=== PATIENT | female | born 1940 | race Caucasian/White ===

== ENCOUNTER 2016-09-22 06:51 | Day surgery (SDC) | payer MEDICARE ==
[2016-09-22] MEDS ORDERED: Propofol 10 mg/ml Inj (20 ML) ONE (09:05)
[2016-09-22] MEDS ORDERED: Lidocaine Hydrochloride 5 ML INJ ONE (09:23)
[2016-09-22 09:51] VITALS: TEMP 98
[2016-09-22 10:47] VITALS: RESP 18
[2016-09-22 10:49] VITALS: BP 124/55; PULSE 70; O2SAT 100
== END 2016-09-22 10:45 | disposition home or self-care (01) ==
LOC: C.ENDO 06:51
PROVIDERS: ATTEND Internal Medicine Gastroenterology
DX: R10.13 Epigastric pain (principal); K44.9 Diaphragmatic hernia without obstruction or gangrene; K29.70 Gastritis, unspecified, without bleeding
CPT/HCPCS: 43239; 82948; 88305; J2704

== ENCOUNTER 2017-08-20 15:27 | Inpatient (IN) | payer MEDICARE ==
[2017-08-20 16:07] LABS: BASO % 0.3 % (0.0-2.0); HEMOGLOBIN 12.7 g/dL (11.0-16.0); LYMPH # 0.7 K/uL (1.0-4.3); LYMPH % 6.9 % (20.0-40.0); MEAN CORPUSCULAR HEMOGLOBIN 31.2 pg (27.0-31.0); MEAN PLATELET VOLUME 7.8 fL (7.2-11.7); MONO # 0.8 K/uL (0.0-0.8); NEUT # 8.7 K/uL (1.8-7.0); NEUT % 84.8 % (50.0-75.0); NRBC % 0.1 % (0.0-2.0); PLATELET COUNT 205 K/uL (130-400); RBC 4.08 Mil/uL (3.80-5.20); RED CELL DISTRIBUTION WIDTH 14.8 % (11.5-14.5)
[2017-08-20] MEDS ORDERED: Sodium Chloride 0.9% 1,000 ML IV ONE (16:11)
[2017-08-20 16:13] LABS: WHITE BLOOD COUNT 10.3 K/uL (4.8-10.8)
--- NOTE | 2017-08-20 16:16 | C.PDOC ---
History Of Present Illness Pt is a 77 year old female, whose PMHx includes rheumatoid arthritis, diabetes, malabsorption syndrome, biliary sludge, and hyperthyroidism who presents to the ED for evaluation of mid-epigastric abdominal pain which began months ago but worsened over the past 3 weeks and is unbearable today. Patient also reports occasional vomiting and has not taken medicine for symptoms. She was evaluated by Dr. Colmenares (GI) approx [address] Colmenares recommended pt have abdominal ultrasound (paperwork brought to ED). Patient describes her pain as constant in nature, non-radiating and states it is 10/10 in severity. Patient reports her pain is neither exacerbated nor relieved with eating. She denies fever, chills, and diarrhea. Patient also is losing weight. Patient denies social history. Reports family history of cancer. PMD: Dr. Branham / Time Seen by Provider: 08/20/17 15:46 Chief Complaint (Nursing): Abdominal Pain History Per: Patient History/Exam Limitations: no limitations Onset/Duration Of Symptoms: Other (months, worsened over 3 weeks ) Current Symptoms Are (Timing): Worse Severity: Severe Pain Scale Rating Of: 10 Location Of Pain/Discomfort: Epigastric (mid ) Radiation Of Pain To:: None Quality Of Discomfort: "Pain" Associated Symptoms: Vomiting. denies: Fever, Chills, Diarrhea Exacerbating Factors: None Alleviating Factors: None Additional History Per: Patient Past Medical History Reviewed: Historical Data, Nursing Documentation, Vital Signs Vital Signs: Last Vital Signs Temp 98.4 F 08/20/17 15:37 Pulse 91 H 08/20/17 18:16 Resp 16 08/20/17 18:16 BP 140/74 08/20/17 18:16 Pulse Ox 96 08/20/17 18:44 - Medical History PMH: Anemia, Colonic Polyps, Diabetes, Hyperthyroidism, Rheumatoid Arthritis Other PMH: biliary sludge Surgical History: Appendectomy Denies: Endoscopy Family History: States: Other Other Family History: cancer - Social History Hx Tobacco Use: No Hx Alcohol Use: No Hx Substance Use: No - Immunization History Hx Tetanus Toxoid Vaccination: No Hx Influenza Vaccination: Yes Hx Pneumococcal Vaccination: Yes Review Of Systems Constitutional: Negative for: Fever, Chills Gastrointestinal: Positive for: Vomiting, Abdominal Pain (mid-epigastric ). Negative for: Diarrhea Physical Exam - Physical Exam Appears: Non-toxic, Other (uncomfortable, crying ) Skin: Warm, Dry, Other (vitiligo to scalp) Head: Atraumatic, Normacephalic Eye(s): bilateral: Normal Inspection, EOMI Ear(s): Bilateral: Normal Nose: Normal Oral Mucosa: Moist Tongue: Normal Appearing Lips: Normal Appearing Throat: Normal Neck: Normal, Supple Lymphatic: Deferred Chest: Symmetrical, No Deformity, No Tenderness Cardiovascular: Rhythm Regular, No Murmur Respiratory: Normal Breath Sounds, No Rales, No Rhonchi, No Wheezing Gastrointestinal/Abdominal: Bowel Sounds (present ), Soft, Tenderness ((+) RUQ tenderness but no mid-epigastric tenderness), No Guarding, No Rebound Rectal: Deferred Back: Normal Inspection Extremity: Normal ROM, Capillary Refill (less than 2 seconds ) Extremity: Bilateral: Atraumatic, Normal ROM Neurological/Psych: Oriented x3, Normal Speech, Normal Motor, Normal Sensation ED Course And Treatment - Laboratory Results Result Diagrams: 08/20/17 16:04 08/20/17 16:04 O2 Sat by Pulse Oximetry: 96 (on RA) Pulse Ox Interpretation: Normal Medical Decision Making Medical Decision Making: Initial Impression: undifferentiated abdominal pain Initial Plan: * bloodwork * urinalysis * abdominal US * Pepcid IVP * Morphine IVP * IV Fluids * reassess and disposition Progress note(s): 5:51 PM - Patient with extremely elevated LFTs, lipase >20,000. LDH is pending (to determine Ransens criteria score). I discussed case with patient GI physician (Dr. Colmenares) and he recommends ultrasound, aggressive fluid resuscitation (250mL/hr during the overnight) and ICU evaluation to determine if to go to floor vs. ICU. Private of Dr. Branham (who admits to hospitalist). I spoke to cardiac technician--she is driving in to do ultrasound. 6:00 PM - Admission endorsed to Hospitalist Dr. Amadou Montague 6:11 PM -- LDH very elevated. Case just d/w Dr. Herman; agrees with admission to ICU. He states ultrasound will be very helpful. If ultrasound is non-diagnostic, then advises to get CT scan. Lactate 1.0, ph 7.35 6:30 PM - Resident is at bedside evaluating the pt 6:40 PM - Certified Ophthalmic Surgical Assistant (Dr. Herman) is at the bedside evaluating pt. 6:52 PM - Pt is going to ultrasound now and then will go to ICU. Inpatient service will follow ultrasound results. I am signing off on the case now. . Disposition Counseled Patient/Family Regarding: Studies Performed, Diagnosis - Disposition Disposition: HOSPITALIZED Disposition Time: 17:46 Condition: SERIOUS - Clinical Impression Clinical Impression: Pancreatitis - Scribe Statement The provider has reviewed the documentation as recorded by the Scribe (Ene Gaffney) Provider Attestation: All medical record entries made by the Scribe were at my direction and personally dictated by me. I have reviewed the chart and agree that the record accurately reflects my personal performance of the history, physical exam, medical decision making, and the department course for this patient. I have also personally directed, reviewed, and agree with the discharge instructions and disposition. Decision To Admit - Pt Status Changed To: Hospital Disposition Of: Inpatient - Admit Certification Admit to Inpatient:: After my assessment, the patient will require hospitalization for at least two midnights. This is because of the severity of symptoms shown, intensity of services needed, and/or the medical risk in this patient being treated as an outpatient. - InPatient: Physician Admission Certification:: Pt with severe pancreatitis. - . Bed Request Type: ICU Admitting Physician: Amadou Montague Patient Diagnosis: Pancreatitis
[2017-08-20 16:21] LABS: ALB/GLOB RATIO 0.6 (1.0-2.1); ALBUMIN 3.9 g/dL (3.5-5.0); CALCIUM 9.2 mg/dl (8.6-10.4); GFR AFRICAN-AMERICAN > 60; GFR NON-AFRICAN AMERICAN > 60
[2017-08-20 16:25] LABS: ALT/SGPT 588 U/L (9-52); AST/SGOT 619 U/L (14-36); BLOOD UREA NITROGEN 14 mg/dL (7-17)
[2017-08-20] MEDS ORDERED: Morphine 4 MG/ML VIAL ONE (16:37)
[2017-08-20 16:43] LABS: BANDS 7 % (0-2); LYMPHOCYTE 5 % (20-40); MONOCYTE 10 % (0-10); NEUTROPHIL 78 % (50-75); PLATELET ESTIMATE NORMAL (NORMAL); TOTAL CELLS COUNTED 100
[2017-08-20 16:44] LABS: ANISOCYTOSIS SLIGHT; HYPOCHROMIC SLIGHT; LARGE PLATELETS PRESENT; OVALOCYTES SLIGHT; POIKILOCYTOSIS SLIGHT
[2017-08-20 17:27] LABS: LIPASE 20144 U/L (23-300)
[2017-08-20] MEDS ORDERED: Sodium Chloride 0.9% 3,000 ML IV SCH (17:45)
[2017-08-20 18:00] LABS: VENOUS BLOOD GAS BASE EXCESS 3.8 mmol/L (0.0-2.0); VENOUS BLOOD GAS PCO2 56 mmHg (40-60); VENOUS BLOOD GAS PO2 16 mm/Hg (30-55); VENOUS BLOOD PH 7.35 (7.32-7.43)
[2017-08-20] MEDS ORDERED: Morphine 4 MG/ML VIAL IVP PRN (18:23)
[2017-08-20] MEDS ORDERED: Lactated Ringer's 1,000 ML IV SCH (18:30)
[2017-08-20 18:45] LABS: SQUAMOUS EPITHIAL 1 /hpf (0-5); URINE BACTERIA OCC (<OCC); URINE BILIRUBIN NEGATIVE (NEGATIVE); URINE BLOOD NEGATIVE (NEGATIVE); URINE CLARITY Clear (Clear); URINE COLOR Yellow (YELLOW); URINE GLUCOSE (UA) NORMAL (Normal); URINE LEUKOCYTE ESTERASE TRACE Leu/uL (Negative); URINE PROTEIN NEGATIVE (NEGATIVE)
--- NOTE | 2017-08-20 18:47 | CP.PCM.HP ---
<Wilda Bailey - Last Filed: 08/20/17 18:47> History of Present Illness - History of Present Illness History of Present Illness: HPI: Patient is a 77 year old female from [facility] with a PMH of RA and DM who presents to the ED complaining of abdominal pain. Patient says this started last year and she saw Dr. Colmenares but is unsure if anything was ever determined. Patient says the abdominal pain went away but came back 3 weeks ago and gradually worsened to a constant, sharp, 10 out of 10 pain in her epigastric area radiating to her back. Patient says nothing makes the pain worse and nothing makes it better either. Patient also admits to decreased appetite and unintentional weight loss from 180s to 114 pounds. Patient admits to 3 episodes of nonbloody, yellowish colored vomiting prior to coming to the ED today. she also admits to dysuria of 2 days, constipation, and dry cough. Patient denies fever, chills, diaphoresis, night sweats, headache, dizziness, changes in vision/hearing, sore throat, dysphagia, chest pain, palpitations, SOB , hematochezia, melena, urinary frequency, leg pain/swelling, rashes, easy bruising, and recent travel or illness. PMD: Dr. Rollins PMH: RA, DM Meds: Embril injection weekly Allergies: NKDA Surg: endoscopy 2017(hiatal hernia, gastritis, colonoscopy 2016 (f/u 5 years), laparotomy (in [facility], no details), appendectomy Social: lives alone, denies tobacco/alcohol/drug use Family: Mother of unknown intestinal cancer, father with diabetes Present on Admission - Present on Admission Any Indicators Present on Admission: No Review of Systems - Review of Systems All systems: reviewed and no additional remarkable complaints except (as per HPI ) Past Patient History - Past Medical History & Family History Past Medical History?: Yes - Past Social History Smoking Status: Never Smoked - CARDIAC Hx Heart Attack: No - PULMONARY Hx Respiratory Disorders: No - NEUROLOGICAL Hx Transient Ischemic Attacks (TIA): No - HEENT Hx Cataracts: Yes (CALEB.; NO SURGERY) - RENAL Hx Chronic Kidney Disease: No - ENDOCRINE/METABOLIC Hx Hyperthyroidism: Yes - HEMATOLOGICAL/ONCOLOGICAL Hx Anemia: Yes - INTEGUMENTARY Hx Dermatological Problems: No - MUSCULOSKELETAL/RHEUMATOLOGICAL Hx Rheumatoid Arthritis: Yes - GASTROINTESTINAL Hx Gastrointestinal Disorders: Yes - GENITOURINARY/GYNECOLOGICAL Hx Genitourinary Disorders: No - PSYCHIATRIC Hx Substance Use: No - SURGICAL HISTORY Hx Appendectomy: Yes - ANESTHESIA Hx Anesthesia: Yes Hx Anesthesia Reactions: No Hx Malignant Hyperthermia: No Meds Allergies/Adverse Reactions: Allergies Allergy/AdvReac Type Severity Reaction Status Date / Time weed pollen Allergy CONGESTION Verified 08/20/17 15:41 Physical Exam - Constitutional Appears: Non-toxic, No Acute Distress, Cachectic - Head Exam Head Exam: ATRAUMATIC, NORMAL INSPECTION, NORMOCEPHALIC - Eye Exam Eye Exam: EOMI, Normal appearance, PERRL. absent: Scleral icterus - ENT Exam ENT Exam: Mucous Membranes Moist - Neck Exam Neck exam: Positive for: Normal Inspection - Respiratory Exam Respiratory Exam: Clear to Auscultation Bilateral, NORMAL BREATHING PATTERN - Cardiovascular Exam Cardiovascular Exam: REGULAR RHYTHM, +S1, +S2. absent: Bradycardia, Tachycardia , Gallop, Rubs, Systolic Murmur - GI/Abdominal Exam GI & Abdominal Exam: Guarding (voluntary ), Hypoactive Bowel Sounds, Soft, Tenderness (epigastric and upper quadrants ). absent: Distended - Extremities Exam Extremities exam: Positive for: normal inspection. Negative for: calf tenderness, pedal edema - Back Exam Back exam: NORMAL INSPECTION - Neurological Exam Neurological exam: Alert, Oriented x3 - Psychiatric Exam Psychiatric exam: Normal Affect, Normal Mood - Skin Skin Exam: Dry, Intact, Normal Color, Warm Results - Vital Signs Recent Vital Signs: Last Vital Signs Temp 98.4 F 08/20/17 15:37 Pulse 91 H 08/20/17 18:16 Resp 16 08/20/17 18:16 BP 140/74 08/20/17 18:16 Pulse Ox 96 08/20/17 18:44 - Labs Result Diagrams: 08/20/17 16:04 08/20/17 16:04 Labs: Laboratory Results - last 24 hr 08/20/17 08/20/17 08/20/17 16:04 16:04 17:54 WBC 10.3 D RBC 4.08 Hgb 12.7 Hct 36.3 MCV 89.0 MCH 31.2 H MCHC 35.0 RDW 14.8 H Plt Count 205 MPV 7.8 Neut % (Auto) 84.8 H Lymph % (Auto) 6.9 L Branch % (Auto) 8.0 Eos % (Auto) 0.0 Baso % (Auto) 0.3 Neut # (Auto) 8.7 H Lymph # (Auto) 0.7 L Branch # (Auto) 0.8 Eos # (Auto) 0.0 Baso # (Auto) 0.0 Neutrophils % (Manual) 78 H Band Neutrophils % 7 H Lymphocytes % (Manual) 5 L Monocytes % (Manual) 10 Platelet Estimate Normal Large Platelets Present Hypochromasia (manual) Slight Poikilocytosis (manual Slight Anisocytosis (manual) Slight Ovalocytes Slight pO2 16 L VBG pH 7.35 VBG pCO2 56 VBG HCO3 25.8 VBG Total CO2 32.6 H VBG O2 Sat (Calc) 26.3 L VBG Base Excess 3.8 H VBG Potassium 3.6 Glucose 146 H Lactate 1.0 Sodium 141 140.0 Potassium 4.2 Chloride 97 L 104.0 Carbon Dioxide 30 Anion Gap 18 BUN 14 Creatinine 0.6 L Est GFR ( Amer) > 60 Est GFR (Non-Af Amer) > 60 Random Glucose 126 H Calcium 9.2 Total Bilirubin 2.6 H AST 619 H D ALT 588 H D Alkaline Phosphatase 338 H D Lactate Dehydrogenase 1367 H Total Protein 10.3 H Albumin 3.9 Globulin 6.3 H Albumin/Globulin Ratio 0.6 L Lipase 39060 H Venous Blood Potassium 3.6 Assessment & Plan - Assessment and Plan (Free Text) Plan: Pancreatitis * AST/ALT: 619/558 * TBili: 2.6 * Lipase: 71470 * LDH: 1367 * Ransons on admission: 3 - 15% predicted mortality * VBG lactate: 1 * NPO * LR @ 250 cc/h - aggressive fluid hydration * GI consult (Dr. Quinn), help appreciated * F/U abdominal US - consider CT abdomen if nondiagnostic * F/U MRCP * F/U CXR * Morphine 2mg IV Q4H PRN pain * Zofran PRN nausea * Admit to ICU * follow up AM labs RA * On Embrel injections weekly at home Prophylaxis * SCDs * Will hold chemical anticoagulation pending scans * NPO <Morro Thapa - Last Filed: 08/20/17 19:23> Results - Vital Signs Recent Vital Signs: Last Vital Signs Temp 98.4 F 08/20/17 15:37 Pulse 91 H 04/14/18 18:16 Resp 16 08/20/17 18:16 BP 140/74 08/20/17 18:16 Pulse Ox 96 08/20/17 18:55 - Labs Result Diagrams: 08/20/17 16:04 08/20/17 16:04 Labs: Laboratory Results - last 24 hr 08/20/17 08/20/17 08/20/17 16:04 16:04 17:54 WBC 10.3 D RBC 4.08 Hgb 12.7 Hct 36.3 MCV 89.0 MCH 31.2 H MCHC 35.0 RDW 14.8 H Plt Count 205 MPV 7.8 Neut % (Auto) 84.8 H Lymph % (Auto) 6.9 L Branch % (Auto) 8.0 Eos % (Auto) 0.0 Baso % (Auto) 0.3 Neut # (Auto) 8.7 H Lymph # (Auto) 0.7 L Branch # (Auto) 0.8 Eos # (Auto) 0.0 Baso # (Auto) 0.0 Neutrophils % (Manual) 78 H Band Neutrophils % 7 H Lymphocytes % (Manual) 5 L Monocytes % (Manual) 10 Platelet Estimate Normal Large Platelets Present Hypochromasia (manual) Slight Poikilocytosis (manual Slight Anisocytosis (manual) Slight Ovalocytes Slight pO2 16 L VBG pH 7.35 VBG pCO2 56 VBG HCO3 25.8 VBG Total CO2 32.6 H VBG O2 Sat (Calc) 26.3 L VBG Base Excess 3.8 H VBG Potassium 3.6 Glucose 146 H Lactate 1.0 Sodium 141 140.0 Potassium 4.2 Chloride 97 L 104.0 Carbon Dioxide 30 Anion Gap 18 BUN 14 Creatinine 0.6 L Est GFR ( Amer) > 60 Est GFR (Non-Af Amer) > 60 Random Glucose 126 H Calcium 9.2 Total Bilirubin 2.6 H AST 619 H D ALT 588 H D Alkaline Phosphatase 338 H D Lactate Dehydrogenase 1367 H Total Protein 10.3 H Albumin 3.9 Globulin 6.3 H Albumin/Globulin Ratio 0.6 L Lipase 23279 H Venous Blood Potassium 3.6 Urine Color Urine Clarity Urine pH Ur Specific Acworth Urine Protein Urine Glucose (UA) Urine Ketones Urine Blood Urine Nitrate Urine Bilirubin Urine Urobilinogen Ur Leukocyte Esterase Urine WBC (Auto) Urine RBC (Auto) Ur Squamous Epith Cells Ur Transition Epith Cell Urine Bacteria 08/20/17 18:16 WBC RBC Hgb Hct MCV MCH MCHC RDW Plt Count MPV Neut % (Auto) Lymph % (Auto) Branch % (Auto) Eos % (Auto) Baso % (Auto) Neut # (Auto) Lymph # (Auto) Branch # (Auto) Eos # (Auto) Baso # (Auto) Neutrophils % (Manual) Band Neutrophils % Lymphocytes % (Manual) Monocytes % (Manual) Platelet Estimate Large Platelets Hypochromasia (manual) Poikilocytosis (manual Anisocytosis (manual) Ovalocytes pO2 VBG pH VBG pCO2 VBG HCO3 VBG Total CO2 VBG O2 Sat (Calc) VBG Base Excess VBG Potassium Glucose Lactate Sodium Potassium Chloride Carbon Dioxide Anion Gap BUN Creatinine Est GFR ( Amer) Est GFR (Non-Af Amer) Random Glucose Calcium Total Bilirubin AST ALT Alkaline Phosphatase Lactate Dehydrogenase Total Protein Albumin Globulin Albumin/Globulin Ratio Lipase Venous Blood Potassium Urine Color Yellow Urine Clarity Clear Urine pH 6.0 Ur Specific [place] 1.008 Urine Protein Negative Urine Glucose (UA) Normal Urine Ketones Negative Urine Blood Negative Urine Nitrate Negative Urine Bilirubin Negative Urine Urobilinogen 2.0 H Ur Leukocyte Esterase Trace Urine WBC (Auto) 3 Urine RBC (Auto) < 1 Ur Squamous Epith Cells 1 Ur Transition Epith Cell < 1 Urine Bacteria Occ H Attending/Attestation - Attestation I have personally seen and examined this patient.: Yes I have fully participated in the care of the patient.: Yes I have reviewed all pertinent clinical information: Yes Notes (Text): Patient seen and examined, Agree with above. Patient with chronic abdominal pain for the past "several months" progressively getting worse with significant unintentional weight loss Labs significant for significant elevation of lipase, ALP, LDH, Tbili and transaminitis and thus worrisome for acute pancreatitis and/or hepatobiliary obstruction Significant weight loss, family history of GI malignancy in mother - Would consider pancreatic malignancy high in the differential. Ransons score of 3 with severe pancreatitis and 15% predicted mortality Pending u/s of the abdomen for more sensitive imaging to assess CBD. GI consulted with Dr Colmenares. Will need MRCP. Will defer CT imaging of the abdomen/pelvis to ICU and/or GI Agree with admission to medical ICU for close monitoring Pain mx with Morphine IV prn, aggressive fluid hydration. Keep NPO Plan of care made aware to the patient and daughter at bedside Further diagnostics, management and/or intervention as per progression of the patient's hospital course.
[2017-08-20] MEDS: Lactated Ringer's 1,000 ML IV SCH ×2 (19:45→20:32)
--- NOTE | 2017-08-20 19:54 | US ---
EXAM: US Abdomen Limited, Right Upper Quadrant EXAM DATE/TIME: Exam ordered 08/20/2017 4:11 PM CLINICAL HISTORY: 77 years old, female; Pain; Abdominal pain; Generalized; Additional info: Abd pain x 3wks; Gi doctor recommends us TECHNIQUE: Real-time ultrasound of the right upper quadrant with image documentation. COMPARISON: US - ABDOMEN COMPLETE 2017-03-22 07:54 FINDINGS: Liver: The liver measures 17.2 cm in craniocaudal span. There is central and intrahepatic ductal dilatation. Gallbladder: The gallbladder is distended and contains a small amount of sludge and multiple gallstones.. A gallstone is noted within the common bile duct within the pancreatic head. Common bile duct: The common bile duct is dilated at 1.1 cm (previous 0.76 cm) Pancreas: The pancreatic duct measures 0.39 cm. Right kidney: Normal phasic flow is noted in the middle hepatic vein. The right kidney measures 9.2 x 3.5 x 4.8 cm. No stones. No hydronephrosis. Free fluid: There is normal blood flow direction in the main portal vein. A trace amount of free fluid is noted in the inferior liver. IMPRESSION: 1. Gallstones with choledocholithiasis and secondary dilatation of the central intrahepatic ducts 2. Mild hepatomegaly. 3. Trace amount of ascites at the inferior liver edge 4. Progressive dilatation of the pancreatic duct which measures 0.39 cm compared to previous measurement of 0.28 cm on 03/22/2017.
[2017-08-21] MEDS: Lactated Ringer's 1,000 ML IV SCH ×4 (02:59→22:29)
[2017-08-21 06:22] LABS: BASO % 0.1 % (0.0-2.0); EOS % 0.1 % (0.0-4.0); LYMPH # 0.7 K/uL (1.0-4.3); LYMPH % 7.3 % (20.0-40.0); MEAN CELL VOLUME 88.1 fL (81.0-99.0); MEAN CORPUSCULAR HEMOGLOBIN 31.1 pg (27.0-31.0); MEAN CORPUSCULAR HGB CONC 35.3 g/dL (33.0-37.0); MEAN PLATELET VOLUME 7.7 fL (7.2-11.7); MONO # 0.8 K/uL (0.0-0.8); NEUT # 7.7 K/uL (1.8-7.0); NEUT % 83.5 % (50.0-75.0); PLATELET COUNT 166 K/uL (130-400); RBC 3.54 Mil/uL (3.80-5.20); RED CELL DISTRIBUTION WIDTH 14.7 % (11.5-14.5); WHITE BLOOD COUNT 9.3 K/uL (4.8-10.8)
[2017-08-21 06:32] LABS: ALB/GLOB RATIO 0.7 (1.0-2.1); ALT/SGPT 475 U/L (9-52); AST/SGOT 404 U/L (14-36); BLOOD UREA NITROGEN 14 mg/dL (7-17); CALCIUM 8.8 mg/dl (8.6-10.4); GFR AFRICAN-AMERICAN > 60; GFR NON-AFRICAN AMERICAN > 60
--- NOTE | 2017-08-21 07:39 | CP.PCM.CON ---
History of Present Illness - History of Present Illness History of Present Illness: Chief complaint: Abdominal pain HPI: 77-year-old female with a history of diabetes hypertension, rheumatoid arthritis on Enbrel injection came to the emergencPatient is suffering from chronic abdominal pain, and also weight loss for 2 years gradually getting worse. Recently she started having increasing abdominal pain, went to see utilization review coordinator. But had pain got more worse, and started having increasing abdominal discomfort , nausea, and episodes of vomiting. So patient came to the emergency room. In the emergency room patient underwent blood work, showing evidence of acute pancreatitis. Pain is now reduced with the morphine injection. She did not have any vomiting. Complaining of of mild discomfort. No diarrhea noted, denies any fever Past medical history: Diabetes, hypertension, rheumatoid arthritis Allergy no known drug allergy Personal history: Nonsmoker nonalcoholic Surgical history none Family history: Nonspecific. No history of any malignancy Review of system: Combining of no headache, appetite is good, but not able to eat well, episodes of nausea and abdominal pain noted. Weight loss present. On examination: Vital signs stable. Chest good air entry bilaterally regular not so nontender abdomen. Diffuse tenderness especially in the epigastric and right upper quadrant HOSPITAL PERSONNEL DIRECTOR alert awake oriented no pedal edema Labs reviewed Elevated lipase, and LFTs noted. Sonogram pending Assessment/recommendation: 77-year-old female with a history of diabetes hypertension hypercholesterolemia , rheumatoid arthritis. Now admitted with a possible acute pancreatitis. Thus cause is unclear. Possibility of gallstones cannot be ruled out. Sonogram pending Gastrointestinal evaluation. DVT GI prophylaxis IV fluid rehydration intensive care unit monitoring and will follow-up the patienty room with worsening abdominal pain. Past Patient History - Past Medical History & Family History Past Medical History?: Yes - Past Social History Smoking Status: Never Smoked - CARDIAC Hx Cardiac Disorders: No Hx Heart Attack: No - PULMONARY Hx Respiratory Disorders: No - NEUROLOGICAL Hx Neurological Disorder: No Hx Transient Ischemic Attacks (TIA): No - HEENT Hx HEENT Problems: Yes Hx Cataracts: Yes (CALEB.; NO SURGERY) - RENAL Hx Chronic Kidney Disease: No - ENDOCRINE/METABOLIC Hx Endocrine Disorders: Yes Hx Hyperthyroidism: Yes - HEMATOLOGICAL/ONCOLOGICAL Hx Blood Disorders: Yes Hx Anemia: Yes - INTEGUMENTARY Hx Dermatological Problems: No - MUSCULOSKELETAL/RHEUMATOLOGICAL Hx Musculoskeletal Disorders: Yes Hx Falls: Yes Hx Rheumatoid Arthritis: Yes - GASTROINTESTINAL Hx Gastrointestinal Disorders: Yes - GENITOURINARY/GYNECOLOGICAL Hx Genitourinary Disorders: No - PSYCHIATRIC Hx Psychophysiologic Disorder: No Hx Substance Use: No - SURGICAL HISTORY Hx Surgeries: Yes Hx Appendectomy: Yes - ANESTHESIA Hx Anesthesia: Yes Hx Anesthesia Reactions: No Hx Malignant Hyperthermia: No Has any member of the family had a problem w/ anesthesia?: No Meds Allergies/Adverse Reactions: Allergies Allergy/AdvReac Type Severity Reaction Status Date / Time weed pollen Allergy CONGESTION Verified 08/20/17 15:41 - Medications Medications: Current Medications Lactated Ringer's (Lactated Ringer's) 1,000 mls @ 125 mls/hr IV .Q8H [facility] Last Admin: 08/21/17 02:59 Dose: 125 mls/hr Morphine Sulfate (Morphine) 2 mg IVP Q4 PRN PRN Reason: Pain, severe (8-10) Ondansetron HCl (Zofran Inj) 4 mg IVP Q6 PRN PRN Reason: Nausea/Vomiting Results - Vital Signs Recent Vital Signs: Last Vital Signs Temp 97.8 F 08/21/17 06:00 Pulse 92 H 08/21/17 07:03 Resp 17 08/21/17 07:03 BP 118/67 08/21/17 07:03 Pulse Ox 97 08/21/17 07:03 - Labs Result Diagrams: 08/21/17 06:10 08/21/17 06:10 Labs: Laboratory Results - last 24 hr 08/20/17 08/20/17 08/20/17 16:04 16:04 17:54 WBC 10.3 D RBC 4.08 Hgb 12.7 Hct 36.3 MCV 89.0 MCH 31.2 H MCHC 35.0 RDW 14.8 H Plt Count 205 MPV 7.8 Neut % (Auto) 84.8 H Lymph % (Auto) 6.[address] [place] % (Auto) 8.0 Eos % (Auto) 0.0 Baso % (Auto) 0.3 Neut # (Auto) 8.7 H Lymph # (Auto) 0.[address] [place] # (Auto) 0.8 Eos # (Auto) 0.0 Baso # (Auto) 0.0 Neutrophils % (Manual) 78 H Band Neutrophils % 7 H Lymphocytes % (Manual) 5 L Monocytes % (Manual) 10 Platelet Estimate Normal Large Platelets Present Hypochromasia (manual) Slight Poikilocytosis (manual Slight Anisocytosis (manual) Slight Ovalocytes Slight pO2 16 L VBG pH 7.35 VBG pCO2 56 VBG HCO3 25.8 VBG Total CO2 32.6 H VBG O2 Sat (Calc) 26.3 L VBG Base Excess 3.8 H VBG Potassium 3.6 Glucose 146 H Lactate 1.0 Sodium 141 140.0 Potassium 4.2 Chloride 97 L 104.0 Carbon Dioxide 30 Anion Gap 18 BUN 14 Creatinine 0.6 L Est GFR ( Amer) > 60 Est GFR (Non-Af Amer) > 60 Random Glucose 126 H Calcium 9.2 Total Bilirubin 2.6 H AST 619 H D ALT 588 H D Alkaline Phosphatase 338 H D Lactate Dehydrogenase 1367 H Total Protein 10.3 H Albumin 3.9 Globulin 6.3 H Albumin/Globulin Ratio 0.6 L Lipase 93405 H Venous Blood Potassium 3.6 Urine Color Urine Clarity Urine pH Ur Specific [place] Urine Protein Urine Glucose (UA) Urine Ketones Urine Blood Urine Nitrate Urine Bilirubin Urine Urobilinogen Ur Leukocyte Esterase Urine WBC (Auto) Urine RBC (Auto) Ur Squamous Epith Cells Ur Transition Epith Cell Urine Bacteria 08/20/17 08/21/17 08/21/17 18:16 06:10 06:10 WBC 9.3 RBC 3.54 L Hgb 11.0 Hct 31.2 L MCV 88.1 MCH 31.1 H MCHC 35.3 RDW 14.7 H Plt Count 166 MPV 7.7 Neut % (Auto) 83.5 H Lymph % (Auto) 7.[address] [place] % (Auto) 9.0 Eos % (Auto) 0.1 Baso % (Auto) 0.1 Neut # (Auto) 7.7 H Lymph # (Auto) 0.[address] [place] # (Auto) 0.8 Eos # (Auto) 0.0 Baso # (Auto) 0.0 Neutrophils % (Manual) Band Neutrophils % Lymphocytes % (Manual) Monocytes % (Manual) Platelet Estimate Large Platelets Hypochromasia (manual) Poikilocytosis (manual Anisocytosis (manual) Ovalocytes pO2 VBG pH VBG pCO2 VBG HCO3 VBG Total CO2 VBG O2 Sat (Calc) VBG Base Excess VBG Potassium Glucose Lactate Sodium 139 Potassium 3.5 L Chloride 98 Carbon Dioxide 32 H Anion Gap 12 BUN 14 Creatinine 0.7 Est GFR ( Amer) > 60 Est GFR (Non-Af Amer) > 60 Random Glucose 85 Calcium 8.8 Total Bilirubin 4.7 H AST 404 H D ALT 475 H Alkaline Phosphatase 255 H D Lactate Dehydrogenase Total Protein 7.4 Albumin 3.0 L D Globulin 4.5 H Albumin/Globulin Ratio 0.7 L Lipase Venous Blood Potassium Urine Color Yellow Urine Clarity Clear Urine pH 6.0 Ur Specific [place] 1.008 Urine Protein Negative Urine Glucose (UA) Normal Urine Ketones Negative Urine Blood Negative Urine Nitrate Negative Urine Bilirubin Negative Urine Urobilinogen 2.0 H Ur Leukocyte Esterase Trace Urine WBC (Auto) 3 Urine RBC (Auto) < 1 Ur Squamous Epith Cells 1 Ur Transition Epith Cell < 1 Urine Bacteria Occ H
--- NOTE | 2017-08-21 08:27 | RAD ---
HISTORY: pancreatitis, getting high amount of fluids COMPARISON: No prior. FINDINGS: LUNGS: Prominent lung markings. No evidence of focal infiltrate or consolidation in the lungs. PLEURA: No significant pleural effusion identified, no pneumothorax apparent. CARDIOVASCULAR: Normal. OSSEOUS STRUCTURES: No significant abnormalities. VISUALIZED UPPER ABDOMEN: Normal. OTHER FINDINGS: None. IMPRESSION: Prominent lung markings. Otherwise no evidence of acute pulmonary disease.
[2017-08-21 08:44] LABS: ANISOCYTOSIS SLIGHT; BANDS 6 % (0-2); EOSINOPHIL 1 % (0-4); LYMPHOCYTE 5 % (20-40); MONOCYTE 9 % (0-10); NEUTROPHIL 79 % (50-75); PLATELET ESTIMATE NORMAL (NORMAL); TOTAL CELLS COUNTED 100
[2017-08-21 08:45] LABS: OVALOCYTES SLIGHT; TARGET CELLS SLIGHT
--- NOTE | 2017-08-21 09:52 | CP.PCM.CON ---
History of Present Illness - History of Present Illness History of Present Illness: this is a 77 year old woman with abdominal pain, nausea and vomiting. Patient is known to me from the office. She had colonoscopy 01/08/2016 which showed hprerplastic polyps and internal hemorrhoids. EGD was performed 2016 and showed hiatal hernia and non-erosive gastritis. She was diagnosed with biliary sludge by sonogram 03/22/2017; at that time the common duct measured 7.[address] scan 04/13/2017 showed distended GB but no calcified gallstones; the CT also reported small bowel wall thickening and dilated loops of small bowel. At the last office visit, 08/09/2017, she complained of lower chest discomfort, cramping, occurring after eating, and lasting over an hour, for the previous two weeks. She was scheduled for a repeat sonogram, but noted worsening of the pain one day prior to admission, which radiated to the upper abdomen and was accompanied by nausea and vomiting (four episodes). She denies having fever, heartburn, difficulty swallowing, diarrhea, constipation, rectal bleeding. In the ER, abdominal tenderness was noted, and the LFTs and lipase were markedly elevated: AST 619, ALT 588, ALKP 338, TBILI 2.6, lipase 84065. Sonogram showed stones in the GB and a dilated distal CBD to 1.1 cm. Review of Systems - Review of Systems All systems: reviewed and no additional remarkable complaints except - Constitutional Constitutional: absent: Chills, Fever, Headache - Cardiovascular Cardiovascular: Chest Pain - Gastrointestinal Gastrointestinal: Abdominal Pain, Nausea, Vomiting. absent: Constipation, Diarrhea, Dysphagia, Heartburn, Hematochezia Past Patient History - Past Medical History & Family History Past Medical History?: Yes - Past Social History Smoking Status: Never Smoked - CARDIAC Hx Cardiac Disorders: No Hx Heart Attack: No - PULMONARY Hx Respiratory Disorders: No - NEUROLOGICAL Hx Neurological Disorder: No Hx Transient Ischemic Attacks (TIA): No - HEENT Hx HEENT Problems: Yes Hx Cataracts: Yes (CALEB.; NO SURGERY) - RENAL Hx Chronic Kidney Disease: No - ENDOCRINE/METABOLIC Hx Endocrine Disorders: Yes Hx Hyperthyroidism: Yes - HEMATOLOGICAL/ONCOLOGICAL Hx Blood Disorders: Yes Hx Anemia: Yes - INTEGUMENTARY Hx Dermatological Problems: No - MUSCULOSKELETAL/RHEUMATOLOGICAL Hx Musculoskeletal Disorders: Yes Hx Falls: Yes Hx Rheumatoid Arthritis: Yes - GASTROINTESTINAL Hx Gastrointestinal Disorders: Yes - GENITOURINARY/GYNECOLOGICAL Hx Genitourinary Disorders: No - PSYCHIATRIC Hx Psychophysiologic Disorder: No Hx Substance Use: No - SURGICAL HISTORY Hx Surgeries: Yes Hx Appendectomy: Yes - ANESTHESIA Hx Anesthesia: Yes Hx Anesthesia Reactions: No Hx Malignant Hyperthermia: No Has any member of the family had a problem w/ anesthesia?: No Meds Allergies/Adverse Reactions: Allergies Allergy/AdvReac Type Severity Reaction Status Date / Time weed pollen Allergy CONGESTION Verified 08/20/17 15:41 - Medications Medications: Current Medications Heparin Sodium (Porcine) (Heparin) 5,000 units SC Q8 [facility] Last Admin: 08/21/17 09:00 Dose: 5,000 units Lactated Ringer's (Lactated Ringer's) 1,000 mls @ 125 mls/hr IV .Q8H [facility] Last Admin: 08/21/17 02:59 Dose: 125 mls/hr Morphine Sulfate (Morphine) 2 mg IVP Q4 PRN PRN Reason: Pain, severe (8-10) Ondansetron HCl (Zofran Inj) 4 mg IVP Q6 PRN PRN Reason: Nausea/Vomiting Pantoprazole Sodium (Protonix Inj) 40 mg IVP DAILY [facility] Last Admin: 08/21/17 09:00 Dose: 40 mg Physical Exam - Constitutional Appears: No Acute Distress - Head Exam Head Exam: ATRAUMATIC, NORMOCEPHALIC - Eye Exam Eye Exam: EOMI, PERRL, Scleral icterus - Neck Exam Neck exam: Negative for: Lymphadenopathy, Thyromegaly - Respiratory Exam Respiratory Exam: NORMAL BREATHING PATTERN. absent: Rales, Rhonchi, Wheezes - Cardiovascular Exam Cardiovascular Exam: REGULAR RHYTHM, +S1, +S2. absent: Gallop, Rubs, Systolic Murmur - GI/Abdominal Exam GI & Abdominal Exam: Normal Bowel Sounds, Soft. absent: Mass, Organomegaly, Tenderness - Rectal Exam Rectal Exam: Deferred - Extremities Exam Extremities exam: Negative for: calf tenderness, pedal edema Results - Vital Signs Recent Vital Signs: Last Vital Signs Temp 98.3 F 08/21/17 08:00 Pulse 88 08/21/17 09:02 Resp 11 L 08/21/17 09:02 BP 123/72 08/21/17 09:02 Pulse Ox 95 08/21/17 09:02 - Labs Result Diagrams: 08/21/17 06:10 08/21/17 06:10 Labs: Laboratory Results - last 24 hr 08/20/17 08/20/17 08/20/17 16:04 16:04 17:54 WBC 10.3 D RBC 4.08 Hgb 12.7 Hct 36.3 MCV 89.0 MCH 31.2 H MCHC 35.0 RDW 14.8 H Plt Count 205 MPV 7.8 Neut % (Auto) 84.8 H Lymph % (Auto) 6.9 L [place] % (Auto) 8.0 Eos % (Auto) 0.0 Baso % (Auto) 0.3 Neut # (Auto) 8.7 H Lymph # (Auto) 0.7 L [place] # (Auto) 0.8 Eos # (Auto) 0.0 Baso # (Auto) 0.0 Neutrophils % (Manual) 78 H Band Neutrophils % 7 H Lymphocytes % (Manual) 5 L Monocytes % (Manual) 10 Eosinophils % (Manual) Platelet Estimate Normal Large Platelets Present Hypochromasia (manual) Slight Poikilocytosis (manual Slight Anisocytosis (manual) Slight Target Cells Ovalocytes Slight pO2 16 L VBG pH 7.35 VBG pCO2 56 VBG HCO3 25.8 VBG Total CO2 32.6 H VBG O2 Sat (Calc) 26.3 L VBG Base Excess 3.8 H VBG Potassium 3.6 Glucose 146 H Lactate 1.0 Sodium 141 140.0 Potassium 4.2 Chloride 97 L 104.0 Carbon Dioxide 30 Anion Gap 18 BUN 14 Creatinine 0.6 L Est GFR ( Amer) > 60 Est GFR (Non-Af Amer) > 60 Random Glucose 126 H Calcium 9.2 Total Bilirubin 2.6 H AST 619 H D ALT 588 H D Alkaline Phosphatase 338 H D Lactate Dehydrogenase 1367 H Total Protein 10.3 H Albumin 3.9 Globulin 6.3 H Albumin/Globulin Ratio 0.6 L Lipase 74779 H Venous Blood Potassium 3.6 Urine Color Urine Clarity Urine pH Ur Specific [place] Urine Protein Urine Glucose (UA) Urine Ketones Urine Blood Urine Nitrate Urine Bilirubin Urine Urobilinogen Ur Leukocyte Esterase Urine WBC (Auto) Urine RBC (Auto) Ur Squamous Epith Cells Ur Transition Epith Cell Urine Bacteria 08/20/17 08/21/17 08/21/17 18:16 06:10 06:10 WBC 9.3 RBC 3.54 L Hgb 11.0 Hct 31.2 L MCV 88.1 MCH 31.1 H MCHC 35.3 RDW 14.7 H Plt Count 166 MPV 7.7 Neut % (Auto) 83.5 H Lymph % (Auto) 7.3 L [place] % (Auto) 9.0 Eos % (Auto) 0.1 Baso % (Auto) 0.1 Neut # (Auto) 7.7 H Lymph # (Auto) 0.7 L [place] # (Auto) 0.8 Eos # (Auto) 0.0 Baso # (Auto) 0.0 Neutrophils % (Manual) 79 H Band Neutrophils % 6 H Lymphocytes % (Manual) 5 L Monocytes % (Manual) 9 Eosinophils % (Manual) 1 Platelet Estimate Normal Large Platelets Hypochromasia (manual) Poikilocytosis (manual Anisocytosis (manual) Slight Target Cells Slight Ovalocytes Slight pO2 VBG pH VBG pCO2 VBG HCO3 VBG Total CO2 VBG O2 Sat (Calc) VBG Base Excess VBG Potassium Glucose Lactate Sodium 139 Potassium 3.5 L Chloride 98 Carbon Dioxide 32 H Anion Gap 12 BUN 14 Creatinine 0.7 Est GFR ( Amer) > 60 Est GFR (Non-Af Amer) > 60 Random Glucose 85 Calcium 8.8 Total Bilirubin 4.7 H AST 404 H D ALT 475 H Alkaline Phosphatase 255 H D Lactate Dehydrogenase Total Protein 7.4 Albumin 3.0 L D Globulin 4.5 H Albumin/Globulin Ratio 0.7 L Lipase Venous Blood Potassium Urine Color Yellow Urine Clarity Clear Urine pH 6.0 Ur Specific [place] 1.008 Urine Protein Negative Urine Glucose (UA) Normal Urine Ketones Negative Urine Blood Negative Urine Nitrate Negative Urine Bilirubin Negative Urine Urobilinogen 2.0 H Ur Leukocyte Esterase Trace Urine WBC (Auto) 3 Urine RBC (Auto) < 1 Ur Squamous Epith Cells 1 Ur Transition Epith Cell < 1 Urine Bacteria Occ H Assessment & Plan (1) Gallstone pancreatitis Assessment and Plan: Patient with history of biliary sludge presents now with severe abdominal pain, now improved, gallstones, dilated CBD, marked elevation of lipase and transaminases, mild elevation of bilirubin. This is consistent with choledocholithiasis and gallstone pancreatitis. Recommend CT scan and MRCP, and ERCP may be indicated. Follow LFTs. Patient should have cholecystectomy on this admission. Status: Acute
[2017-08-21] MEDS ORDERED: Iohexol 240 (50 ml) PO ONE (10:30)
--- NOTE | 2017-08-21 10:38 | CP.PCM.CON ---
<Estefani Mac - Last Filed: 08/21/17 10:30> History of Present Illness - History of Present Illness History of Present Illness: Surgery Consult: Dr. Loo Pt is a 77F with PMHx significant for HTN, DM, and RA who presented to with complaints of abdominal pain. Pt states that her pain started a few weeks ago but kept getting progressively worse. She admits to associated nausea and multiple episodes of non-bloody, non-bilious vomiting yesterday. Pt states her pain was in the epigastric region with some radiation to the RUQ. Admits to having abdominal pain in the past which was worked up by Dr. Colmenares at the time, but pt only had son sludge in her GB and pain resolved. In the ER, pt had an US of her GB which showed sludge as well as stones in the GB and CBD measuring 1.1 cm. Surgery consulted for gallstone pancreatitis. Currently, pt is resting comfortably in the ICU bed. States her abdominal pain has actually resolved and she feels a lot better. Denies any more episodes of vomiting. Denies F/C, chest pain or SOB. PMHx: as stated above PSHx: laparotomy (pt can't recall exact reason), appendectomy SocialHx: denies smoking/EtOH NKDA Review of Systems - Review of Systems All systems: reviewed and no additional remarkable complaints except (as per HPI ) Past Patient History - Past Medical History & Family History Past Medical History?: Yes - Past Social History Smoking Status: Never Smoked - CARDIAC Hx Cardiac Disorders: No Hx Heart Attack: No - PULMONARY Hx Respiratory Disorders: No - NEUROLOGICAL Hx Neurological Disorder: No Hx Transient Ischemic Attacks (TIA): No - HEENT Hx HEENT Problems: Yes Hx Cataracts: Yes (CALEB.; NO SURGERY) - RENAL Hx Chronic Kidney Disease: No - ENDOCRINE/METABOLIC Hx Endocrine Disorders: Yes Hx Hyperthyroidism: Yes - HEMATOLOGICAL/ONCOLOGICAL Hx Blood Disorders: Yes Hx Anemia: Yes - INTEGUMENTARY Hx Dermatological Problems: No - MUSCULOSKELETAL/RHEUMATOLOGICAL Hx Musculoskeletal Disorders: Yes Hx Falls: Yes Hx Rheumatoid Arthritis: Yes - GASTROINTESTINAL Hx Gastrointestinal Disorders: Yes - GENITOURINARY/GYNECOLOGICAL Hx Genitourinary Disorders: No - PSYCHIATRIC Hx Psychophysiologic Disorder: No Hx Substance Use: No - SURGICAL HISTORY Hx Surgeries: Yes Hx Appendectomy: Yes - ANESTHESIA Hx Anesthesia: Yes Hx Anesthesia Reactions: No Hx Malignant Hyperthermia: No Has any member of the family had a problem w/ anesthesia?: No Meds Allergies/Adverse Reactions: Allergies Allergy/AdvReac Type Severity Reaction Status Date / Time weed pollen Allergy CONGESTION Verified 08/20/17 15:41 - Medications Medications: Current Medications Heparin Sodium (Porcine) (Heparin) 5,000 units SC Q8 COUNTS INCLUDE 234 BEDS AT THE [facility] Last Admin: 08/21/17 09:00 Dose: 5,000 units Lactated Ringer's (Lactated Ringer's) 1,000 mls @ 175 mls/hr IV .Q5H43M COUNTS INCLUDE 234 BEDS AT THE [facility] Last Admin: 08/21/17 10:25 Dose: 175 mls/hr Iohexol (Omnipaque 240 (50 Ml)) 50 ml PO ONCE ONE Stop: 08/21/17 10:31 Last Admin: 08/21/17 10:28 Dose: 50 ml Morphine Sulfate (Morphine) 2 mg IVP Q4 PRN PRN Reason: Pain, severe (8-10) Ondansetron HCl (Zofran Inj) 4 mg IVP Q6 PRN PRN Reason: Nausea/Vomiting Pantoprazole Sodium (Protonix Inj) 40 mg IVP DAILY COUNTS INCLUDE 234 BEDS AT THE [facility] Last Admin: 08/21/17 09:00 Dose: 40 mg Physical Exam - Constitutional Appears: Well, No Acute Distress - Head Exam Head Exam: ATRAUMATIC, NORMOCEPHALIC - Eye Exam Eye Exam: Normal appearance - ENT Exam ENT Exam: Mucous Membranes Moist - Respiratory Exam Respiratory Exam: NORMAL BREATHING PATTERN - Cardiovascular Exam Cardiovascular Exam: RRR - GI/Abdominal Exam GI & Abdominal Exam: Soft. absent: Guarding, Rebound, Tenderness - Neurological Exam Neurological exam: Alert, Oriented x3 - Skin Skin Exam: Dry, Intact, Warm Results - Vital Signs Recent Vital Signs: Last Vital Signs Temp 98.3 F 08/21/17 08:00 Pulse 88 08/21/17 09:02 Resp 11 L 08/21/17 09:02 BP 123/72 08/21/17 09:02 Pulse Ox 95 08/21/17 09:02 - Labs Result Diagrams: 08/21/17 06:10 08/21/17 06:10 Labs: Laboratory Results - last 24 hr 08/20/17 08/20/17 08/20/17 16:04 16:04 17:54 WBC 10.3 D RBC 4.08 Hgb 12.7 Hct 36.3 MCV 89.0 MCH 31.2 H MCHC 35.0 RDW 14.8 H Plt Count 205 MPV 7.8 Neut % (Auto) 84.8 H Lymph % (Auto) 6.9 L [place] % (Auto) 8.0 Eos % (Auto) 0.0 Baso % (Auto) 0.3 Neut # (Auto) 8.7 H Lymph # (Auto) 0.7 L [place] # (Auto) 0.8 Eos # (Auto) 0.0 Baso # (Auto) 0.0 Neutrophils % (Manual) 78 H Band Neutrophils % 7 H Lymphocytes % (Manual) 5 L Monocytes % (Manual) 10 Eosinophils % (Manual) Platelet Estimate Normal Large Platelets Present Hypochromasia (manual) Slight Poikilocytosis (manual Slight Anisocytosis (manual) Slight Target Cells Ovalocytes Slight pO2 16 L VBG pH 7.35 VBG pCO2 56 VBG HCO3 25.8 VBG Total CO2 32.6 H VBG O2 Sat (Calc) 26.3 L VBG Base Excess 3.8 H VBG Potassium 3.6 Glucose 146 H Lactate 1.0 Sodium 141 140.0 Potassium 4.2 Chloride 97 L 104.0 Carbon Dioxide 30 Anion Gap 18 BUN 14 Creatinine 0.6 L Est GFR ( Amer) > 60 Est GFR (Non-Af Amer) > 60 Random Glucose 126 H Calcium 9.2 Total Bilirubin 2.6 H AST 619 H D ALT 588 H D Alkaline Phosphatase 338 H D Lactate Dehydrogenase 1367 H Total Protein 10.3 H Albumin 3.9 Globulin 6.3 H Albumin/Globulin Ratio 0.6 L Lipase 07438 H Venous Blood Potassium 3.6 Urine Color Urine Clarity Urine pH Ur Specific [place] Urine Protein Urine Glucose (UA) Urine Ketones Urine Blood Urine Nitrate Urine Bilirubin Urine Urobilinogen Ur Leukocyte Esterase Urine WBC (Auto) Urine RBC (Auto) Ur Squamous Epith Cells Ur Transition Epith Cell Urine Bacteria 08/20/17 08/21/17 08/21/17 18:16 06:10 06:10 WBC 9.3 RBC 3.54 L Hgb 11.0 Hct 31.2 L MCV 88.1 MCH 31.1 H MCHC 35.3 RDW 14.7 H Plt Count 166 MPV 7.7 Neut % (Auto) 83.5 H Lymph % (Auto) 7.3 L [place] % (Auto) 9.0 Eos % (Auto) 0.1 Baso % (Auto) 0.1 Neut # (Auto) 7.7 H Lymph # (Auto) 0.7 L [place] # (Auto) 0.8 Eos # (Auto) 0.0 Baso # (Auto) 0.0 Neutrophils % (Manual) 79 H Band Neutrophils % 6 H Lymphocytes % (Manual) 5 L Monocytes % (Manual) 9 Eosinophils % (Manual) 1 Platelet Estimate Normal Large Platelets Hypochromasia (manual) Poikilocytosis (manual Anisocytosis (manual) Slight Target Cells Slight Ovalocytes Slight pO2 VBG pH VBG pCO2 VBG HCO3 VBG Total CO2 VBG O2 Sat (Calc) VBG Base Excess VBG Potassium Glucose Lactate Sodium 139 Potassium 3.5 L Chloride 98 Carbon Dioxide 32 H Anion Gap 12 BUN 14 Creatinine 0.7 Est GFR ( Amer) > 60 Est GFR (Non-Af Amer) > 60 Random Glucose 85 Calcium 8.8 Total Bilirubin 4.7 H AST 404 H D ALT 475 H Alkaline Phosphatase 255 H D Lactate Dehydrogenase Total Protein 7.4 Albumin 3.0 L D Globulin 4.5 H Albumin/Globulin Ratio 0.7 L Lipase Venous Blood Potassium Urine Color Yellow Urine Clarity Clear Urine pH 6.0 Ur Specific [place] 1.008 Urine Protein Negative Urine Glucose (UA) Normal Urine Ketones Negative Urine Blood Negative Urine Nitrate Negative Urine Bilirubin Negative Urine Urobilinogen 2.0 H Ur Leukocyte Esterase Trace Urine WBC (Auto) 3 Urine RBC (Auto) < 1 Ur Squamous Epith Cells 1 Ur Transition Epith Cell < 1 Urine Bacteria Occ H - Imaging and Cardiology US - abdomen Status: Image reviewed by me, Report reviewed by me Assessment & Plan - Assessment and Plan (Free Text) Assessment: 77F with gallstone pancreatitis & choledocholithiasis as seen on US Plan: - will f/u recs regarding choledocho & further intervention by GI - cholecystectomy once pancreatitis resolves - will cont to monitor - d/w Dr. Eze Mac, PGY-3 <Tre Loo - Last Filed: 08/24/17 16:06> Meds - Medications Medications: Current Medications Heparin Sodium (Porcine) (Heparin) 5,000 units SC Q8 [facility] Last Admin: 08/23/17 13:05 Dose: 5,000 units Lactated Ringer's (Lactated Ringer's) 1,000 mls @ 125 mls/hr IV .Q8H COUNTS INCLUDE 234 BEDS AT THE [facility] Last Admin: 08/24/17 07:02 Dose: Not Given Morphine Sulfate (Morphine) 2 mg IVP Q4 PRN PRN Reason: Pain, severe (8-10) Last Admin: 08/21/17 19:57 Dose: 2 mg Ondansetron HCl (Zofran Inj) 4 mg IVP Q6 PRN PRN Reason: Nausea/Vomiting Pantoprazole Sodium (Protonix Inj) 40 mg IVP DAILY COUNTS INCLUDE 234 BEDS AT THE [facility] Last Admin: 08/24/17 10:34 Dose: 40 mg Results - Vital Signs Recent Vital Signs: Last Vital Signs Temp 97.5 F L 08/24/17 15:05 Pulse 90 08/24/17 15:05 Resp 20 08/24/17 15:05 BP 159/70 H 08/24/17 15:05 Pulse Ox 99 08/24/17 15:05 - Labs Result Diagrams: 08/24/17 11:23 08/24/17 11:23 Labs: Laboratory Results - last 24 hr 08/23/17 08/23/17 08/24/17 16:38 21:02 06:40 WBC RBC Hgb Hct MCV MCH MCHC RDW Plt Count MPV Neut % (Auto) Lymph % (Auto) [place] % (Auto) Eos % (Auto) Baso % (Auto) Neut # (Auto) Lymph # (Auto) [place] # (Auto) Eos # (Auto) Baso # (Auto) Sodium Potassium Chloride Carbon Dioxide Anion Gap BUN Creatinine Est GFR ( Amer) Est GFR (Non-Af Amer) POC Glucose (mg/dL) 86 85 42 L Random Glucose Calcium Total Bilirubin AST ALT Alkaline Phosphatase Total Protein Albumin Globulin Albumin/Globulin Ratio 08/24/17 08/24/17 08/24/17 06:42 07:09 08:24 WBC RBC Hgb Hct MCV MCH MCHC RDW Plt Count MPV Neut % (Auto) Lymph % (Auto) [place] % (Auto) Eos % (Auto) Baso % (Auto) Neut # (Auto) Lymph # (Auto) [place] # (Auto) Eos # (Auto) Baso # (Auto) Sodium Potassium Chloride Carbon Dioxide Anion Gap BUN Creatinine Est GFR ( Amer) Est GFR (Non-Af Amer) POC Glucose (mg/dL) 68 172 H 141 H Random Glucose Calcium Total Bilirubin AST ALT Alkaline Phosphatase Total Protein Albumin Globulin Albumin/Globulin Ratio 08/24/17 08/24/17 08/24/17 11:08 11:23 11:23 WBC 4.7 L RBC 3.42 L Hgb 10.5 L Hct 30.3 L MCV 88.4 MCH 30.6 MCHC 34.6 RDW 14.5 Plt Count 212 MPV 8.1 Neut % (Auto) 65.7 Lymph % (Auto) 19.3 L [place] % (Auto) 14.5 H Eos % (Auto) 0.2 Baso % (Auto) 0.3 Neut # (Auto) 3.1 Lymph # (Auto) 0.9 L [place] # (Auto) 0.7 Eos # (Auto) 0.0 Baso # (Auto) 0.0 Sodium 137 Potassium 3.4 L Chloride 98 Carbon Dioxide 30 Anion Gap 12 BUN 8 Creatinine 0.5 L Est GFR ( Amer) > 60 Est GFR (Non-Af Amer) > 60 POC Glucose (mg/dL) 90 Random Glucose 94 Calcium 8.5 L Total Bilirubin 1.4 H AST 97 H D ALT 193 H D Alkaline Phosphatase 207 H Total Protein 7.4 Albumin 2.8 L Globulin 4.6 H Albumin/Globulin Ratio 0.6 L Attending/Attestation - Attestation I have personally seen and examined this patient.: Yes I have fully participated in the care of the patient.: Yes I have reviewed all pertinent clinical information: Yes Notes (Text): Pt was seen and examined at bedside Agree with above note and assessment Pt with upper abdominal pain and tenderness Labs and radiology reviewed Ass: cholelithiasis and possible CBC stone IV antibiotics NPO, IVF MRCP GI consult Consent Plan d.w pt in detail Risk and benefit explained in detail.
[2017-08-21] MEDS ORDERED: Iodixanol 320 mg/ml 150 ml Bottle IV ONE (10:57)
--- NOTE | 2017-08-21 11:35 | CP.PCM.PN ---
Subjective - Date & Time of Evaluation Date of Evaluation: 08/21/17 Time of Evaluation: 09:00 - Subjective Subjective: Abdominal Pain Objective - Vital Signs/Intake and Output Vital Signs (last 24 hours): Temp Pulse Resp BP Pulse Ox 98.3 F 87 22 127/65 96 08/21/17 08:00 08/21/17 10:02 08/21/17 10:02 08/21/17 11:02 08/21/17 10:02 Intake and Output: 08/21/17 08/21/17 06:59 18:59 Intake Total 1375 1725 Output Total 1400 400 Balance -25 1325 - Medications Medications: Current Medications Heparin Sodium (Porcine) (Heparin) 5,000 units SC Q8 [facility] Last Admin: 08/21/17 09:00 Dose: 5,000 units Lactated Ringer's (Lactated Ringer's) 1,000 mls @ 175 mls/hr IV .Q5H43M [facility] Last Admin: 08/21/17 10:25 Dose: 175 mls/hr Morphine Sulfate (Morphine) 2 mg IVP Q4 PRN PRN Reason: Pain, severe (8-10) Ondansetron HCl (Zofran Inj) 4 mg IVP Q6 PRN PRN Reason: Nausea/Vomiting Pantoprazole Sodium (Protonix Inj) 40 mg IVP DAILY [facility] Last Admin: 08/21/17 09:00 Dose: 40 mg - Labs Labs: 08/21/17 06:10 08/21/17 06:10 - GI/Abdominal Exam Additional comments: mild RUQ and epigastric tenderness on deep palpation Assessment and Plan (1) Gallstone pancreatitis Status: Acute - Assessment and Plan (Free Text) Assessment: Patient is a 77 year old female presented with severe abdominal pain primarily in the RUQ and epigastric area worsening over the past few days, admitted to the medical ICU for what now seems to be gallstone pancreatitis. Found to have marked elevation of lipase, transaminases and t.bilirubin and was given 3 points on Marjorie's score with a 15% predicted mortality on admission. Abdominal ultrasound demonstrating gallstones and dilated CBD with a picture consistent with gall stone pancreatitis and choledocholithiasis, respectively. GI consultation appreciated. MRCP to follow and possible further diagnostics and/ or intervention with ERCP to follow. Will consult surgery for possible cholecystectomy once the patient is more clinically stable and prior to discharge. Continue with current medical therapy - pain medication prn and iv hydration. GI and DVT ppx. Will continue to follow closely.
--- NOTE | 2017-08-21 13:48 | CT ---
PROCEDURE: CT Abdomen and Pelvis with contrast HISTORY: Acute gallstone pancreatitis COMPARISON: Comparison is made to 04/13/2017 TECHNIQUE: Contrast dose: 100 mL Visipaque 320 Radiation dose: Total exam DLP = 217.65 mGy-cm. This CT exam was performed using one or more of the following dose reduction techniques: Automated exposure control, adjustment of the mA and/or kV according to patient size, and/or use of iterative reconstruction technique. FINDINGS: LOWER THORAX: Small opacities at the right lung base are noted. There is mild to moderate right lower lobe bronchiectasis seen could be due to recurrent infection. Moderately dilated distal esophagus contains air-fluid level. LIVER: Mild heterogeneous enhancement of the liver is noted. GALLBLADDER AND BILE DUCTS: The gallbladder is distended demonstrate diffuse wall thickening. There is suspicious for trace pericholecystic fluid. Correlate clinically for cholecystitis. The common bile duct is slightly dilated. PANCREAS: Mild heterogeneous enhancement of the pancreas noted. No evidence of significant peripancreatic inflammatory changes or fluid. The main pancreatic duct is slightly dilated. SPLEEN: Unremarkable. ADRENALS: Unremarkable. No mass. KIDNEYS AND URETERS: The kidneys enhance symmetrically. No evidence of hydronephrosis. VASCULATURE: Unremarkable. No aortic aneurysm. BOWEL: Mildly dilated small bowel loops are noted at the mid and upper abdomen associated with mild wall thickening. Findings could represent bowel ileus. The possibility of enteritis is not totally excluded. Colonic diverticulosis are seen without evidence of diverticulitis. APPENDIX: There is no evidence of appendicitis. PERITONEUM: Trace amount of free fluid noted in the abdomen and pelvis. No evidence of free air. LYMPH NODES: Unremarkable. No enlarged lymph nodes. BLADDER: The urinary bladder is mildly distended. REPRODUCTIVE: Unremarkable. BONES: No acute fracture. OTHER FINDINGS: [id number] diffuse anasarca and soft tissue edema. IMPRESSION: Distended gallbladder demonstrates diffuse wall thickening and surrounding with small pericholecystic fluid. Correlate clinically for cholecystitis. Slightly dilated common bile duct. Slightly heterogeneous pancreas. No definite evidence of significant peripancreatic fluid or inflammatory changes. Mildly dilated small bowel loops may represent bowel ileus. The possibility of enteritis is not totally excluded. No evidence of high-grade bowel obstruction. Moderately distended distal esophagus is again noted.
--- NOTE | 2017-08-21 13:50 | CP.CCUPN ---
CCU Subjective - Physician Review Events Since Last Encounter (Free Text): 08/21/17 18:29 patient has no abdominal pain today No nausea Tolerating the liquids I spoke to the farm service adviser in Also called a surgical evaluation Vital signs stable Increasingly improving liver function Chest bilateral good air entry Regular heart sound Abdomen soft nontender No pedal edema Patient's labs reviewed We'll repeat the lipase level Liver enzymes is better Sonogram showing evidence of choledocholithiasis Assessment/recommendation: 77 female with diabetes, hypertension, hypercholesteremia, gallstones and gallstone pancreatitis MRCP tomorrow Possible ERCP Patient may need a cholecystectomy We'll continue to monitor CCU Objective - Vital Signs / Intake & Output Vital Signs (Last 4 hours): Vital Signs Temp Pulse Resp BP Pulse Ox 08/21/17 12:02 81 19 115/68 100 08/21/17 12:00 97.3 F L 08/21/17 11:02 127/65 08/21/17 10:02 87 22 113/67 96 08/21/17 10:00 85 19 96 Intake and Output (Last 8hrs): Intake & Output 08/20/17 08/21/17 08/21/17 22:59 06:59 14:59 Intake Total 375 1000 1900 Output Total 700 700 400 Balance -963 307 2274 Weight 114 lb 117 lb 8.102 oz Intake: Intake, IV Amount 375 1000 900 Right Antecubital 375 1000 900 Oral 0 0 1000 Output: Urine 700 700 400 Urine, Voided 700 700 400 Stool 0 0 Other: Voiding Method Bedpan - Medications Active Medications: Active Medications Generic Name Dose Route Start Last Admin Trade Name Freq PRN Reason Stop Dose Admin Heparin Sodium (Porcine) 5,000 units 08/21/17 08:45 08/21/17 09:00 Heparin SC 5,000 units Q8 SONNY Administration Lactated Ringer's 1,000 mls @ 175 mls/hr 08/21/17 10:00 08/21/17 10:25 Lactated Ringer's IV 175 mls/hr .Q5H43M SONNY Administration Morphine Sulfate 2 mg 08/20/17 18:23 Morphine IVP Q4 PRN Pain, severe (8-10) Ondansetron HCl 4 mg 08/20/17 18:23 Zofran Inj IVP Q6 PRN Nausea/Vomiting Pantoprazole Sodium 40 mg 08/21/17 10:00 04/15/18 09:00 Protonix Inj IVP 40 mg DAILY SONNY Administration - Patient Studies Lab Studies: Lab Studies 08/21/17 08/21/17 08/20/17 Range/Units 06:10 06:10 18:16 WBC 9.3 (4.8-10.8) K/uL RBC 3.54 L (3.80-5.20) Mil/uL Hgb 11.0 (11.0-16.0) g/dL Hct 31.2 L (34.0-47.0) % MCV 88.1 (81.0-99.0) fL MCH 31.1 H (27.0-31.0) pg MCHC 35.3 (33.0-37.0) g/dL RDW 14.7 H (11.5-14.5) % Plt Count 166 (130-400) K/uL MPV 7.7 (7.2-11.7) fL Neut % (Auto) 83.5 H (50.0-75.0) % Lymph % (Auto) 7.3 L (20.0-40.0) % Warren % (Auto) 9.0 (0.0-10.0) % Eos % (Auto) 0.1 (0.0-4.0) % Baso % (Auto) 0.1 (0.0-2.0) % Neut # (Auto) 7.7 H (1.8-7.0) K/uL Lymph # (Auto) 0.7 L (1.0-4.3) K/uL Warren # (Auto) 0.8 (0.0-0.8) K/uL Eos # (Auto) 0.0 (0.0-0.7) K/uL Baso # (Auto) 0.0 (0.0-0.2) K/uL Neutrophils % (Manual) 79 H (50-75) % Band Neutrophils % 6 H (0-2) % Lymphocytes % (Manual) 5 L (20-40) % Monocytes % (Manual) 9 (0-10) % Eosinophils % (Manual) 1 (0-4) % Platelet Estimate Normal (NORMAL) Large Platelets Hypochromasia (manual) Poikilocytosis (manual Anisocytosis (manual) Slight Target Cells Slight Ovalocytes Slight pO2 (30-55) mm/Hg VBG pH (7.32-7.43) VBG pCO2 (40-60) mmHg VBG HCO3 mmol/L VBG Total CO2 (22-28) mmol/L VBG O2 Sat (Calc) (40-65) % VBG Base Excess (0.0-2.0) mmol/L VBG Potassium (3.6-5.2) mmol/L Glucose (65-105) mg/dl Lactate (0.7-2.1) mmol/L Sodium 139 (132-148) mmol/L Potassium 3.5 L (3.6-5.2) mmol/L Chloride 98 (98-107) mmol/L Carbon Dioxide 32 H (22-30) mmol/L Anion Gap 12 (10-20) BUN 14 (7-17) mg/dL Creatinine 0.7 (0.7-1.2) mg/dL Est GFR ( Amer) > 60 Est GFR (Non-Af Amer) > 60 Random Glucose 85 (65-105) mg/dL Calcium 8.8 (8.6-10.4) mg/dl Total Bilirubin 4.7 H (0.2-1.3) mg/dL AST 404 H D (14-36) U/L ALT 475 H (9-52) U/L Alkaline Phosphatase 255 H D (38-126) U/L Lactate Dehydrogenase (313-618) U/L Total Protein 7.4 (6.3-8.3) g/dL Albumin 3.0 L D (3.5-5.0) g/dL Globulin 4.5 H (2.2-3.9) gm/dL Albumin/Globulin Ratio 0.7 L (1.0-2.1) Lipase (23-300) U/L Venous Blood Potassium (3.6-5.2) mmol/L Urine Color Yellow (YELLOW) Urine Clarity Clear (Clear) Urine pH 6.0 (5.0-8.0) Ur Specific Donner 1.008 (1.003-1.030) Urine Protein Negative (NEGATIVE) mg/dL Urine Glucose (UA) Normal (Normal) mg/dL Urine Ketones Negative (NEGATIVE) mg/dL Urine Blood Negative (NEGATIVE) Urine Nitrate Negative (NEGATIVE) Urine Bilirubin Negative (NEGATIVE) Urine Urobilinogen 2.0 H (0.2-1.0) mg/dL Ur Leukocyte Esterase Trace (Negative) Michael/uL Urine WBC (Auto) 3 (0-5) /hpf Urine RBC (Auto) < 1 (0-3) /hpf Ur Squamous Epith Cells 1 (0-5) /hpf Ur Transition Epith Cell < 1 (0-3) /hpf Urine Bacteria Occ H (<OCC) 08/20/17 08/20/17 08/20/17 Range/Units 17:54 16:04 16:04 WBC 10.3 D (4.8-10.8) K/uL RBC 4.08 (3.80-5.20) Mil/uL Hgb 12.7 (11.0-16.0) g/dL Hct 36.3 (34.0-47.0) % MCV 89.0 (81.0-99.0) fL MCH 31.2 H (27.0-31.0) pg MCHC 35.0 (33.0-37.0) g/dL RDW 14.8 H (11.5-14.5) % Plt Count 205 (130-400) K/uL MPV 7.8 (7.2-11.7) fL Neut % (Auto) 84.8 H (50.0-75.0) % Lymph % (Auto) 6.9 L (20.0-40.0) % Warren % (Auto) 8.0 (0.0-10.0) % Eos % (Auto) 0.0 (0.0-4.0) % Baso % (Auto) 0.3 (0.0-2.0) % Neut # (Auto) 8.7 H (1.8-7.0) K/uL Lymph # (Auto) 0.7 L (1.0-4.3) K/uL Warren # (Auto) 0.8 (0.0-0.8) K/uL Eos # (Auto) 0.0 (0.0-0.7) K/uL Baso # (Auto) 0.0 (0.0-0.2) K/uL Neutrophils % (Manual) 78 H (50-75) % Band Neutrophils % 7 H (0-2) % Lymphocytes % (Manual) 5 L (20-40) % Monocytes % (Manual) 10 (0-10) % Eosinophils % (Manual) (0-4) % Platelet Estimate Normal (NORMAL) Large Platelets Present Hypochromasia (manual) Slight Poikilocytosis (manual Slight Anisocytosis (manual) Slight Target Cells Ovalocytes Slight pO2 16 L (30-55) mm/Hg VBG pH 7.35 (7.32-7.43) VBG pCO2 56 (40-60) mmHg VBG HCO3 25.8 mmol/L VBG Total CO2 32.6 H (22-28) mmol/L VBG O2 Sat (Calc) 26.3 L (40-65) % VBG Base Excess 3.8 H (0.0-2.0) mmol/L VBG Potassium 3.6 (3.6-5.2) mmol/L Glucose 146 H (65-105) mg/dl Lactate 1.0 (0.7-2.1) mmol/L Sodium 140.0 141 (132-148) mmol/L Potassium 4.2 (3.6-5.2) mmol/L Chloride 104.0 97 L (98-107) mmol/L Carbon Dioxide 30 (22-30) mmol/L Anion Gap 18 (10-20) BUN 14 (7-17) mg/dL Creatinine 0.6 L (0.7-1.2) mg/dL Est GFR ( Amer) > 60 Est GFR (Non-Af Amer) > 60 Random Glucose 126 H (65-105) mg/dL Calcium 9.2 (8.6-10.4) mg/dl Total Bilirubin 2.6 H (0.2-1.3) mg/dL AST 619 H D (14-36) U/L ALT 588 H D (9-52) U/L Alkaline Phosphatase 338 H D (38-126) U/L Lactate Dehydrogenase 1367 H (313-618) U/L Total Protein 10.3 H (6.3-8.3) g/dL Albumin 3.9 (3.5-5.0) g/dL Globulin 6.3 H (2.2-3.9) gm/dL Albumin/Globulin Ratio 0.6 L (1.0-2.1) Lipase 89838 H (23-300) U/L Venous Blood Potassium 3.6 (3.6-5.2) mmol/L Urine Color (YELLOW) Urine Clarity (Clear) Urine pH (5.0-8.0) Ur Specific Donner (1.003-1.030) Urine Protein (NEGATIVE) mg/dL Urine Glucose (UA) (Normal) mg/dL Urine Ketones (NEGATIVE) mg/dL Urine Blood (NEGATIVE) Urine Nitrate (NEGATIVE) Urine Bilirubin (NEGATIVE) Urine Urobilinogen (0.2-1.0) mg/dL Ur Leukocyte Esterase (Negative) Michael/uL Urine WBC (Auto) (0-5) /hpf Urine RBC (Auto) (0-3) /hpf Ur Squamous Epith Cells (0-5) /hpf Ur Transition Epith Cell (0-3) /hpf Urine Bacteria (<OCC) Laboratory Results - last 24 hr 08/20/17 08/20/17 08/20/17 16:04 16:04 17:54 WBC 10.3 D RBC 4.08 Hgb 12.7 Hct 36.3 MCV 89.0 MCH 31.2 H MCHC 35.0 RDW 14.8 H Plt Count 205 MPV 7.8 Neut % (Auto) 84.8 H Lymph % (Auto) 6.9 L Warren % (Auto) 8.0 Eos % (Auto) 0.0 Baso % (Auto) 0.3 Neut # (Auto) 8.7 H Lymph # (Auto) 0.7 L Warren # (Auto) 0.8 Eos # (Auto) 0.0 Baso # (Auto) 0.0 Neutrophils % (Manual) 78 H Band Neutrophils % 7 H Lymphocytes % (Manual) 5 L Monocytes % (Manual) 10 Eosinophils % (Manual) Platelet Estimate Normal Large Platelets Present Hypochromasia (manual) Slight Poikilocytosis (manual Slight Anisocytosis (manual) Slight Target Cells Ovalocytes Slight pO2 16 L VBG pH 7.35 VBG pCO2 56 VBG HCO3 25.8 VBG Total CO2 32.6 H VBG O2 Sat (Calc) 26.3 L VBG Base Excess 3.8 H VBG Potassium 3.6 Glucose 146 H Lactate 1.0 Sodium 141 140.0 Potassium 4.2 Chloride 97 L 104.0 Carbon Dioxide 30 Anion Gap 18 BUN 14 Creatinine 0.6 L Est GFR ( Amer) > 60 Est GFR (Non-Af Amer) > 60 Random Glucose 126 H Calcium 9.2 Total Bilirubin 2.6 H AST 619 H D ALT 588 H D Alkaline Phosphatase 338 H D Lactate Dehydrogenase 1367 H Total Protein 10.3 H Albumin 3.9 Globulin 6.3 H Albumin/Globulin Ratio 0.6 L Lipase 74666 H Venous Blood Potassium 3.6 Urine Color Urine Clarity Urine pH Ur Specific Donner Urine Protein Urine Glucose (UA) Urine Ketones Urine Blood Urine Nitrate Urine Bilirubin Urine Urobilinogen Ur Leukocyte Esterase Urine WBC (Auto) Urine RBC (Auto) Ur Squamous Epith Cells Ur Transition Epith Cell Urine Bacteria 08/20/17 08/21/17 08/21/17 18:16 06:10 06:10 WBC 9.3 RBC 3.54 L Hgb 11.0 Hct 31.2 L MCV 88.1 MCH 31.1 H MCHC 35.3 RDW 14.7 H Plt Count 166 MPV 7.7 Neut % (Auto) 83.5 H Lymph % (Auto) 7.3 L Warren % (Auto) 9.0 Eos % (Auto) 0.1 Baso % (Auto) 0.1 Neut # (Auto) 7.7 H Lymph # (Auto) 0.7 L Warren # (Auto) 0.8 Eos # (Auto) 0.0 Baso # (Auto) 0.0 Neutrophils % (Manual) 79 H Band Neutrophils % 6 H Lymphocytes % (Manual) 5 L Monocytes % (Manual) 9 Eosinophils % (Manual) 1 Platelet Estimate Normal Large Platelets Hypochromasia (manual) Poikilocytosis (manual Anisocytosis (manual) Slight Target Cells Slight Ovalocytes Slight pO2 VBG pH VBG pCO2 VBG HCO3 VBG Total CO2 VBG O2 Sat (Calc) VBG Base Excess VBG Potassium Glucose Lactate Sodium 139 Potassium 3.5 L Chloride 98 Carbon Dioxide 32 H Anion Gap 12 BUN 14 Creatinine 0.7 Est GFR ( Amer) > 60 Est GFR (Non-Af Amer) > 60 Random Glucose 85 Calcium 8.8 Total Bilirubin 4.7 H AST 404 H D ALT 475 H Alkaline Phosphatase 255 H D Lactate Dehydrogenase Total Protein 7.4 Albumin 3.0 L D Globulin 4.5 H Albumin/Globulin Ratio 0.7 L Lipase Venous Blood Potassium Urine Color Yellow Urine Clarity Clear Urine pH 6.0 Ur Specific Donner 1.008 Urine Protein Negative Urine Glucose (UA) Normal Urine Ketones Negative Urine Blood Negative Urine Nitrate Negative Urine Bilirubin Negative Urine Urobilinogen 2.0 H Ur Leukocyte Esterase Trace Urine WBC (Auto) 3 Urine RBC (Auto) < 1 Ur Squamous Epith Cells 1 Ur Transition Epith Cell < 1 Urine Bacteria Occ H EKG/Cardiology Studies: Cardiology / EKG Studies 08/21/17 10:35 EKG [ELECTROCARDIOGRAM] Routine Comment: Mode Of Transportation: Reason For Exam: pre op Critical Care Progress Note - Nutrition Nutrition: Nutrition Category Date Time Status Liquid Diet [DIET] Diets 08/21/17 Lunch Active
[2017-08-21 20:19] LABS: BASO % 0.3 % (0.0-2.0); EOS % 0.5 % (0.0-4.0); HEMOGLOBIN 10.4 g/dL (11.0-16.0); LYMPH % 13.2 % (20.0-40.0); MEAN CELL VOLUME 88.7 fL (81.0-99.0); MEAN CORPUSCULAR HEMOGLOBIN 30.9 pg (27.0-31.0); MEAN CORPUSCULAR HGB CONC 34.9 g/dL (33.0-37.0); MEAN PLATELET VOLUME 7.5 fL (7.2-11.7); MONO # 0.7 K/uL (0.0-0.8); MONO % 9.1 % (0.0-10.0); NEUT % 76.9 % (50.0-75.0); RBC 3.35 Mil/uL (3.80-5.20); RED CELL DISTRIBUTION WIDTH 14.7 % (11.5-14.5); WHITE BLOOD COUNT 7.7 K/uL (4.8-10.8)
[2017-08-21 20:45] LABS: ALB/GLOB RATIO 0.6 (1.0-2.1); ALBUMIN 2.7 g/dL (3.5-5.0); ALT/SGPT 341 U/L (9-52); AST/SGOT 236 U/L (14-36); BLOOD UREA NITROGEN 12 mg/dL (7-17); CALCIUM 8.6 mg/dl (8.6-10.4); GFR AFRICAN-AMERICAN > 60; GFR NON-AFRICAN AMERICAN > 60
[2017-08-21 21:20] LABS: LIPASE 5671 U/L (23-300)
--- NOTE | 2017-08-21 21:36 | CP.PCM.CON ---
History of Present Illness - History of Present Illness History of Present Illness: Reason For Consultation: Pre Op cardiac risk assessment HPI: Patient is a 77 year old female from [facility] with a PMH of RA and DM who presents to the ED complaining of abdominal pain. Patient says this started last year and she saw Dr. Colmenares but is unsure if anything was ever determined. Patient says the abdominal pain went away but came back 3 weeks ago and gradually worsened to a constant, sharp, 10 out of 10 pain in her epigastric area radiating to her back. Patient says nothing makes the pain worse and nothing makes it better either. Patient also admits to decreased appetite and unintentional weight loss from 180s to 114 pounds. Patient admits to 3 episodes of nonbloody, yellowish colored vomiting prior to coming to the ED today. she also admits to dysuria of 2 days, constipation, and dry cough. Patient denies fever, chills, diaphoresis, night sweats, headache, dizziness, changes in vision/hearing, sore throat, dysphagia, chest pain, palpitations, SOB , hematochezia, melena, urinary frequency, leg pain/swelling, rashes, easy bruising, and recent travel or illness. PMH: RA, DM Meds: Embril injection weekly Allergies: NKDA Surg: endoscopy 2017(hiatal hernia, gastritis, colonoscopy 2016 (f/u 5 years), laparotomy (in [facility], no details), appendectomy Social: lives alone, denies tobacco/alcohol/drug use Family: Mother of unknown intestinal cancer, father with diabetes Present on Admission - Present on Admission Any Indicators Present on Admission: No Review of Systems - Review of Systems All systems: reviewed and no additional remarkable complaints except (as per HPI ) Physical Exam - Constitutional Appears: Non-toxic, No Acute Distress, Cachectic - Head Exam Head Exam: ATRAUMATIC, NORMAL INSPECTION, NORMOCEPHALIC - Eye Exam Eye Exam: EOMI, Normal appearance, PERRL. absent: Scleral icterus - ENT Exam ENT Exam: Mucous Membranes Moist - Neck Exam Neck exam: Positive for: Normal Inspection - Respiratory Exam Respiratory Exam: Clear to Auscultation Bilateral, NORMAL BREATHING PATTERN - Cardiovascular Exam Cardiovascular Exam: REGULAR RHYTHM, +S1, +S2. absent: Bradycardia, Tachycardia , Gallop, Rubs, Systolic Murmur - GI/Abdominal Exam GI & Abdominal Exam: Guarding (voluntary ), Hypoactive Bowel Sounds, Soft, Tenderness (epigastric and upper quadrants ). absent: Distended - Extremities Exam Extremities exam: Positive for: normal inspection. Negative for: calf tenderness, pedal edema - Back Exam Back exam: NORMAL INSPECTION - Neurological Exam Neurological exam: Alert, Oriented x3 - Psychiatric Exam Psychiatric exam: Normal Affect, Normal Mood - Skin Skin Exam: Dry, Intact, Normal Color, WarmCC Past Patient History - Past Medical History & Family History Past Medical History?: Yes - Past Social History Smoking Status: Never Smoked - CARDIAC Hx Cardiac Disorders: No Hx Heart Attack: No - PULMONARY Hx Respiratory Disorders: No - NEUROLOGICAL Hx Neurological Disorder: No Hx Transient Ischemic Attacks (TIA): No - HEENT Hx HEENT Problems: Yes Hx Cataracts: Yes (CALEB.; NO SURGERY) - RENAL Hx Chronic Kidney Disease: No - ENDOCRINE/METABOLIC Hx Endocrine Disorders: Yes Hx Hyperthyroidism: Yes - HEMATOLOGICAL/ONCOLOGICAL Hx Blood Disorders: Yes Hx Anemia: Yes - INTEGUMENTARY Hx Dermatological Problems: No - MUSCULOSKELETAL/RHEUMATOLOGICAL Hx Musculoskeletal Disorders: Yes Hx Falls: Yes Hx Rheumatoid Arthritis: Yes - GASTROINTESTINAL Hx Gastrointestinal Disorders: Yes - GENITOURINARY/GYNECOLOGICAL Hx Genitourinary Disorders: No - PSYCHIATRIC Hx Psychophysiologic Disorder: No Hx Substance Use: No - SURGICAL HISTORY Hx Surgeries: Yes Hx Appendectomy: Yes - ANESTHESIA Hx Anesthesia: Yes Hx Anesthesia Reactions: No Hx Malignant Hyperthermia: No Has any member of the family had a problem w/ anesthesia?: No Meds Allergies/Adverse Reactions: Allergies Allergy/AdvReac Type Severity Reaction Status Date / Time weed pollen Allergy CONGESTION Verified 08/20/17 15:41 - Medications Medications: Current Medications Heparin Sodium (Porcine) (Heparin) 5,000 units SC Q8 [facility] Last Admin: 08/21/17 16:58 Dose: 5,000 units Lactated Ringer's (Lactated Ringer's) 1,000 mls @ 175 mls/hr IV .Q5H43M [facility] Last Admin: 08/21/17 16:59 Dose: 175 mls/hr Morphine Sulfate (Morphine) 2 mg IVP Q4 PRN PRN Reason: Pain, severe (8-10) Last Admin: 08/21/17 19:57 Dose: 2 mg Ondansetron HCl (Zofran Inj) 4 mg IVP Q6 PRN PRN Reason: Nausea/Vomiting Pantoprazole Sodium (Protonix Inj) 40 mg IVP DAILY SONNY Last Admin: 08/21/17 09:00 Dose: 40 mg Results - Vital Signs Recent Vital Signs: Last Vital Signs Temp 97.6 F 08/21/17 20:00 Pulse 78 08/21/17 21:02 Resp 17 08/21/17 21:02 BP 112/71 08/21/17 21:02 Pulse Ox 100 08/21/17 21:02 - Labs Result Diagrams: 08/21/17 20:15 08/21/17 20:15 Labs: Laboratory Results - last 24 hr 08/21/17 08/21/17 08/21/17 06:10 06:10 20:15 WBC 9.3 7.7 RBC 3.54 L 3.35 L Hgb 11.0 10.4 L Hct 31.2 L 29.7 L MCV 88.1 88.7 MCH 31.1 H 30.9 MCHC 35.3 34.9 RDW 14.7 H 14.7 H Plt Count 166 157 MPV 7.7 7.5 Neut % (Auto) 83.5 H 76.9 H Lymph % (Auto) 7.3 L 13.2 L Glasscock % (Auto) 9.0 9.1 Eos % (Auto) 0.1 0.5 Baso % (Auto) 0.1 0.3 Neut # (Auto) 7.7 H 6.0 Lymph # (Auto) 0.7 L 1.0 Glasscock # (Auto) 0.8 0.7 Eos # (Auto) 0.0 0.0 Baso # (Auto) 0.0 0.0 Neutrophils % (Manual) 79 H Band Neutrophils % 6 H Lymphocytes % (Manual) 5 L Monocytes % (Manual) 9 Eosinophils % (Manual) 1 Platelet Estimate Normal Anisocytosis (manual) Slight Target Cells Slight Ovalocytes Slight Sodium 139 Potassium 3.5 L Chloride 98 Carbon Dioxide 32 H Anion Gap 12 BUN 14 Creatinine 0.7 Est GFR ( Amer) > 60 Est GFR (Non-Af Amer) > 60 Random Glucose 85 Calcium 8.8 Phosphorus Magnesium Total Bilirubin 4.7 H AST 404 H D ALT 475 H Alkaline Phosphatase 255 H D Total Protein 7.4 Albumin 3.0 L D Globulin 4.5 H Albumin/Globulin Ratio 0.7 L Lipase 08/21/17 20:15 WBC RBC Hgb Hct MCV MCH MCHC RDW Plt Count MPV Neut % (Auto) Lymph % (Auto) Glasscock % (Auto) Eos % (Auto) Baso % (Auto) Neut # (Auto) Lymph # (Auto) Glasscock # (Auto) Eos # (Auto) Baso # (Auto) Neutrophils % (Manual) Band Neutrophils % Lymphocytes % (Manual) Monocytes % (Manual) Eosinophils % (Manual) Platelet Estimate Anisocytosis (manual) Target Cells Ovalocytes Sodium 134 Potassium 3.7 Chloride 97 L Carbon Dioxide 29 Anion Gap 12 BUN 12 Creatinine 0.6 L Est GFR ( Amer) > 60 Est GFR (Non-Af Amer) > 60 Random Glucose 78 Calcium 8.6 Phosphorus 2.8 Magnesium 1.2 L Total Bilirubin 5.4 H AST 236 H D ALT 341 H D Alkaline Phosphatase 242 H Total Protein 6.9 Albumin 2.7 L Globulin 4.2 H Albumin/Globulin Ratio 0.6 L Lipase 5671 H Assessment & Plan - Assessment and Plan (Free Text) Assessment: 77 F with hx of DM and HTN No recent cardiac work up For ERCP Check stress test and ECHO
[2017-08-21] MEDS ORDERED: Magnesium Sulfate 1 gm in D5W 1 GM/100 ML BAG IVPB ONE (22:14)
[2017-08-22] MEDS: Lactated Ringer's 1,000 ML IV SCH (05:20)
[2017-08-22] MEDS ORDERED: Aminophylline 25 mg/ml Inj ONE (07:56)
[2017-08-22 08:29] LABS: HEMOGLOBIN 10.5 g/dL (11.0-16.0); MEAN CELL VOLUME 89.3 fL (81.0-99.0); MEAN CORPUSCULAR HEMOGLOBIN 31.4 pg (27.0-31.0); MEAN CORPUSCULAR HGB CONC 35.1 g/dL (33.0-37.0); MEAN PLATELET VOLUME 8.3 fL (7.2-11.7); RBC 3.35 Mil/uL (3.80-5.20); RED CELL DISTRIBUTION WIDTH 14.6 % (11.5-14.5); WHITE BLOOD COUNT 7.3 K/uL (4.8-10.8)
--- NOTE | 2017-08-22 08:57 | CP.PCM.PN ---
Subjective - Date & Time of Evaluation Date of Evaluation: 08/22/17 Time of Evaluation: 09:02 - Subjective Subjective: Patient feels well. She is tolerating the clear liquid diet. She denies having nausea, vomiting, abdominal pain. She had one formed stool yesterday. Currently, she is awaiting stress test and MRCP. CT scan yesterday showed: slightly dilated CBD, distended GB, mild, heterogeneous enhancement of pancreas, no significant peripancreatic inflammatory changes or fluid, slightly dilated main pancreatic duct. Repeat blood tests last night showed TBILI 5.4 (4.7 earlier yesterday), AST 236 (404), ALT 341 (475), ALKP 242 (255). Repeat values from today are pending. Objective - Vital Signs/Intake and Output Vital Signs (last 24 hours): Temp Pulse Resp BP Pulse Ox 98 F 73 22 127/69 100 08/22/17 04:00 08/22/17 07:03 08/22/17 07:03 08/22/17 07:03 08/22/17 07:03 Intake and Output: 08/22/17 08/22/17 06:59 18:59 Intake Total 2225 175 Output Total 1050 Balance 1175 175 - Medications Medications: Current Medications Heparin Sodium (Porcine) (Heparin) 5,000 units SC Q8 [facility] Last Admin: 08/22/17 05:20 Dose: 5,000 units Lactated Ringer's (Lactated Ringer's) 1,000 mls @ 175 mls/hr IV .Q5H43M [facility] Last Admin: 08/22/17 05:20 Dose: 175 mls/hr Magnesium Sulfate/Dextrose (Magnesium Sulfate 1 Gm/100 Ml D5w) 1 gm in 100 mls @ 200 mls/hr IVPB Q30M [facility] Stop: 08/22/17 08:59 Morphine Sulfate (Morphine) 2 mg IVP Q4 PRN PRN Reason: Pain, severe (8-10) Last Admin: 08/21/17 19:57 Dose: 2 mg Ondansetron HCl (Zofran Inj) 4 mg IVP Q6 PRN PRN Reason: Nausea/Vomiting Pantoprazole Sodium (Protonix Inj) 40 mg IVP DAILY [facility] Last Admin: 08/21/17 09:00 Dose: 40 mg - Labs Labs: 08/22/17 08:25 08/21/17 20:15 - Constitutional Appears: No Acute Distress - Head Exam Head Exam: ATRAUMATIC, NORMOCEPHALIC - Eye Exam Eye Exam: EOMI, PERRL - Neck Exam Neck Exam: absent: Lymphadenopathy, Thyromegaly - Respiratory Exam Respiratory Exam: NORMAL BREATHING PATTERN. absent: Rales, Rhonchi, Wheezes - Cardiovascular Exam Cardiovascular Exam: REGULAR RHYTHM, +S1, +S2. absent: Gallop, Rubs, Murmur - GI/Abdominal Exam GI & Abdominal Exam: Soft, Normal Bowel Sounds. absent: Tenderness, Mass, Organomegaly - Rectal Exam Rectal Exam: Deferred - Extremities Exam Extremities Exam: absent: Calf Tenderness, Pedal Edema Assessment and Plan (1) Gallstone pancreatitis Assessment & Plan: Transaminases are improving, but bilirubin landry during the day yesterday. Chemistry values from today are pending. CT scan shows distended GB, mild dilatation of CBD and main PD, but no peripancreatic inflammatory changes. MRCP is pending. Await cardiology clearance. Will request consult from Dr. Mahoney regarding EUS/ERCP. Status: Acute
[2017-08-22] MEDS ORDERED: Lactated Ringer's 1,000 ML IV SCH ×2 (09:07→20:00)
--- NOTE | 2017-08-22 10:20 | CP.PCM.PN ---
Addendum entered and electronically signed by Eduardo Graham DO 08/22/17 18:05: Stress test normal Mild to moderate Cardiac risk for surgical intervention Original Note: <Eduardo Graham - Last Filed: 08/22/17 18:04> Subjective - Date & Time of Evaluation Date of Evaluation: 08/22/17 Time of Evaluation: 10:17 - Subjective Subjective: PGY-[address] Burciaga's Cardio Service: Pt seen and examined at bedside. Nursing reports no acute events overnight. Pt for ECHO/stress test this AM, as well as MRCP. Patient denies chest pain, palpitations, SOB, but admits "twinges of RUQ pain occasionally when she moves in certain positions." Objective - Vital Signs/Intake and Output Vital Signs (last 24 hours): Temp Pulse Resp BP Pulse Ox 98 F 73 22 127/69 100 08/22/17 04:00 08/22/17 07:03 08/22/17 07:03 08/22/17 07:03 08/22/17 07:03 Intake and Output: 08/22/17 08/22/17 06:59 18:59 Intake Total 2225 175 Output Total 1050 Balance 1175 175 - Medications Medications: Current Medications Heparin Sodium (Porcine) (Heparin) 5,000 units SC Q8 [facility] Last Admin: 08/22/17 05:20 Dose: 5,000 units Lactated Ringer's (Lactated Ringer's) 1,000 mls @ 100 mls/hr IV .Q10H [facility] Morphine Sulfate (Morphine) 2 mg IVP Q4 PRN PRN Reason: Pain, severe (8-10) Last Admin: 08/21/17 19:57 Dose: 2 mg Ondansetron HCl (Zofran Inj) 4 mg IVP Q6 PRN PRN Reason: Nausea/Vomiting Pantoprazole Sodium (Protonix Inj) 40 mg IVP DAILY [facility] Last Admin: 08/21/17 09:00 Dose: 40 mg - Labs Labs: 08/22/17 08:25 08/21/17 20:15 - Additional Findings Additional findings: - Constitutional Appears: Non-toxic, No Acute Distress, Cachectic - Head Exam Head Exam: ATRAUMATIC, NORMAL INSPECTION, NORMOCEPHALIC - Eye Exam Eye Exam: EOMI, Normal appearance, PERRL. absent: Scleral icterus - ENT Exam ENT Exam: Mucous Membranes Moist - Neck Exam Neck exam: Positive for: Normal Inspection - Respiratory Exam Respiratory Exam: Clear to Auscultation Bilateral, NORMAL BREATHING PATTERN - Cardiovascular Exam Cardiovascular Exam: REGULAR RHYTHM, +S1, +S2. absent: Bradycardia, Tachycardia , Gallop, Rubs, Systolic Murmur - GI/Abdominal Exam GI & Abdominal Exam: Soft, Tenderness (mild tenderness epigastric ). absent: Distended - Extremities Exam Extremities exam: Positive for: normal inspection. Negative for: calf tenderness, pedal edema - Back Exam Back exam: NORMAL INSPECTION - Neurological Exam Neurological exam: Alert, Oriented x3 - Psychiatric Exam Psychiatric exam: Normal Affect, Normal Mood - Skin Skin Exam: Dry, Intact, Normal Color, Warm Assessment and Plan - Assessment and Plan (Free Text) Plan: Pre-op cardiac assesment: Pt NPO for stress test/ECHO Cardiac RFs of DM/HTN HTN: Elevated this afternoon (170/90) Previously was in the 120 systolic range. LR @ 100 cc/hr Monitor Pancreatitis For MRCP today Management by primary team Eduardo Graham PGY-2 D/w Dr. Burciaga <Kian Burciaga - Last Filed: 08/22/17 22:05> Objective - Vital Signs/Intake and Output Vital Signs (last 24 hours): Temp Pulse Resp BP Pulse Ox 97.8 F 78 20 163/80 H 98 08/22/17 15:04 08/22/17 15:04 08/22/17 15:04 08/22/17 15:04 08/22/17 15:04 Intake and Output: 08/22/17 08/23/17 18:59 06:59 Intake Total 175 Balance 175 - Medications Medications: Current Medications Heparin Sodium (Porcine) (Heparin) 5,000 units SC Q8 [facility] Last Admin: 08/22/17 21:57 Dose: 5,000 units Lactated Ringer's (Lactated Ringer's) 1,000 mls @ 30 mls/hr IV .Q24H [facility] Last Admin: 08/22/17 20:52 Dose: 30 mls/hr Morphine Sulfate (Morphine) 2 mg IVP Q4 PRN PRN Reason: Pain, severe (8-10) Last Admin: 08/21/17 19:57 Dose: 2 mg Ondansetron HCl (Zofran Inj) 4 mg IVP Q6 PRN PRN Reason: Nausea/Vomiting Pantoprazole Sodium (Protonix Inj) 40 mg IVP DAILY [facility] Last Admin: 08/22/17 13:28 Dose: Not Given - Labs Labs: 08/22/17 08:25 08/21/17 20:15 Assessment and Plan - Assessment and Plan (Free Text) Plan: Patient seen and evaluated personally by me Plan of care d/w the biomedical engineering internship and as documented
--- NOTE | 2017-08-22 10:38 | CP.CCUPN ---
<Marcel Muhammad - Last Filed: 08/22/17 10:35> CCU Subjective - Physician Review Subjective (Free Text): 08/22/17 10:35 Patient seen and examined. Patient has no acute complaints at this time, only requesting to eat. She is NPO for stress test. CCU Objective - Vital Signs / Intake & Output Vital Signs (Last 4 hours): Vital Signs Pulse Resp BP Pulse Ox 08/22/17 07:03 73 22 127/69 100 08/22/17 07:00 73 20 100 Intake and Output (Last 8hrs): Intake & Output 08/21/17 08/22/17 08/22/17 22:59 06:59 14:59 Intake Total 2000 1525 175 Output Total 1001 750 Balance 999 775 175 Weight 117 lb 8.102 oz Intake: Intake, IV Amount 1400 1325 175 Right Antecubital 1400 1325 175 Oral 600 200 Output: Urine 1000 750 Urine, Voided 1000 750 Urine/Stool Mix 1 Other: # Bowel Movements 1 - Physical Exam Head: Positive for: Atraumatic, Normocephalic Pupils: Positive for: PERRL Extroacular Muscles: Positive for: EOMI Conjunctiva: Positive for: Normal Mouth: Positive for: Moist Mucous Membranes Respiratory/Chest: Positive for: Clear to Auscultation. Negative for: Wheezes, Rales, Rhonchi Cardiovascular: Positive for: Regular Rate and Rhythm, Normal S1, S2 Abdomen: Positive for: Normal Bowel Sounds. Negative for: Tenderness, Distention Upper Extremity: Positive for: Normal Inspection Lower Extremity: Positive for: Normal Inspection Neurological: Positive for: GCS=15 Skin: Positive for: Warm, Dry Psychiatric: Positive for: Alert, Oriented x 3 - Medications Active Medications: Active Medications Generic Name Dose Route Start Last Admin Trade Name Freq PRN Reason Stop Dose Admin Heparin Sodium (Porcine) 5,000 units 08/21/17 08:45 08/22/17 05:20 Heparin SC 5,000 units Q8 [facility] Administration Lactated Ringer's 1,000 mls @ 100 mls/hr 08/22/17 09:07 Lactated Ringer's IV .Q10H [facility] Morphine Sulfate 2 mg 08/20/17 18:23 08/21/17 19:57 Morphine IVP 2 mg Q4 PRN Administration Pain, severe (8-10) Ondansetron HCl 4 mg 08/20/17 18:23 Zofran Inj IVP Q6 PRN Nausea/Vomiting Pantoprazole Sodium 40 mg 08/21/17 10:00 08/21/17 09:00 Protonix Inj IVP 40 mg DAILY [facility] Administration - Patient Studies Lab Studies: Microbiology Studies 08/20/17 21:20 MRSA Culture (Admit) - Final Nose MRSA NOT DETECTED Lab Studies 08/22/17 08/21/17 08/21/17 Range/Units 08:25 20:15 20:15 WBC 7.3 7.7 (4.8-10.8) K/uL RBC 3.35 L 3.35 L (3.80-5.20) Mil/uL Hgb 10.5 L 10.4 L (11.0-16.0) g/dL Hct 29.9 L 29.7 L (34.0-47.0) % MCV 89.3 88.7 (81.0-99.0) fL MCH 31.4 H 30.9 (27.0-31.0) pg MCHC 35.1 34.9 (33.0-37.0) g/dL RDW 14.6 H 14.7 H (11.5-14.5) % Plt Count 172 157 (130-400) K/uL MPV 8.3 7.5 (7.2-11.7) fL Neut % (Auto) 76.9 H (50.0-75.0) % Lymph % (Auto) 13.2 L (20.0-40.0) % [place] % (Auto) 9.1 (0.0-10.0) % Eos % (Auto) 0.5 (0.0-4.0) % Baso % (Auto) 0.3 (0.0-2.0) % Neut # (Auto) 6.0 (1.8-7.0) K/uL Lymph # (Auto) 1.0 (1.0-4.3) K/uL [place] # (Auto) 0.7 (0.0-0.8) K/uL Eos # (Auto) 0.0 (0.0-0.7) K/uL Baso # (Auto) 0.0 (0.0-0.2) K/uL Sodium 134 (132-148) mmol/L Potassium 3.7 (3.6-5.2) mmol/L Chloride 97 L (98-107) mmol/L Carbon Dioxide 29 (22-30) mmol/L Anion Gap 12 (10-20) BUN 12 (7-17) mg/dL Creatinine 0.6 L (0.7-1.2) mg/dL Est GFR ( Amer) > 60 Est GFR (Non-Af Amer) > 60 Random Glucose 78 (65-105) mg/dL Calcium 8.6 (8.6-10.4) mg/dl Phosphorus 2.8 (2.5-4.5) mg/dL Magnesium 1.2 L (1.6-2.3) mg/dL Total Bilirubin 5.4 H (0.2-1.3) mg/dL AST 236 H D (14-36) U/L ALT 341 H D (9-52) U/L Alkaline Phosphatase 242 H (38-126) U/L Total Protein 6.9 (6.3-8.3) g/dL Albumin 2.7 L (3.5-5.0) g/dL Globulin 4.2 H (2.2-3.9) gm/dL Albumin/Globulin Ratio 0.6 L (1.0-2.1) Lipase 5671 H (23-300) U/L Laboratory Results - last 24 hr 08/21/17 08/21/17 08/22/17 20:15 20:15 08:25 WBC 7.7 7.3 RBC 3.35 L 3.35 L Hgb 10.4 L 10.5 L Hct 29.7 L 29.9 L MCV 88.7 89.3 MCH 30.9 31.4 H MCHC 34.9 35.1 RDW 14.7 H 14.6 H Plt Count 157 172 MPV 7.5 8.3 Neut % (Auto) 76.9 H Lymph % (Auto) 13.2 L [place] % (Auto) 9.1 Eos % (Auto) 0.5 Baso % (Auto) 0.3 Neut # (Auto) 6.0 Lymph # (Auto) 1.0 [place] # (Auto) 0.7 Eos # (Auto) 0.0 Baso # (Auto) 0.0 Sodium 134 Potassium 3.7 Chloride 97 L Carbon Dioxide 29 Anion Gap 12 BUN 12 Creatinine 0.6 L Est GFR ( Amer) > 60 Est GFR (Non-Af Amer) > 60 Random Glucose 78 Calcium 8.6 Phosphorus 2.8 Magnesium 1.2 L Total Bilirubin 5.4 H AST 236 H D ALT 341 H D Alkaline Phosphatase 242 H Total Protein 6.9 Albumin 2.7 L Globulin 4.2 H Albumin/Globulin Ratio 0.6 L Lipase 5671 H EKG/Cardiology Studies: Cardiology / EKG Studies 08/21/17 10:35 EKG [ELECTROCARDIOGRAM] Routine Comment: Mode Of Transportation: Reason For Exam: pre op Critical Care Progress Note - Nutrition Nutrition: Nutrition Category Date Time Status NPO Diet [DIET] Diets 08/22/17 Breakfast Active Assessment/Plan - Assessment and Plan (Free Text) Assessment: This is a 77 year old female with PMHx of RA and DM who presented complaining of abdominal pain. Patient diagnosed with likely gallstone pancreatitis and possible choledocholithiasis. Neuro Awake, verbal Cardio Echo and stress test ordered for risk stratification Cardiology on board Pulm Saturating well GI GI consult on board MRCP ordered Lactated Ringers 100 cc/hr Protonix 40 mg IV daily Endocrine Hx of DM, latest hemoglobin A1c is 5.2 Prophylaxis Heparin SC Q8H Protonix 40 mg IV daily Disposition: To be transferred to med-surg Discussed with Dr. Herman <Nery Herman - Last Filed: 08/29/17 08:54> CCU Objective - Vital Signs / Intake & Output Vital Signs (Last 4 hours): Vital Signs Temp Pulse Resp BP Pulse Ox 08/29/17 06:41 97.8 F 85 18 116/67 99 Intake and Output (Last 8hrs): Intake & Output 08/28/17 08/29/17 08/29/17 22:59 06:59 14:59 Intake Total 0 Balance 0 Intake: IV 0 - Medications Active Medications: Active Medications Generic Name Dose Route Start Last Admin Trade Name Freq PRN Reason Stop Dose Admin Benzocaine/Menthol 1 maren 08/26/17 07:15 Cepacol Sore Throat MT Q2H PRN Sore Throat Heparin Sodium (Porcine) 5,000 units 08/21/17 08:45 08/23/17 13:05 Heparin SC 5,000 units Q8 [facility] Administration Ondansetron HCl 4 mg 08/20/17 18:23 Zofran Inj IVP Q6 PRN Nausea/Vomiting Pantoprazole Sodium 40 mg 08/26/17 10:00 08/28/17 09:25 Protonix Ec Tab PO 40 mg DAILY [facility] Administration - Patient Studies Lab Studies: Lab Studies 08/29/17 08/29/17 08/29/17 Range/Units 06:52 06:24 06:24 WBC (4.8-10.8) K/uL RBC (3.80-5.20) Mil/uL Hgb (11.0-16.0) g/dL Hct (34.0-47.0) % MCV (81.0-99.0) fL MCH (27.0-31.0) pg MCHC (33.0-37.0) g/dL RDW (11.5-14.5) % Plt Count (130-400) K/uL MPV (7.2-11.7) fL Neut % (Auto) (50.0-75.0) % Lymph % (Auto) (20.0-40.0) % [place] % (Auto) (0.0-10.0) % Eos % (Auto) (0.0-4.0) % Baso % (Auto) (0.0-2.0) % Neut # (Auto) (1.8-7.0) K/uL Lymph # (Auto) (1.0-4.3) K/uL [place] # (Auto) (0.0-0.8) K/uL Eos # (Auto) (0.0-0.7) K/uL Baso # (Auto) (0.0-0.2) K/uL Sodium 139 (132-148) mmol/L Potassium 4.4 (3.6-5.2) mmol/L Chloride 99 (98-107) mmol/L Carbon Dioxide 30 (22-30) mmol/L Anion Gap 14 (10-20) BUN 15 (7-17) mg/dL Creatinine 0.7 (0.7-1.2) mg/dL Est GFR ( Amer) > 60 Est GFR (Non-Af Amer) > 60 POC Glucose (mg/dL) 109 (65-110) mg/dL Random Glucose 108 H (65-105) mg/dL Calcium 8.6 (8.6-10.4) mg/dl Phosphorus 3.1 (2.5-4.5) mg/dL Magnesium 1.5 L (1.6-2.3) mg/dL Total Bilirubin 0.9 (0.2-1.3) mg/dL AST 42 H (14-36) U/L ALT 75 H (9-52) U/L Alkaline Phosphatase 112 (38-126) U/L Total Protein 7.7 (6.3-8.3) g/dL Albumin 3.2 L (3.5-5.0) g/dL Globulin 4.5 H (2.2-3.9) gm/dL Albumin/Globulin Ratio 0.7 L (1.0-2.1) Blood Type A POSITIVE Antibody Screen Negative 08/29/17 08/28/17 08/28/17 Range/Units 06:24 21:15 16:58 WBC 5.4 (4.8-10.8) K/uL RBC 3.33 L (3.80-5.20) Mil/uL Hgb 10.2 L (11.0-16.0) g/dL Hct 29.2 L (34.0-47.0) % MCV 87.9 (81.0-99.0) fL MCH 30.8 (27.0-31.0) pg MCHC 35.0 (33.0-37.0) g/dL RDW 14.6 H (11.5-14.5) % Plt Count 309 (130-400) K/uL MPV 7.5 (7.2-11.7) fL Neut % (Auto) 63.8 (50.0-75.0) % Lymph % (Auto) 19.9 L (20.0-40.0) % [place] % (Auto) 15.6 H (0.0-10.0) % Eos % (Auto) 0.4 (0.0-4.0) % Baso % (Auto) 0.3 (0.0-2.0) % Neut # (Auto) 3.4 (1.8-7.0) K/uL Lymph # (Auto) 1.1 (1.0-4.3) K/uL [place] # (Auto) 0.8 (0.0-0.8) K/uL Eos # (Auto) 0.0 (0.0-0.7) K/uL Baso # (Auto) 0.0 (0.0-0.2) K/uL Sodium (132-148) mmol/L Potassium (3.6-5.2) mmol/L Chloride (98-107) mmol/L Carbon Dioxide (22-30) mmol/L Anion Gap (10-20) BUN (7-17) mg/dL Creatinine (0.7-1.2) mg/dL Est GFR ( Amer) Est GFR (Non-Af Amer) POC Glucose (mg/dL) 136 H 96 (65-110) mg/dL Random Glucose (65-105) mg/dL Calcium (8.6-10.4) mg/dl Phosphorus (2.5-4.5) mg/dL Magnesium (1.6-2.3) mg/dL Total Bilirubin (0.2-1.3) mg/dL AST (14-36) U/L ALT (9-52) U/L Alkaline Phosphatase (38-126) U/L Total Protein (6.3-8.3) g/dL Albumin (3.5-5.0) g/dL Globulin (2.2-3.9) gm/dL Albumin/Globulin Ratio (1.0-2.1) Blood Type Antibody Screen 08/28/17 Range/Units 11:49 WBC (4.8-10.8) K/uL RBC (3.80-5.20) Mil/uL Hgb (11.0-16.0) g/dL Hct (34.0-47.0) % MCV (81.0-99.0) fL MCH (27.0-31.0) pg MCHC (33.0-37.0) g/dL RDW (11.5-14.5) % Plt Count (130-400) K/uL MPV (7.2-11.7) fL Neut % (Auto) (50.0-75.0) % Lymph % (Auto) (20.0-40.0) % [place] % (Auto) (0.0-10.0) % Eos % (Auto) (0.0-4.0) % Baso % (Auto) (0.0-2.0) % Neut # (Auto) (1.8-7.0) K/uL Lymph # (Auto) (1.0-4.3) K/uL [place] # (Auto) (0.0-0.8) K/uL Eos # (Auto) (0.0-0.7) K/uL Baso # (Auto) (0.0-0.2) K/uL Sodium (132-148) mmol/L Potassium (3.6-5.2) mmol/L Chloride (98-107) mmol/L Carbon Dioxide (22-30) mmol/L Anion Gap (10-20) BUN (7-17) mg/dL Creatinine (0.7-1.2) mg/dL Est GFR ( Amer) Est GFR (Non-Af Amer) POC Glucose (mg/dL) 116 H (65-110) mg/dL Random Glucose (65-105) mg/dL Calcium (8.6-10.4) mg/dl Phosphorus (2.5-4.5) mg/dL Magnesium (1.6-2.3) mg/dL Total Bilirubin (0.2-1.3) mg/dL AST (14-36) U/L ALT (9-52) U/L Alkaline Phosphatase (38-126) U/L Total Protein (6.3-8.3) g/dL Albumin (3.5-5.0) g/dL Globulin (2.2-3.9) gm/dL Albumin/Globulin Ratio (1.0-2.1) Blood Type Antibody Screen Laboratory Results - last 24 hr 08/28/17 08/28/17 08/28/17 11:49 16:58 21:15 WBC RBC Hgb Hct MCV MCH MCHC RDW Plt Count MPV Neut % (Auto) Lymph % (Auto) [place] % (Auto) Eos % (Auto) Baso % (Auto) Neut # (Auto) Lymph # (Auto) [place] # (Auto) Eos # (Auto) Baso # (Auto) Sodium Potassium Chloride Carbon Dioxide Anion Gap BUN Creatinine Est GFR ( Amer) Est GFR (Non-Af Amer) POC Glucose (mg/dL) 116 H 96 136 H Random Glucose Calcium Phosphorus Magnesium Total Bilirubin AST ALT Alkaline Phosphatase Total Protein Albumin Globulin Albumin/Globulin Ratio Blood Type Antibody Screen 0408/29/17 08/29/17 06:24 06:24 06:24 WBC 5.4 RBC 3.33 L Hgb 10.2 L Hct 29.2 L MCV 87.9 MCH 30.8 MCHC 35.0 RDW 14.6 H Plt Count 309 MPV 7.5 Neut % (Auto) 63.8 Lymph % (Auto) 19.9 L [place] % (Auto) 15.6 H Eos % (Auto) 0.4 Baso % (Auto) 0.3 Neut # (Auto) 3.4 Lymph # (Auto) 1.1 [place] # (Auto) 0.8 Eos # (Auto) 0.0 Baso # (Auto) 0.0 Sodium 139 Potassium 4.4 Chloride 99 Carbon Dioxide 30 Anion Gap 14 BUN 15 Creatinine 0.7 Est GFR ( Amer) > 60 Est GFR (Non-Af Amer) > 60 POC Glucose (mg/dL) Random Glucose 108 H Calcium 8.6 Phosphorus 3.1 Magnesium 1.5 L Total Bilirubin 0.9 AST 42 H ALT 75 H Alkaline Phosphatase 112 Total Protein 7.7 Albumin 3.2 L Globulin 4.5 H Albumin/Globulin Ratio 0.7 L Blood Type A POSITIVE Antibody Screen Negative 08/29/17 06:52 WBC RBC Hgb Hct MCV MCH MCHC RDW Plt Count MPV Neut % (Auto) Lymph % (Auto) [place] % (Auto) Eos % (Auto) Baso % (Auto) Neut # (Auto) Lymph # (Auto) [place] # (Auto) Eos # (Auto) Baso # (Auto) Sodium Potassium Chloride Carbon Dioxide Anion Gap BUN Creatinine Est GFR ( Amer) Est GFR (Non-Af Amer) POC Glucose (mg/dL) 109 Random Glucose Calcium Phosphorus Magnesium Total Bilirubin AST ALT Alkaline Phosphatase Total Protein Albumin Globulin Albumin/Globulin Ratio Blood Type Antibody Screen Critical Care Progress Note - Nutrition Nutrition: Nutrition Category Date Time Status NPO Diet [DIET] Diets 08/29/17 Breakfast Active Attending/Attestation - Attestation I have personally seen and examined this patient.: Yes I have fully participated in the care of the patient.: Yes I have reviewed all pertinent clinical information: Yes
--- NOTE | 2017-08-22 12:52 | CP.PCM.PN ---
Subjective - Date & Time of Evaluation Date of Evaluation: 08/22/17 Time of Evaluation: 12:00 - Subjective Subjective: Patient was seen and examined by me. She has much less pain now. Family member is at bedside. She is pending moving out of the ICU to 6T She went for echo and stress test this morning in prepration for a for cholesectomy. She also is pending MRCP as well and from what I understand will need ERCP. As mentioned previously the patient has gall stone pancreatitis seen on CT as ultrasound showing 1.1 cm dilated CBD Both the AST and ALT are both down trending. Lipase did decrease. The T bili was still elevated. Objective - Vital Signs/Intake and Output Vital Signs (last 24 hours): Temp Pulse Resp BP Pulse Ox 98 F 73 22 127/69 100 08/22/17 04:00 08/22/17 07:03 08/22/17 07:03 08/22/17 07:03 08/22/17 07:03 Intake and Output: 08/22/17 08/22/17 06:59 18:59 Intake Total 2225 175 Output Total 1050 Balance 1175 175 - Medications Medications: Current Medications Heparin Sodium (Porcine) (Heparin) 5,000 units SC Q8 [facility] Last Admin: 08/22/17 05:20 Dose: 5,000 units Lactated Ringer's (Lactated Ringer's) 1,000 mls @ 100 mls/hr IV .Q10H [facility] Morphine Sulfate (Morphine) 2 mg IVP Q4 PRN PRN Reason: Pain, severe (8-10) Last Admin: 08/21/17 19:57 Dose: 2 mg Ondansetron HCl (Zofran Inj) 4 mg IVP Q6 PRN PRN Reason: Nausea/Vomiting Pantoprazole Sodium (Protonix Inj) 40 mg IVP DAILY [facility] Last Admin: 08/21/17 09:00 Dose: 40 mg - Labs Labs: 08/22/17 08:25 08/21/17 20:15 - Constitutional Appears: Non-toxic, No Acute Distress - Head Exam Head Exam: NORMAL INSPECTION, NORMOCEPHALIC - GI/Abdominal Exam GI & Abdominal Exam: Soft, Tenderness Additional comments: Minimal tenderness - Skin Skin Exam: Normal Color, Warm Assessment and Plan - Assessment and Plan (Free Text) Assessment: Pancreatitis and choledocolithiasis : 08/22: Pain is less severe today. AST and ALT are both trending downward. The patient had CT of the abdomen and pelvis as well as abomdinal ultrasound showing stones and dilated CBD Both the AST and ALT are decreasing 236 and 241 yesterday - the T tima was still high. She remains on the lactic ringer IVF She just had echo done, also pending MRCP to be done today. From what I understand there are plans for ERCP as well as cholesectomy. HTN: 08/22: This morning was higher today. Continue to monitor. Previously was in the 120 systolic range. DM 08/22: accuchecks are stable 85, 113 Prophylaxis * SCDs * Will hold chemical anticoagulation pending scans * NPO
[2017-08-22] MEDS: Magnesium Sulfate 1 gm in D5W 1 GM/100 ML BAG IVPB SCH (13:28)
[2017-08-22] MEDS ORDERED: Gadodiamide 287 MG/ML VIAL (15ML) IV ONE (13:50)
[2017-08-22] MEDS ORDERED: Magnesium Sulfate 1 gm in D5W 1 GM/100 ML BAG IVPB ONE (13:51)
--- NOTE | 2017-08-22 15:35 | CP.PCM.CON ---
<Melvin English - Last Filed: 08/22/17 15:49> History of Present Illness - History of Present Illness History of Present Illness: PGY5 GI Fellow Consult Note Patient is a 77yo female with PMHx significant for rheumatoid arthritis on Enbrel, DM who presented to the ED with abdominal pain. Patient is accompanied by her two daughters who assist with history. Patient has had chronic, constant abdominal pain for several years but admits to a worsening of symptoms in the past several weeks. In the 24-48 hours prior to admission she developed sharp, epigastric abdominal pain that radiated to her back. Pain was severe at onset and remained constant, worse with movement and palpation. She did not take any medications to improve symptoms but became nauseated and vomited multiple times prompting her to come to the ED. She also endorses significant weight loss in the last year of over 40lbs. She denies any change in stool habits and has no fever, chills at the moment. An U/S in the ED showed cholelithiasis with choledocolithiasis and her clinical picture and lipase elevations were consistent with gallstone pancreatitis. Our service has been consulted for evaluation for EUS and ERCP. 12 system ROS performed and negative except where stated. PMHx: See HPI PSHx: Appendectomy FHx: Mother - Colorectal cancer in her 50s Social: Denies tobacco, EtOH or illicit drug use Endo: EGD - 09/2016 - Hiatal hernia, mild chronic gastritis, HP negative Colonoscopy - 01/2016 - One transverse colon hyperplastic polyp Past Patient History - Past Medical History & Family History Past Medical History?: Yes - Past Social History Smoking Status: Never Smoked - CARDIAC Hx Cardiac Disorders: No Hx Heart Attack: No - PULMONARY Hx Respiratory Disorders: No - NEUROLOGICAL Hx Neurological Disorder: No Hx Transient Ischemic Attacks (TIA): No - HEENT Hx HEENT Problems: Yes Hx Cataracts: Yes (CALEB.; NO SURGERY) - RENAL Hx Chronic Kidney Disease: No - ENDOCRINE/METABOLIC Hx Endocrine Disorders: Yes Hx Hyperthyroidism: Yes - HEMATOLOGICAL/ONCOLOGICAL Hx Blood Disorders: Yes Hx Anemia: Yes - INTEGUMENTARY Hx Dermatological Problems: No - MUSCULOSKELETAL/RHEUMATOLOGICAL Hx Musculoskeletal Disorders: Yes Hx Falls: Yes Hx Rheumatoid Arthritis: Yes - GASTROINTESTINAL Hx Gastrointestinal Disorders: Yes - GENITOURINARY/GYNECOLOGICAL Hx Genitourinary Disorders: No - PSYCHIATRIC Hx Psychophysiologic Disorder: No Hx Substance Use: No - SURGICAL HISTORY Hx Surgeries: Yes Hx Appendectomy: Yes - ANESTHESIA Hx Anesthesia: Yes Hx Anesthesia Reactions: No Hx Malignant Hyperthermia: No Has any member of the family had a problem w/ anesthesia?: No Meds Allergies/Adverse Reactions: Allergies Allergy/AdvReac Type Severity Reaction Status Date / Time weed pollen Allergy CONGESTION Verified 08/20/17 15:41 - Medications Medications: Current Medications Heparin Sodium (Porcine) (Heparin) 5,000 units SC Q8 [facility] Last Admin: 08/22/17 14:47 Dose: 5,000 units Lactated Ringer's (Lactated Ringer's) 1,000 mls @ 100 mls/hr IV .Q10H [facility] Last Admin: 08/22/17 13:28 Dose: Not Given Morphine Sulfate (Morphine) 2 mg IVP Q4 PRN PRN Reason: Pain, severe (8-10) Last Admin: 08/21/17 19:57 Dose: 2 mg Ondansetron HCl (Zofran Inj) 4 mg IVP Q6 PRN PRN Reason: Nausea/Vomiting Pantoprazole Sodium (Protonix Inj) 40 mg IVP DAILY [facility] Last Admin: 08/22/17 13:28 Dose: Not Given Physical Exam - Constitutional Appears: Non-toxic, No Acute Distress - Eye Exam Eye Exam: EOMI, PERRL - ENT Exam ENT Exam: Mucous Membranes Moist - Respiratory Exam Respiratory Exam: Clear to Auscultation Bilateral. absent: Rales, Rhonchi, Wheezes - Cardiovascular Exam Cardiovascular Exam: RRR, +S1, +S2 - GI/Abdominal Exam GI & Abdominal Exam: Normal Bowel Sounds, Soft, Tenderness (epigastric, RUQ). absent: Distended, Firm, Guarding, Organomegaly, Rigid - Extremities Exam Extremities exam: Positive for: normal inspection. Negative for: pedal edema - Neurological Exam Neurological exam: Alert, Oriented x3 - Psychiatric Exam Psychiatric exam: Normal Affect, Normal Mood - Skin Skin Exam: Dry, Warm Results - Vital Signs Recent Vital Signs: Last Vital Signs Temp 98.0 F 08/22/17 08:00 Pulse 82 08/22/17 13:02 Resp 22 08/22/17 08:27 BP 170/90 H 08/22/17 13:02 Pulse Ox 97 08/22/17 13:02 - Labs Result Diagrams: 08/22/17 08:25 08/21/17 20:15 Labs: Laboratory Results - last 24 hr 08/21/17 08/21/17 08/22/17 20:15 20:15 08:25 WBC 7.7 7.3 RBC 3.35 L 3.35 L Hgb 10.4 L 10.5 L Hct 29.7 L 29.9 L MCV 88.7 89.3 MCH 30.9 31.4 H MCHC 34.9 35.1 RDW 14.7 H 14.6 H Plt Count 157 172 MPV 7.5 8.3 Neut % (Auto) 76.9 H Lymph % (Auto) 13.2 L [place] % (Auto) 9.1 Eos % (Auto) 0.5 Baso % (Auto) 0.3 Neut # (Auto) 6.0 Lymph # (Auto) 1.0 [place] # (Auto) 0.7 Eos # (Auto) 0.0 Baso # (Auto) 0.0 Sodium 134 Potassium 3.7 Chloride 97 L Carbon Dioxide 29 Anion Gap 12 BUN 12 Creatinine 0.6 L Est GFR ( Amer) > 60 Est GFR (Non-Af Amer) > 60 Random Glucose 78 Calcium 8.6 Phosphorus 2.8 Magnesium 1.2 L Total Bilirubin 5.4 H AST 236 H D ALT 341 H D Alkaline Phosphatase 242 H Total Protein 6.9 Albumin 2.7 L Globulin 4.2 H Albumin/Globulin Ratio 0.6 L Lipase 5671 H Assessment & Plan - Assessment and Plan (Free Text) Assessment: Patient is a 77yo female with PMHx significant for rheumatoid arthritis on Enbrel, DM who presented to the ED with abdominal pain. -Acute gallstone pancreatitis -Cholelithiasis -Choledocolithiasis -Rheumatoid arthritis Plan: -All LFTs improving; suspect slower rise to peak and decline in TB over time -U/S and CT reviewed -MRCP ordered and pending -Analgesia and antiemetics per primary service -Plan regarding EUS/ERCP per findings -Primary gastrointestinal issues to be managed by Dr Colmenares - Date & Time Date: 08/22/17 Time: 11:00 <Harlan Gordon - Last Filed: 08/22/17 18:29> Meds - Medications Medications: Current Medications Heparin Sodium (Porcine) (Heparin) 5,000 units SC Q8 [facility] Last Admin: 08/22/17 14:47 Dose: 5,000 units Lactated Ringer's (Lactated Ringer's) 1,000 mls @ 100 mls/hr IV .Q10H [facility] Last Admin: 08/22/17 13:28 Dose: Not Given Morphine Sulfate (Morphine) 2 mg IVP Q4 PRN PRN Reason: Pain, severe (8-10) Last Admin: 08/21/17 19:57 Dose: 2 mg Ondansetron HCl (Zofran Inj) 4 mg IVP Q6 PRN PRN Reason: Nausea/Vomiting Pantoprazole Sodium (Protonix Inj) 40 mg IVP DAILY [facility] Last Admin: 08/22/17 13:28 Dose: Not Given Results - Vital Signs Recent Vital Signs: Last Vital Signs Temp 97.8 F 08/22/17 15:04 Pulse 78 08/22/17 15:04 Resp 20 08/22/17 15:04 BP 163/80 H 08/22/17 15:04 Pulse Ox 98 08/22/17 15:04 - Labs Result Diagrams: 08/22/17 08:25 08/21/17 20:15 Labs: Laboratory Results - last 24 hr 08/21/17 08/21/17 08/22/17 20:15 20:15 08:25 WBC 7.7 7.3 RBC 3.35 L 3.35 L Hgb 10.4 L 10.5 L Hct 29.7 L 29.9 L MCV 88.7 89.3 MCH 30.9 31.4 H MCHC 34.9 35.1 RDW 14.7 H 14.6 H Plt Count 157 172 MPV 7.5 8.3 Neut % (Auto) 76.9 H Lymph % (Auto) 13.2 L [place] % (Auto) 9.1 Eos % (Auto) 0.5 Baso % (Auto) 0.3 Neut # (Auto) 6.0 Lymph # (Auto) 1.0 [place] # (Auto) 0.7 Eos # (Auto) 0.0 Baso # (Auto) 0.0 Sodium 134 Potassium 3.7 Chloride 97 L Carbon Dioxide 29 Anion Gap 12 BUN 12 Creatinine 0.6 L Est GFR ( Amer) > 60 Est GFR (Non-Af Amer) > 60 Random Glucose 78 Calcium 8.6 Phosphorus 2.8 Magnesium 1.2 L Total Bilirubin 5.4 H AST 236 H D ALT 341 H D Alkaline Phosphatase 242 H Total Protein 6.9 Albumin 2.7 L Globulin 4.2 H Albumin/Globulin Ratio 0.6 L Lipase 5671 H Attending/Attestation - Attestation I have personally seen and examined this patient.: Yes I have fully participated in the care of the patient.: Yes I have reviewed all pertinent clinical information: Yes Notes (Text): 08/22/17 18:27 This is a 77 year old female with PMHx significant for rheumatoid arthritis on Enbrel, DM who presented to the ED with abdominal pain with acute gallstone pancreatitis now resolving with ? choledocholithiasis and uptrending LFT. Gi consult requested by primary GI Dr Colmenares. MRCP pending. CT reviewed that shows dilated CBD. Analgesia and antiemetics per primary service with plan regarding ERCP as per findings. Discussed in detail with the patient and the daughters at the bedside regarding the procedure in detail
--- NOTE | 2017-08-22 16:24 | CP.PCM.PN ---
<JavierValerie - Last Filed: 08/22/17 17:28> Subjective - Date & Time of Evaluation Date of Evaluation: 08/22/17 Time of Evaluation: 06:30 - Subjective Subjective: Patient seen and examined at bedside in the ICU this AM. Patient denies any nausea, vomiting, pain, or fevers. Objective - Vital Signs/Intake and Output Vital Signs (last 24 hours): Temp Pulse Resp BP Pulse Ox 97.8 F 78 20 163/80 H 98 08/22/17 15:04 08/22/17 15:04 08/22/17 15:04 08/22/17 15:04 08/22/17 15:04 Intake and Output: 08/22/17 08/22/17 06:59 18:59 Intake Total 2225 175 Output Total 1050 Balance 1175 175 - Medications Medications: Current Medications Heparin Sodium (Porcine) (Heparin) 5,000 units SC Q8 [facility] Last Admin: 08/22/17 14:47 Dose: 5,000 units Lactated Ringer's (Lactated Ringer's) 1,000 mls @ 100 mls/hr IV .Q10H [facility] Last Admin: 08/22/17 13:28 Dose: Not Given Morphine Sulfate (Morphine) 2 mg IVP Q4 PRN PRN Reason: Pain, severe (8-10) Last Admin: 08/21/17 19:57 Dose: 2 mg Ondansetron HCl (Zofran Inj) 4 mg IVP Q6 PRN PRN Reason: Nausea/Vomiting Pantoprazole Sodium (Protonix Inj) 40 mg IVP DAILY [facility] Last Admin: 08/22/17 13:28 Dose: Not Given - Labs Labs: 08/22/17 08:25 08/21/17 20:15 - Constitutional Appears: Well, Non-toxic, No Acute Distress - Head Exam Head Exam: ATRAUMATIC, NORMOCEPHALIC - Eye Exam Eye Exam: Normal appearance. absent: Conjunctival injection, Scleral icterus - ENT Exam ENT Exam: Mucous Membranes Moist, Normal Oropharynx - Respiratory Exam Respiratory Exam: NORMAL BREATHING PATTERN. absent: Accessory Muscle Use, Respiratory Distress - Cardiovascular Exam Cardiovascular Exam: RRR - GI/Abdominal Exam GI & Abdominal Exam: Soft. absent: Distended, Tenderness - Extremities Exam Extremities Exam: absent: Calf Tenderness, Pedal Edema, Tenderness - Neurological Exam Neurological Exam: Alert, Awake, Oriented x3 - Psychiatric Exam Psychiatric exam: Normal Affect, Normal Mood - Skin Skin Exam: Dry, Intact, Normal Color, Warm Assessment and Plan - Assessment and Plan (Free Text) Assessment: 77F with gallstone pancreatitis, possible choledocholithiasis Plan: -F/U MRCP results -F/U GI recs -NPO -PRN pain and nausea medication -IVF -Daily CBC/CMP -Further surgical recommendations pending imaging results and GI interventions-- patient does not want a cholecystectomy at this time. Will continue to discuss with her as her clinical course progresses Seen and discussed with Dr. Eze Herrera PGY2 <Tre Loo - Last Filed: 08/24/17 16:07> Objective - Vital Signs/Intake and Output Vital Signs (last 24 hours): Temp Pulse Resp BP Pulse Ox 97.5 F L 90 20 159/70 H 99 08/24/17 15:05 08/24/17 15:05 08/24/17 15:05 08/24/17 15:05 08/24/17 15:05 - Medications Medications: Current Medications Heparin Sodium (Porcine) (Heparin) 5,000 units SC Q8 [facility] Last Admin: 08/23/17 13:05 Dose: 5,000 units Lactated Ringer's (Lactated Ringer's) 1,000 mls @ 125 mls/hr IV .Q8H [facility] Last Admin: 08/24/17 07:02 Dose: Not Given Morphine Sulfate (Morphine) 2 mg IVP Q4 PRN PRN Reason: Pain, severe (8-10) Last Admin: 08/21/17 19:57 Dose: 2 mg Ondansetron HCl (Zofran Inj) 4 mg IVP Q6 PRN PRN Reason: Nausea/Vomiting Pantoprazole Sodium (Protonix Inj) 40 mg IVP DAILY [facility] Last Admin: 08/24/17 10:34 Dose: 40 mg - Labs Labs: 08/24/17 11:23 08/24/17 11:23 PT 11.7 SECONDS (9.7-12.2) 08/23/17 11:12 INR 1.0 08/23/17 11:12 Attending/Attestation - Attestation I have personally seen and examined this patient.: Yes I have fully participated in the care of the patient.: Yes I have reviewed all pertinent clinical information, including history, physical exam and plan: Yes Notes (Text): Pt was seen and examined at bedside Agree with above note and assessment Pt is improved clinically MRCP pending GI consult appreciated Plan d.w pt in detail Risk and benefit explained in detail.
--- NOTE | 2017-08-22 17:23 | CARD ---
APPROVED REPORT Protocol: LEXISCAN Test Type: LEXISCAN STRESS Test Indications: CHEST PAIN Target HR: 141 bpm Resting ECG: NSR Resting Heart Rate: 79 bpm Resting Blood Pressure: 128/80mmHg submaximum (85%): 120 bpm TEST SUMMARY PREINFSNHYPERV.09:[id number]/80.0. INFUSIONDOSE 100:300.00.01.078/.0. [id number]/80.2. PROCEDURE Pharmacologic stress testing was performed using 0.4mg per 5ml of regadenoson given intravenously over 7-10 seconds. Reversal agent aminophyline 100 mg, given intravenously for POST EXERCISE Reason for Termination: Protocol Completed Target HR: No Max HR: 78 bpm 70% of Maximum Predicted HR: 141 bpm Exercise duration: 00:30 min:sec, 0 Stage Exercise capacity: 1.0METs Max Blood Pressure: 128/80mmHg Blood Pressure response to exercise: normal resting BP - appropriate response Heart Rate response to exercise: appropriate Chest Pain: No, none Angina index: 0 Arrhythmia: No, none ST Change: No, none Deviation: 0 mm INTERPRETATION Stress EKG Conclusion: NEGATIVE LEXISCAN STRESS TEST NORMAL BP RESPONSE TO LEXISCAN VPB; APB NUCLEAR STUDIES TO BE READ SEPARATELY EXAM: Myocardial Perfusion REST/STRESS Imaging Protocol The imaging protocol used to acquire images was Rest Tc-99m/stress Tc-99m 1 day Rest Spect myocardial perfusion imaging was performed in supine position 45 minutes following the injection of 12.7 mCi of Tc-99 Myoview. Gated Stress Spect was performed 45 minutes after intravenous 30.3 mCi Tc-99 Myoview injection. The images were gated to evaluate regional wall motion and calculate ventricular ejection fraction.Images were reconstructed using backfilter projection method in short horizontal and verticle long axis. Spect slices were generated. RESTING DATA EDV84.47oeDS9.70L/min1/3 Pk. Filling Rate0.80EDV/sec LV Time to Pk. Filling Bttx638.51msec ESV34.00mlMyocardial Qtld130.00gLV Time to Pk. Ejection Cfxd929.09msec Pk. Fill Rate3.09EDV/secAv. Heart Rate74.00bpm EF60.00%Pk. Emptying Rate3.63ESV/sec STRESS DATA EDV85.15crEV9.10L/min ESV33.00mlMyocardial Wwyo645.00g Pk. Fill Rate2.53EDV/sec EF61.00%Pk. Emptying Rate3.68ESV/sec 1/3 Pk. Filling Rate1.49EDV/secRegional WT score at stress:1.00 LV Time to Pk. Filling Rate:67.04msecRegional WM score at stress:0.00 LV Time to Pk. Ejection Rate:104.24msecSummed WT score at stress:16.00 Av. Heart Rate78.00bpmSummed WM score at stress:12.00 LV Perf. Quant 17 Seg. SSS6.00 17 Seg. SRS2.00 17 Seg. SDS4.00 Stress Defect Extent (% LAD)0.00Rest Defect Extent (% LAD)0.00Rev. Defect Extent (% LAD)0.00 Stress Defect Extent (% LCX)51.30Rest Defect Extent (% LCX)22.50Rev. Defect Extent (% LCX)20.00 Stress Defect Extent (% RCA)0.00Rest Defect Extent (% RCA)0.00Rev. Defect Extent (% RCA)0.00 Stress Defect Extent (% MARLEY)11.70Rest Defect Extent (% MARLEY)3.90Rev. Defect Extent (% MARLEY)4.60 Other Information Quality:Good IMPRESSION Normal Myocardial Perfusion exercise stress study Conclusion 1. Normal Lexiscan Nuclear stress test. Normal EF.
--- NOTE | 2017-08-22 23:04 | CARD ---
APPROVED REPORT EXAM: Two-dimensional and M-mode echocardiogram with Doppler and color Doppler. Other Information Quality : GoodRhythm : INDICATION Pre-Op Murmur RISK FACTORS Diabetes 2D DIMENSIONS IVSd1.2 (0.7-1.1cm)LVDd4.2 (3.9-5.9cm) PWd1.1 (0.7-1.1cm)LVDs3.1 (2.5-4.0cm) FS (%) 27.1 %LVEF (%)53.3 (>50%) M-Mode DIMENSIONS RVDd2.07 (2.1-3.2cm)Left Atrium (MM)4.28 (2.5-4.0cm) IVSd0.94 (0.7-1.1cm)Aortic Root3.03 (2.2-3.7cm) LVDd5.16 (4.0-5.6cm)Aortic Cusp Exc.1.70 (1.5-2.0cm) PWd1.00 (0.7-1.1cm)FS (%) 36 % LVDs3.28 (2.0-3.8cm)LVEF (%)66 (>50%) Aortic Valve AI P 1/2 [id number] Mitral Valve MV E Gdneitcp70.1cm/sMV A Qicqjqfx148.5cm/sE/A ratio0.6 TDI E/Lateral E'0.0E/Medial E'0.0 Tricuspid Valve TR Peak Lfcplsub329xq/sTR Peak Gr.73xsJbVXME22uvGb LEFT VENTRICLE The left ventricle is normal size. There is normal left ventricular wall thickness. Left ventricle systolic function is mildly impaired. The Ejection Fraction is 45-50%. There is global hypokinesis of the left ventricle. Transmitral Doppler flow pattern is Grade I-abnormal relaxation pattern. There is no ventricular septal defect visualized. RIGHT VENTRICLE The right ventricle is normal size. The right ventricular systolic function is normal. ATRIA The left atrium is moderately dilated. The right atrium is moderately dilated. AORTIC VALVE The aortic valve is mildly sclerotic. The aortic valve is tri-cuspid. There is mild to moderate aortic regurgitation. There is no aortic valvular stenosis. MITRAL VALVE Mitral annular calcification is mild. There is no evidence of mitral valve prolapse. Mitral regurgitation is mild. ERO 0.1 cm TRICUSPID VALVE The tricuspid valve is normal in structure. There is moderate tricuspid regurgitation. Right ventricular systolic pressure is estimated at 40-50 mmHg. There is moderate pulmonary hypertension. PULMONIC VALVE The pulmonic valve is not well visualized. There is mild to moderate pulmonic valvular regurgitation. GREAT VESSELS The aortic root is normal in size. The ascending aorta is normal in size. The IVC is normal in size and collapses >50% with inspiration. PERICARDIAL EFFUSION There is no pericardial effusion. <Conclusion> Left ventricle systolic function is mildly impaired. The Ejection Fraction is 45-50%. There is global hypokinesis of the left ventricle. Transmitral Doppler flow pattern is Grade I-abnormal relaxation pattern. There is mild to moderate aortic regurgitation. Mitral regurgitation is mild. ERO 0.1 cm There is moderate pulmonary hypertension.
[2017-08-23] MEDS: Lactated Ringer's 1,000 ML IV SCH ×4 (07:12→21:20)
--- NOTE | 2017-08-23 07:20 | CP.PCM.PN ---
<Wilda Bailey - Last Filed: 08/23/17 15:07> Subjective - Date & Time of Evaluation Date of Evaluation: 08/23/17 Time of Evaluation: :18 - Subjective Subjective: Patient seen and examined at bedside. Patient resting comfortably in bed with no new complaints at this time. Patient says her abdominal pain is improving and now she just feels sore in her upper abdominal area. Patient says she ate for the first time last night and was very hungry so she ate everything without feeling nauseous or vomiting. Patient denies fever, chills, chest pain, SOB, diarrhea, constipation, calf pain, and LE swelling. Objective - Vital Signs/Intake and Output Vital Signs (last 24 hours): Temp Pulse Resp BP Pulse Ox 97.9 F 78 20 122/72 95 08/22/17 23:50 08/22/17 23:50 08/22/17 23:50 08/22/17 23:50 08/22/17 23:50 Intake and Output: 08/23/17 08/23/17 06:59 18:59 Intake Total 240 Output Total 400 Balance -160 - Medications Medications: Current Medications Heparin Sodium (Porcine) (Heparin) 5,000 units SC Q8 [facility] Last Admin: 08/23/17 06:30 Dose: 5,000 units Lactated Ringer's (Lactated Ringer's) 1,000 mls @ 125 mls/hr IV .Q8H [facility] Last Admin: 08/23/17 07:12 Dose: 125 mls/hr Morphine Sulfate (Morphine) 2 mg IVP Q4 PRN PRN Reason: Pain, severe (8-10) Last Admin: 08/21/17 19:57 Dose: 2 mg Ondansetron HCl (Zofran Inj) 4 mg IVP Q6 PRN PRN Reason: Nausea/Vomiting Pantoprazole Sodium (Protonix Inj) 40 mg IVP DAILY [facility] Last Admin: 08/22/17 13:28 Dose: Not Given - Labs Labs: 08/22/17 08:25 08/21/17 20:15 - Constitutional Appears: Non-toxic, No Acute Distress - Head Exam Head Exam: ATRAUMATIC, NORMAL INSPECTION, NORMOCEPHALIC - Eye Exam Eye Exam: EOMI, Normal appearance, PERRL Pupil Exam: NORMAL ACCOMODATION, PERRL - ENT Exam ENT Exam: Mucous Membranes Moist, Normal Exam - Neck Exam Neck Exam: Full ROM, Normal Inspection. absent: Lymphadenopathy - Respiratory Exam Respiratory Exam: Clear to Ausculation Bilateral, NORMAL BREATHING PATTERN - Cardiovascular Exam Cardiovascular Exam: REGULAR RHYTHM, +S1, +S2. absent: Murmur - GI/Abdominal Exam GI & Abdominal Exam: Soft, Tenderness (RUQ and LUQ ), Normal Bowel Sounds. absent: Distended - Extremities Exam Extremities Exam: Full ROM, Normal Capillary Refill, Normal Inspection. absent : Joint Swelling, Pedal Edema - Back Exam Back Exam: NORMAL INSPECTION - Neurological Exam Neurological Exam: Alert, Awake, Oriented x3 - Psychiatric Exam Psychiatric exam: Normal Affect, Normal Mood - Skin Skin Exam: Dry, Intact, Normal Color, Warm Assessment and Plan - Assessment and Plan (Free Text) Plan: Gallstone Pancreatitis/Cholelithiasis/Choledocolithiasis * Ackworth score on admission: 3 with 15% predicted mortality, ABG not obtained at 48 hours so Ransons criteria could not be calculated, however, without arterial PO2 included, she has a score of 1 at 48 hours post admission * AST/ALT and TBili trending down * Dr. Colmenares and Dr. Mahoney (GI) consulted; help appreciated * MRCP done; see below * ERCP planned for 08/24 * Dr. Loo (general surgery) consulted; help appreciated * Dr. Burciaga (cardiology) consulted for preop cardiac risk assessment Imaging * Abdominal US: 1. Gallstones with choledocholithiasis and secondary dilatation of the central intrahepatic ducts 2. Mild hepatomegaly. 3. Trace amount of ascites at the inferior liver edge. 4. Progressive dilatation of the pancreatic duct which measures 0.39 cm compared to previous measurement of 0.28 cm on 03/22/2017. * CT Abdomen/Pelvis: Distended gallbladder demonstrates diffuse wall thickening and surrounding with small pericholecystic fluid. Correlate clinically for cholecystitis. Slightly dilated common bile duct. Slightly heterogeneous pancreas. No definite evidence of significant peripancreatic fluid or inflammatory changes. Mildly dilated small bowel loops may represent bowel ileus. The possibility of enteritis is not totally excluded. No evidence of high -grade bowel obstruction. Moderately distended distal esophagus is again noted. * MRCP (08/22): follow up official read * Echo (08/22): Left ventricle systolic function is mildly impaired. The Ejection Fraction is 45-50%. There is global hypokinesis of the left ventricle. Transmitral Doppler flow pattern is Grade I-abnormal relaxation pattern. There is mild to moderate aortic regurgitation. Mitral regurgitation is mild. ERO 0.1 cm. There is moderate pulmonary hypertension. * Stress Test (08/22): Normal Lexiscan Nuclear stress test. Normal EF. Meds/Fluids * Zofran 4 mg IV Q6 PRN * Morphine 2 mg IV Q4 PRN * LR @125 cc/h Acute anemia * H&H 10.8 and 30.9, trending up over the past couple of days * Continue to monitor DM * Patient has not been treated for this in 5 years and glucose under control by diet RA * Embrel injections weekly at home - on hold for now Prophylaxis * Protonix 40 mg IV daily * Heparin SC <Amadou Montague H - Last Filed: 08/23/17 15:33> Objective - Vital Signs/Intake and Output Vital Signs (last 24 hours): Temp Pulse Resp BP Pulse Ox 97.6 F 75 18 130/71 98 08/23/17 08:00 08/23/17 08:00 08/23/17 08:00 08/23/17 08:00 08/23/17 08:00 Intake and Output: 08/23/17 08/23/17 06:59 18:59 Intake Total 240 Output Total 400 Balance -160 - Medications Medications: Current Medications Heparin Sodium (Porcine) (Heparin) 5,000 units SC Q8 [facility] Last Admin: 08/23/17 13:05 Dose: 5,000 units Lactated Ringer's (Lactated Ringer's) 1,000 mls @ 125 mls/hr IV .Q8H [facility] Last Admin: 08/23/17 13:06 Dose: 125 mls/hr Morphine Sulfate (Morphine) 2 mg IVP Q4 PRN PRN Reason: Pain, severe (8-10) Last Admin: 08/21/17 19:57 Dose: 2 mg Ondansetron HCl (Zofran Inj) 4 mg IVP Q6 PRN PRN Reason: Nausea/Vomiting Pantoprazole Sodium (Protonix Inj) 40 mg IVP DAILY [facility] Last Admin: 08/23/17 09:17 Dose: 40 mg - Labs Labs: 08/23/17 08:27 04/17/18 08:27 PT 11.7 SECONDS (9.7-12.2) 08/23/17 11:12 INR 1.0 08/23/17 11:12 Attending/Attestation - Attestation I have personally seen and examined this patient.: Yes I have fully participated in the care of the patient.: Yes I have reviewed all pertinent clinical information, including history, physical exam and plan: Yes Notes (Text): Medical attending: Patient was seen and examined by me. Agree with the above note by the resident Her AST, ALT as well as T billirubin are decreasing. The patient when we saw her in morning rounds reported that she did not have any abdominal pain To help her understand what was happening we tarik out a picture so that she could have it. Patient underwent MRCP yesterday and tommorow from what I understand the plan is for an ERCP to be done. She has also underwent stress test by cardiology - this was normal. thank you Amadou Montague
[2017-08-23 08:39] LABS: BASO % 0.8 % (0.0-2.0); EOS % 0.5 % (0.0-4.0); HEMOGLOBIN 10.8 g/dL (11.0-16.0); LYMPH # 0.9 K/uL (1.0-4.3); LYMPH % 18.1 % (20.0-40.0); MEAN CELL VOLUME 88.8 fL (81.0-99.0); MEAN CORPUSCULAR HGB CONC 34.9 g/dL (33.0-37.0); MEAN PLATELET VOLUME 8.5 fL (7.2-11.7); MONO # 0.6 K/uL (0.0-0.8); MONO % 12.5 % (0.0-10.0); NEUT # 3.5 K/uL (1.8-7.0); NEUT % 68.1 % (50.0-75.0); RBC 3.47 Mil/uL (3.80-5.20); RED CELL DISTRIBUTION WIDTH 14.8 % (11.5-14.5); WHITE BLOOD COUNT 5.1 K/uL (4.8-10.8)
[2017-08-23 08:56] LABS: ALB/GLOB RATIO 0.6 (1.0-2.1); ALBUMIN 2.8 g/dL (3.5-5.0); ALT/SGPT 262 U/L (9-52); AST/SGOT 173 U/L (14-36); BLOOD UREA NITROGEN 11 mg/dL (7-17); CALCIUM 8.6 mg/dl (8.6-10.4); GFR AFRICAN-AMERICAN > 60; GFR NON-AFRICAN AMERICAN > 60
--- NOTE | 2017-08-23 09:04 | CP.PCM.PN ---
<Melvin English - Last Filed: 08/23/17 09:01> Subjective - Date & Time of Evaluation Date of Evaluation: 08/23/17 Time of Evaluation: 06:50 - Subjective Subjective: PGY5 GI Fellow Progress Note Patient seen and examined bedside this morning. She states that she is feeling quite well today without any significant abdominal pain. She is eating breakfast without issue and denies any events overnight. No nausea, vomiting, fever, chills. Passing flatus and stool. 12 system ROS performed and negative except where stated. Objective - Vital Signs/Intake and Output Vital Signs (last 24 hours): Temp Pulse Resp BP Pulse Ox 97.9 F 78 20 122/72 95 08/22/17 23:50 08/22/17 23:50 08/22/17 23:50 08/22/17 23:50 08/22/17 23:50 Intake and Output: 08/23/17 08/23/17 06:59 18:59 Intake Total 240 Output Total 400 Balance -160 - Medications Medications: Current Medications Heparin Sodium (Porcine) (Heparin) 5,000 units SC Q8 [facility] Last Admin: 08/23/17 06:30 Dose: 5,000 units Lactated Ringer's (Lactated Ringer's) 1,000 mls @ 125 mls/hr IV .Q8H [facility] Last Admin: 08/23/17 07:12 Dose: 125 mls/hr Morphine Sulfate (Morphine) 2 mg IVP Q4 PRN PRN Reason: Pain, severe (8-10) Last Admin: 08/21/17 19:57 Dose: 2 mg Ondansetron HCl (Zofran Inj) 4 mg IVP Q6 PRN PRN Reason: Nausea/Vomiting Pantoprazole Sodium (Protonix Inj) 40 mg IVP DAILY [facility] Last Admin: 08/22/17 13:28 Dose: Not Given - Labs Labs: 08/23/17 08:27 08/23/17 08:27 - Constitutional Appears: Non-toxic, No Acute Distress - Eye Exam Eye Exam: EOMI, PERRL - ENT Exam ENT Exam: Mucous Membranes Moist - Respiratory Exam Respiratory Exam: Clear to Ausculation Bilateral. absent: Rales, Rhonchi, Wheezes - Cardiovascular Exam Cardiovascular Exam: RRR, +S1, +S2 - GI/Abdominal Exam GI & Abdominal Exam: Soft, Normal Bowel Sounds. absent: Distended, Firm, Guarding, Rigid, Tenderness, Organomegaly - Extremities Exam Extremities Exam: Normal Inspection. absent: Pedal Edema - Neurological Exam Neurological Exam: Alert, Awake, Oriented x3 - Psychiatric Exam Psychiatric exam: Normal Affect, Normal Mood - Skin Skin Exam: Dry, Warm Assessment and Plan - Assessment and Plan (Free Text) Assessment: Patient is a 77yo female with PMHx significant for rheumatoid arthritis on Enbrel, DM who presented to the ED with abdominal pain. -Acute gallstone pancreatitis -Cholelithiasis -Choledocolithiasis -Rheumatoid arthritis Plan: -Plan for EUS/ERCP tomorrow morning at 730 -Please maintain NPO past midnight -Hold Heparin after tonight's dose -All LFTs downtrending -MRCP pending radiology read -Analgesia and antiemetics per primary service -Primary gastrointestinal issues to be managed by Dr Colmenares <Otto Bowling - Last Filed: 08/23/17 09:10> Objective - Vital Signs/Intake and Output Vital Signs (last 24 hours): Temp Pulse Resp BP Pulse Ox 97.9 F 78 20 122/72 95 08/22/17 23:50 08/22/17 23:50 08/22/17 23:50 08/22/17 23:50 08/22/17 23:50 Intake and Output: 08/23/17 08/23/17 06:59 18:59 Intake Total 240 Output Total 400 Balance -160 - Medications Medications: Current Medications Heparin Sodium (Porcine) (Heparin) 5,000 units SC Q8 [facility] Last Admin: 08/23/17 06:30 Dose: 5,000 units Lactated Ringer's (Lactated Ringer's) 1,000 mls @ 125 mls/hr IV .Q8H [facility] Last Admin: 08/23/17 07:12 Dose: 125 mls/hr Morphine Sulfate (Morphine) 2 mg IVP Q4 PRN PRN Reason: Pain, severe (8-10) Last Admin: 08/21/17 19:57 Dose: 2 mg Ondansetron HCl (Zofran Inj) 4 mg IVP Q6 PRN PRN Reason: Nausea/Vomiting Pantoprazole Sodium (Protonix Inj) 40 mg IVP DAILY [facility] Last Admin: 08/22/17 13:28 Dose: Not Given - Labs Labs: 08/23/17 08:27 08/23/17 08:27 Attending/Attestation - Attestation I have personally seen and examined this patient.: Yes I have fully participated in the care of the patient.: Yes I have reviewed all pertinent clinical information, including history, physical exam and plan: Yes Notes (Text): 08/23/17 09:08 I have seen and examined patient with GI fellow. No acute events overnight, she is seen resting in bed comfortably eating breakfast. She denies abdominal pain, nausea, vomiting, fever/chills. DM Rheumatoid arthritis Abdominal pain, transaminitis, acute gallstone pancreatitis - Diet as tolerated - LFTs trending down, continue to monitor - Awaiting results of MRCP - Plan for EUS +/- ERCP tomorrow for further evaluation of choledocholithiasis, NPO after midnight - Follow up surgical recommendations - Will continue to monitor patient clinical course
--- NOTE | 2017-08-23 10:56 | CP.PCM.PN ---
<Estefani Mac - Last Filed: 08/23/17 10:53> Subjective - Date & Time of Evaluation Date of Evaluation: 08/23/17 Time of Evaluation: 10:53 - Subjective Subjective: Surgery; Dr. Loo Pt seen and examined. No acute overnight events. States she feels well and abdominal pain is mostly resolved. She's tolerating her diet and denies N/V, F/ C. Objective - Vital Signs/Intake and Output Vital Signs (last 24 hours): Temp Pulse Resp BP Pulse Ox 97.9 F 78 20 122/72 95 08/22/17 23:50 08/22/17 23:50 08/22/17 23:50 08/22/17 23:50 08/22/17 23:50 Intake and Output: 08/23/17 08/23/17 06:59 18:59 Intake Total 240 Output Total 400 Balance -160 - Medications Medications: Current Medications Heparin Sodium (Porcine) (Heparin) 5,000 units SC Q8 [facility] Last Admin: 08/23/17 06:30 Dose: 5,000 units Lactated Ringer's (Lactated Ringer's) 1,000 mls @ 125 mls/hr IV .Q8H [facility] Last Admin: 08/23/17 07:12 Dose: 125 mls/hr Morphine Sulfate (Morphine) 2 mg IVP Q4 PRN PRN Reason: Pain, severe (8-10) Last Admin: 08/21/17 19:57 Dose: 2 mg Ondansetron HCl (Zofran Inj) 4 mg IVP Q6 PRN PRN Reason: Nausea/Vomiting Pantoprazole Sodium (Protonix Inj) 40 mg IVP DAILY [facility] Last Admin: 08/23/17 09:17 Dose: 40 mg - Labs Labs: 08/23/17 08:27 08/23/17 08:27 - Constitutional Appears: Well, No Acute Distress - Head Exam Head Exam: ATRAUMATIC, NORMOCEPHALIC - Eye Exam Eye Exam: Normal appearance - ENT Exam ENT Exam: Mucous Membranes Moist - Respiratory Exam Respiratory Exam: NORMAL BREATHING PATTERN - Cardiovascular Exam Cardiovascular Exam: RRR - GI/Abdominal Exam GI & Abdominal Exam: Soft. absent: Distended, Guarding, Tenderness - Neurological Exam Neurological Exam: Alert, Awake, Oriented x3 - Skin Skin Exam: Dry, Warm Assessment and Plan - Assessment and Plan (Free Text) Assessment: 77F with gallstone pancreatitis & choledocholithiasis Plan: - plan for ERCP with GI tomorrow morning - Keep NPO past midnight - d/w Dr. Eze Mac, PGY-3 <Tre Loo - Last Filed: 08/24/17 16:08> Objective - Vital Signs/Intake and Output Vital Signs (last 24 hours): Temp Pulse Resp BP Pulse Ox 97.5 F L 90 20 159/70 H 99 08/24/17 15:05 08/24/17 15:05 08/24/17 15:05 08/24/17 15:05 08/24/17 15:05 - Medications Medications: Current Medications Heparin Sodium (Porcine) (Heparin) 5,000 units SC Q8 [facility] Last Admin: 08/23/17 13:05 Dose: 5,000 units Lactated Ringer's (Lactated Ringer's) 1,000 mls @ 125 mls/hr IV .Q8H [facility] Last Admin: 08/24/17 07:02 Dose: Not Given Morphine Sulfate (Morphine) 2 mg IVP Q4 PRN PRN Reason: Pain, severe (8-10) Last Admin: 08/21/17 19:57 Dose: 2 mg Ondansetron HCl (Zofran Inj) 4 mg IVP Q6 PRN PRN Reason: Nausea/Vomiting Pantoprazole Sodium (Protonix Inj) 40 mg IVP DAILY [facility] Last Admin: 08/24/17 10:34 Dose: 40 mg - Labs Labs: 08/24/17 11:23 08/24/17 11:23 PT 11.7 SECONDS (9.7-12.2) 08/23/17 11:12 INR 1.0 08/23/17 11:12 Attending/Attestation - Attestation I have personally seen and examined this patient.: Yes I have fully participated in the care of the patient.: Yes I have reviewed all pertinent clinical information, including history, physical exam and plan: Yes Notes (Text): Pt was seen and examined at bedside Agree with above note and assessment ERCP on Tuesday NPO, IVG c.w current mx Plan d.w pt in detail Risk and benefit explained in detail.
[2017-08-23 11:27] LABS: PROTHROMBIN TIME 11.7 SECONDS (9.7-12.2)
--- NOTE | 2017-08-23 11:36 | CP.PCM.PN ---
Subjective - Date & Time of Evaluation Date of Evaluation: 08/23/17 Time of Evaluation: 11:24 - Subjective Subjective: Patient denies having nausea, vomiting, abdominal pain. She is tolerating a regular diet. She has a formed bowel movement this morning. Objective - Vital Signs/Intake and Output Vital Signs (last 24 hours): Temp Pulse Resp BP Pulse Ox 97.6 F 75 18 130/71 98 08/23/17 08:00 08/23/17 08:00 08/23/17 08:00 08/23/17 08:00 08/23/17 08:00 Intake and Output: 08/23/17 08/23/17 06:59 18:59 Intake Total 240 Output Total 400 Balance -160 - Medications Medications: Current Medications Heparin Sodium (Porcine) (Heparin) 5,000 units SC Q8 [facility] Last Admin: 08/23/17 06:30 Dose: 5,000 units Lactated Ringer's (Lactated Ringer's) 1,000 mls @ 125 mls/hr IV .Q8H [facility] Last Admin: 08/23/17 07:12 Dose: 125 mls/hr Morphine Sulfate (Morphine) 2 mg IVP Q4 PRN PRN Reason: Pain, severe (8-10) Last Admin: 08/21/17 19:57 Dose: 2 mg Ondansetron HCl (Zofran Inj) 4 mg IVP Q6 PRN PRN Reason: Nausea/Vomiting Pantoprazole Sodium (Protonix Inj) 40 mg IVP DAILY [facility] Last Admin: 08/23/17 09:17 Dose: 40 mg - Labs Labs: 08/23/17 08:27 08/23/17 08:27 - Constitutional Appears: No Acute Distress - Head Exam Head Exam: ATRAUMATIC, NORMOCEPHALIC - Eye Exam Eye Exam: EOMI, PERRL - Neck Exam Neck Exam: absent: Lymphadenopathy, Thyromegaly - Respiratory Exam Respiratory Exam: NORMAL BREATHING PATTERN. absent: Rales, Rhonchi, Wheezes - Cardiovascular Exam Cardiovascular Exam: REGULAR RHYTHM, +S1, +S2. absent: Gallop, Rubs, Murmur - GI/Abdominal Exam GI & Abdominal Exam: Soft, Normal Bowel Sounds. absent: Tenderness, Mass, Organomegaly - Rectal Exam Rectal Exam: Deferred - Extremities Exam Extremities Exam: absent: Calf Tenderness, Pedal Edema Assessment and Plan (1) Gallstone pancreatitis Assessment & Plan: Patient remains pain-free. The LFTs are improving: TBILI 2.5 (was 5.4 yesterday ), AST 173 (236), ALT 262 (341), ALKP 238 (242). Plan is for EUS and possible ERCP tomorrow. According to the recent AGA guidelines ("Initial Medical Treatment of Acute Pancreatitis: [place] [employer] [place] Technical Review" published online June 13, 2017), patients undergoing same-admission cholecystectomy had fewer readmissions for recurrent pancreatitis and pancreaticobiliary complications compared with those undergoing delayed cholecystectomy. Therefore, cholecystectomy during this admission should be considered. Status: Acute
[2017-08-23 12:51] LABS: ALBUMIN (PEP) 2.4 g/dL (3.8-4.8); ALPHA-1-GLOBULIN (PEP) 0.3 g/dL (0.2-0.3)
--- NOTE | 2017-08-23 16:12 | MRI ---
PROCEDURE: MRI Abdomen with and without contrast and MRCP HISTORY: Abdominal pain. Possible gallstone pancreatitis. COMPARISON: None available. TECHNIQUE: Multisequence, multiplanar MR images of the abdomen with and without gadolinium contrast enhancement. FINDINGS: LIVER: Normal size, contour and signal intensity. No mass. Smooth contour. No intrahepatic biliary ductal dilatation. GALLBLADDER: Mild diffuse mural thickening. No ady pericholecystic fluid. Dependent sludge without evidence of gallstones. The common bile duct measures 7 mm in diameter. There is questionable small filling defect seen in the distal common bile duct on series 5, image 15 which is not evident on other sequences. Possible distal common bile duct stone. SPLEEN: Normal size and signal intensity. 11 mm fluid signal mass in the spleen common nonspecific. Possible splenic cyst or hemangioma/ lymphangioma. PANCREAS: No mass. No pancreatic ductal dilatation. No peripancreatic fluid/ edema to suggest acute pancreatitis. ADRENALS: Unremarkable. KIDNEYS: Unremarkable. AORTA: No aneurysm. ASCITES: Trace perihepatic ascites. Minimal bilateral pleural effusion. PERITONEUM: Unremarkable. LYMPH NODES: Unremarkable. OTHER FINDINGS: None. IMPRESSION: Mild thickening of the gallbladder wall, nonspecific. Gallbladder sludge without evidence of cholelithiasis. Possible very small calculus in the distal common bile duct without associated dilatation of either the common bile duct or the intrahepatic bile ducts. No evidence of acute pancreatitis. No pancreatic ductal dilatation. Additional minor findings as above. Preliminary interpretation of this examination was reported by [employer] [facility] at 5:47 p.m. on 08/22/2017.. There is concurrence of this report with the preliminary interpretation.
--- NOTE | 2017-08-23 23:34 | CP.PCM.PN ---
Subjective - Date & Time of Evaluation Date of Evaluation: 08/23/17 Time of Evaluation: 18:20 - Subjective Subjective: Patient seen and evaluated Denies chest pain and dyspnea Objective - Vital Signs/Intake and Output Vital Signs (last 24 hours): Temp Pulse Resp BP Pulse Ox 97.9 F 84 20 147/75 98 08/23/17 15:05 08/23/17 15:05 08/23/17 15:05 08/23/17 15:05 08/23/17 15:05 - Medications Medications: Current Medications Heparin Sodium (Porcine) (Heparin) 5,000 units SC Q8 [facility] Last Admin: 08/23/17 13:05 Dose: 5,000 units Lactated Ringer's (Lactated Ringer's) 1,000 mls @ 125 mls/hr IV .Q8H [facility] Last Admin: 08/23/17 21:20 Dose: 125 mls/hr Morphine Sulfate (Morphine) 2 mg IVP Q4 PRN PRN Reason: Pain, severe (8-10) Last Admin: 08/21/17 19:57 Dose: 2 mg Ondansetron HCl (Zofran Inj) 4 mg IVP Q6 PRN PRN Reason: Nausea/Vomiting Pantoprazole Sodium (Protonix Inj) 40 mg IVP DAILY [facility] Last Admin: 08/23/17 09:17 Dose: 40 mg - Labs Labs: 08/23/17 08:27 08/23/17 08:27 PT 11.7 SECONDS (9.7-12.2) 08/23/17 11:12 INR 1.0 08/23/17 11:12
[2017-08-24] MEDS: Lactated Ringer's 1,000 ML IV SCH ×2 (06:37→07:02)
[2017-08-24] MEDS ORDERED: Iohexol 240 (50 ml) ONE (06:47)
[2017-08-24] MEDS ORDERED: Dextrose 50% VIAL Inj (50 ml) IV ONE (06:50)
[2017-08-24] MEDS: Dextrose 50% SYRINGE Inj (50 ml) IV STA ×2 (06:52→06:56)
--- NOTE | 2017-08-24 07:12 | CP.PCM.PN ---
<Wilda Bailey - Last Filed: 08/24/17 11:03> Subjective - Date & Time of Evaluation Date of Evaluation: 08/24/17 Time of Evaluation: 07:04 - Subjective Subjective: Patient seen and examined at bedside. Patient resting comfortably in bed with no new complaints at this time. Patient is ready to have her procedure done this morning and said she would already be down there if her sugar was not low this AM. She is currently getting D5 so she can go for her procedure. Patient is hoping to go home after this is done and says she wants to come back at another time for cholecystectomy. She says her abdominal pain is significantly improved. Patient denies fever, chills, headache, dizziness, chest pain, SOB, cough, palpitations, abdominal pain, n/v/d/c, calf pain, and LE swelling. Objective - Vital Signs/Intake and Output Vital Signs (last 24 hours): Temp Pulse Resp BP Pulse Ox 97.5 F L 79 20 171/83 H 95 08/24/17 06:57 08/24/17 06:57 08/24/17 06:57 08/24/17 06:57 08/24/17 06:57 - Medications Medications: Current Medications Heparin Sodium (Porcine) (Heparin) 5,000 units SC Q8 [facility] Last Admin: 08/23/17 13:05 Dose: 5,000 units Lactated Ringer's (Lactated Ringer's) 1,000 mls @ 125 mls/hr IV .Q8H [facility] Last Admin: 08/24/17 07:02 Dose: Not Given Morphine Sulfate (Morphine) 2 mg IVP Q4 PRN PRN Reason: Pain, severe (8-10) Last Admin: 08/21/17 19:57 Dose: 2 mg Ondansetron HCl (Zofran Inj) 4 mg IVP Q6 PRN PRN Reason: Nausea/Vomiting Pantoprazole Sodium (Protonix Inj) 40 mg IVP DAILY [facility] Last Admin: 08/23/17 09:17 Dose: 40 mg - Labs Labs: 08/23/17 08:27 08/23/17 08:27 PT 11.7 SECONDS (9.7-12.2) 08/23/17 11:12 INR 1.0 08/23/17 11:12 - Additional Findings Additional findings: - Constitutional Appears: Non-toxic, No Acute Distress - Head Exam Head Exam: ATRAUMATIC, NORMAL INSPECTION, NORMOCEPHALIC - Eye Exam Eye Exam: EOMI, Normal appearance, PERRL Pupil Exam: NORMAL ACCOMODATION, PERRL - ENT Exam ENT Exam: Mucous Membranes Moist, Normal Exam - Neck Exam Neck Exam: Full ROM, Normal Inspection. absent: Lymphadenopathy - Respiratory Exam Respiratory Exam: Clear to Ausculation Bilateral, NORMAL BREATHING PATTERN - Cardiovascular Exam Cardiovascular Exam: REGULAR RHYTHM, +S1, +S2. absent: Murmur - GI/Abdominal Exam GI & Abdominal Exam: Soft, Nontender, Normal Bowel Sounds. absent: Distended - Extremities Exam Extremities Exam: Full ROM, Normal Capillary Refill, Normal Inspection. absent : Joint Swelling, Pedal Edema - Back Exam Back Exam: NORMAL INSPECTION - Neurological Exam Neurological Exam: Alert, Awake, Oriented x3 - Psychiatric Exam Psychiatric exam: Normal Affect, Normal Mood - Skin Skin Exam: Dry, Intact, Normal Color, Warm Assessment and Plan - Assessment and Plan (Free Text) Plan: Gallstone Pancreatitis/Cholelithiasis/Choledocolithiasis * Marjorie score on admission: 3 with 15% predicted mortality, ABG not obtained at 48 hours so Ransons criteria could not be calculated, however, without arterial PO2 included, she has a score of 1 at 48 hours post admission * AST/ALT and TBili trending down * Dr. Colmenares and Dr. Mahoney (GI) consulted; help appreciated * MRCP done; see below * ERCP with EUS done 08/24 - papillotomy with extraction of CBD stones * Dr. Loo (general surgery) consulted; help appreciated * Recommended to have a cholecystectomy prior to discharge * Dr. Burciaga (cardiology) consulted for preop cardiac risk assessment Imaging * Abdominal US: 1. Gallstones with choledocholithiasis and secondary dilatation of the central intrahepatic ducts 2. Mild hepatomegaly. 3. Trace amount of ascites at the inferior liver edge. 4. Progressive dilatation of the pancreatic duct which measures 0.39 cm compared to previous measurement of 0.28 cm on 03/22/2017. * CT Abdomen/Pelvis: Distended gallbladder demonstrates diffuse wall thickening and surrounding with small pericholecystic fluid. Correlate clinically for cholecystitis. Slightly dilated common bile duct. Slightly heterogeneous pancreas. No definite evidence of significant peripancreatic fluid or inflammatory changes. Mildly dilated small bowel loops may represent bowel ileus. The possibility of enteritis is not totally excluded. No evidence of high -grade bowel obstruction. Moderately distended distal esophagus is again noted. * MRCP (08/22): Mild thickening of the gallbladder wall, nonspecific. Gallbladder sludge without evidence of cholelithiasis. Possible very small calculus in the distal common bile duct without associated dilatation of either the common bile duct or the intrahepatic bile ducts. No evidence of acute pancreatitis. No pancreatic ductal dilatation. See full report. * Echo (08/22): Left ventricle systolic function is mildly impaired. The Ejection Fraction is 45-50%. There is global hypokinesis of the left ventricle. Transmitral Doppler flow pattern is Grade I-abnormal relaxation pattern. There is mild to moderate aortic regurgitation. Mitral regurgitation is mild. ERO 0.1 cm. There is moderate pulmonary hypertension. * Stress Test (08/22): Normal Lexiscan Nuclear stress test. Normal EF. Meds/Fluids * Zofran 4 mg IV Q6 PRN * Morphine 2 mg IV Q4 PRN * LR @125 cc/h Anemia * Continue to monitor DM * Patient has not been treated for this in 5 years and glucose under control by diet RA * Embrel injections weekly at home - on hold for now Prophylaxis * Protonix 40 mg IV daily * Heparin SC on hold <Amadou Montague H - Last Filed: 08/24/17 13:08> Objective - Vital Signs/Intake and Output Vital Signs (last 24 hours): Temp Pulse Resp BP Pulse Ox 96.9 F L 72 21 134/64 100 08/24/17 09:21 08/24/17 09:21 08/24/17 09:21 08/24/17 09:21 08/24/17 09:21 - Medications Medications: Current Medications Heparin Sodium (Porcine) (Heparin) 5,000 units SC Q8 [facility] Last Admin: 08/23/17 13:05 Dose: 5,000 units Lactated Ringer's (Lactated Ringer's) 1,000 mls @ 125 mls/hr IV .Q8H [facility] Last Admin: 08/24/17 07:02 Dose: Not Given Morphine Sulfate (Morphine) 2 mg IVP Q4 PRN PRN Reason: Pain, severe (8-10) Last Admin: 08/21/17 19:57 Dose: 2 mg Ondansetron HCl (Zofran Inj) 4 mg IVP Q6 PRN PRN Reason: Nausea/Vomiting Pantoprazole Sodium (Protonix Inj) 40 mg IVP DAILY [facility] Last Admin: 08/24/17 10:34 Dose: 40 mg - Labs Labs: 08/24/17 11:23 08/24/17 11:23 PT 11.7 SECONDS (9.7-12.2) 08/23/17 11:12 INR 1.0 08/23/17 11:12 Attending/Attestation - Attestation I have personally seen and examined this patient.: Yes I have fully participated in the care of the patient.: Yes I have reviewed all pertinent clinical information, including history, physical exam and plan: Yes Notes (Text): 08/24/17 13:06 Medical attending: Patient was seen and examined by me. Agree with the above note by the medical records secretary Patient was seen with family members at bedside. She had just returned from the ERCP. She reported doing well. She did not have new questions or concerns. We explained to her that we were glad she was doing well - however we emphasized to her that it has been advised by her GI physician that she should stay and have cholesectomy done while she is here. After some discussion the patient and family were agreeable to surgery. thank you Amadou Montague
[2017-08-24] MEDS ORDERED: Lactated Ringer's 1,000 ML IV ONE (07:30)
[2017-08-24] MEDS ORDERED: Propofol 10 mg/ml Inj (20 ML) ONE (07:35)
[2017-08-24] MEDS ORDERED: ePHEDrine 50 mg/ml Inj ONE (08:31)
[2017-08-24] MEDS ORDERED: Etomidate 20 mg/10ml Inj IV ONE (08:31)
[2017-08-24] MEDS ORDERED: Succinylcholine Chloride 20 mg/ml Syr (5 ml) IV ONE (08:31)
[2017-08-24] MEDS ORDERED: Indomethacin 50 MG Suppository PR ONE (09:15)
[2017-08-24 11:34] LABS: BASO % 0.3 % (0.0-2.0); EOS % 0.2 % (0.0-4.0); HEMOGLOBIN 10.5 g/dL (11.0-16.0); LYMPH # 0.9 K/uL (1.0-4.3); LYMPH % 19.3 % (20.0-40.0); MEAN CELL VOLUME 88.4 fL (81.0-99.0); MEAN CORPUSCULAR HEMOGLOBIN 30.6 pg (27.0-31.0); MEAN CORPUSCULAR HGB CONC 34.6 g/dL (33.0-37.0); MEAN PLATELET VOLUME 8.1 fL (7.2-11.7); MONO # 0.7 K/uL (0.0-0.8); MONO % 14.5 % (0.0-10.0); NEUT # 3.1 K/uL (1.8-7.0); NEUT % 65.7 % (50.0-75.0); NRBC % 0.1 % (0.0-2.0); RBC 3.42 Mil/uL (3.80-5.20); RED CELL DISTRIBUTION WIDTH 14.5 % (11.5-14.5); WHITE BLOOD COUNT 4.7 K/uL (4.8-10.8)
[2017-08-24 12:00] LABS: ALB/GLOB RATIO 0.6 (1.0-2.1); ALBUMIN 2.8 g/dL (3.5-5.0); ALT/SGPT 193 U/L (9-52); AST/SGOT 97 U/L (14-36); BLOOD UREA NITROGEN 8 mg/dL (7-17); CALCIUM 8.5 mg/dl (8.6-10.4); GFR AFRICAN-AMERICAN > 60; GFR NON-AFRICAN AMERICAN > 60
--- NOTE | 2017-08-24 14:24 | CP.PCM.PN ---
<Estefani Mac - Last Filed: 08/24/17 14:55> Subjective - Date & Time of Evaluation Date of Evaluation: 08/24/17 Time of Evaluation: 09:00 - Subjective Subjective: Surgery: Dr. Loo Pt seen and examined. No acute overnight events. States she feels well and denies abdominal pain at this time. Tolerating CLD, denies N/V, F/C. Objective - Vital Signs/Intake and Output Vital Signs (last 24 hours): Temp Pulse Resp BP Pulse Ox 96.9 F L 72 21 134/64 100 08/24/17 09:21 08/24/17 09:21 08/24/17 09:21 08/24/17 09:21 08/24/17 09:21 - Medications Medications: Current Medications Heparin Sodium (Porcine) (Heparin) 5,000 units SC Q8 [facility] Last Admin: 08/23/17 13:05 Dose: 5,000 units Lactated Ringer's (Lactated Ringer's) 1,000 mls @ 125 mls/hr IV .Q8H [facility] Last Admin: 08/24/17 07:02 Dose: Not Given Morphine Sulfate (Morphine) 2 mg IVP Q4 PRN PRN Reason: Pain, severe (8-10) Last Admin: 08/21/17 19:57 Dose: 2 mg Ondansetron HCl (Zofran Inj) 4 mg IVP Q6 PRN PRN Reason: Nausea/Vomiting Pantoprazole Sodium (Protonix Inj) 40 mg IVP DAILY [facility] Last Admin: 08/24/17 10:34 Dose: 40 mg - Labs Labs: 08/24/17 11:23 08/24/17 11:23 PT 11.7 SECONDS (9.7-12.2) 08/23/17 11:12 INR 1.0 08/23/17 11:12 - Constitutional Appears: Well, No Acute Distress - Head Exam Head Exam: ATRAUMATIC, NORMOCEPHALIC - Eye Exam Eye Exam: Normal appearance - ENT Exam ENT Exam: Mucous Membranes Moist - Respiratory Exam Respiratory Exam: NORMAL BREATHING PATTERN - Cardiovascular Exam Cardiovascular Exam: RRR - GI/Abdominal Exam GI & Abdominal Exam: Soft. absent: Distended, Tenderness - Neurological Exam Neurological Exam: Alert, Awake, Oriented x3 - Skin Skin Exam: Dry, Warm Assessment and Plan - Assessment and Plan (Free Text) Assessment: 77F with Gallstone Pancreatitis & choledocholithiasis Plan: - plan for ERCP today - will discuss surgical options with pt after the procedure - d/w Dr. Eze Mac, PGY-3 <Tre Loo - Last Filed: 08/24/17 16:09> Objective - Vital Signs/Intake and Output Vital Signs (last 24 hours): Temp Pulse Resp BP Pulse Ox 97.5 F L 90 20 159/70 H 99 08/24/17 15:05 08/24/17 15:05 08/24/17 15:05 08/24/17 15:05 08/24/17 15:05 - Medications Medications: Current Medications Heparin Sodium (Porcine) (Heparin) 5,000 units SC Q8 [facility] Last Admin: 08/23/17 13:05 Dose: 5,000 units Lactated Ringer's (Lactated Ringer's) 1,000 mls @ 125 mls/hr IV .Q8H [facility] Last Admin: 08/24/17 07:02 Dose: Not Given Morphine Sulfate (Morphine) 2 mg IVP Q4 PRN PRN Reason: Pain, severe (8-10) Last Admin: 08/21/17 19:57 Dose: 2 mg Ondansetron HCl (Zofran Inj) 4 mg IVP Q6 PRN PRN Reason: Nausea/Vomiting Pantoprazole Sodium (Protonix Inj) 40 mg IVP DAILY [facility] Last Admin: 08/24/17 10:34 Dose: 40 mg - Labs Labs: 08/24/17 11:23 08/24/17 11:23 PT 11.7 SECONDS (9.7-12.2) 08/23/17 11:12 INR 1.0 08/23/17 11:12 Attending/Attestation - Attestation I have personally seen and examined this patient.: Yes I have fully participated in the care of the patient.: Yes I have reviewed all pertinent clinical information, including history, physical exam and plan: Yes Notes (Text): Pt was seen and examined at bedside Agree with above note and assessment Pt is s/p ERCP and stone removal repeat labs in am c.w current mx Plan d.w pt in detail Risk and benefit explained in detail.
--- NOTE | 2017-08-24 14:36 | CP.PCM.PN ---
Subjective - Date & Time of Evaluation Date of Evaluation: 08/24/17 Time of Evaluation: 14:34 - Subjective Subjective: Patient had ERCP and sphincterotomy today. She denies having nausea, vomiting, abdominal pain. She has not had a bowel movement today. Objective - Vital Signs/Intake and Output Vital Signs (last 24 hours): Temp Pulse Resp BP Pulse Ox 96.9 F L 72 21 134/64 100 08/24/17 09:21 08/24/17 09:21 08/24/17 09:21 08/24/17 09:21 08/24/17 09:21 - Medications Medications: Current Medications Heparin Sodium (Porcine) (Heparin) 5,000 units SC Q8 [facility] Last Admin: 08/23/17 13:05 Dose: 5,000 units Lactated Ringer's (Lactated Ringer's) 1,000 mls @ 125 mls/hr IV .Q8H [facility] Last Admin: 08/24/17 07:02 Dose: Not Given Morphine Sulfate (Morphine) 2 mg IVP Q4 PRN PRN Reason: Pain, severe (8-10) Last Admin: 08/21/17 19:57 Dose: 2 mg Ondansetron HCl (Zofran Inj) 4 mg IVP Q6 PRN PRN Reason: Nausea/Vomiting Pantoprazole Sodium (Protonix Inj) 40 mg IVP DAILY [facility] Last Admin: 08/24/17 10:34 Dose: 40 mg - Labs Labs: 08/24/17 11:23 08/24/17 11:23 PT 11.7 SECONDS (9.7-12.2) 08/23/17 11:12 INR 1.0 08/23/17 11:12 - Constitutional Appears: No Acute Distress - Head Exam Head Exam: ATRAUMATIC, NORMOCEPHALIC - Neck Exam Neck Exam: absent: Lymphadenopathy, Thyromegaly - Respiratory Exam Respiratory Exam: NORMAL BREATHING PATTERN. absent: Rales, Rhonchi, Wheezes - GI/Abdominal Exam GI & Abdominal Exam: Soft, Normal Bowel Sounds. absent: Tenderness, Mass, Organomegaly - Rectal Exam Rectal Exam: Deferred - Extremities Exam Extremities Exam: absent: Calf Tenderness, Pedal Edema Assessment and Plan (1) Gallstone pancreatitis Assessment & Plan: Patient is S/P ERCP with sphincterotomy and stone extraction. Plan is for cholecystectomy. Status: Acute
--- NOTE | 2017-08-24 16:33 | RAD ---
PROCEDURE: Intraoperative fluoroscopy HISTORY: CBD CALCULI COMPARISON: Not available TECHNIQUE: Intraoperative fluoroscopy was provided for ERCP examination. Total time of fluoroscopy was 25.2 seconds. FINDINGS: Multiple fluoroscopic spot films are submitted. These demonstrate retrograde contrast administration into the common bile duct. Questionable ovoid filling defect seen in distal common bile duct. IMPRESSION: Fluoroscopy provided.
[2017-08-24] MEDS ORDERED: Potassium Chloride 20 mEq ER Tab PO ONE (21:00)
[2017-08-24] MEDS ORDERED: Lactated Ringer's 1,000 ML IV SCH (22:00)
[2017-08-25 08:19] LABS: BASO % 0.6 % (0.0-2.0); EOS % 0.7 % (0.0-4.0); HEMOGLOBIN 10.4 g/dL (11.0-16.0); LYMPH # 0.9 K/uL (1.0-4.3); LYMPH % 26.7 % (20.0-40.0); MEAN CELL VOLUME 87.9 fL (81.0-99.0); MEAN CORPUSCULAR HEMOGLOBIN 30.6 pg (27.0-31.0); MEAN CORPUSCULAR HGB CONC 34.8 g/dL (33.0-37.0); MONO # 0.6 K/uL (0.0-0.8); MONO % 18.2 % (0.0-10.0); NEUT # 1.9 K/uL (1.8-7.0); NEUT % 53.8 % (50.0-75.0); NRBC % 0.1 % (0.0-2.0); RBC 3.4 Mil/uL (3.80-5.20); RED CELL DISTRIBUTION WIDTH 14.7 % (11.5-14.5); WHITE BLOOD COUNT 3.5 K/uL (4.8-10.8)
[2017-08-25 08:31] LABS: ALB/GLOB RATIO 0.6 (1.0-2.1); ALBUMIN 2.8 g/dL (3.5-5.0); ALT/SGPT 159 U/L (9-52); AST/SGOT 71 U/L (14-36); BLOOD UREA NITROGEN 5 mg/dL (7-17); CALCIUM 8.5 mg/dl (8.6-10.4); GFR AFRICAN-AMERICAN > 60; GFR NON-AFRICAN AMERICAN > 60
--- NOTE | 2017-08-25 09:01 | CP.PCM.PN ---
Subjective - Date & Time of Evaluation Date of Evaluation: 08/25/17 Time of Evaluation: 09:00 - Subjective Subjective: General Surgery - Dr. Loo PT [facility]. Pt states her pain is improved. She is tolerating clear liquid diet. Understands plan for surgery on Tuesday. no N/V, F/C, SOb/Cp. Objective - Vital Signs/Intake and Output Vital Signs (last 24 hours): Temp Pulse Resp BP Pulse Ox 97.9 F 85 20 160/86 H 95 08/25/17 07:00 08/25/17 07:00 08/25/17 07:00 08/25/17 07:00 08/25/17 07:00 Intake and Output: 08/25/17 08/25/17 06:59 18:59 Intake Total 70356 Output Total 400 Balance 12489 - Medications Medications: Current Medications Heparin Sodium (Porcine) (Heparin) 5,000 units SC Q8 [facility] Last Admin: 08/23/17 13:05 Dose: 5,000 units Lactated Ringer's (Lactated Ringer's) 1,000 mls @ 30 mls/hr IV .Q24H [facility] Last Admin: 08/24/17 22:00 Dose: 30 mls/hr Morphine Sulfate (Morphine) 2 mg IVP Q4 PRN PRN Reason: Pain, severe (8-10) Last Admin: 08/21/17 19:57 Dose: 2 mg Ondansetron HCl (Zofran Inj) 4 mg IVP Q6 PRN PRN Reason: Nausea/Vomiting Pantoprazole Sodium (Protonix Inj) 40 mg IVP DAILY [facility] Last Admin: 08/24/17 10:34 Dose: 40 mg - Labs Labs: 08/25/17 08:06 08/25/17 08:06 PT 11.7 SECONDS (9.7-12.2) 08/23/17 11:12 INR 1.0 08/23/17 11:12 - Constitutional Appears: No Acute Distress - Head Exam Head Exam: ATRAUMATIC, NORMAL INSPECTION, NORMOCEPHALIC - Eye Exam Eye Exam: Normal appearance - Respiratory Exam Respiratory Exam: NORMAL BREATHING PATTERN. absent: Respiratory Distress - GI/Abdominal Exam GI & Abdominal Exam: Soft. absent: Distended, Firm, Guarding, Tenderness, Rebound - Neurological Exam Neurological Exam: Alert, Oriented x3 - Psychiatric Exam Psychiatric exam: Normal Affect, Normal Mood - Skin Skin Exam: Dry, Intact Assessment and Plan - Assessment and Plan (Free Text) Assessment: 77F with Gallstone Pancreatitis, s/p ERCP w/ stone removal Plan: - Plan for OR Tuesday for Cholecystectomy - Continue clear liquid diet - Pain control prn - OOB/Ambulation as able Dw Dr Loo
--- NOTE | 2017-08-25 09:30 | CP.PCM.PN ---
Subjective - Date & Time of Evaluation Date of Evaluation: 08/25/17 Time of Evaluation: 09:26 - Subjective Subjective: Patient seen and examined at bedside. Patient is pleasant and resting comfortably in bed with no new complaints at this time. Patient understands that she is going to the OR on Tuesday for cholecystectomy. Patient is feeling much better and denies fever, chills, headahce, dizziness, chest pain, SOB, cough, palpitations, abdominal pain, n/v/d/c, and calf pain. Objective - Vital Signs/Intake and Output Vital Signs (last 24 hours): Temp Pulse Resp BP Pulse Ox 97.9 F 85 20 160/86 H 95 08/25/17 07:00 08/25/17 07:00 08/25/17 07:00 08/25/17 07:00 08/25/17 07:00 Intake and Output: 08/25/17 08/25/17 06:59 18:59 Intake Total 83562 Output Total 400 Balance 92619 - Medications Medications: Current Medications Heparin Sodium (Porcine) (Heparin) 5,000 units SC Q8 [facility] Last Admin: 08/23/17 13:05 Dose: 5,000 units Lactated Ringer's (Lactated Ringer's) 1,000 mls @ 30 mls/hr IV .Q24H [facility] Last Admin: 08/24/17 22:00 Dose: 30 mls/hr Morphine Sulfate (Morphine) 2 mg IVP Q4 PRN PRN Reason: Pain, severe (8-10) Last Admin: 08/21/17 19:57 Dose: 2 mg Ondansetron HCl (Zofran Inj) 4 mg IVP Q6 PRN PRN Reason: Nausea/Vomiting Pantoprazole Sodium (Protonix Inj) 40 mg IVP DAILY [facility] Last Admin: 08/24/17 10:34 Dose: 40 mg - Labs Labs: 08/25/17 08:06 08/25/17 08:06 PT 11.7 SECONDS (9.7-12.2) 08/23/17 11:12 INR 1.0 08/23/17 11:12 - Additional Findings Additional findings: - Constitutional Appears: Non-toxic, No Acute Distress, cachectic - Head Exam Head Exam: ATRAUMATIC, NORMAL INSPECTION, NORMOCEPHALIC - Eye Exam Eye Exam: EOMI, Normal appearance, PERRL Pupil Exam: NORMAL ACCOMODATION, PERRL - ENT Exam ENT Exam: Mucous Membranes Moist, Normal Exam - Neck Exam Neck Exam: Full ROM, Normal Inspection. absent: Lymphadenopathy - Respiratory Exam Respiratory Exam: Clear to Ausculation Bilateral, NORMAL BREATHING PATTERN - Cardiovascular Exam Cardiovascular Exam: REGULAR RHYTHM, +S1, +S2. absent: Murmur - GI/Abdominal Exam GI & Abdominal Exam: Soft, Nontender, Normal Bowel Sounds. absent: Distended - Extremities Exam Extremities Exam: Full ROM, Normal Capillary Refill, Normal Inspection. absent : Joint Swelling, Pedal Edema - Back Exam Back Exam: NORMAL INSPECTION - Neurological Exam Neurological Exam: Alert, Awake, Oriented x3 - Psychiatric Exam Psychiatric exam: Normal Affect, Normal Mood - Skin Skin Exam: Dry, Intact, Normal Color, Warm Assessment and Plan - Assessment and Plan (Free Text) Plan: Disposition: Patient is s/p ERCP with EUS done 08/24 with papillotomy with extraction of CBD stones. She is scheduled to have cholecystectomy on Tuesday. Gallstone Pancreatitis/Cholelithiasis/Choledocolithiasis * Marjorie score on admission: 3 with 15% predicted mortality, ABG not obtained at 48 hours so Ransons criteria could not be calculated, however, without arterial PO2 included, she has a score of 1 at 48 hours post admission * AST/ALT and TBili trending down * Dr. Colmenares and Dr. Mahoney (GI) consulted; help appreciated * MRCP done; see below * ERCP with EUS done 08/24 - papillotomy with extraction of CBD stones * Dr. Loo (general surgery) consulted; help appreciated * Scheduled for cholecystectomy on Tuesday 08/29 * Dr. Burciaga (cardiology) consulted for preop cardiac risk assessment Imaging * Abdominal US: 1. Gallstones with choledocholithiasis and secondary dilatation of the central intrahepatic ducts 2. Mild hepatomegaly. 3. Trace amount of ascites at the inferior liver edge. 4. Progressive dilatation of the pancreatic duct which measures 0.39 cm compared to previous measurement of 0.28 cm on 03/22/2017. * CT Abdomen/Pelvis: Distended gallbladder demonstrates diffuse wall thickening and surrounding with small pericholecystic fluid. Correlate clinically for cholecystitis. Slightly dilated common bile duct. Slightly heterogeneous pancreas. No definite evidence of significant peripancreatic fluid or inflammatory changes. Mildly dilated small bowel loops may represent bowel ileus. The possibility of enteritis is not totally excluded. No evidence of high -grade bowel obstruction. Moderately distended distal esophagus is again noted. * MRCP (08/22): Mild thickening of the gallbladder wall, nonspecific. Gallbladder sludge without evidence of cholelithiasis. Possible very small calculus in the distal common bile duct without associated dilatation of either the common bile duct or the intrahepatic bile ducts. No evidence of acute pancreatitis. No pancreatic ductal dilatation. See full report. * Echo (08/22): Left ventricle systolic function is mildly impaired. The Ejection Fraction is 45-50%. There is global hypokinesis of the left ventricle. Transmitral Doppler flow pattern is Grade I-abnormal relaxation pattern. There is mild to moderate aortic regurgitation. Mitral regurgitation is mild. ERO 0.1 cm. There is moderate pulmonary hypertension. * Stress Test (08/22): Normal Lexiscan Nuclear stress test. Normal EF. Meds/Fluids * Zofran 4 mg IV Q6 PRN * Morphine 2 mg IV Q4 PRN * LR @125 cc/h Anemia * Continue to monitor DM * Patient has not been treated for this in 5 years and glucose under control by diet RA * Embrel injections weekly at home - on hold for now Prophylaxis * Protonix 40 mg IV daily * Heparin SC on hold
--- NOTE | 2017-08-25 15:02 | CP.PCM.PN ---
Subjective - Date & Time of Evaluation Date of Evaluation: 08/25/17 Time of Evaluation: 14:58 - Subjective Subjective: Patient feels well. She denies having nausea, vomiting, abdominal pain, constipation and diarrhea. Objective - Vital Signs/Intake and Output Vital Signs (last 24 hours): Temp Pulse Resp BP Pulse Ox 97.9 F 85 20 160/86 H 95 08/25/17 07:00 08/25/17 07:00 08/25/17 07:00 08/25/17 07:00 08/25/17 07:00 Intake and Output: 08/25/17 08/25/17 06:59 18:59 Intake Total 57537 680 Output Total 400 Balance 37579 680 - Medications Medications: Current Medications Heparin Sodium (Porcine) (Heparin) 5,000 units SC Q8 [facility] Last Admin: 08/23/17 13:05 Dose: 5,000 units Morphine Sulfate (Morphine) 2 mg IVP Q4 PRN PRN Reason: Pain, severe (8-10) Last Admin: 08/21/17 19:57 Dose: 2 mg Ondansetron HCl (Zofran Inj) 4 mg IVP Q6 PRN PRN Reason: Nausea/Vomiting Pantoprazole Sodium (Protonix Inj) 40 mg IVP DAILY [facility] Last Admin: 08/25/17 09:25 Dose: 40 mg - Labs Labs: 08/25/17 08:06 08/25/17 08:06 PT 11.7 SECONDS (9.7-12.2) 08/23/17 11:12 INR 1.0 08/23/17 11:12 - Constitutional Appears: No Acute Distress - Head Exam Head Exam: ATRAUMATIC, NORMOCEPHALIC - Eye Exam Eye Exam: EOMI, PERRL - Neck Exam Neck Exam: absent: Lymphadenopathy, Thyromegaly - Respiratory Exam Respiratory Exam: NORMAL BREATHING PATTERN. absent: Rales, Rhonchi, Wheezes - Cardiovascular Exam Cardiovascular Exam: REGULAR RHYTHM, +S1, +S2. absent: Gallop, Rubs, Murmur - GI/Abdominal Exam GI & Abdominal Exam: Soft, Normal Bowel Sounds. absent: Tenderness, Mass, Organomegaly - Rectal Exam Rectal Exam: Deferred - Extremities Exam Extremities Exam: absent: Calf Tenderness, Pedal Edema Assessment and Plan (1) Gallstone pancreatitis Assessment & Plan: Patient is pain-free and tolerating regular diet. LFTs are improving: TBILI 1.2 (down from 1.4 yesterday), AST 71 (97), ALT 159 (193), ALKP 164 (207). Cholecystectomy is scheduled for Tuesday. Will sign off. Please recall if any new GI problems develop. Status: Acute
[2017-08-25] MEDS ORDERED: Potassium Chloride 20 mEq ER Tab PO ONE (20:47)
[2017-08-26] MEDS ORDERED: Benzocaine/Menthol (Cepacol) Lozenge MT PRN (07:15)
--- NOTE | 2017-08-26 07:18 | CP.PCM.PN ---
Subjective - Date & Time of Evaluation Date of Evaluation: 08/26/17 Time of Evaluation: 07:16 - Subjective Subjective: Patient seen and examined at bedside. Patient resting comfortably in bed with no new complaints at this time other than a mildly sore throat. Patient is asking for a lozenge. She is tolerating her diet and walking around. Patient denies chest pain, SOB, pain with swallowing, cough, abdominal pain, n/v/d/c, & lower extremity pain/swelling. Objective - Vital Signs/Intake and Output Vital Signs (last 24 hours): Temp Pulse Resp BP Pulse Ox 98.2 F 87 20 133/73 100 08/25/17 23:40 08/25/17 23:40 08/25/17 23:40 08/25/17 23:40 08/25/17 23:40 - Medications Medications: Current Medications Benzocaine/Menthol (Cepacol Sore Throat) 1 maren MT Q2H PRN PRN Reason: Sore Throat Heparin Sodium (Porcine) (Heparin) 5,000 units SC Q8 [facility] Last Admin: 08/23/17 13:05 Dose: 5,000 units Morphine Sulfate (Morphine) 2 mg IVP Q4 PRN PRN Reason: Pain, severe (8-10) Last Admin: 08/21/17 19:57 Dose: 2 mg Ondansetron HCl (Zofran Inj) 4 mg IVP Q6 PRN PRN Reason: Nausea/Vomiting Pantoprazole Sodium (Protonix Inj) 40 mg IVP DAILY [facility] Last Admin: 08/25/17 09:25 Dose: 40 mg - Labs Labs: 08/25/17 08:06 08/25/17 08:06 PT 11.7 SECONDS (9.7-12.2) 08/23/17 11:12 INR 1.0 08/23/17 11:12 - Constitutional Appears: Non-toxic, No Acute Distress - Head Exam Head Exam: ATRAUMATIC, NORMAL INSPECTION, NORMOCEPHALIC - Eye Exam Eye Exam: EOMI, Normal appearance, PERRL - ENT Exam ENT Exam: Mucous Membranes Moist - Cardiovascular Exam Cardiovascular Exam: RRR, +S1, +S2. absent: Gallop, Rubs, Murmur - GI/Abdominal Exam GI & Abdominal Exam: Soft, Normal Bowel Sounds. absent: Distended, Tenderness - Extremities Exam Extremities Exam: Normal Inspection. absent: Calf Tenderness, Pedal Edema - Neurological Exam Neurological Exam: Alert, Awake, Oriented x3 - Psychiatric Exam Psychiatric exam: Normal Affect, Normal Mood - Skin Skin Exam: Dry, Intact, Normal Color, Warm Assessment and Plan - Assessment and Plan (Free Text) Plan: Disposition: Patient is s/p ERCP with EUS done 08/24 with papillotomy with extraction of CBD stones. She is scheduled to have cholecystectomy on Tuesday. Gallstone Pancreatitis/Cholelithiasis/Choledocolithiasis * [place] score on admission: 3 with 15% predicted mortality, ABG not obtained at 48 hours so Ransons criteria could not be calculated, however, without arterial PO2 included, she has a score of 1 at 48 hours post admission * AST/ALT and TBili trending down * Dr. Colmenares and Dr. Mahoney (GI) consulted; help appreciated * MRCP done; see below * ERCP with EUS done 08/24 - papillotomy with extraction of CBD stones * Dr. Loo (general surgery) consulted; help appreciated * Scheduled for cholecystectomy on Tuesday 08/29 * Dr. Burciaga (cardiology) consulted for preop cardiac risk assessment Imaging * Abdominal US: 1. Gallstones with choledocholithiasis and secondary dilatation of the central intrahepatic ducts 2. Mild hepatomegaly. 3. Trace amount of ascites at the inferior liver edge. 4. Progressive dilatation of the pancreatic duct which measures 0.39 cm compared to previous measurement of 0.28 cm on 03/22/2017. * CT Abdomen/Pelvis: Distended gallbladder demonstrates diffuse wall thickening and surrounding with small pericholecystic fluid. Correlate clinically for cholecystitis. Slightly dilated common bile duct. Slightly heterogeneous pancreas. No definite evidence of significant peripancreatic fluid or inflammatory changes. Mildly dilated small bowel loops may represent bowel ileus. The possibility of enteritis is not totally excluded. No evidence of high -grade bowel obstruction. Moderately distended distal esophagus is again noted. * MRCP (08/22): Mild thickening of the gallbladder wall, nonspecific. Gallbladder sludge without evidence of cholelithiasis. Possible very small calculus in the distal common bile duct without associated dilatation of either the common bile duct or the intrahepatic bile ducts. No evidence of acute pancreatitis. No pancreatic ductal dilatation. See full report. * Echo (08/22): Left ventricle systolic function is mildly impaired. The Ejection Fraction is 45-50%. There is global hypokinesis of the left ventricle. Transmitral Doppler flow pattern is Grade I-abnormal relaxation pattern. There is mild to moderate aortic regurgitation. Mitral regurgitation is mild. ERO 0.1 cm. There is moderate pulmonary hypertension. * Stress Test (08/22): Normal Lexiscan Nuclear stress test. Normal EF. Meds/Fluids * Zofran 4 mg IV Q6 PRN * Morphine 2 mg IV Q4 PRN * LR @125 cc/h Anemia * Continue to monitor Sore throat * Cepacol PRN DM * Patient has not been treated for this in 5 years and glucose under control by diet RA * Embrel injections weekly at home - on hold for now Prophylaxis * Protonix 40 mg IV daily * Heparin SC on hold
--- NOTE | 2017-08-26 08:00 | CP.PCM.PN ---
Subjective - Date & Time of Evaluation Date of Evaluation: 08/26/17 Time of Evaluation: 07:57 - Subjective Subjective: Patient denies having nausea, vomiting, abdominal pain. She continues to tolerate regular diet. She had a formed bowel movement today, normal color. Objective - Vital Signs/Intake and Output Vital Signs (last 24 hours): Temp Pulse Resp BP Pulse Ox 98.2 F 87 20 133/73 100 08/25/17 23:40 08/25/17 23:40 08/25/17 23:40 08/25/17 23:40 08/25/17 23:40 - Medications Medications: Current Medications Benzocaine/Menthol (Cepacol Sore Throat) 1 maren MT Q2H PRN PRN Reason: Sore Throat Heparin Sodium (Porcine) (Heparin) 5,000 units SC Q8 [facility] Last Admin: 08/23/17 13:05 Dose: 5,000 units Morphine Sulfate (Morphine) 2 mg IVP Q4 PRN PRN Reason: Pain, severe (8-10) Last Admin: 08/21/17 19:57 Dose: 2 mg Ondansetron HCl (Zofran Inj) 4 mg IVP Q6 PRN PRN Reason: Nausea/Vomiting Pantoprazole Sodium (Protonix Ec Tab) 40 mg PO DAILY [facility] - Labs Labs: 08/25/17 08:06 08/25/17 08:06 PT 11.7 SECONDS (9.7-12.2) 08/23/17 11:12 INR 1.0 08/23/17 11:12 - Constitutional Appears: No Acute Distress - Head Exam Head Exam: ATRAUMATIC, NORMOCEPHALIC - Eye Exam Eye Exam: EOMI, PERRL - Neck Exam Neck Exam: absent: Lymphadenopathy, Thyromegaly - Respiratory Exam Respiratory Exam: NORMAL BREATHING PATTERN. absent: Rales, Rhonchi, Wheezes - Cardiovascular Exam Cardiovascular Exam: REGULAR RHYTHM, +S1, +S2. absent: Gallop, Rubs, Murmur - GI/Abdominal Exam GI & Abdominal Exam: Soft, Normal Bowel Sounds. absent: Tenderness, Mass, Organomegaly - Rectal Exam Rectal Exam: Deferred - Extremities Exam Extremities Exam: absent: Calf Tenderness, Pedal Edema Assessment and Plan (1) Gallstone pancreatitis Assessment & Plan: Pancreatitis has resolved. The CBD has been cleared of stones by ERCP. Patient is awaiting cholecystectomy. Please have patient follow up in the office two weeks after discharge. Status: Acute
--- NOTE | 2017-08-26 08:02 | CP.PCM.PN ---
Subjective - Date & Time of Evaluation Date of Evaluation: 08/26/17 Time of Evaluation: 07:58 - Subjective Subjective: Surgery: Dr. Loo Pt seen and examined. No acute overnight events. Pt states she's doing well and has no complaints at this time. She's tolerating regular diet and denies N/V, F/ C. Objective - Vital Signs/Intake and Output Vital Signs (last 24 hours): Temp Pulse Resp BP Pulse Ox 98.2 F 87 20 133/73 100 08/25/17 23:40 08/25/17 23:40 08/25/17 23:40 08/25/17 23:40 08/25/17 23:40 - Medications Medications: Current Medications Benzocaine/Menthol (Cepacol Sore Throat) 1 maren MT Q2H PRN PRN Reason: Sore Throat Heparin Sodium (Porcine) (Heparin) 5,000 units SC Q8 [facility] Last Admin: 08/23/17 13:05 Dose: 5,000 units Morphine Sulfate (Morphine) 2 mg IVP Q4 PRN PRN Reason: Pain, severe (8-10) Last Admin: 08/21/17 19:57 Dose: 2 mg Ondansetron HCl (Zofran Inj) 4 mg IVP Q6 PRN PRN Reason: Nausea/Vomiting Pantoprazole Sodium (Protonix Ec Tab) 40 mg PO DAILY [facility] - Labs Labs: 08/25/17 08:06 08/25/17 08:06 PT 11.7 SECONDS (9.7-12.2) 08/23/17 11:12 INR 1.0 08/23/17 11:12 - Constitutional Appears: Well, No Acute Distress - Head Exam Head Exam: ATRAUMATIC, NORMOCEPHALIC - Eye Exam Eye Exam: Normal appearance - ENT Exam ENT Exam: Mucous Membranes Moist - Respiratory Exam Respiratory Exam: NORMAL BREATHING PATTERN - Cardiovascular Exam Cardiovascular Exam: RRR - GI/Abdominal Exam GI & Abdominal Exam: Soft. absent: Tenderness - Neurological Exam Neurological Exam: Alert, Awake, Oriented x3 - Skin Skin Exam: Dry, Warm Assessment and Plan - Assessment and Plan (Free Text) Assessment: 77F with gallstone pancreatitis; resolved & choledocholithiasis s/p ERCP & sphincterotomy Plan: - OR tuesday for lap simon - d/w Dr. Eze Mac, PGY-3
[2017-08-26 08:21] LABS: BASO % 0.6 % (0.0-2.0); EOS % 0.5 % (0.0-4.0); HEMOGLOBIN 10.2 g/dL (11.0-16.0); LYMPH # 1.1 K/uL (1.0-4.3); LYMPH % 21.4 % (20.0-40.0); MEAN CELL VOLUME 88.6 fL (81.0-99.0); MEAN CORPUSCULAR HEMOGLOBIN 30.7 pg (27.0-31.0); MEAN CORPUSCULAR HGB CONC 34.7 g/dL (33.0-37.0); MEAN PLATELET VOLUME 8.2 fL (7.2-11.7); MONO # 0.9 K/uL (0.0-0.8); MONO % 17.3 % (0.0-10.0); NEUT # 3.2 K/uL (1.8-7.0); NEUT % 60.2 % (50.0-75.0); NRBC % 0.1 % (0.0-2.0); RBC 3.33 Mil/uL (3.80-5.20); RED CELL DISTRIBUTION WIDTH 14.3 % (11.5-14.5)
[2017-08-26 08:25] LABS: WHITE BLOOD COUNT 5.3 K/uL (4.8-10.8)
[2017-08-26 08:35] LABS: ALB/GLOB RATIO 0.6 (1.0-2.1); ALBUMIN 2.9 g/dL (3.5-5.0); ALT/SGPT 132 U/L (9-52); AST/SGOT 57 U/L (14-36); BLOOD UREA NITROGEN 10 mg/dL (7-17); CALCIUM 8.4 mg/dl (8.6-10.4); GFR AFRICAN-AMERICAN > 60; GFR NON-AFRICAN AMERICAN > 60
[2017-08-26] MEDS: Pantoprazole 40 mg EC Tab PO SCH (09:15)
[2017-08-26] MEDS ORDERED: Magnesium Oxide 400 mg Tab UD PO ONE (12:30)
[2017-08-26] MEDS: Magnesium Oxide 400 mg Tab UD PO ONE ×2 (12:33→12:39)
--- NOTE | 2017-08-27 00:12 | CP.PCM.PN ---
<Anel Enrique - Last Filed: 08/27/17 06:10> Subjective - Date & Time of Evaluation Date of Evaluation: 08/27/17 Time of Evaluation: 06:00 - Subjective Subjective: PGY 1 Medicine Note Patient seen and examined at bedside and in no acute distress. Patient says she feels fine and has no complaints. Patient denies any shortness of breath, chest pain, abdominal pain, nausea, vomiting, constipation, or diarrhea. Objective - Vital Signs/Intake and Output Vital Signs (last 24 hours): Temp Pulse Resp BP Pulse Ox 97.8 F 77 18 143/83 99 08/26/17 15:30 08/26/17 15:30 08/26/17 15:30 08/26/17 15:30 08/26/17 15:30 - Medications Medications: Current Medications Benzocaine/Menthol (Cepacol Sore Throat) 1 maren MT Q2H PRN PRN Reason: Sore Throat Heparin Sodium (Porcine) (Heparin) 5,000 units SC Q8 [facility] Last Admin: 08/23/17 13:05 Dose: 5,000 units Morphine Sulfate (Morphine) 2 mg IVP Q4 PRN PRN Reason: Pain, severe (8-10) Last Admin: 08/21/17 19:57 Dose: 2 mg Ondansetron HCl (Zofran Inj) 4 mg IVP Q6 PRN PRN Reason: Nausea/Vomiting Pantoprazole Sodium (Protonix Ec Tab) 40 mg PO DAILY [facility] Last Admin: 08/26/17 09:15 Dose: 40 mg - Labs Labs: 08/26/17 08:12 08/26/17 08:12 PT 11.7 SECONDS (9.7-12.2) 08/23/17 11:12 INR 1.0 08/23/17 11:12 - Additional Findings Additional findings: - Constitutional Appears: Non-toxic, No Acute Distress - Head Exam Head Exam: ATRAUMATIC, NORMAL INSPECTION, NORMOCEPHALIC - Eye Exam Eye Exam: EOMI, Normal appearance, PERRL - ENT Exam ENT Exam: Mucous Membranes Moist - Cardiovascular Exam Cardiovascular Exam: RRR, +S1, +S2. absent: Gallop, Rubs, Murmur - GI/Abdominal Exam GI & Abdominal Exam: Soft, Normal Bowel Sounds. absent: Distended, Tenderness - Extremities Exam Extremities Exam: Normal Inspection. absent: Calf Tenderness, Pedal Edema - Neurological Exam Neurological Exam: Alert, Awake, Oriented x3 - Psychiatric Exam Psychiatric exam: Normal Affect, Normal Mood - Skin Skin Exam: Dry, Intact, Normal Color, Warm Assessment and Plan - Assessment and Plan (Free Text) Assessment: Disposition: Patient is s/p ERCP with EUS done 08/24 with papillotomy with extraction of CBD stones. She is scheduled to have cholecystectomy on Tuesday. Gallstone Pancreatitis/Cholelithiasis/Choledocolithiasis * [place] score on admission: 3 with 15% predicted mortality, ABG not obtained at 48 hours so Ransons criteria could not be calculated, however, without arterial PO2 included, she has a score of 1 at 48 hours post admission * AST/ALT and TBili trending down * Dr. Colmenares and Dr. Mahoney (GI) consulted; help appreciated * MRCP done; see below * ERCP with EUS done 08/24 - papillotomy with extraction of CBD stones * Dr. Loo (general surgery) consulted; help appreciated * Scheduled for cholecystectomy on Tuesday 08/29 * Dr. Burciaga (cardiology) consulted for preop cardiac risk assessment Imaging * Abdominal US: 1. Gallstones with choledocholithiasis and secondary dilatation of the central intrahepatic ducts 2. Mild hepatomegaly. 3. Trace amount of ascites at the inferior liver edge. 4. Progressive dilatation of the pancreatic duct which measures 0.39 cm compared to previous measurement of 0.28 cm on 03/22/2017. * CT Abdomen/Pelvis: Distended gallbladder demonstrates diffuse wall thickening and surrounding with small pericholecystic fluid. Correlate clinically for cholecystitis. Slightly dilated common bile duct. Slightly heterogeneous pancreas. No definite evidence of significant peripancreatic fluid or inflammatory changes. Mildly dilated small bowel loops may represent bowel ileus. The possibility of enteritis is not totally excluded. No evidence of high -grade bowel obstruction. Moderately distended distal esophagus is again noted. * MRCP (08/22): Mild thickening of the gallbladder wall, nonspecific. Gallbladder sludge without evidence of cholelithiasis. Possible very small calculus in the distal common bile duct without associated dilatation of either the common bile duct or the intrahepatic bile ducts. No evidence of acute pancreatitis. No pancreatic ductal dilatation. See full report. * Echo (08/22): Left ventricle systolic function is mildly impaired. The Ejection Fraction is 45-50%. There is global hypokinesis of the left ventricle. Transmitral Doppler flow pattern is Grade I-abnormal relaxation pattern. There is mild to moderate aortic regurgitation. Mitral regurgitation is mild. ERO 0.1 cm. There is moderate pulmonary hypertension. * Stress Test (08/22): Normal Lexiscan Nuclear stress test. Normal EF. Meds/Fluids * Zofran 4 mg IV Q6 PRN * Morphine 2 mg IV Q4 PRN * LR @125 cc/h Anemia * Continue to monitor Sore throat * Cepacol PRN DM * Patient has not been treated for this in 5 years and glucose under control by diet RA * Embrel injections weekly at home - on hold for now Prophylaxis * Protonix 40 mg IV daily * Heparin SC on hold <Amadou Montague H - Last Filed: 08/27/17 10:27> Objective - Vital Signs/Intake and Output Vital Signs (last 24 hours): Temp Pulse Resp BP Pulse Ox 97.4 F L 91 H 20 157/75 H 99 08/27/17 09:29 08/27/17 09:29 08/27/17 09:29 08/27/17 09:29 08/27/17 09:29 - Medications Medications: Current Medications Benzocaine/Menthol (Cepacol Sore Throat) 1 maren MT Q2H PRN PRN Reason: Sore Throat Heparin Sodium (Porcine) (Heparin) 5,000 units SC Q8 [facility] Last Admin: 08/23/17 13:05 Dose: 5,000 units Ondansetron HCl (Zofran Inj) 4 mg IVP Q6 PRN PRN Reason: Nausea/Vomiting Pantoprazole Sodium (Protonix Ec Tab) 40 mg PO DAILY [facility] Last Admin: 08/27/17 09:04 Dose: 40 mg - Labs Labs: 08/27/17 06:32 08/27/17 06:32 PT 11.7 SECONDS (9.7-12.2) 08/23/17 11:12 INR 1.0 08/23/17 11:12 Attending/Attestation - Attestation I have personally seen and examined this patient.: Yes I have fully participated in the care of the patient.: Yes I have reviewed all pertinent clinical information, including history, physical exam and plan: Yes Notes (Text): 08/27/17 10:23 Medical attending: Patient was seen and examined by me. Patient appeared well, no acute distress at this time. She was walking on her own slowly in the room. Tolerating diet ok. The patient is pending OR this Tuesday for cholesectomy thank you Amadou Montague
[2017-08-27 06:41] LABS: BASO % 0.3 % (0.0-2.0); EOS % 0.4 % (0.0-4.0); HEMOGLOBIN 10.3 g/dL (11.0-16.0); LYMPH % 19.4 % (20.0-40.0); MEAN CELL VOLUME 88.5 fL (81.0-99.0); MEAN CORPUSCULAR HEMOGLOBIN 31.2 pg (27.0-31.0); MEAN CORPUSCULAR HGB CONC 35.3 g/dL (33.0-37.0); MEAN PLATELET VOLUME 7.5 fL (7.2-11.7); MONO # 0.8 K/uL (0.0-0.8); MONO % 15.4 % (0.0-10.0); NEUT # 3.2 K/uL (1.8-7.0); NEUT % 64.5 % (50.0-75.0); RBC 3.29 Mil/uL (3.80-5.20); RED CELL DISTRIBUTION WIDTH 14.5 % (11.5-14.5)
[2017-08-27 07:09] LABS: ALB/GLOB RATIO 0.6 (1.0-2.1); ALT/SGPT 107 U/L (9-52); AST/SGOT 48 U/L (14-36); BLOOD UREA NITROGEN 13 mg/dL (7-17); CALCIUM 8.3 mg/dl (8.6-10.4); GFR AFRICAN-AMERICAN > 60; GFR NON-AFRICAN AMERICAN > 60
[2017-08-27] MEDS: Pantoprazole 40 mg EC Tab PO SCH (09:04)
[2017-08-27] MEDS ORDERED: Magnesium Sulfate 1 gm in D5W 1 GM/100 ML BAG IVPB ONE (11:35)
--- NOTE | 2017-08-28 01:33 | CP.PCM.PN ---
<Emelia Qureshi - Last Filed: 08/28/17 01:34> Subjective - Date & Time of Evaluation Date of Evaluation: 08/28/17 Time of Evaluation: 01:34 - Subjective Subjective: Progress note Patient seen and examined at bedside. Patient aware she will be having her gallbladder removed on Tuesday 08/29. Patient has no complaints at this time. Patient is tolerating diet at this time. No acute events overnight No fever, chills, nausea, vomiting, no diarrhea, no chest pain, shortness of breath or abdominal pain. Objective - Vital Signs/Intake and Output Vital Signs (last 24 hours): Temp Pulse Resp BP Pulse Ox 97.6 F 80 20 116/65 98 08/27/17 23:40 08/27/17 23:40 08/27/17 23:40 08/27/17 23:40 08/27/17 23:40 - Medications Medications: Current Medications Benzocaine/Menthol (Cepacol Sore Throat) 1 maren MT Q2H PRN PRN Reason: Sore Throat Heparin Sodium (Porcine) (Heparin) 5,000 units SC Q8 [facility] Last Admin: 08/23/17 13:05 Dose: 5,000 units Ondansetron HCl (Zofran Inj) 4 mg IVP Q6 PRN PRN Reason: Nausea/Vomiting Pantoprazole Sodium (Protonix Ec Tab) 40 mg PO DAILY [facility] Last Admin: 08/27/17 09:04 Dose: 40 mg - Labs Labs: 08/27/17 06:32 08/27/17 06:32 PT 11.7 SECONDS (9.7-12.2) 08/23/17 11:12 INR 1.0 08/23/17 11:12 - Additional Findings Additional findings: - Constitutional Appears: Non-toxic, No Acute Distress - Head Exam Head Exam: ATRAUMATIC, NORMAL INSPECTION, NORMOCEPHALIC - Eye Exam Eye Exam: EOMI, Normal appearance, PERRL - ENT Exam ENT Exam: Mucous Membranes Moist - Cardiovascular Exam Cardiovascular Exam: RRR, +S1, +S2. absent: Gallop, Rubs, Murmur - GI/Abdominal Exam GI & Abdominal Exam: Soft, Normal Bowel Sounds. absent: Distended Patient denies Tenderness - Extremities Exam Extremities Exam: Normal Inspection. absent: Calf Tenderness, Pedal Edema - Neurological Exam Neurological Exam: Alert, Awake, Oriented x3 - Psychiatric Exam Psychiatric exam: Normal Affect, Normal Mood - Skin Skin Exam: Dry, Intact, Normal Color, Warm Assessment and Plan - Assessment and Plan (Free Text) Assessment: 77F with gallstone pancreatitis; resolved & choledocholithiasis s/p ERCP with EUS and sphincterotomy/precut papillotomy with extraction of CBD stones 08/24 scheduled for cholecystectomy Tuesday 08/29 Gallstone Pancreatitis/Cholelithiasis/Choledocolithiasis [place] score on admission: 3 with 15% predicted mortality, ABG not obtained at 48 hours so Ransons criteria could not be calculated, however, without arterial PO2 included, she has a score of 1 at 48 hours post admission AST/ALT and TBili trending down Dr. Colmenares and Dr. Mahoney (GI) consulted; help appreciated MRCP done; see below ERCP with EUS done 08/24 - papillotomy with extraction of CBD stones Dr. Loo (general surgery) consulted; help appreciated Scheduled for cholecystectomy on Tuesday 08/29 Dr. Burciaga (cardiology) consulted for preop cardiac risk assessment Imaging Abdominal US: 1. Gallstones with choledocholithiasis and secondary dilatation of the central intrahepatic ducts 2. Mild hepatomegaly. 3. Trace amount of ascites at the inferior liver edge. 4. Progressive dilatation of the pancreatic duct which measures 0.39 cm compared to previous measurement of 0.28 cm on 03/22/2017. CT Abdomen/Pelvis: Distended gallbladder demonstrates diffuse wall thickening and surrounding with small pericholecystic fluid. Correlate clinically for cholecystitis. Slightly dilated common bile duct. Slightly heterogeneous pancreas. No definite evidence of significant peripancreatic fluid or inflammatory changes. Mildly dilated small bowel loops may represent bowel ileus. The possibility of enteritis is not totally excluded. No evidence of high-grade bowel obstruction. Moderately distended distal esophagus is again noted. MRCP (08/22): Mild thickening of the gallbladder wall, nonspecific. Gallbladder sludge without evidence of cholelithiasis. Possible very small calculus in the distal common bile duct without associated dilatation of either the common bile duct or the intrahepatic bile ducts. No evidence of acute pancreatitis. No pancreatic ductal dilatation. See full report. Echo (08/22): Left ventricle systolic function is mildly impaired. The Ejection Fraction is 45-50%. There is global hypokinesis of the left ventricle. Transmitral Doppler flow pattern is Grade I-abnormal relaxation pattern. There is mild to moderate aortic regurgitation. Mitral regurgitation is mild. ERO 0.1 cm. There is moderate pulmonary hypertension. Stress Test (08/22): Normal Lexiscan Nuclear stress test. Normal EF. Meds/Fluids Zofran 4 mg IV Q6 PRN Morphine 2 mg IV Q4 PRN, discontinued due to shortage LR @125 cc/h, discontinued Hypomagnesemia, repleted f/u am magnesium levels Anemia Continue to monitor Sore throat Cepacol PRN DM Patient has not been treated for this in 5 years and glucose under control by diet RA Embrel injections weekly at home - on hold for now Prophylaxis Protonix 40 mg IV daily Heparin SC on hold Dispo: cholecystectomy scheduled for 08/29 Emelia Qureshi, DO PGY1 <Amadou Montague H - Last Filed: 08/28/17 08:19> Objective - Vital Signs/Intake and Output Vital Signs (last 24 hours): Temp Pulse Resp BP Pulse Ox 97.6 F 80 20 116/65 98 08/27/17 23:40 08/27/17 23:40 08/27/17 23:40 08/27/17 23:40 08/27/17 23:40 Intake and Output: 08/28/17 08/28/17 06:59 18:59 Output Total 400 Balance -400 - Medications Medications: Current Medications Benzocaine/Menthol (Cepacol Sore Throat) 1 maren MT Q2H PRN PRN Reason: Sore Throat Heparin Sodium (Porcine) (Heparin) 5,000 units SC Q8 [facility] Last Admin: 08/23/17 13:05 Dose: 5,000 units Magnesium Sulfate/Dextrose (Magnesium Sulfate 1 Gm/100 Ml D5w) 1 gm in 100 mls @ 200 mls/hr IVPB ONCE ONE Stop: 08/28/17 08:29 Ondansetron HCl (Zofran Inj) 4 mg IVP Q6 PRN PRN Reason: Nausea/Vomiting Pantoprazole Sodium (Protonix Ec Tab) 40 mg PO DAILY [facility] Last Admin: 08/27/17 09:04 Dose: 40 mg - Labs Labs: 08/28/17 07:11 08/28/17 07:11 PT 11.6 SECONDS (9.7-12.2) 08/28/17 07:11 INR 1.0 08/28/17 07:11 APTT 34 SECONDS (21-34) 08/28/17 07:11 Attending/Attestation - Attestation I have personally seen and examined this patient.: Yes I have fully participated in the care of the patient.: Yes I have reviewed all pertinent clinical information, including history, physical exam and plan: Yes Notes (Text): 08/28/17 08:14 Medical attending: Patient was seen and examined by me, agree with the above note by the resident Currently no acute changes or complaints at this time. Tolerating her diet. AST, ALT, and T tima have all been decreasing Yesterday had IV magnesium and today another IV magnesium The patient is pending surgery tommorow. thank you Amadou Montague
[2017-08-28 07:22] LABS: BASO % 0.4 % (0.0-2.0); EOS % 0.4 % (0.0-4.0); HEMOGLOBIN 10.4 g/dL (11.0-16.0); LYMPH % 19.9 % (20.0-40.0); MEAN CELL VOLUME 88.8 fL (81.0-99.0); MEAN CORPUSCULAR HGB CONC 34.9 g/dL (33.0-37.0); MEAN PLATELET VOLUME 7.7 fL (7.2-11.7); MONO # 0.7 K/uL (0.0-0.8); MONO % 14.7 % (0.0-10.0); NEUT # 3.2 K/uL (1.8-7.0); NEUT % 64.6 % (50.0-75.0); NRBC % 0.1 % (0.0-2.0); RBC 3.34 Mil/uL (3.80-5.20); RED CELL DISTRIBUTION WIDTH 14.8 % (11.5-14.5)
[2017-08-28 07:43] LABS: ALB/GLOB RATIO 0.7 (1.0-2.1); ALBUMIN 3.1 g/dL (3.5-5.0); ALT/SGPT 83 U/L (9-52); AST/SGOT 43 U/L (14-36); BLOOD UREA NITROGEN 12 mg/dL (7-17); CALCIUM 8.5 mg/dl (8.6-10.4); GFR AFRICAN-AMERICAN > 60; GFR NON-AFRICAN AMERICAN > 60
[2017-08-28 07:55] LABS: PROTHROMBIN TIME 11.6 SECONDS (9.7-12.2)
[2017-08-28] MEDS ORDERED: Magnesium Sulfate 1 gm in D5W 1 GM/100 ML BAG IVPB ONE (08:00)
--- NOTE | 2017-08-28 08:49 | CP.PCM.PN ---
Subjective - Date & Time of Evaluation Date of Evaluation: 08/28/17 Time of Evaluation: 08:48 - Subjective Subjective: General Surgery - Dr. Loo Pt S&E. ZENA. Pt denies any complaints. She is OOb ambulating and tolerating regular diet. Pt aware of plan for surgery tomorrow. She deneis any F/C/N/V/ SOB/CP. Objective - Vital Signs/Intake and Output Vital Signs (last 24 hours): Temp Pulse Resp BP Pulse Ox 98.7 F 84 20 129/67 99 08/28/17 08:36 08/28/17 08:36 08/28/17 08:36 08/28/17 08:36 08/28/17 08:36 Intake and Output: 08/28/17 08/28/17 06:59 18:59 Output Total 400 Balance -400 - Medications Medications: Current Medications Benzocaine/Menthol (Cepacol Sore Throat) 1 maren MT Q2H PRN PRN Reason: Sore Throat Heparin Sodium (Porcine) (Heparin) 5,000 units SC Q8 [facility] Last Admin: 08/23/17 13:05 Dose: 5,000 units Ondansetron HCl (Zofran Inj) 4 mg IVP Q6 PRN PRN Reason: Nausea/Vomiting Pantoprazole Sodium (Protonix Ec Tab) 40 mg PO DAILY [facility] Last Admin: 08/27/17 09:04 Dose: 40 mg - Labs Labs: 08/28/17 07:11 08/28/17 07:11 PT 11.6 SECONDS (9.7-12.2) 08/28/17 07:11 INR 1.0 08/28/17 07:11 APTT 34 SECONDS (21-34) 08/28/17 07:11 - Constitutional Appears: Well, No Acute Distress - Head Exam Head Exam: ATRAUMATIC, NORMAL INSPECTION, NORMOCEPHALIC - Respiratory Exam Respiratory Exam: NORMAL BREATHING PATTERN. absent: Respiratory Distress - Cardiovascular Exam Cardiovascular Exam: REGULAR RHYTHM - GI/Abdominal Exam GI & Abdominal Exam: Soft. absent: Distended, Guarding, Tenderness, Rebound - Neurological Exam Neurological Exam: Alert, Oriented x3 - Psychiatric Exam Psychiatric exam: Normal Affect, Normal Mood - Skin Skin Exam: Dry, Intact Assessment and Plan - Assessment and Plan (Free Text) Assessment: 77F with gallstone pancreatitis & choledocholithiasis s/p ERCP & sphincterotomy Plan: - OR tomorrow for lap simon - NPO after midnight lenka Loo
[2017-08-28] MEDS: Pantoprazole 40 mg EC Tab PO SCH (09:25)
[2017-08-29 06:38] LABS: BASO % 0.3 % (0.0-2.0); EOS % 0.4 % (0.0-4.0); HEMOGLOBIN 10.2 g/dL (11.0-16.0); LYMPH # 1.1 K/uL (1.0-4.3); LYMPH % 19.9 % (20.0-40.0); MEAN CELL VOLUME 87.9 fL (81.0-99.0); MEAN CORPUSCULAR HEMOGLOBIN 30.8 pg (27.0-31.0); MEAN PLATELET VOLUME 7.5 fL (7.2-11.7); MONO # 0.8 K/uL (0.0-0.8); MONO % 15.6 % (0.0-10.0); NEUT # 3.4 K/uL (1.8-7.0); NEUT % 63.8 % (50.0-75.0); NRBC % 0.1 % (0.0-2.0); RBC 3.33 Mil/uL (3.80-5.20); RED CELL DISTRIBUTION WIDTH 14.6 % (11.5-14.5); WHITE BLOOD COUNT 5.4 K/uL (4.8-10.8)
[2017-08-29] MEDS ORDERED: Bupivacaine HCl 0.25% PF (30 ml) Inj ONE (07:32)
[2017-08-29] MEDS ORDERED: Midazolam 2 MG/2 ML VIAL ONE (07:33)
[2017-08-29] MEDS ORDERED: Propofol 10 mg/ml Inj (20 ML) ONE (07:33)
[2017-08-29] MEDS ORDERED: ceFAZolin 1 gm in NS 2 GM/200 ML BAG IVPB ONE (07:59)
[2017-08-29] MEDS ORDERED: Lidocaine/Epinephrine 1% 1:100000 10 ML IJ ONE (08:02)
[2017-08-29 08:29] LABS: ALB/GLOB RATIO 0.7 (1.0-2.1); ALBUMIN 3.2 g/dL (3.5-5.0); ALT/SGPT 75 U/L (9-52); AST/SGOT 42 U/L (14-36); BLOOD UREA NITROGEN 15 mg/dL (7-17); CALCIUM 8.6 mg/dl (8.6-10.4); GFR AFRICAN-AMERICAN > 60; GFR NON-AFRICAN AMERICAN > 60
[2017-08-29] MEDS ORDERED: Rocuronium 10 mg/ml (5 ml) ONE (08:49)
[2017-08-29] MEDS ORDERED: Neostigmine Methylsulfate 3mg/3ml Syringe IV ONE (08:49)
--- NOTE | 2017-08-29 09:35 | PCM.SURG1 ---
Surgeon's Initial Post Op Note - Surgeon's Notes Surgeon: Dr. Loo Fiscal Agent: Dr. Ana Cristina Infante PGY-1; Lorna ; Myles Arce OMS-3 Pre-Operative Diagnosis: Cholelithiasis Operative Findings: SEE OP REPORT Post-Operative Diagnosis: Cholelithiasis Operation Performed: Robotic Cholecystectomy Specimen/Specimens Removed: Gallbladder Estimated Blood Loss: EBL {In ML}: 10 Blood Products Given: N/A Drains Used: No Drains Post-Op Condition: Good Date of Surgery/Procedure: 08/29/17 Time of Surgery/Procedure: 09:35
[2017-08-29] MEDS ORDERED: Oxycodone/Acetaminophen 5/325 mg Tab PO PRN (09:37)
[2017-08-29] MEDS: HYDROmorphone 0.5 mg/0.5 ml ISec IVP PRN ×2 (09:53→10:04)
[2017-08-29 11:40] VITALS: RESP 18
--- NOTE | 2017-08-29 12:42 | CARD ---
APPROVED REPORT EKG Measurement Heart [id number] <Conclusion> Normal sinus rhythm Left axis deviation T wave abnormality, consider lateral ischemia Abnormal ECG
--- NOTE | 2017-08-29 13:11 | OP ---
PROCEDURE DATE: 08/29/2017 PREOPERATIVE DIAGNOSES: 1. Chronic cholecystitis and cholelithiasis. 2. Common bile duct stone status post endoscopic retrograde cholangio-pancreatography. POSTOPERATIVE DIAGNOSES: 1. Chronic cholecystitis and cholelithiasis. 2. Common bile duct stone status post endoscopic retrograde cholangio-pancreatography. PROCEDURE DONE: Robotic cholecystectomy. SURGEON: Tre Loo MD REAL ESTATE OFFICER: KAITLYN Montano and Marli Infante, PGY-2 resident. TYPE OF ANESTHESIA: General endotracheal tube anesthesia. ESTIMATED BLOOD LOSS: Around 10 mL. DRAINS: None. PATHOLOGY: Gallbladder with gallstone sent for the pathology. COMPLICATIONS: None. INTRAOPERATIVE FINDINGS: The patient had changes of chronic cholecystitis and cholelithiasis. DESCRIPTION OF PROCEDURE: On intraoperative steps, this is a 77-year-old female who was diagnosed with chronic cholecystitis and cholelithiasis, and the patient also had CBD stone and the patient underwent ERCP and the patient was consented for the laparoscopic-assisted robotic cholecystectomy, possible open, brought to the OR, placed supine on the operating table. After induction of the anesthesia, the abdomen was prepped and draped in the usual sterile fashion. A supraumbilical transverse incision was made after incising the skin, the subcutaneous tissue, and the fascia. The robotic camera port was placed. Another three 8-mm port was placed and robot was brought in. Camera arm as well as arm 1, arm 2 was docked and the gallbladder was retracted cranially. Calot's triangle dissection was done. Cystic duct and cystic artery were identified and clipped at 3 places and cut in between 2 clips nearby gallbladder and gallbladder was dissected free from the gallbladder fossa. There was no postinfectious adhesion, and intraoperative Firefly was used to identify the ductal anatomy and after proper hemostasis, the gallbladder was taken in an EndoCatch bag, taken out through the umbilical port site. All the instruments were taken out, robot was undocked. All the ports were taken out under vision. Pneumo was deflated. The umbilical port site was closed in 2 layers, fascia with 0 Vicryl interrupted sutures, skin with 4-0 Monocryl and all the port sites, and dry sterile dressing was applied. The patient tolerated the procedure well. Count of the instrument and gauze was correct. There was no apparent complication. The patient was extubated in the OR and sent to the Postanesthesia Care Unit in stable condition. Tre Loo MD
--- NOTE | 2017-08-29 13:52 | CP.PCM.DIS ---
<Wilda Bailey - Last Filed: 08/29/17 13:45> Provider - Provider Date of Admission: 08/20/17 18:10 Attending physician: Amadou Montague DO Consults: Dr. Virgil Loo Time Spent in preparation of Discharge (in minutes): 35 Diagnosis - Discharge Diagnosis (1) Gallstone pancreatitis Status: Acute Hospital Course - Lab Results Lab Results: Micro Results 08/22/17 Unknown Naris MRSA Culture - Final MRSA NOT DETECTED 08/20/17 21:20 Nose MRSA Culture (Admit) - Final MRSA NOT DETECTED Most Recent Lab Values WBC 5.4 K/uL (4.8-10.8) 08/29/17 06:24 RBC 3.33 Mil/uL (3.80-5.20) L 08/29/17 06:24 Hgb 10.2 g/dL (11.0-16.0) L 08/29/17 06:24 Hct 29.2 % (34.0-47.0) L 08/29/17 06:24 MCV 87.9 fL (81.0-99.0) 08/29/17 06:24 MCH 30.8 pg (27.0-31.0) 08/29/17 06:24 MCHC 35.0 g/dL (33.0-37.0) 08/29/17 06:24 RDW 14.6 % (11.5-14.5) H 08/29/17 06:24 Plt Count 309 K/uL (130-400) 08/29/17 06:24 MPV 7.5 fL (7.2-11.7) 08/29/17 06:24 Neut % (Auto) 63.8 % (50.0-75.0) 08/29/17 06:24 Lymph % (Auto) 19.9 % (20.0-40.0) L 08/29/17 06:24 Desha % (Auto) 15.6 % (0.0-10.0) H 08/29/17 06:24 Eos % (Auto) 0.4 % (0.0-4.0) 08/29/17 06:24 Baso % (Auto) 0.3 % (0.0-2.0) 08/29/17 06:24 Neut # (Auto) 3.4 K/uL (1.8-7.0) 08/29/17 06:24 Lymph # (Auto) 1.1 K/uL (1.0-4.3) 08/29/17 06:24 Desha # (Auto) 0.8 K/uL (0.0-0.8) 08/29/17 06:24 Eos # (Auto) 0.0 K/uL (0.0-0.7) 08/29/17 06:24 Baso # (Auto) 0.0 K/uL (0.0-0.2) 08/29/17 06:24 Neutrophils % (Manual) 79 % (50-75) H 08/21/17 06:10 Band Neutrophils % 6 % (0-2) H 08/21/17 06:10 Lymphocytes % (Manual) 5 % (20-40) L 08/21/17 06:10 Monocytes % (Manual) 9 % (0-10) 08/21/17 06:10 Eosinophils % (Manual) 1 % (0-4) 08/21/17 06:10 Platelet Estimate Normal (NORMAL) 08/21/17 06:10 Large Platelets Present 08/20/17 16:04 Hypochromasia (manual) Slight 08/20/17 16:04 Poikilocytosis (manual Slight 08/20/17 16:04 Anisocytosis (manual) Slight 08/21/17 06:10 Target Cells Slight 08/21/17 06:10 Ovalocytes Slight 08/21/17 06:10 PT 11.6 SECONDS (9.7-12.2) 08/28/17 07:11 INR 1.0 08/28/17 07:11 APTT 34 SECONDS (21-34) 08/28/17 07:11 pO2 16 mm/Hg (30-55) L 08/20/17 17:54 VBG pH 7.35 (7.32-7.43) 08/20/17 17:54 VBG pCO2 56 mmHg (40-60) 08/20/17 17:54 VBG HCO3 25.8 mmol/L 08/20/17 17:54 VBG Total CO2 32.6 mmol/L (22-28) H 08/20/17 17:54 VBG O2 Sat (Calc) 26.3 % (40-65) L 08/20/17 17:54 VBG Base Excess 3.8 mmol/L (0.0-2.0) H 08/20/17 17:54 VBG Potassium 3.6 mmol/L (3.6-5.2) 08/20/17 17:54 Sodium 140.0 mmol/l (132-148) 08/20/17 17:54 Chloride 104.0 mmol/L (98-107) 08/20/17 17:54 Glucose 146 mg/dl (65-105) H 08/20/17 17:54 Lactate 1.0 mmol/L (0.7-2.1) 08/20/17 17:54 Sodium 139 mmol/L (132-148) 08/29/17 06:24 Potassium 4.4 mmol/L (3.6-5.2) 08/29/17 06:24 Chloride 99 mmol/L (98-107) 08/29/17 06:24 Carbon Dioxide 30 mmol/L (22-30) 08/29/17 06:24 Anion Gap 14 (10-20) 08/29/17 06:24 BUN 15 mg/dL (7-17) 08/29/17 06:24 Creatinine 0.7 mg/dL (0.7-1.2) 08/29/17 06:24 Est GFR ( Amer) > 60 08/29/17 06:24 Est GFR (Non-Af Amer) > 60 08/29/17 06:24 POC Glucose (mg/dL) 166 mg/dL (65-110) H 08/29/17 11:22 Random Glucose 108 mg/dL (65-105) H 08/29/17 06:24 Calcium 8.6 mg/dl (8.6-10.4) 08/29/17 06:24 Phosphorus 3.1 mg/dL (2.5-4.5) 08/29/17 06:24 Magnesium 1.5 mg/dL (1.6-2.3) L 08/29/17 06:24 Total Bilirubin 0.9 mg/dL (0.2-1.3) 08/29/17 06:24 AST 42 U/L (14-36) H 08/29/17 06:24 ALT 75 U/L (9-52) H 08/29/17 06:24 Alkaline Phosphatase 112 U/L (38-126) 08/29/17 06:24 Lactate Dehydrogenase 1367 U/L (313-618) H 08/20/17 16:04 Total Protein 7.7 g/dL (6.3-8.3) 08/29/17 06:24 Total Protein (PEP) 6.2 g/dL (6.1-8.1) 08/22/17 07:44 Albumin 3.2 g/dL (3.5-5.0) L 08/29/17 06:24 Albumin (PEP) 2.4 g/dL (3.8-4.8) L 08/22/17 07:44 Globulin 4.5 gm/dL (2.2-3.9) H 08/29/17 06:24 Albumin/Globulin Ratio 0.7 (1.0-2.1) L 08/29/17 06:24 Mvseu-8-Arczchagq 0.3 g/dL (0.2-0.3) 08/22/17 07:44 Egrvz-1-Jpauxcbvh 0.7 g/dL (0.5-0.9) 08/22/17 07:44 Hzwr-5-Iiorkwds 0.2 g/dL (0.4-0.6) L 08/22/17 07:44 Ljyb-1-Gvhmnwea 0.4 g/dL (0.2-0.5) 08/22/17 07:44 Gamma Globulins 2.1 g/dL (0.8-1.7) H 08/22/17 07:44 Abnorm Protein Band 1 TEST NOT PERFORMED 08/22/17 07:44 Abnorm Protein Band 2 TEST NOT PERFORMED 08/22/17 07:44 Abnorm Protein Band 3 TEST NOT PERFORMED 08/22/17 07:44 Lipase 5671 U/L (23-300) H 08/21/17 20:15 Venous Blood Potassium 3.6 mmol/L (3.6-5.2) 08/20/17 17:54 Urine Color Yellow (YELLOW) 08/20/17 18:16 Urine Clarity Clear (Clear) 08/20/17 18:16 Urine pH 6.0 (5.0-8.0) 08/20/17 18:16 Ur Specific [place] 1.008 (1.003-1.030) 08/20/17 18:16 Urine Protein Negative mg/dL (NEGATIVE) 08/20/17 18:16 Urine Glucose (UA) Normal mg/dL (Normal) 08/20/17 18:16 Urine Ketones Negative mg/dL (NEGATIVE) 08/20/17 18:16 Urine Blood Negative (NEGATIVE) 08/20/17 18:16 Urine Nitrate Negative (NEGATIVE) 08/20/17 18:16 Urine Bilirubin Negative (NEGATIVE) 08/20/17 18:16 Urine Urobilinogen 2.0 mg/dL (0.2-1.0) H 08/20/17 18:16 Ur Leukocyte Esterase Trace Michael/uL (Negative) 08/20/17 18:16 Urine WBC (Auto) 3 /hpf (0-5) 08/20/17 18:16 Urine RBC (Auto) < 1 /hpf (0-3) 08/20/17 18:16 Ur Squamous Epith Cells 1 /hpf (0-5) 08/20/17 18:16 Ur Transition Epith Cell < 1 /hpf (0-3) 08/20/17 18:16 Urine Bacteria Occ (<OCC) H 08/20/17 18:16 FELISA & SPEP Interp See note 08/22/17 07:44 Serum Immunofixation Detected (Not Detected) H 08/22/17 07:44 Blood Type A POSITIVE 08/29/17 06:24 Antibody Screen Negative 08/29/17 06:24 - Hospital Course Hospital Course: Upon admission: Patient is a 77 year old female from [facility] with a PMH of RA and DM who presents to the ED complaining of abdominal pain. Patient says this started last year and she saw Dr. Colmenares but is unsure if anything was ever determined. Patient says the abdominal pain went away but came back 3 weeks ago and gradually worsened to a constant, sharp, 10 out of 10 pain in her epigastric area radiating to her back. Patient says nothing makes the pain worse and nothing makes it better either. Patient also admits to decreased appetite and unintentional weight loss from 180s to 114 pounds. Patient admits to 3 episodes of nonbloody, yellowish colored vomiting prior to coming to the ED today. she also admits to dysuria of 2 days, constipation, and dry cough. Patient denies fever, chills, diaphoresis, night sweats, headache, dizziness, changes in vision/hearing, sore throat, dysphagia, chest pain, palpitations, SOB , hematochezia, melena, urinary frequency, leg pain/swelling, rashes, easy bruising, and recent travel or illness. Hospital Course: Patient was admitted with pancreatitis due to gallstones vs malignancy. Abdominal US was done showing gallstone and GI was consulted for ERCP with EUS. Gallstone pancretitis was confirmed and patient had papillotomy with stone extraction by GI. Surgery was consulted for cholecystectomy since it is recommended to have this done during the same hospital stay per GI (better outcomes). Patient had lap simon with no complications and was cleared for discharge by Dr. Jeong and all consults. A copy of my most recent written assessment and plan is attached below for more details: Disposition: Patient is s/p ERCP with EUS done 08/24 with papillotomy with extraction of CBD stones. She is scheduled to have cholecystectomy on Tuesday. Gallstone Pancreatitis/Cholelithiasis/Choledocolithiasis * [place] score on admission: 3 with 15% predicted mortality, ABG not obtained at 48 hours so Ransons criteria could not be calculated, however, without arterial PO2 included, she has a score of 1 at 48 hours post admission * AST/ALT and TBili trending down * Dr. Colmenares and Dr. Mahoney (GI) consulted; help appreciated * MRCP done; see below * ERCP with EUS done 08/24 - papillotomy with extraction of CBD stones * Dr. Loo (general surgery) consulted; help appreciated * Scheduled for cholecystectomy on Tuesday 08/29 * Dr. Burciaga (cardiology) consulted for preop cardiac risk assessment Imaging * Abdominal US: 1. Gallstones with choledocholithiasis and secondary dilatation of the central intrahepatic ducts 2. Mild hepatomegaly. 3. Trace amount of ascites at the inferior liver edge. 4. Progressive dilatation of the pancreatic duct which measures 0.39 cm compared to previous measurement of 0.28 cm on 03/22/2017. * CT Abdomen/Pelvis: Distended gallbladder demonstrates diffuse wall thickening and surrounding with small pericholecystic fluid. Correlate clinically for cholecystitis. Slightly dilated common bile duct. Slightly heterogeneous pancreas. No definite evidence of significant peripancreatic fluid or inflammatory changes. Mildly dilated small bowel loops may represent bowel ileus. The possibility of enteritis is not totally excluded. No evidence of high -grade bowel obstruction. Moderately distended distal esophagus is again noted. * MRCP (08/22): Mild thickening of the gallbladder wall, nonspecific. Gallbladder sludge without evidence of cholelithiasis. Possible very small calculus in the distal common bile duct without associated dilatation of either the common bile duct or the intrahepatic bile ducts. No evidence of acute pancreatitis. No pancreatic ductal dilatation. See full report. * Echo (08/22): Left ventricle systolic function is mildly impaired. The Ejection Fraction is 45-50%. There is global hypokinesis of the left ventricle. Transmitral Doppler flow pattern is Grade I-abnormal relaxation pattern. There is mild to moderate aortic regurgitation. Mitral regurgitation is mild. ERO 0.1 cm. There is moderate pulmonary hypertension. * Stress Test (08/22): Normal Lexiscan Nuclear stress test. Normal EF. Meds/Fluids * Zofran 4 mg IV Q6 PRN * Morphine 2 mg IV Q4 PRN * LR @125 cc/h Anemia * Continue to monitor Sore throat * Cepacol PRN DM * Patient has not been treated for this in 5 years and glucose under control by diet RA * Embrel injections weekly at home - on hold for now Prophylaxis * Protonix 40 mg IV daily * Heparin SC on hold Please note that this is a summary of events. For more details, please see complete medical record. Discharge Exam - Head Exam Head Exam: ATRAUMATIC, NORMAL INSPECTION, NORMOCEPHALIC - Eye Exam Eye Exam: EOMI, Normal appearance, PERRL - ENT Exam ENT Exam: Mucous Membranes Moist - Respiratory Exam Respiratory Exam: Clear to PA & Lateral, NORMAL BREATHING PATTERN, UNREMARKABLE - Cardiovascular Exam Cardiovascular Exam: RRR, +S1, +S2 - GI/Abdominal Exam GI & Abdominal Exam: Normal Bowel Sounds, Soft, Tenderness (appropriate post op tenderness) - Extremities Exam Extremities exam: normal inspection - Neurological Exam Neurological exam: Alert, Oriented x3 - Psychiatric Exam Psychiatric exam: Normal Affect, Normal Mood - Skin Skin Exam: Dry, Normal Color, Warm Discharge Plan - Follow Up Plan Condition: GOOD Disposition: HOME/ ROUTINE Instructions: Low Cholesterol, Saturated Fat, and Trans Fat Diet , Pancreatitis (DC), Cholecystectomy, Laparoscopic Surgery Additional Instructions: Please resume all home medications and follow up with your PCP, Dr. Wong, within 1 week. Please also follow up with your surgeon, Dr. Loo, within 1-2 weeks of discharge. Referrals: Tre Loo MD [Staff Provider] - <Jean-PaulNategino - Last Filed: 08/30/17 16:28> Provider - Provider Date of Admission: 08/20/17 18:10 Attending physician: Amadou Montague, Hospital Course - Lab Results Lab Results: Micro Results 08/22/17 Unknown Naris MRSA Culture - Final MRSA NOT DETECTED 08/20/17 21:20 Nose MRSA Culture (Admit) - Final MRSA NOT DETECTED Most Recent Lab Values WBC 5.4 K/uL (4.8-10.8) 08/29/17 06:24 RBC 3.33 Mil/uL (3.80-5.20) L 08/29/17 06:24 Hgb 10.2 g/dL (11.0-16.0) L 08/29/17 06:24 Hct 29.2 % (34.0-47.0) L 08/29/17 06:24 MCV 87.9 fL (81.0-99.0) 08/29/17 06:24 MCH 30.8 pg (27.0-31.0) 08/29/17 06:24 MCHC 35.0 g/dL (33.0-37.0) 08/29/17 06:24 RDW 14.6 % (11.5-14.5) H 08/29/17 06:24 Plt Count 309 K/uL (130-400) 08/29/17 06:24 MPV 7.5 fL (7.2-11.7) 08/29/17 06:24 Neut % (Auto) 63.8 % (50.0-75.0) 08/29/17 06:24 Lymph % (Auto) 19.9 % (20.0-40.0) L 08/29/17 06:24 Desha % (Auto) 15.6 % (0.0-10.0) H 08/29/17 06:24 Eos % (Auto) 0.4 % (0.0-4.0) 08/29/17 06:24 Baso % (Auto) 0.3 % (0.0-2.0) 08/29/17 06:24 Neut # (Auto) 3.4 K/uL (1.8-7.0) 08/29/17 06:24 Lymph # (Auto) 1.1 K/uL (1.0-4.3) 08/29/17 06:24 Desha # (Auto) 0.8 K/uL (0.0-0.8) 08/29/17 06:24 Eos # (Auto) 0.0 K/uL (0.0-0.7) 08/29/17 06:24 Baso # (Auto) 0.0 K/uL (0.0-0.2) 08/29/17 06:24 Neutrophils % (Manual) 79 % (50-75) H 08/21/17 06:10 Band Neutrophils % 6 % (0-2) H 08/21/17 06:10 Lymphocytes % (Manual) 5 % (20-40) L 08/21/17 06:10 Monocytes % (Manual) 9 % (0-10) 08/21/17 06:10 Eosinophils % (Manual) 1 % (0-4) 08/21/17 06:10 Platelet Estimate Normal (NORMAL) 08/21/17 06:10 Large Platelets Present 08/20/17 16:04 Hypochromasia (manual) Slight 08/20/17 16:04 Poikilocytosis (manual Slight 08/20/17 16:04 Anisocytosis (manual) Slight 08/21/17 06:10 Target Cells Slight 08/21/17 06:10 Ovalocytes Slight 08/21/17 06:10 PT 11.6 SECONDS (9.7-12.2) 08/28/17 07:11 INR 1.0 08/28/17 07:11 APTT 34 SECONDS (21-34) 08/28/17 07:11 pO2 16 mm/Hg (30-55) L 08/20/17 17:54 VBG pH 7.35 (7.32-7.43) 08/20/17 17:54 VBG pCO2 56 mmHg (40-60) 08/20/17 17:54 VBG HCO3 25.8 mmol/L 08/20/17 17:54 VBG Total CO2 32.6 mmol/L (22-28) H 08/20/17 17:54 VBG O2 Sat (Calc) 26.3 % (40-65) L 08/20/17 17:54 VBG Base Excess 3.8 mmol/L (0.0-2.0) H 08/20/17 17:54 VBG Potassium 3.6 mmol/L (3.6-5.2) 08/20/17 17:54 Sodium 140.0 mmol/l (132-148) 08/20/17 17:54 Chloride 104.0 mmol/L (98-107) 08/20/17 17:54 Glucose 146 mg/dl (65-105) H 08/20/17 17:54 Lactate 1.0 mmol/L (0.7-2.1) 08/20/17 17:54 Sodium 139 mmol/L (132-148) 08/29/17 06:24 Potassium 4.4 mmol/L (3.6-5.2) 08/29/17 06:24 Chloride 99 mmol/L (98-107) 08/29/17 06:24 Carbon Dioxide 30 mmol/L (22-30) 08/29/17 06:24 Anion Gap 14 (10-20) 08/29/17 06:24 BUN 15 mg/dL (7-17) 08/29/17 06:24 Creatinine 0.7 mg/dL (0.7-1.2) 08/29/17 06:24 Est GFR ( Amer) > 60 08/29/17 06:24 Est GFR (Non-Af Amer) > 60 08/29/17 06:24 POC Glucose (mg/dL) 180 mg/dL (65-110) H 08/29/17 16:11 Random Glucose 108 mg/dL (65-105) H 08/29/17 06:24 Calcium 8.6 mg/dl (8.6-10.4) 08/29/17 06:24 Phosphorus 3.1 mg/dL (2.5-4.5) 08/29/17 06:24 Magnesium 1.5 mg/dL (1.6-2.3) L 08/29/17 06:24 Total Bilirubin 0.9 mg/dL (0.2-1.3) 08/29/17 06:24 AST 42 U/L (14-36) H 08/29/17 06:24 ALT 75 U/L (9-52) H 08/29/17 06:24 Alkaline Phosphatase 112 U/L (38-126) 08/29/17 06:24 Lactate Dehydrogenase 1367 U/L (313-618) H 08/20/17 16:04 Total Protein 7.7 g/dL (6.3-8.3) 08/29/17 06:24 Total Protein (PEP) 6.2 g/dL (6.1-8.1) 08/22/17 07:44 Albumin 3.2 g/dL (3.5-5.0) L 08/29/17 06:24 Albumin (PEP) 2.4 g/dL (3.8-4.8) L 08/22/17 07:44 Globulin 4.5 gm/dL (2.2-3.9) H 08/29/17 06:24 Albumin/Globulin Ratio 0.7 (1.0-2.1) L 08/29/17 06:24 Qtngo-6-Xvhudcjza 0.3 g/dL (0.2-0.3) 08/22/17 07:44 Xqsow-9-Cnlimexsw 0.7 g/dL (0.5-0.9) 08/22/17 07:44 Tydt-7-Vvelcdmu 0.2 g/dL (0.4-0.6) L 08/22/17 07:44 Xqya-2-Yfeeccvq 0.4 g/dL (0.2-0.5) 08/22/17 07:44 Gamma Globulins 2.1 g/dL (0.8-1.7) H 08/22/17 07:44 Abnorm Protein Band 1 TEST NOT PERFORMED 08/22/17 07:44 Abnorm Protein Band 2 TEST NOT PERFORMED 08/22/17 07:44 Abnorm Protein Band 3 TEST NOT PERFORMED 08/22/17 07:44 Lipase 5671 U/L (23-300) H 08/21/17 20:15 Venous Blood Potassium 3.6 mmol/L (3.6-5.2) 08/20/17 17:54 Urine Color Yellow (YELLOW) 08/20/17 18:16 Urine Clarity Clear (Clear) 08/20/17 18:16 Urine pH 6.0 (5.0-8.0) 08/20/17 18:16 Ur Specific [place] 1.008 (1.003-1.030) 08/20/17 18:16 Urine Protein Negative mg/dL (NEGATIVE) 08/20/17 18:16 Urine Glucose (UA) Normal mg/dL (Normal) 08/20/17 18:16 Urine Ketones Negative mg/dL (NEGATIVE) 08/20/17 18:16 Urine Blood Negative (NEGATIVE) 08/20/17 18:16 Urine Nitrate Negative (NEGATIVE) 08/20/17 18:16 Urine Bilirubin Negative (NEGATIVE) 08/20/17 18:16 Urine Urobilinogen 2.0 mg/dL (0.2-1.0) H 08/20/17 18:16 Ur Leukocyte Esterase Trace Michael/uL (Negative) 08/20/17 18:16 Urine WBC (Auto) 3 /hpf (0-5) 08/20/17 18:16 Urine RBC (Auto) < 1 /hpf (0-3) 08/20/17 18:16 Ur Squamous Epith Cells 1 /hpf (0-5) 08/20/17 18:16 Ur Transition Epith Cell < 1 /hpf (0-3) 08/20/17 18:16 Urine Bacteria Occ (<OCC) H 08/20/17 18:16 FELISA & SPEP Interp See note 08/22/17 07:44 Serum Immunofixation Detected (Not Detected) H 08/22/17 07:44 Blood Type A POSITIVE 08/29/17 06:24 Antibody Screen Negative 08/29/17 06:24 Attending/Attestation - Attestation I have personally seen and examined this patient.: Yes I have fully participated in the care of the patient.: Yes I have reviewed all pertinent clinical information, including history, physical exam and plan: Yes Notes (Text): Patient was seen and examined. Surgery cleared for discharge Patient will follow her primary care and the surgeon as instructed I agree with the resident's discharge plan 08/30/17 16:27
[2017-08-29 15:32] VITALS: BP 135/71; PULSE 79; TEMP 97.1; O2SAT 100
== END 2017-08-29 16:49 | disposition home or self-care (01) | DRG 417 ==
LOC: C.ER 15:27 → C.9E 18:10 → C.9I 18:33 → C.6T 08-22 12:40
PROVIDERS: ADMIT Hospitalist; ATTEND Hospitalist
PROC: 0FC98ZZ Extirpation of Matter from Common Bile Duct, Via Natural or Artificial Opening Endoscopic (ICD-10-PCS; 2017-08-24)
PROC: 0F798ZZ Dilation of Common Bile Duct, Via Natural or Artificial Opening Endoscopic (ICD-10-PCS; 2017-08-24)
PROC: BF10YZZ Fluoroscopy of Bile Ducts using Other Contrast (ICD-10-PCS; 2017-08-24)
PROC: 8E0W4CZ Robotic Assisted Procedure of Trunk Region, Percutaneous Endoscopic Approach (ICD-10-PCS; 2017-08-29)
PROC: 0FT44ZZ Resection of Gallbladder, Percutaneous Endoscopic Approach (ICD-10-PCS; principal; 2017-08-29 07:30)
DX: K80.66 Calculus of gallbladder and bile duct with acute and chronic cholecystitis without obstruction (principal); K85.10 Biliary acute pancreatitis without necrosis or infection; E11.9 Type 2 diabetes mellitus without complications; D64.9 Anemia, unspecified; E78.00 Pure hypercholesterolemia, unspecified; E83.42 Hypomagnesemia; I10 Essential (primary) hypertension; I27.20 Pulmonary hypertension, unspecified; I08.0 Rheumatic disorders of both mitral and aortic valves; M06.9 Rheumatoid arthritis, unspecified; Z86.010 Personal history of colon polyps; Z90.49 Acquired absence of other specified parts of digestive tract

== ENCOUNTER 2017-12-30 15:12 | Inpatient (IN) | payer MEDICARE ==
[2017-12-30 15:17] VITALS: BMI 18.3
--- NOTE | 2017-12-30 16:10 | C.PDOC ---
History Of Present Illness 77 y/o female presents to the ED complaining of epigastric and periumbilical abdominal pain, on and off for the past 3 weeks. Patient reports occasional vomiting when pain becomes more severe. She otherwise has had a good appetite. Patient denies associated fever, chills, hematuria, dysuria, diarrhea, or bloody stools. She is s/p cholecystectomy in August 2017. Of note, patient was referred to the ED by Dr. Colmenares. Time Seen by Provider: 12/30/17 15:33 Chief Complaint (Nursing): Abdominal Pain History Per: Patient History/Exam Limitations: no limitations Onset/Duration Of Symptoms: Intermittent Episodes Current Symptoms Are (Timing): Still Present Location Of Pain/Discomfort: Epigastric, Periumbilical Past Medical History Reviewed: Historical Data, Nursing Documentation, Vital Signs Vital Signs: Last Vital Signs Temp 97.6 F 12/30/17 20:06 Pulse 82 12/30/17 20:06 Resp 16 12/30/17 20:06 BP 127/70 12/30/17 20:06 Pulse Ox 98 12/30/17 20:06 - Medical History PMH: Anemia, Colonic Polyps, Diabetes, Hyperthyroidism, Rheumatoid Arthritis Denies: Fractures, Chronic Kidney Disease, TIA Surgical History: Appendectomy, Cholecystectomy ([facility]AP PAO 08/2017) Denies: Endoscopy - [facility] Procedures DILATION OF COMMON BILE DUCT, ENDO (08/20/17) EXTIRPATION OF MATTER FROM COMMON BILE DUCT, ENDO (08/20/17) FLUOROSCOPY OF BILE DUCTS USING OTHER CONTRAST (08/20/17) RESECTION OF GALLBLADDER, PERCUTANEOUS ENDOSCOPIC APPROACH (08/20/17) ROBOTIC ASSISTED PROCEDURE OF TRUNK, PERC ENDO APPROACH (08/20/17) Family History: States: No Known Family Hx - Social History Hx Tobacco Use: No Hx Alcohol Use: No Hx Substance Use: No - Immunization History Hx Tetanus Toxoid Vaccination: No Hx Influenza Vaccination: Yes Hx Pneumococcal Vaccination: No Review Of Systems Except As Marked, All Systems Reviewed And Found Negative. Constitutional: Negative for: Fever, Chills Cardiovascular: Negative for: Chest Pain Respiratory: Negative for: Shortness of Breath Gastrointestinal: Positive for: Vomiting, Abdominal Pain. Negative for: Diarrhea, Hematochezia, Hematemesis, Rectal Pain Genitourinary: Negative for: Dysuria, Incontinence, Hematuria, Vaginal Bleeding Neurological: Negative for: Weakness, Dizziness Physical Exam - Physical Exam Appears: Non-toxic, No Acute Distress Skin: Warm, Dry Head: Atraumatic, Normacephalic Eye(s): bilateral: Normal Inspection, PERRL, EOMI Nose: Normal Oral Mucosa: Moist Neck: Normal ROM, Supple Chest: Symmetrical, No Tenderness Cardiovascular: Rhythm Irregular Respiratory: Normal Breath Sounds, No Rales, No Rhonchi, No Wheezing Gastrointestinal/Abdominal: Soft, Tenderness (Mild periumbilical and epigastric tenderness), No Guarding, No Rebound Back: Normal Inspection Extremity: Bilateral: Atraumatic, Normal Color And Temperature, Normal ROM Neurological/Psych: Oriented x3, Normal Speech ED Course And Treatment - Laboratory Results Result Diagrams: 12/30/17 16:10 12/30/17 16:10 O2 Sat by Pulse Oximetry: 97 (RA) Pulse Ox Interpretation: Normal - CT Scan/US CT Abd/Pelvis Other Rad Studies (CT/US): Read By Radiologist, Radiology Report Reviewed CT/US Interpretation: Accession No. : [id number]. Patient Name / ID : KATIE LUJAN / [id number]. Exam Date : 12/30/2017 17:43:19 ( Approved ). Study Comment : Sex / Age : F / [id number]. Creator : Felicity Kathleen MD. Dictator : Felicity Kathleen MD. Legislative Assistant : Java Core Developer : Felicity Kathleen MD. Approver2 : Report Date : 12/30/2017 18:44:58. My Comment : . Date of service: 12/30/2017. PROCEDURE: CT Abdomen and Pelvis with contrast. HISTORY: upper abdominal pain. COMPARISON: MRCP and abdomen with and without contrast performed 08/22/17. TECHNIQUE: Contrast dose: 100 cc visi opaque 320. Radiation dose: Total exam DLP = 204.11 mGy-cm. This CT exam was performed using one or more of the following dose reduction techniques: Automated exposure control, adjustment of the mA and/or kV according to patient size, and/or use of iterative reconstruction technique. FINDINGS: LOWER THORAX : Bibasilar fibrosis/atelectasis. No visible pleural effusion or pneumothorax. Moderate hiatal hernia/distal esophageal wall thickening. LIVER: Hepatomegaly. GALLBLADDER AND BILE DUCTS: Cholecystectomy. Pneumobilia. PANCREAS: Unremarkable. Pancreatic duct less than 3 mm. SPLEEN: Unremarkable. ADRENALS: Unremarkable. KIDNEYS AND URETERS: The kidneys enhance symmetrically. No hydronephrosis or obstructing calculus identified. VASCULATURE: No aortic aneurysm. Scattered atherosclerotic calcifications. BOWEL: Stomach is nondistended. Extensive pneumatosis involving right greater than left small bowel loops. Dilated small bowel with suspected obstruction involving the mid to distal small bowel ; transition point not clearly identified. Fecalization of small bowel loops evident within the right/mid abdomen. APPENDIX: The appendix is not identified. PERITONEUM: No significant free fluid. No definite free air. LYMPH NODES: No bulky adenopathy identified. BLADDER: Unremarkable. REPRODUCTIVE: Unremarkable. BONES: Degenerative changes. OTHER FINDINGS: Soft tissue edema. IMPRESSION: Extensive pneumatosis involving right greater than left small bowel loops. Dilated small bowel with suspected obstruction involving the mid to distal small bowel ; transition point not clearly identified. Fecalization of small bowel loops evident within the right/mid abdomen. Necrotizing enterocolitis cannot be excluded. Correlate clinically. Pneumobilia in the setting of cholecystectomy. Hepatomegaly. Soft tissue edema. Bibasilar fibrosis/ atelectasis. Moderate hiatal hernia/distal esophageal wall thickening. Additional findings as above. Findings discussed with Dr. Mccormack on 12/30/17 at 6:38 p.m. Medical Decision Making Medical Decision Making: Initial Impression: Abdominal pain, Irregular heart rhythm Plan: --EKG --CMP --Lipase --Troponin I --CBC --Urinalysis --Urine culture --CT Abd/Pelvis with IV contrast 6:55pm Case discussed with __, reviewed CT findings. Patient accepted for admission. Disposition - Disposition Disposition: HOSPITALIZED Disposition Time: 18:55 Condition: STABLE - Clinical Impression Clinical Impression: Abdominal pain - Scribe Statement The provider has reviewed the documentation as recorded by the Gwendolyn Lizarraga Provider Attestation: All medical record entries made by the Scribe were at my direction and personally dictated by me. I have reviewed the chart and agree that the record accurately reflects my personal performance of the history, physical exam, medical decision making, and the department course for this patient. I have also personally directed, reviewed, and agree with the discharge instructions and disposition.
[2017-12-30 16:16] LABS: BASO % 0.4 % (0.0-2.0); EOS % 0.7 % (0.0-4.0); HEMOGLOBIN 10.7 g/dL (11.0-16.0); LYMPH # 1.2 K/uL (1.0-4.3); LYMPH % 25.4 % (20.0-40.0); MEAN CELL VOLUME 87.1 fL (81.0-99.0); MEAN CORPUSCULAR HEMOGLOBIN 30.3 pg (27.0-31.0); MEAN CORPUSCULAR HGB CONC 34.8 g/dL (33.0-37.0); MEAN PLATELET VOLUME 7.2 fL (7.2-11.7); MONO # 0.9 K/uL (0.0-0.8); MONO % 19.5 % (0.0-10.0); NEUT # 2.5 K/uL (1.8-7.0); RBC 3.54 Mil/uL (3.80-5.20); RED CELL DISTRIBUTION WIDTH 14.1 % (11.5-14.5); WHITE BLOOD COUNT 4.6 K/uL (4.8-10.8)
[2017-12-30 16:45] LABS: ALB/GLOB RATIO 0.8 (1.0-2.1); ALBUMIN 3.7 g/dL (3.5-5.0); ALT/SGPT 26 U/L (9-52); AST/SGOT 37 U/L (14-36); BLOOD UREA NITROGEN 19 mg/dL (7-17); CALCIUM 9.4 mg/dl (8.6-10.4); GFR NON-AFRICAN AMERICAN > 60; LIPASE 119 U/L (23-300)
[2017-12-30 17:30] LABS: SQUAMOUS EPITHIAL 3 /hpf (0-5); URINE BACTERIA RARE (<OCC); URINE BILIRUBIN NEGATIVE (NEGATIVE); URINE BLOOD NEGATIVE (NEGATIVE); URINE CLARITY Hazy (Clear); URINE COLOR Amber (YELLOW); URINE GLUCOSE (UA) NORMAL (Normal); URINE LEUKOCYTE ESTERASE 2+ Leu/uL (Negative); URINE PROTEIN NEGATIVE (NEGATIVE); URINE UROBILINOGEN NORMAL mg/dL (0.2-1.0)
[2017-12-30] MEDS ORDERED: Iohexol 300 100 ML IJ ONE (17:34)
--- NOTE | 2017-12-30 18:46 | CT ---
Date of service: 12/30/2017 PROCEDURE: CT Abdomen and Pelvis with contrast HISTORY: upper abdominal pain COMPARISON: MRCP and abdomen with and without contrast performed 08/22/17 TECHNIQUE: Contrast dose: 100 cc visi opaque 320 Radiation dose: Total exam DLP = 204.11 mGy-cm. This CT exam was performed using one or more of the following dose reduction techniques: Automated exposure control, adjustment of the mA and/or kV according to patient size, and/or use of iterative reconstruction technique. FINDINGS: LOWER THORAX: Bibasilar fibrosis/atelectasis. No visible pleural effusion or pneumothorax. Moderate hiatal hernia/distal esophageal wall thickening. LIVER: Hepatomegaly. GALLBLADDER AND BILE DUCTS: Cholecystectomy. Pneumobilia. PANCREAS: Unremarkable. Pancreatic duct less than 3 mm. SPLEEN: Unremarkable. ADRENALS: Unremarkable. KIDNEYS AND URETERS: The kidneys enhance symmetrically. No hydronephrosis or obstructing calculus identified. VASCULATURE: No aortic aneurysm. Scattered atherosclerotic calcifications. BOWEL: Stomach is nondistended. Extensive pneumatosis involving right greater than left small bowel loops. Dilated small bowel with suspected obstruction involving the mid to distal small bowel ; transition point not clearly identified. Fecalization of small bowel loops evident within the right/mid abdomen. APPENDIX: The appendix is not identified. PERITONEUM: No significant free fluid. No definite free air. LYMPH NODES: No bulky adenopathy identified. BLADDER: Unremarkable. REPRODUCTIVE: Unremarkable. BONES: Degenerative changes. OTHER FINDINGS: Soft tissue edema. IMPRESSION: Extensive pneumatosis involving right greater than left small bowel loops. Dilated small bowel with suspected obstruction involving the mid to distal small bowel ; transition point not clearly identified. Fecalization of small bowel loops evident within the right/mid abdomen. Necrotizing enterocolitis cannot be excluded. Correlate clinically. Pneumobilia in the setting of cholecystectomy. Hepatomegaly. Soft tissue edema. Bibasilar fibrosis/atelectasis. Moderate hiatal hernia/distal esophageal wall thickening. Additional findings as above. Findings discussed with Dr. Mccormack on 12/30/17 at 6:38 p.m.
[2017-12-30] MEDS ORDERED: metroNIDAZOLE IV 500 mg/100 ml 500 MG/100 ML BAG IVPB STA (19:01)
[2017-12-30] MEDS ORDERED: Ciprofloxacin 400mg/200ml D5W 400 MG/200 ML BAG IVPB STA (19:01)
[2017-12-30] MEDS ORDERED: Ciprofloxacin 400mg/200ml D5W 400 MG/200 ML BAG IVPB ONE (19:16)
[2017-12-30] MEDS ORDERED: metroNIDAZOLE IV 500 mg/100 ml 500 MG/100 ML BAG ONE (19:17)
[2017-12-30 21:08] LABS: ABG ALLEN TEST POS; ARTERIAL BLOOD GAS HCO3 27.3 mmol/L (21-28); ARTERIAL BLOOD GAS PCO2 39 mm/Hg (35-45); ARTERIAL BLOOD GAS PH 7.45 (7.35-7.45); ARTERIAL BLOOD GAS PO2 102 mm/Hg (80-100); ARTERIAL BLOOD GAS TCO2 28.3 mmol/L (22-28)
--- NOTE | 2017-12-30 21:26 | CP.PCM.HP ---
History of Present Illness - History of Present Illness History of Present Illness: Chief complaint: abd pain for 3 weeks HPI: 77-year-old female with a history of rheumatoid arthritis, osteoporosis, osteoarthritis currently on biological agents came to er for abd pain. For many years patient is suffering from epigastric pain, abdominal pain, and also progressively worsening weight loss. Few months ago patient hospitalized with acute cholecystitis, underwent ERCP, followed by cholecystectomy. Since then she is feeling slightly better with the pain. But continues to have a poor appetite, now some improvement noted. Minimal weight gain also present. Few weeks ago patient had a fall while she was getting up from bed in the morning time. Patient denies any chest pain. She denies any nausea vomiting. Seen by cognos report developer, account development representative. She started having more pain epigastric area and also periodic vomiting on and off. altered bowl habits, some times diarrhea and then gets constipation. last bm today soft stool she claims appetite good. Past medical history: Pre-diabetes, rheumatoid arthritis, osteoarthritis, osteoporosis Surgical history: Appendectomy, cholecystectomy, ERCP. Family history: Parents of natural cause. Siblings no health issues. 2 daughters Social history: No alcohol or smoking Drinks coffee daily. Currently able to walk. Current medication: Prolia injection, Enbrel, Zantac. Patient is being also seen by Dr. Velez, Dr. Young Review of system: On and off headache, and associated migraine noted. Pending loss, sinus symptoms occasionally noted. Epigastric discomfort pain, taking Zantac on and off. Feels hungry, but appetite is good some weight loss noted. On and off pain When she gets that rheumatoid exacerbation patient gets epigastric pain, nausea , vomiting episodes. On examination: Vital signs stable. Partial dental noted Regular heart sounds Nontender abdomen Extremities no pedal edema FREIGHT CHECKER alert awake oriented 3 Regular heart sound. Chest bilateral good air entry labs nonspecific CT abdomen result noted. extensive pneumotoces of small Bowel distenstion of small bowel Assessment and recommendation: 77-year-old female came to the office with a history of osteoporosis, rheumatoid arthritis, and biological agents including Prolia, Enbrel. Hypertension. Stable. Prediabetes. Weight loss noted. Patient also mildly emaciated, weakness. Orthostatic hypotension ?acute abdomen intestinal obstruction pneumotosis intestinalis ?infectious process add antibiotic surgical and GI eval hold of all biological agents underlying atypical infectious process cant be ruled out will speak to family ivf K suppliment Present on Admission - Present on Admission Any Indicators Present on Admission: No History of DVT/PE: No History of Uncontrolled Diabetes: No Urinary Catheter: No Decubitus Ulcer Present: No Past Patient History - Past Medical History & Family History Past Medical History?: Yes - Past Social History Smoking Status: Never Smoked - CARDIAC Hx Cardiac Disorders: No - PULMONARY Hx Respiratory Disorders: No - NEUROLOGICAL Hx Transient Ischemic Attacks (TIA): No - HEENT Hx HEENT Problems: Yes Hx Cataracts: Yes ([facility].; NO SURGERY) - RENAL Hx Chronic Kidney Disease: No - ENDOCRINE/METABOLIC Hx Endocrine Disorders: Yes Hx Hyperthyroidism: Yes - HEMATOLOGICAL/ONCOLOGICAL Hx Blood Disorders: Yes Hx Anemia: Yes - INTEGUMENTARY Hx Dermatological Problems: No - MUSCULOSKELETAL/RHEUMATOLOGICAL Hx Musculoskeletal Disorders: Yes Hx Falls: Yes Hx Fractures: No Hx Rheumatoid Arthritis: Yes - GASTROINTESTINAL Hx Gastrointestinal Disorders: Yes Hx Gall Bladder Disease: Yes - GENITOURINARY/GYNECOLOGICAL Hx Genitourinary Disorders: No - PSYCHIATRIC Hx Psychophysiologic Disorder: No Hx Substance Use: No - SURGICAL HISTORY Hx Surgeries: Yes Hx Appendectomy: Yes Hx Cholecystectomy: Yes ([facility] PAO 08/2017) - ANESTHESIA Hx Anesthesia: Yes Hx Anesthesia Reactions: No Hx Malignant Hyperthermia: No Has any member of the family had a problem w/ anesthesia?: No Meds Allergies/Adverse Reactions: Allergies Allergy/AdvReac Type Severity Reaction Status Date / Time weed pollen Allergy CONGESTION Verified 12/30/17 15:15 Results - Vital Signs Recent Vital Signs: Last Vital Signs Temp 97.6 F 12/30/17 20:06 Pulse 82 12/30/17 20:06 Resp 16 12/30/17 20:06 BP 127/70 12/30/17 20:06 Pulse Ox 98 12/30/17 20:06 - Labs Result Diagrams: 12/30/17 16:10 12/30/17 16:10 Labs: Laboratory Results - last 24 hr 12/30/17 12/30/17 12/30/17 16:10 16:10 17:13 WBC 4.6 L RBC 3.54 L Hgb 10.7 L Hct 30.8 L MCV 87.1 MCH 30.3 MCHC 34.8 RDW 14.1 Plt Count 198 D MPV 7.2 Neut % (Auto) 54.0 Lymph % (Auto) 25.4 [place] % (Auto) 19.5 H Eos % (Auto) 0.7 Baso % (Auto) 0.4 Neut # (Auto) 2.5 Lymph # (Auto) 1.2 [place] # (Auto) 0.9 H Eos # (Auto) 0.0 Baso # (Auto) 0.0 Puncture Site pCO2 pO2 HCO3 ABG pH ABG Total CO2 ABG O2 Saturation ABG Base Excess Bobby Test ABG Potassium A-a O2 Difference Respiratory Index Glucose Lactate FiO2 Sodium 142 Potassium 4.2 Chloride 102 Carbon Dioxide 30 Anion Gap 15 BUN 19 H Creatinine 0.6 L Est GFR ( Amer) > 60 Est GFR (Non-Af Amer) > 60 POC Glucose (mg/dL) Random Glucose 128 H Calcium 9.4 Total Bilirubin 0.5 AST 37 H ALT 26 Alkaline Phosphatase 67 Troponin I 0.0220 Total Protein 8.1 Albumin 3.7 Globulin 4.4 H Albumin/Globulin Ratio 0.8 L Lipase 119 Arterial Blood Potassium Urine Color Lucrecia Urine Clarity Hazy Urine pH 5.0 Ur Specific [place] 1.020 Urine Protein Negative Urine Glucose (UA) Normal Urine Ketones Negative Urine Blood Negative Urine Nitrate Negative Urine Bilirubin Negative Urine Urobilinogen Normal Ur Leukocyte Esterase 2+ H Urine WBC (Auto) 15 H Urine RBC (Auto) 3 Ur Squamous Epith Cells 3 Urine Bacteria Rare 12/30/17 12/30/17 19:39 21:00 WBC RBC Hgb Hct MCV MCH MCHC RDW Plt Count MPV Neut % (Auto) Lymph % (Auto) [place] % (Auto) Eos % (Auto) Baso % (Auto) Neut # (Auto) Lymph # (Auto) [place] # (Auto) Eos # (Auto) Baso # (Auto) Puncture Site Rba pCO2 39 pO2 102 H HCO3 27.3 ABG pH 7.45 ABG Total CO2 28.3 H ABG O2 Saturation 100.0 H ABG Base Excess 3.0 Bobby Test Pos ABG Potassium 3.2 L A-a O2 Difference -1.0 Respiratory Index 0 Glucose 85 Lactate 0.6 L FiO2 21.0 Sodium 141.0 Potassium Chloride 111.0 H Carbon Dioxide Anion Gap BUN Creatinine Est GFR ( Amer) Est GFR (Non-Af Amer) POC Glucose (mg/dL) 96 Random Glucose Calcium Total Bilirubin AST ALT Alkaline Phosphatase Troponin I Total Protein Albumin Globulin Albumin/Globulin Ratio Lipase Arterial Blood Potassium 3.2 L Urine Color Urine Clarity Urine pH Ur Specific [place] Urine Protein Urine Glucose (UA) Urine Ketones Urine Blood Urine Nitrate Urine Bilirubin Urine Urobilinogen Ur Leukocyte Esterase Urine WBC (Auto) Urine RBC (Auto) Ur Squamous Epith Cells Urine Bacteria
[2017-12-30] MEDS: Piperacill/Tazo 3.375gm in Dex 3.375 GM/50 ML BAG IVPB SCH (22:44)
--- NOTE | 2017-12-30 23:26 | CP.PCM.CON ---
<Miri Narvaez - Last Filed: 12/31/17 09:58> History of Present Illness - History of Present Illness History of Present Illness: GENERAL SURGERY CONSULT NOTE FOR DR. LOO 77yo F with PMHx of RA, DM, gallstone pancreatitis s/p lap pao in August presents to the ED with abdominal pain. She states that she has been having intermittent epigastric pain for about 3 weeks. She has also been vomiting on and off (last time was several days ago). She reports diarrhea alternating with constipation. Her last BM was today and it was normal. Reports weight loss. Denies hematochezia, melana. PMHx: RA, osteoporosis, osteoarthritis, pre DM, gallstone pancreatitis Surg: open appy, robotic cholecystectomy on 08/29/17, ERCP Allerg: none Review of Systems - Review of Systems All systems: reviewed and no additional remarkable complaints except (as per HPI ) Past Patient History - Past Medical History & Family History Past Medical History?: Yes - Past Social History Smoking Status: Never Smoked - CARDIAC Hx Cardiac Disorders: No - PULMONARY Hx Respiratory Disorders: No - NEUROLOGICAL Hx Transient Ischemic Attacks (TIA): No - HEENT Hx HEENT Problems: Yes Hx Cataracts: Yes (CALEB.; NO SURGERY) - RENAL Hx Chronic Kidney Disease: No - ENDOCRINE/METABOLIC Hx Endocrine Disorders: Yes Hx Hyperthyroidism: Yes - HEMATOLOGICAL/ONCOLOGICAL Hx Blood Disorders: Yes Hx Anemia: Yes - INTEGUMENTARY Hx Dermatological Problems: No - MUSCULOSKELETAL/RHEUMATOLOGICAL Hx Musculoskeletal Disorders: Yes Hx Falls: Yes Hx Fractures: No Hx Rheumatoid Arthritis: Yes - GASTROINTESTINAL Hx Gastrointestinal Disorders: Yes Hx Gall Bladder Disease: Yes - GENITOURINARY/GYNECOLOGICAL Hx Genitourinary Disorders: No - PSYCHIATRIC Hx Psychophysiologic Disorder: No Hx Substance Use: No - SURGICAL HISTORY Hx Surgeries: Yes Hx Appendectomy: Yes Hx Cholecystectomy: Yes (LAP PAO 08/2017) - ANESTHESIA Hx Anesthesia: Yes Hx Anesthesia Reactions: No Hx Malignant Hyperthermia: No Has any member of the family had a problem w/ anesthesia?: No Meds Allergies/Adverse Reactions: Allergies Allergy/AdvReac Type Severity Reaction Status Date / Time weed pollen Allergy CONGESTION Verified 12/30/17 15:15 - Medications Medications: Current Medications Heparin Sodium (Porcine) (Heparin) 5,000 units SC Q8 [facility] Last Admin: 12/30/17 22:09 Dose: 5,000 units Metronidazole 250 mg/ (Miscellaneous) 50 mls @ 100 mls/hr IVPB Q8H [facility] PRN Reason: Protocol Piperacillin Sod/Tazobactam Sod (Zosyn 3.375 Gm Iv Premix) 3.375 gm in 50 mls @ 100 mls/hr IVPB Q6H [facility] PRN Reason: Protocol Last Admin: 12/30/17 22:44 Dose: 100 mls/hr Potassium Chloride 40 meq/ (Sodium Chloride) 1,020 mls @ 100 mls/hr IV .[id number] [facility] Last Admin: 12/30/17 22:44 Dose: 100 mls/hr Pantoprazole Sodium (Protonix Inj) 40 mg IVP DAILY [facility] Physical Exam - Constitutional Appears: Non-toxic, No Acute Distress - Head Exam Head Exam: ATRAUMATIC, NORMAL INSPECTION - Respiratory Exam Respiratory Exam: NORMAL BREATHING PATTERN. absent: Respiratory Distress - Cardiovascular Exam Cardiovascular Exam: +S1, +S2 - GI/Abdominal Exam GI & Abdominal Exam: Distended (mild), Soft. absent: Firm, Guarding, Rebound, Rigid, Tenderness - Extremities Exam Extremities exam: Positive for: normal inspection - Neurological Exam Neurological exam: Alert, CN II-XII Intact, Oriented x3 - Psychiatric Exam Psychiatric exam: Normal Affect, Normal Mood - Skin Skin Exam: Normal Color, Warm Results - Vital Signs Recent Vital Signs: Last Vital Signs Temp 97.6 F 12/30/17 20:06 Pulse 82 12/30/17 20:06 Resp 16 12/30/17 20:06 BP 127/70 12/30/17 20:06 Pulse Ox 98 12/30/17 20:06 - Labs Result Diagrams: 12/30/17 16:10 12/30/17 16:10 Labs: Laboratory Results - last 24 hr 12/30/17 12/30/17 12/30/17 16:10 16:10 17:13 WBC 4.6 L RBC 3.54 L Hgb 10.7 L Hct 30.8 L MCV 87.1 MCH 30.3 MCHC 34.8 RDW 14.1 Plt Count 198 D MPV 7.2 Neut % (Auto) 54.0 Lymph % (Auto) 25.4 Day % (Auto) 19.5 H Eos % (Auto) 0.7 Baso % (Auto) 0.4 Neut # (Auto) 2.5 Lymph # (Auto) 1.2 Day # (Auto) 0.9 H Eos # (Auto) 0.0 Baso # (Auto) 0.0 Puncture Site pCO2 pO2 HCO3 ABG pH ABG Total CO2 ABG O2 Saturation ABG Base Excess Bobby Test ABG Potassium A-a O2 Difference Respiratory Index Glucose Lactate FiO2 Sodium 142 Potassium 4.2 Chloride 102 Carbon Dioxide 30 Anion Gap 15 BUN 19 H Creatinine 0.6 L Est GFR ( Amer) > 60 Est GFR (Non-Af Amer) > 60 POC Glucose (mg/dL) Random Glucose 128 H Calcium 9.4 Total Bilirubin 0.5 AST 37 H ALT 26 Alkaline Phosphatase 67 Troponin I 0.0220 Total Protein 8.1 Albumin 3.7 Globulin 4.4 H Albumin/Globulin Ratio 0.8 L Lipase 119 Arterial Blood Potassium Urine Color Lucrecia Urine Clarity Hazy Urine pH 5.0 Ur Specific Rudolph 1.020 Urine Protein Negative Urine Glucose (UA) Normal Urine Ketones Negative Urine Blood Negative Urine Nitrate Negative Urine Bilirubin Negative Urine Urobilinogen Normal Ur Leukocyte Esterase 2+ H Urine WBC (Auto) 15 H Urine RBC (Auto) 3 Ur Squamous Epith Cells 3 Urine Bacteria Rare 12/30/17 12/30/17 19:39 21:00 WBC RBC Hgb Hct MCV MCH MCHC RDW Plt Count MPV Neut % (Auto) Lymph % (Auto) Day % (Auto) Eos % (Auto) Baso % (Auto) Neut # (Auto) Lymph # (Auto) Day # (Auto) Eos # (Auto) Baso # (Auto) Puncture Site Rba pCO2 39 pO2 102 H HCO3 27.3 ABG pH 7.45 ABG Total CO2 28.3 H ABG O2 Saturation 100.0 H ABG Base Excess 3.0 Bobby Test Pos ABG Potassium 3.2 L A-a O2 Difference -1.0 Respiratory Index 0 Glucose 85 Lactate 0.6 L FiO2 21.0 Sodium 141.0 Potassium Chloride 111.0 H Carbon Dioxide Anion Gap BUN Creatinine Est GFR ( Amer) Est GFR (Non-Af Amer) POC Glucose (mg/dL) 96 Random Glucose Calcium Total Bilirubin AST ALT Alkaline Phosphatase Troponin I Total Protein Albumin Globulin Albumin/Globulin Ratio Lipase Arterial Blood Potassium 3.2 L Urine Color Urine Clarity Urine pH Ur Specific Rudolph Urine Protein Urine Glucose (UA) Urine Ketones Urine Blood Urine Nitrate Urine Bilirubin Urine Urobilinogen Ur Leukocyte Esterase Urine WBC (Auto) Urine RBC (Auto) Ur Squamous Epith Cells Urine Bacteria Assessment & Plan - Assessment and Plan (Free Text) Assessment: 77yo F with PMHx of RA, DM, gallstone pancreatitis s/p robotic pao presents with abdominal pain. - Afebrile, VSS - Labs WNL, lactate WNL - CT: Extensive pneumatosis involving right greater than left small bowel loops. Dilated small bowel with suspected obstruction involving the mid to distal small bowel; transition point not clearly identified. Fecalization of small bowel loops evident within the right/mid abdomen. Necrotizing enterocolitis cannot be excluded. - No acute surgical intervention as pt has benign physical exam and labs - NPO - IV Abx: pt on Zosyn and Flagyl - NG tube - Serial abdominal exams - Discussed plan with Dr. Eze Narvaez PGY-4 <Tre Loo - Last Filed: 01/02/18 15:48> Meds - Medications Medications: Current Medications Heparin Sodium (Porcine) (Heparin) 5,000 units SC Q8 [facility] Last Admin: 01/02/18 13:17 Dose: 5,000 units Metronidazole 250 mg/ (Miscellaneous) 50 mls @ 100 mls/hr IVPB Q8H [facility] PRN Reason: Protocol Last Admin: 01/02/18 10:15 Dose: 100 mls/hr Piperacillin Sod/Tazobactam Sod (Zosyn 3.375 Gm Iv Premix) 3.375 gm in 50 mls @ 100 mls/hr IVPB Q6H [facility] PRN Reason: Protocol Last Admin: 01/02/18 09:36 Dose: 100 mls/hr Dextrose (Dextrose 10% In Water) 1,000 mls @ 40 mls/hr IV .Q24H [facility] Last Admin: 01/01/18 17:00 Dose: 40 mls/hr Dextrose/Sodium Chloride (Dextrose 5%/0.9% Ns 1000 Ml) 1,000 mls @ 100 mls/hr IV .Q10H [facility] Last Admin: 01/02/18 13:17 Dose: 100 mls/hr Pantoprazole Sodium (Protonix Inj) 40 mg IVP DAILY [facility] Last Admin: 01/02/18 09:37 Dose: 40 mg Results - Vital Signs Recent Vital Signs: Last Vital Signs Temp 97.6 F 01/02/18 07:58 Pulse 60 01/02/18 07:58 Resp 20 01/02/18 07:58 BP 117/64 01/02/18 07:58 Pulse Ox 95 01/02/18 07:58 - Labs Result Diagrams: 01/02/18 06:26 01/02/18 06:26 Labs: Laboratory Results - last 24 hr 01/01/18 01/01/18 01/01/18 16:20 16:22 17:09 WBC RBC Hgb Hct MCV MCH MCHC RDW Plt Count MPV Sodium Potassium Chloride Carbon Dioxide Anion Gap BUN Creatinine Est GFR ( Amer) Est GFR (Non-Af Amer) POC Glucose (mg/dL) 39 L 37 L* 110 Random Glucose Calcium Phosphorus Magnesium Total Bilirubin AST ALT Alkaline Phosphatase Total Protein Albumin Globulin Albumin/Globulin Ratio 01/01/18 01/02/18 01/02/18 21:12 06:26 06:26 WBC 3.1 L RBC 3.31 L Hgb 10.2 L Hct 29.3 L MCV 88.6 MCH 30.8 MCHC 34.7 RDW 14.5 Plt Count 180 MPV 7.3 Sodium 140 Potassium 4.1 Chloride 106 Carbon Dioxide 28 Anion Gap 10 BUN 4 L Creatinine 0.7 Est GFR ( Amer) > 60 Est GFR (Non-Af Amer) > 60 POC Glucose (mg/dL) 95 Random Glucose 120 H Calcium 7.8 L Phosphorus 2.9 Magnesium 1.5 L Total Bilirubin 0.5 AST 45 H ALT 34 Alkaline Phosphatase 51 Total Protein 6.8 Albumin 2.9 L Globulin 3.9 Albumin/Globulin Ratio 0.7 L 01/02/18 01/02/18 07:07 11:11 WBC RBC Hgb Hct MCV MCH MCHC RDW Plt Count MPV Sodium Potassium Chloride Carbon Dioxide Anion Gap BUN Creatinine Est GFR ( Amer) Est GFR (Non-Af Amer) POC Glucose (mg/dL) 108 82 Random Glucose Calcium Phosphorus Magnesium Total Bilirubin AST ALT Alkaline Phosphatase Total Protein Albumin Globulin Albumin/Globulin Ratio Attending/Attestation - Attestation I have personally seen and examined this patient.: Yes I have fully participated in the care of the patient.: Yes I have reviewed all pertinent clinical information: Yes Notes (Text): Pt was seen and examined at bedside Agree with above note and assessment Pt presented with abdominal pain and Nausea Mild abdominal tenderness Labs and radiology reviewed Ass: Enteritis with PSBO, No evidence of bowel ischemia Plan: C.w IV antibiotics GI consult Liquid diet repeat labs in am Plan d.w pt and primary team in detail Risk and benefit explained in detail.
[2017-12-31 01:28] VITALS: RESP 20
[2017-12-31] MEDS: metroNIDAZOLE IV 500 mg/100 ml 250 MG in Premixed IV 1 EA IVPB SCH ×3 (01:32→18:52)
[2017-12-31] MEDS: Piperacill/Tazo 3.375gm in Dex 3.375 GM/50 ML BAG IVPB SCH ×4 (04:22→22:15)
[2017-12-31 08:57] LABS: BASO % 0.3 % (0.0-2.0); EOS % 0.9 % (0.0-4.0); HEMOGLOBIN 10.1 g/dL (11.0-16.0); LYMPH # 0.9 K/uL (1.0-4.3); LYMPH % 28.2 % (20.0-40.0); MEAN CELL VOLUME 88.9 fL (81.0-99.0); MEAN CORPUSCULAR HEMOGLOBIN 30.7 pg (27.0-31.0); MEAN CORPUSCULAR HGB CONC 34.5 g/dL (33.0-37.0); MEAN PLATELET VOLUME 7.4 fL (7.2-11.7); MONO # 0.6 K/uL (0.0-0.8); MONO % 19.3 % (0.0-10.0); NEUT # 1.7 K/uL (1.8-7.0); NEUT % 51.3 % (50.0-75.0); NRBC % 0.1 % (0.0-2.0); RBC 3.29 Mil/uL (3.80-5.20); RED CELL DISTRIBUTION WIDTH 14.2 % (11.5-14.5); WHITE BLOOD COUNT 3.3 K/uL (4.8-10.8)
--- NOTE | 2017-12-31 09:00 | RAD ---
Date of service: 12/31/2017 HISTORY: check ngt placement COMPARISON: Portable chest 08/20/2017. FINDINGS: LUNGS: Nasonex tube is placed with the tip coiled in the esophagus. The NG tube extends inferiorly to the esophagogastric junction and returns cephalad terminating at the mid esophagus. Side hole is also on the esophagus. Removal of the tube with re- insertion recommended follow-up by confirmation radiography. Reticular markings are somewhat prominent the lateral left base which may reflect fibrosis but is nonspecific appearing. PLEURA: Trace right pleural effusion identified. None is seen the left. No pneumothorax bilaterally. CARDIOVASCULAR: Stable cardiac silhouette. No pulmonary vascular congestion. OSSEOUS STRUCTURES: No significant abnormalities. VISUALIZED UPPER ABDOMEN: Normal. OTHER FINDINGS: None. IMPRESSION: Nasogastric tube is coiled in the esophagus or removal and reinsertion recommended follow-up by confirmation radiography. Trace right pleural effusion identified. No alveolitis. Reticular markings are increased at left base which is nonspecific but focal. This may be artifactual. No definite acute cardiovascular disease. Concordant preliminary report from [facility], 12/31/2017 02:02 a.m.
--- NOTE | 2017-12-31 09:31 | CT ---
Date of service: 12/31/2017 PROCEDURE: CT Abdomen and Pelvis without intravenous contrast HISTORY: abdl pain/ repeat COMPARISON: None. TECHNIQUE: Helical CT of the abdomen and pelvis was performed without oral or intravenous contrast as per referring physician request. Contrast dose: None Radiation dose: Total exam DLP = 212.24 mGy-cm. This CT exam was performed using one or more of the following dose reduction techniques: Automated exposure control, adjustment of the mA and/or kV according to patient size, and/or use of iterative reconstruction technique. FINDINGS: LOWER THORAX: All hernia, thickened distal esophagus and bilateral basilar fibrosis are again identified with increasing bilateral basilar dependent atelectasis. LIVER: Mild hepatomegaly reiterated. Stable noncontrast appearance including pneumobilia which remains mild. GALLBLADDER AND BILE DUCTS: Cholecystectomy reiterated. PANCREAS: Unremarkable. No gross lesion or ductal dilatation. SPLEEN: Small splenic lucency less well identified on the current examination. ADRENALS: Stable noncontrast appearance. . No mass. KIDNEYS AND URETERS: Stable nonacute kidneys with residual excretion of iodinated contrast material appreciated. No obstructive uropathy identified bilaterally. VASCULATURE: Unremarkable. No aortic aneurysm. BOWEL: There is no pattern of bowel obstruction appreciated at this time. Pneumatosis pattern appears diminishing at the right upper quadrant and remains only at the right lower quadrant at this time and includes fecalization once again of several loops. While this may not reflect a morbid gastrointestinal sign comment remains difficult to exclude potential small bowel ischemia and clinical correlation remains advised. Large-bowel remains unremarkable. APPENDIX: Not identified. No definite CT evidence of appendicitis. PERITONEUM: Unremarkable. No free fluid. No free air. LYMPH NODES: Unremarkable. No enlarged lymph nodes. BLADDER: Unremarkable. REPRODUCTIVE: Unremarkable. BONES: No acute fracture. OTHER FINDINGS: None. IMPRESSION: Significant improvement in pneumatosis pattern and very small bowel loops with residual at the right lower quadrant. Bowel obstruction pattern has resolved at this time. Small bowel ischemia remains difficult to completely exclude a continued clinical and CT vigilance is it recommended. Prior cholecystectomy again evident. Pneumobilia identified within intra and extrahepatic biliary tree once again. Hepatomegaly reiterated.
[2017-12-31 09:39] LABS: ALB/GLOB RATIO 0.8 (1.0-2.1); ALT/SGPT 32 U/L (9-52); AST/SGOT 47 U/L (14-36); BLOOD UREA NITROGEN 15 mg/dL (7-17); CALCIUM 8.8 mg/dl (8.6-10.4); GFR NON-AFRICAN AMERICAN > 60
--- NOTE | 2017-12-31 09:59 | CP.PCM.PN ---
<Miri Narvaez - Last Filed: 12/31/17 10:00> Subjective - Date & Time of Evaluation Date of Evaluation: 12/31/17 Time of Evaluation: 07:00 - Subjective Subjective: GENERAL SURGERY CONSULT NOTE FOR DR. LOO Patient seen and examined at bedside. She reports that she is feeling better. She had 1 normal Bm overnight and is passing flatus. She denies nausea or vomiting. Her abdominal pain has resolved. She is hungry. Objective - Vital Signs/Intake and Output Vital Signs (last 24 hours): Temp Pulse Resp BP Pulse Ox 97.7 F 74 20 130/74 96 12/31/17 08:00 12/31/17 08:00 12/31/17 08:00 12/31/17 08:00 12/31/17 08:00 Intake and Output: 12/31/17 12/31/17 06:59 18:59 Intake Total 850 Balance 850 - Medications Medications: Current Medications Heparin Sodium (Porcine) (Heparin) 5,000 units SC Q8 [facility] Last Admin: 12/31/17 06:10 Dose: 5,000 units Metronidazole 250 mg/ (Miscellaneous) 50 mls @ 100 mls/hr IVPB Q8H [facility] PRN Reason: Protocol Last Admin: 12/31/17 01:32 Dose: 100 mls/hr Piperacillin Sod/Tazobactam Sod (Zosyn 3.375 Gm Iv Premix) 3.375 gm in 50 mls @ 100 mls/hr IVPB Q6H [facility] PRN Reason: Protocol Last Admin: 12/31/17 04:22 Dose: 100 mls/hr Potassium Chloride 40 meq/ (Sodium Chloride) 1,020 mls @ 100 mls/hr IV .[id number] [facility] Last Admin: 12/31/17 09:28 Dose: 100 mls/hr Pantoprazole Sodium (Protonix Inj) 40 mg IVP DAILY [facility] Last Admin: 12/31/17 09:19 Dose: 40 mg - Labs Labs: 12/31/17 08:50 12/31/17 08:50 APTT 41 SECONDS (21-34) H 12/31/17 08:50 - Constitutional Appears: Well, Non-toxic, No Acute Distress - Head Exam Head Exam: ATRAUMATIC, NORMAL INSPECTION - Eye Exam Eye Exam: EOMI, Normal appearance - Respiratory Exam Respiratory Exam: NORMAL BREATHING PATTERN. absent: Respiratory Distress - Cardiovascular Exam Cardiovascular Exam: +S1, +S2 - GI/Abdominal Exam GI & Abdominal Exam: Soft. absent: Distended, Firm, Guarding, Rigid, Tenderness , Rebound - Neurological Exam Neurological Exam: Alert, CN II-XII Intact, Oriented x3 - Psychiatric Exam Psychiatric exam: Normal Affect, Normal Mood Assessment and Plan - Assessment and Plan (Free Text) Assessment: 77yo F with PMHx of RA, DM, gallstone pancreatitis s/p robotic simon presents with abdominal pain. - CT: Extensive pneumatosis involving right greater than left small bowel loops. Dilated small bowel with suspected obstruction involving the mid to distal small bowel; transition point not clearly identified. Fecalization of small bowel loops evident within the right/mid abdomen. Necrotizing enterocolitis cannot be excluded. - No acute surgical intervention as pt has benign physical exam and labs - NPO - IV Abx: pt on Zosyn and Flagyl - Serial abdominal exams - Will FU repeat CT ordered by primary - Discussed plan with Dr. Eze Narvaez PGY-4 <Tre Loo B - Last Filed: 01/02/18 15:50> Objective - Vital Signs/Intake and Output Vital Signs (last 24 hours): Temp Pulse Resp BP Pulse Ox 97.6 F 60 20 117/64 95 01/02/18 07:58 01/02/18 07:58 01/02/18 07:58 01/02/18 07:58 01/02/18 07:58 Intake and Output: 01/02/18 01/02/18 06:59 18:59 Intake Total 1240 Output Total 5 Balance 1235 - Medications Medications: Current Medications Heparin Sodium (Porcine) (Heparin) 5,000 units SC Q8 [facility] Last Admin: 01/02/18 13:17 Dose: 5,000 units Metronidazole 250 mg/ (Miscellaneous) 50 mls @ 100 mls/hr IVPB Q8H [facility] PRN Reason: Protocol Last Admin: 01/02/18 10:15 Dose: 100 mls/hr Piperacillin Sod/Tazobactam Sod (Zosyn 3.375 Gm Iv Premix) 3.375 gm in 50 mls @ 100 mls/hr IVPB Q6H [facility] PRN Reason: Protocol Last Admin: 01/02/18 09:36 Dose: 100 mls/hr Dextrose (Dextrose 10% In Water) 1,000 mls @ 40 mls/hr IV .Q24H [facility] Last Admin: 01/01/18 17:00 Dose: 40 mls/hr Dextrose/Sodium Chloride (Dextrose 5%/0.9% Ns 1000 Ml) 1,000 mls @ 100 mls/hr IV .Q10H [facility] Last Admin: 01/02/18 13:17 Dose: 100 mls/hr Pantoprazole Sodium (Protonix Inj) 40 mg IVP DAILY [facility] Last Admin: 01/02/18 09:37 Dose: 40 mg - Labs Labs: 01/02/18 06:26 01/02/18 06:26 APTT 41 SECONDS (21-34) H 12/31/17 08:50 Attending/Attestation - Attestation I have personally seen and examined this patient.: Yes I have fully participated in the care of the patient.: Yes I have reviewed all pertinent clinical information, including history, physical exam and plan: Yes Notes (Text): Pt was seen and examined at bedside Agree with above note and assessment Pt is improving clinically C/w liquid diet c.w current mx Plan d.w pt and primary team in detail
[2017-12-31] MEDS: Magnesium Sulfate 1 gm in D5W 1 GM/100 ML BAG IVPB SCH ×2 (12:17→12:23)
--- NOTE | 2017-12-31 15:42 | CP.PCM.PCO ---
Physician Communication Note - Physician Communication Note Physician Communication Note: Pt seen with Dr. Loo rec Clear liquid diet only until Tuesday
[2017-12-31] MEDS: Lactated Ringer's 1,000 ML IV SCH (22:16)
[2018-01-01] MEDS: metroNIDAZOLE IV 500 mg/100 ml 250 MG in Premixed IV 1 EA IVPB SCH ×3 (01:56→18:54)
[2018-01-01] MEDS: Piperacill/Tazo 3.375gm in Dex 3.375 GM/50 ML BAG IVPB SCH ×4 (03:27→22:23)
--- NOTE | 2018-01-01 08:58 | CP.PCM.PN ---
<Valerie Herrera - Last Filed: 01/01/18 12:39> Subjective - Date & Time of Evaluation Date of Evaluation: 01/01/18 Time of Evaluation: 07:10 - Subjective Subjective: General Surgery note for Dr. Loo Patient seen and examined this AM. No adverse events overnight, patient had a brown bowel movement with some formed stools, no blood. Patient tolerating CLD with no pain, nausea or vomiting Objective - Vital Signs/Intake and Output Vital Signs (last 24 hours): Temp Pulse Resp BP Pulse Ox 97.9 F 70 20 116/66 98 01/01/18 00:00 01/01/18 00:00 01/01/18 00:00 01/01/18 00:00 01/01/18 00:00 Intake and Output: 01/01/18 01/01/18 06:59 18:59 Intake Total 1050 850 Balance 1050 850 - Medications Medications: Current Medications Heparin Sodium (Porcine) (Heparin) 5,000 units SC Q8 [facility] Last Admin: 01/01/18 05:24 Dose: 5,000 units Metronidazole 250 mg/ (Miscellaneous) 50 mls @ 100 mls/hr IVPB Q8H [facility] PRN Reason: Protocol Last Admin: 01/01/18 01:56 Dose: 100 mls/hr Piperacillin Sod/Tazobactam Sod (Zosyn 3.375 Gm Iv Premix) 3.375 gm in 50 mls @ 100 mls/hr IVPB Q6H [facility] PRN Reason: Protocol Last Admin: 01/01/18 03:27 Dose: 100 mls/hr Lactated Ringer's (Lactated Ringer's) 1,000 mls @ 75 mls/hr IV .[id number] [facility] Last Admin: 12/31/17 22:16 Dose: 75 mls/hr Pantoprazole Sodium (Protonix Inj) 40 mg IVP DAILY [facility] Last Admin: 12/31/17 09:19 Dose: 40 mg - Labs Labs: 12/31/17 08:50 12/31/17 08:50 APTT 41 SECONDS (21-34) H 12/31/17 08:50 - Constitutional Appears: Well, Non-toxic, No Acute Distress - Head Exam Head Exam: ATRAUMATIC, NORMOCEPHALIC - Eye Exam Eye Exam: Normal appearance. absent: Conjunctival injection, Scleral icterus - ENT Exam ENT Exam: Mucous Membranes Moist, Normal Oropharynx - Respiratory Exam Respiratory Exam: NORMAL BREATHING PATTERN. absent: Accessory Muscle Use, Respiratory Distress - Cardiovascular Exam Cardiovascular Exam: RRR - GI/Abdominal Exam GI & Abdominal Exam: Soft. absent: Distended, Tenderness - Extremities Exam Extremities Exam: absent: Calf Tenderness, Pedal Edema, Tenderness - Neurological Exam Neurological Exam: Alert, Awake, Oriented x3 Assessment and Plan - Assessment and Plan (Free Text) Assessment: 77F with abdominal pain and resolving ileus Plan: Continue CLD--would not recommend advancing to Fulls today PRN nausea medication F/U GI recs Monitor bowel function Will continue to monitor physical exam and clinical course--no indication for surgical intervention at this time Discussed with Dr. Loo, who agrees with above Valerie Herrera PGY2 <Tre Loo - Last Filed: 01/02/18 15:54> Objective - Vital Signs/Intake and Output Vital Signs (last 24 hours): Temp Pulse Resp BP Pulse Ox 97.6 F 60 20 117/64 95 01/02/18 07:58 01/02/18 07:58 01/02/18 07:58 01/02/18 07:58 01/02/18 07:58 Intake and Output: 01/02/18 01/02/18 06:59 18:59 Intake Total 1240 Output Total 5 Balance 1235 - Medications Medications: Current Medications Heparin Sodium (Porcine) (Heparin) 5,000 units SC Q8 [facility] Last Admin: 01/02/18 13:17 Dose: 5,000 units Metronidazole 250 mg/ (Miscellaneous) 50 mls @ 100 mls/hr IVPB Q8H [facility] PRN Reason: Protocol Last Admin: 01/02/18 10:15 Dose: 100 mls/hr Piperacillin Sod/Tazobactam Sod (Zosyn 3.375 Gm Iv Premix) 3.375 gm in 50 mls @ 100 mls/hr IVPB Q6H [facility] PRN Reason: Protocol Last Admin: 01/02/18 09:36 Dose: 100 mls/hr Dextrose (Dextrose 10% In Water) 1,000 mls @ 40 mls/hr IV .Q24H [facility] Last Admin: 01/01/18 17:00 Dose: 40 mls/hr Dextrose/Sodium Chloride (Dextrose 5%/0.9% Ns 1000 Ml) 1,000 mls @ 100 mls/hr IV .Q10H [facility] Last Admin: 01/02/18 13:17 Dose: 100 mls/hr Pantoprazole Sodium (Protonix Inj) 40 mg IVP DAILY [facility] Last Admin: 01/02/18 09:37 Dose: 40 mg - Labs Labs: 01/02/18 06:26 01/02/18 06:26 APTT 41 SECONDS (21-34) H 12/31/17 08:50 Attending/Attestation - Attestation I have fully participated in the care of the patient.: Yes I have reviewed all pertinent clinical information, including history, physical exam and plan: Yes Notes (Text): Pt is improving clinically Liquid diet only CT scan in am c.w current mx Plan d.w pt and primary team in detail
--- NOTE | 2018-01-01 08:59 | RAD ---
Date of service: 01/01/2018 HISTORY: Large/small bowel obstr, compare to CT COMPARISON: Abdomen and pelvis CT examination 07/03/2017. FINDINGS: BOWEL: Heterogeneous distribution of gas seen within large and small bowel loops with air-fluid levels present on direct imaging but no free intra peritoneal gas. Overall volume of gas within bowel years slightly diminished. Consider possible ileus pattern resolving. Bowel obstruction is not favored. Clinical and radiographic follow-up are advised. BONES: Degenerative lumbar spine changes are identified as well as the bilateral sacroiliac and hip joints. OTHER FINDINGS: None. IMPRESSION: Probable resolving ileus pattern. Mild improvement noted. Clinical and radiographic follow-up advised.
[2018-01-01 09:06] LABS: HEMOGLOBIN 10.4 g/dL (11.0-16.0); MEAN CELL VOLUME 87.9 fL (81.0-99.0); MEAN CORPUSCULAR HEMOGLOBIN 30.6 pg (27.0-31.0); MEAN CORPUSCULAR HGB CONC 34.8 g/dL (33.0-37.0); MEAN PLATELET VOLUME 7.6 fL (7.2-11.7); RBC 3.41 Mil/uL (3.80-5.20); RED CELL DISTRIBUTION WIDTH 14.3 % (11.5-14.5); WHITE BLOOD COUNT 2.7 K/uL (4.8-10.8)
[2018-01-01 09:39] LABS: ALB/GLOB RATIO 0.8 (1.0-2.1); ALBUMIN 3.1 g/dL (3.5-5.0); ALT/SGPT 39 U/L (9-52); AST/SGOT 40 U/L (14-36); BLOOD UREA NITROGEN 8 mg/dL (7-17); CALCIUM 8.4 mg/dl (8.6-10.4); GFR NON-AFRICAN AMERICAN > 60
[2018-01-01] MEDS: Lactated Ringer's 1,000 ML IV SCH (09:40)
[2018-01-01] MEDS ORDERED: Dextrose 50% SYRINGE Inj (50 ml) ONE ×2 (12:05→16:31)
[2018-01-01] MEDS ORDERED: Dextrose 50% SYRINGE Inj (50 ml) IV STA (12:08)
[2018-01-01] MEDS ORDERED: Dextrose 5%/0.9% NS 1,000 ML IV ONE (13:04)
--- NOTE | 2018-01-01 14:16 | CP.PCM.CON ---
History of Present Illness - History of Present Illness History of Present Illness: Covering Dr Colmenares CC: abdominal pain HPI: I was never notified of this consult, therefore the delay. I noticed patient is on group census. 77 year old woman admitted with 1 month of lower abdominal pain, worsened 2 days ago, so patient saw Dr Colmenares, and was referred to the ER. The patient was admitted with SBO and colonic pneumatosis. She has been evaluated by surgery and is being managed conservatively, and now feels improved, pain free, having normal BMs, and repeat CT shows improvement in pmneumatosis and no longer has an obstructing pattern. Pt is S/P cholecystectomy by Dr Loo in August 2017 when she presente with gallstone pancretitis and had preop ERCP and stone extraction/sphincterotomy by Dr Mahoney. Review of Systems - Constitutional Constitutional: absent: Chills - Cardiovascular Cardiovascular: absent: Chest Pain - Respiratory Respiratory: absent: Dyspnea - Gastrointestinal Gastrointestinal: Abdominal Pain, Vomiting. absent: Melena Past Patient History - Past Medical History & Family History Past Medical History?: Yes - Past Social History Smoking Status: Never Smoked - CARDIAC Hx Cardiac Disorders: No - PULMONARY Hx Respiratory Disorders: No - NEUROLOGICAL Hx Transient Ischemic Attacks (TIA): No - HEENT Hx HEENT Problems: Yes Hx Cataracts: Yes (CALEB.; NO SURGERY) - RENAL Hx Chronic Kidney Disease: No - ENDOCRINE/METABOLIC Hx Endocrine Disorders: Yes Hx Hyperthyroidism: Yes - HEMATOLOGICAL/ONCOLOGICAL Hx Blood Disorders: Yes Hx Anemia: Yes - INTEGUMENTARY Hx Dermatological Problems: No - MUSCULOSKELETAL/RHEUMATOLOGICAL Hx Rheumatoid Arthritis: Yes - GASTROINTESTINAL Hx Gastrointestinal Disorders: Yes Hx Gall Bladder Disease: Yes - GENITOURINARY/GYNECOLOGICAL Hx Genitourinary Disorders: No - PSYCHIATRIC Hx Psychophysiologic Disorder: No Hx Substance Use: No - SURGICAL HISTORY Hx Surgeries: Yes Hx Appendectomy: Yes Hx Cholecystectomy: Yes (LAP PAO 08/2017) - ANESTHESIA Hx Anesthesia: Yes Hx Anesthesia Reactions: No Hx Malignant Hyperthermia: No Has any member of the family had a problem w/ anesthesia?: No Meds Allergies/Adverse Reactions: Allergies Allergy/AdvReac Type Severity Reaction Status Date / Time weed pollen Allergy CONGESTION Verified 12/30/17 15:15 - Medications Medications: Current Medications Heparin Sodium (Porcine) (Heparin) 5,000 units SC Q8 [facility] Last Admin: 01/01/18 13:35 Dose: Not Given Metronidazole 250 mg/ (Miscellaneous) 50 mls @ 100 mls/hr IVPB Q8H [facility] PRN Reason: Protocol Last Admin: 01/01/18 10:15 Dose: 100 mls/hr Piperacillin Sod/Tazobactam Sod (Zosyn 3.375 Gm Iv Premix) 3.375 gm in 50 mls @ 100 mls/hr IVPB Q6H [facility] PRN Reason: Protocol Last Admin: 01/01/18 09:33 Dose: 100 mls/hr Dextrose/Sodium Chloride (Dextrose 5%/0.9% Ns 1000 Ml) 1,000 mls @ 100 mls/hr IV .Q10H ONE Stop: 01/01/18 23:03 Last Admin: 01/01/18 13:33 Dose: 100 mls/hr Pantoprazole Sodium (Protonix Inj) 40 mg IVP DAILY [facility] Last Admin: 01/01/18 09:33 Dose: 40 mg Physical Exam - Constitutional Appears: Chronically Ill - Head Exam Head Exam: NORMOCEPHALIC - Eye Exam Eye Exam: absent: Scleral icterus - Respiratory Exam Respiratory Exam: Clear to Auscultation Bilateral - Cardiovascular Exam Cardiovascular Exam: REGULAR RHYTHM - GI/Abdominal Exam GI & Abdominal Exam: Normal Bowel Sounds, Soft. absent: Distended, Tenderness - Extremities Exam Extremities exam: Positive for: normal inspection - Neurological Exam Neurological exam: Alert, Oriented x3 - Psychiatric Exam Psychiatric exam: Normal Affect, Normal Mood Results - Vital Signs Recent Vital Signs: Last Vital Signs Temp 99.5 F 01/01/18 08:00 Pulse 67 01/01/18 08:00 Resp 20 01/01/18 08:00 BP 123/76 01/01/18 08:00 Pulse Ox 97 01/01/18 08:00 - Labs Result Diagrams: 01/01/18 08:56 01/01/18 08:56 Labs: Laboratory Results - last 24 hr 12/31/17 12/31/17 01/01/18 21:16 21:17 07:48 WBC RBC Hgb Hct MCV MCH MCHC RDW Plt Count MPV Sodium Potassium Chloride Carbon Dioxide Anion Gap BUN Creatinine Est GFR ( Amer) Est GFR (Non-Af Amer) POC Glucose (mg/dL) 69 71 69 Random Glucose Calcium Phosphorus Magnesium Total Bilirubin AST ALT Alkaline Phosphatase Total Protein Albumin Globulin Albumin/Globulin Ratio Stool Occult Blood 01/01/18 01/01/18 01/01/18 07:49 08:56 08:56 WBC 2.7 L RBC 3.41 L Hgb 10.4 L Hct 30.0 L MCV 87.9 MCH 30.6 MCHC 34.8 RDW 14.3 Plt Count 201 MPV 7.6 Sodium 140 Potassium 4.2 Chloride 104 Carbon Dioxide 30 Anion Gap 11 BUN 8 Creatinine 0.7 Est GFR ( Amer) > 60 Est GFR (Non-Af Amer) > 60 POC Glucose (mg/dL) 73 Random Glucose 86 Calcium 8.4 L Phosphorus 3.1 Magnesium 1.8 Total Bilirubin 0.6 AST 40 H ALT 39 Alkaline Phosphatase 56 Total Protein 7.1 Albumin 3.1 L Globulin 4.0 H Albumin/Globulin Ratio 0.8 L Stool Occult Blood 01/01/18 01/01/18 01/01/18 10:16 11:38 11:42 WBC RBC Hgb Hct MCV MCH MCHC RDW Plt Count MPV Sodium Potassium Chloride Carbon Dioxide Anion Gap BUN Creatinine Est GFR ( Amer) Est GFR (Non-Af Amer) POC Glucose (mg/dL) 35 L* 34 L* Random Glucose Calcium Phosphorus Magnesium Total Bilirubin AST ALT Alkaline Phosphatase Total Protein Albumin Globulin Albumin/Globulin Ratio Stool Occult Blood Negative 01/01/18 01/01/18 01/01/18 11:58 12:01 12:36 WBC RBC Hgb Hct MCV MCH MCHC RDW Plt Count MPV Sodium Potassium Chloride Carbon Dioxide Anion Gap BUN Creatinine Est GFR ( Amer) Est GFR (Non-Af Amer) POC Glucose (mg/dL) 29 L* 40 L 180 H Random Glucose Calcium Phosphorus Magnesium Total Bilirubin AST ALT Alkaline Phosphatase Total Protein Albumin Globulin Albumin/Globulin Ratio Stool Occult Blood Assessment & Plan (1) Small bowel obstruction Assessment and Plan: clinically improving with conservative management advance diet as tolerated Monitor clinically Status: Acute - Date & Time Date: 01/01/18 Time: 14:21
[2018-01-01] MEDS ORDERED: Dextrose 50% SYRINGE Inj (50 ml) IV ONE (16:30)
[2018-01-01] MEDS: Dextrose 5%/0.9% NS 1,000 ML IV SCH (17:00)
--- NOTE | 2018-01-01 21:39 | CP.PCM.PN ---
Subjective - Date & Time of Evaluation Date of Evaluation: 12/31/17 Time of Evaluation: 21:38 - Subjective Subjective: Patient being examined by me on 12/29/2017. Patient is more comfortable. She has no abdominal pain. No nausea no vomiting noted She is feeling extremely hungry, and she had a bowel movements already, vital signs stable. Repeat CAT scan showing no evidence of any worsening, in fact improvement in the gastric, small intestinal pneumatosis Still unclear the source of the pneumatosis, underlying ischemia cannot be ruled out. Possible gastroenteritis. We'll closely monitor and a watch it. On antibiotic at this time for empirically Objective - Vital Signs/Intake and Output Vital Signs (last 24 hours): Temp Pulse Resp BP Pulse Ox 97.8 F 70 20 151/76 H 98 01/01/18 15:00 01/01/18 15:00 01/01/18 15:00 01/01/18 15:00 01/01/18 15:00 Intake and Output: 01/01/18 01/02/18 18:59 06:59 Intake Total 850 Balance 850 - Medications Medications: Current Medications Heparin Sodium (Porcine) (Heparin) 5,000 units SC Q8 [facility] Last Admin: 01/01/18 13:35 Dose: Not Given Metronidazole 250 mg/ (Miscellaneous) 50 mls @ 100 mls/hr IVPB Q8H [facility] PRN Reason: Protocol Last Admin: 01/01/18 18:54 Dose: 100 mls/hr Piperacillin Sod/Tazobactam Sod (Zosyn 3.375 Gm Iv Premix) 3.375 gm in 50 mls @ 100 mls/hr IVPB Q6H [facility] PRN Reason: Protocol Last Admin: 01/01/18 16:08 Dose: 100 mls/hr Dextrose/Sodium Chloride (Dextrose 5%/0.9% Ns 1000 Ml) 1,000 mls @ 100 mls/hr IV .Q10H ONE Stop: 01/01/18 23:03 Last Admin: 01/01/18 13:33 Dose: 100 mls/hr Dextrose (Dextrose 10% In Water) 1,000 mls @ 40 mls/hr IV .Q24H [facility] Pantoprazole Sodium (Protonix Inj) 40 mg IVP DAILY [facility] Last Admin: 01/01/18 09:33 Dose: 40 mg - Labs Labs: 01/01/18 08:56 01/01/18 08:56 APTT 41 SECONDS (21-34) H 12/31/17 08:50
--- NOTE | 2018-01-01 21:39 | CP.PCM.PN ---
Subjective - Date & Time of Evaluation Date of Evaluation: 01/01/18 Time of Evaluation: 21:39 - Subjective Subjective: Patient being examined by me on 01/01/2018. Patient is more comfortable. She has no abdominal pain. No nausea no vomiting noted vital signs stable. Today patient had episode of hypoglycemia. Currently receiving intravenous fluids. On full liquid diet. If tolerates will start regular diet tomorrow. Repeat CAT scan showing no evidence of any worsening, in fact improvement in the gastric, small intestinal pneumatosis Still unclear the source of the pneumatosis, underlying ischemia cannot be ruled out. Possible gastroenteritis. We'll closely monitor and a watch it. On antibiotic at this time for empirically Objective - Vital Signs/Intake and Output Vital Signs (last 24 hours): Temp Pulse Resp BP Pulse Ox 97.8 F 70 20 151/76 H 98 01/01/18 15:00 01/01/18 15:00 01/01/18 15:00 01/01/18 15:00 01/01/18 15:00 Intake and Output: 01/01/18 01/02/18 18:59 06:59 Intake Total 850 Balance 850 - Medications Medications: Current Medications Heparin Sodium (Porcine) (Heparin) 5,000 units SC Q8 [facility] Last Admin: 01/01/18 13:35 Dose: Not Given Metronidazole 250 mg/ (Miscellaneous) 50 mls @ 100 mls/hr IVPB Q8H [facility] PRN Reason: Protocol Last Admin: 01/01/18 18:54 Dose: 100 mls/hr Piperacillin Sod/Tazobactam Sod (Zosyn 3.375 Gm Iv Premix) 3.375 gm in 50 mls @ 100 mls/hr IVPB Q6H [facility] PRN Reason: Protocol Last Admin: 01/01/18 16:08 Dose: 100 mls/hr Dextrose/Sodium Chloride (Dextrose 5%/0.9% Ns 1000 Ml) 1,000 mls @ 100 mls/hr IV .Q10H ONE Stop: 01/01/18 23:03 Last Admin: 01/01/18 13:33 Dose: 100 mls/hr Dextrose (Dextrose 10% In Water) 1,000 mls @ 40 mls/hr IV .Q24H [facility] Pantoprazole Sodium (Protonix Inj) 40 mg IVP DAILY [facility] Last Admin: 01/01/18 09:33 Dose: 40 mg - Labs Labs: 01/01/18 08:56 01/01/18 08:56 APTT 41 SECONDS (21-34) H 12/31/17 08:50
[2018-01-02] MEDS: metroNIDAZOLE IV 500 mg/100 ml 250 MG in Premixed IV 1 EA IVPB SCH ×3 (01:07→19:03)
[2018-01-02] MEDS: Piperacill/Tazo 3.375gm in Dex 3.375 GM/50 ML BAG IVPB SCH ×4 (03:08→21:10)
[2018-01-02] MEDS: Dextrose 5%/0.9% NS 1,000 ML IV SCH ×3 (03:08→17:17)
[2018-01-02 06:36] LABS: HEMOGLOBIN 10.2 g/dL (11.0-16.0); MEAN CELL VOLUME 88.6 fL (81.0-99.0); MEAN CORPUSCULAR HEMOGLOBIN 30.8 pg (27.0-31.0); MEAN CORPUSCULAR HGB CONC 34.7 g/dL (33.0-37.0); MEAN PLATELET VOLUME 7.3 fL (7.2-11.7); RBC 3.31 Mil/uL (3.80-5.20); RED CELL DISTRIBUTION WIDTH 14.5 % (11.5-14.5); WHITE BLOOD COUNT 3.1 K/uL (4.8-10.8)
[2018-01-02 06:52] LABS: ALB/GLOB RATIO 0.7 (1.0-2.1); ALBUMIN 2.9 g/dL (3.5-5.0); ALT/SGPT 34 U/L (9-52); AST/SGOT 45 U/L (14-36); BLOOD UREA NITROGEN 4 mg/dL (7-17); CALCIUM 7.8 mg/dl (8.6-10.4); GFR NON-AFRICAN AMERICAN > 60
--- NOTE | 2018-01-02 10:48 | CP.PCM.PN ---
Subjective - Date & Time of Evaluation Date of Evaluation: 01/02/18 Time of Evaluation: 10:46 - Subjective Subjective: Patient denies having nausea, vomiting, abdominal pain. She has been passing stool per rectum. She remains on a liquid diet. Repeat CT showed improvement in pmneumatosis and no longer has an obstructing pattern. Pt is S/P cholecystectomy by Dr Loo in August 2017 when she presented with gallstone pancretitis. She also had ERCP/sphincterotomy and stone extraction preoperatively by Dr Mahoney. Objective - Vital Signs/Intake and Output Vital Signs (last 24 hours): Temp Pulse Resp BP Pulse Ox 97.6 F 60 20 117/64 95 01/02/18 07:58 01/02/18 07:58 01/02/18 07:58 01/02/18 07:58 01/02/18 07:58 Intake and Output: 01/02/18 01/02/18 06:59 18:59 Intake Total 1240 Balance 1240 - Medications Medications: Current Medications Heparin Sodium (Porcine) (Heparin) 5,000 units SC Q8 [facility] Last Admin: 01/02/18 05:48 Dose: 5,000 units Metronidazole 250 mg/ (Miscellaneous) 50 mls @ 100 mls/hr IVPB Q8H [facility] PRN Reason: Protocol Last Admin: 01/02/18 10:15 Dose: 100 mls/hr Piperacillin Sod/Tazobactam Sod (Zosyn 3.375 Gm Iv Premix) 3.375 gm in 50 mls @ 100 mls/hr IVPB Q6H [facility] PRN Reason: Protocol Last Admin: 01/02/18 09:36 Dose: 100 mls/hr Dextrose (Dextrose 10% In Water) 1,000 mls @ 40 mls/hr IV .Q24H [facility] Last Admin: 01/01/18 17:00 Dose: 40 mls/hr Dextrose/Sodium Chloride (Dextrose 5%/0.9% Ns 1000 Ml) 1,000 mls @ 100 mls/hr IV .Q10H [facility] Last Admin: 01/02/18 03:08 Dose: 100 mls/hr Pantoprazole Sodium (Protonix Inj) 40 mg IVP DAILY [facility] Last Admin: 01/02/18 09:37 Dose: 40 mg - Labs Labs: 01/02/18 06:26 01/02/18 06:26 APTT 41 SECONDS (21-34) H 12/31/17 08:50 - Constitutional Appears: No Acute Distress - Head Exam Head Exam: ATRAUMATIC, NORMOCEPHALIC - Eye Exam Eye Exam: EOMI, PERRL - Neck Exam Neck Exam: absent: Lymphadenopathy, Thyromegaly - Respiratory Exam Respiratory Exam: Clear to Ausculation Bilateral. absent: Rales, Rhonchi, Wheezes - Cardiovascular Exam Cardiovascular Exam: REGULAR RHYTHM, +S1, +S2. absent: Gallop, Rubs, Murmur - GI/Abdominal Exam GI & Abdominal Exam: Soft, Normal Bowel Sounds. absent: Tenderness, Mass, Organomegaly - Rectal Exam Rectal Exam: Deferred - Extremities Exam Extremities Exam: absent: Calf Tenderness, Pedal Edema Assessment and Plan (1) Small bowel obstruction Assessment & Plan: Abdominal pain was evidently related to SBO which is resolving. The pneumatosis may itself be due to SBO and is also improving with conservative measures. Will follow. Status: Acute
[2018-01-02] MEDS ORDERED: Iohexol 240 (50 ml) PO ONE (11:30)
--- NOTE | 2018-01-02 11:30 | CARD ---
APPROVED REPORT Date of service: 12/30/2017 EKG Measurement Heart [id number] VT [id number] <Conclusion> Normal sinus rhythm Left anterior fascicular block Moderate voltage criteria for LVH, may be normal variant Abnormal ECG
--- NOTE | 2018-01-02 15:27 | CT ---
Date of service: 01/02/2018 PROCEDURE: CT Abdomen and Pelvis without intravenous contrast HISTORY: F/U pneumatosis/SBO progression COMPARISON: 12/31/2017 TECHNIQUE: Without contrast.. Contrast dose: 0 Radiation dose: Total exam DLP = 335.20 mGy-cm. This CT exam was performed using one or more of the following dose reduction techniques: Automated exposure control, adjustment of the mA and/or kV according to patient size, and/or use of iterative reconstruction technique. FINDINGS: LOWER THORAX: Mild subpleural fibrosis in the lower lobe bilaterally with minimal peripheral cylindrical bronchiectasis. There is fluid within a mildly distended distal esophagus which is thin This is a nonspecific finding but is unchanged since the prior examination and may reflect relative narrowing at the gastroesophageal junction or dysfunction of the lower esophageal sphincter. LIVER: Unremarkable. No gross lesion or ductal dilatation. GALLBLADDER AND BILE DUCTS: Possible contracted gallbladder with small calculi. No evidence of prior cholecystectomy. PANCREAS: SPLEEN: Unremarkable. ADRENALS: Unremarkable. No mass. KIDNEYS AND URETERS: Unremarkable. No hydronephrosis. No solid mass. VASCULATURE: Unremarkable. No aortic aneurysm. BOWEL: There is mural thickening of the stomach consistent with nonspecific gastritis. This involves primarily the fundus and cardia region. The antrum and body appear uninvolved. There is no evidence of bowel obstruction. There is mild dilatation of several loops of small bowel likely the result of an adynamic ileus. There is mural thickening of loops of small bowel in the lower abdomen/ upper pelvis. The previously identified pneumatosis intestinalis has resolved. No abnormal large bowel is appreciated. APPENDIX: Not visualized PERITONEUM: Small amount of free fluid in the cul-de-sac. Please note that there is hazy increased density of the small bowel mesenteric reflecting a nonspecific mesenteric edema. This may be associated with mesenteric ischemia but is nonspecific. LYMPH NODES: Unremarkable. No enlarged lymph nodes. BLADDER: Unremarkable. REPRODUCTIVE: Unremarkable postmenopausal uterus BONES: No acute fracture. OTHER FINDINGS: None. IMPRESSION: Resolved pneumatosis intestinalis. No evidence of mechanical small-bowel obstruction. There is mural thickening of loops of small bowel, a nonspecific finding this may be seen with ischemia but also with other causes of enteritis. There is mural thickening of the stomach, nonspecific. In retrospect, this was likely present on prior examination of 12/31/2017. Distension of the distal esophagus with fluid in the esophagus, nonspecific. No pneumoperitoneum. Nonspecific mesenteric edema. Minimal ascites.
--- NOTE | 2018-01-02 16:25 | CP.PCM.PN ---
Subjective - Date & Time of Evaluation Date of Evaluation: 01/02/18 Time of Evaluation: 07:00 - Subjective Subjective: GENERAL SURGERY PROGRESS NOTE FOR DR. SCHMIDT Patient seen and examined at bedside. She reports some nausea but no vomiting. She is tolerating the liquid diet. She had a soft BM. Objective - Vital Signs/Intake and Output Vital Signs (last 24 hours): Temp Pulse Resp BP Pulse Ox 97.6 F 60 20 117/64 95 01/02/18 07:58 01/02/18 07:58 01/02/18 07:58 01/02/18 07:58 01/02/18 07:58 Intake and Output: 01/02/18 01/02/18 06:59 18:59 Intake Total 2820 Output Total 5 Balance 2815 - Medications Medications: Current Medications Heparin Sodium (Porcine) (Heparin) 5,000 units SC Q8 [facility] Last Admin: 01/02/18 13:17 Dose: 5,000 units Metronidazole 250 mg/ (Miscellaneous) 50 mls @ 100 mls/hr IVPB Q8H [facility] PRN Reason: Protocol Last Admin: 01/02/18 10:15 Dose: 100 mls/hr Piperacillin Sod/Tazobactam Sod (Zosyn 3.375 Gm Iv Premix) 3.375 gm in 50 mls @ 100 mls/hr IVPB Q6H [facility] PRN Reason: Protocol Last Admin: 01/02/18 09:36 Dose: 100 mls/hr Dextrose (Dextrose 10% In Water) 1,000 mls @ 40 mls/hr IV .Q24H [facility] Last Admin: 01/01/18 17:00 Dose: 40 mls/hr Dextrose/Sodium Chloride (Dextrose 5%/0.9% Ns 1000 Ml) 1,000 mls @ 100 mls/hr IV .Q10H [facility] Last Admin: 01/02/18 13:17 Dose: 100 mls/hr Pantoprazole Sodium (Protonix Inj) 40 mg IVP DAILY [facility] Last Admin: 01/02/18 09:37 Dose: 40 mg - Labs Labs: 01/02/18 06:26 01/02/18 06:26 APTT 41 SECONDS (21-34) H 12/31/17 08:50 - Constitutional Appears: Non-toxic, No Acute Distress - Head Exam Head Exam: ATRAUMATIC, NORMAL INSPECTION - Eye Exam Eye Exam: EOMI, Normal appearance - Respiratory Exam Respiratory Exam: NORMAL BREATHING PATTERN. absent: Respiratory Distress - Cardiovascular Exam Cardiovascular Exam: +S1, +S2 - GI/Abdominal Exam GI & Abdominal Exam: Soft. absent: Distended, Firm, Guarding, Rigid, Tenderness , Rebound - Neurological Exam Neurological Exam: Alert, Awake, Oriented x3 - Psychiatric Exam Psychiatric exam: Normal Affect, Normal Mood - Skin Skin Exam: Dry, Normal Color, Warm Assessment and Plan - Assessment and Plan (Free Text) Assessment: 77yo F with PMHx of RA, DM, gallstone pancreatitis s/p robotic simon presents with abdominal pain. - Repeat CT 01/02: Resolved pneumatosis intestinalis. No SBO. Mural thickening of loops of small bowel & stomach. Nonspecific mesenteric edema. Minimal ascites. - No surgical intervention necessary - Clear for DC from surgical standpoint with pureed diet for 1 week and Cipro & Flagyl for 1 week - Discussed plan with Dr. Eze Narvaez PGY-4
--- NOTE | 2018-01-02 18:47 | CP.PCM.PN ---
Subjective - Date & Time of Evaluation Date of Evaluation: 01/02/18 Time of Evaluation: 18:46 - Subjective Subjective: Patient was feeling well. Mild nausea. No vomiting. Bowel movements positive Vital signs stable. Chest good air entry regular heart sound nontender abdomen no pedal edema Labs reviewed Surgical follow-up, GI follow-up appreciated Will discontinue IV fluid, monitor the blood sugar and will follow the patient. If stable possible discharge plan tomorrow Objective - Vital Signs/Intake and Output Vital Signs (last 24 hours): Temp Pulse Resp BP Pulse Ox 97.9 F 64 20 141/62 100 01/02/18 16:00 01/02/18 16:00 01/02/18 16:00 01/02/18 16:00 01/02/18 16:00 Intake and Output: 01/02/18 01/02/18 06:59 18:59 Intake Total 2820 Output Total 5 Balance 2815 - Medications Medications: Current Medications Heparin Sodium (Porcine) (Heparin) 5,000 units SC Q8 [facility] Last Admin: 01/02/18 13:17 Dose: 5,000 units Metronidazole 250 mg/ (Miscellaneous) 50 mls @ 100 mls/hr IVPB Q8H [facility] PRN Reason: Protocol Last Admin: 01/02/18 10:15 Dose: 100 mls/hr Piperacillin Sod/Tazobactam Sod (Zosyn 3.375 Gm Iv Premix) 3.375 gm in 50 mls @ 100 mls/hr IVPB Q6H [facility] PRN Reason: Protocol Last Admin: 01/02/18 16:00 Dose: 100 mls/hr Dextrose (Dextrose 10% In Water) 1,000 mls @ 40 mls/hr IV .Q24H [facility] Last Admin: 01/02/18 17:21 Dose: 40 mls/hr Dextrose/Sodium Chloride (Dextrose 5%/0.9% Ns 1000 Ml) 1,000 mls @ 50 mls/hr IV .Q20H [facility] Last Admin: 01/02/18 17:17 Dose: 50 mls/hr Pantoprazole Sodium (Protonix Inj) 40 mg IVP DAILY [facility] Last Admin: 01/02/18 09:37 Dose: 40 mg - Labs Labs: 01/02/18 06:26 01/02/18 06:26 APTT 41 SECONDS (21-34) H 12/31/17 08:50
[2018-01-03] MEDS: metroNIDAZOLE IV 500 mg/100 ml 250 MG in Premixed IV 1 EA IVPB SCH ×2 (01:00→10:09)
[2018-01-03] MEDS: Piperacill/Tazo 3.375gm in Dex 3.375 GM/50 ML BAG IVPB SCH ×2 (03:45→10:10)
[2018-01-03 07:44] VITALS: O2SAT 97
[2018-01-03] MEDS ORDERED: Dextrose 50% SYRINGE Inj (50 ml) ONE (07:46)
[2018-01-03] MEDS: Dextrose 5%/0.9% NS 1,000 ML IV SCH (13:25)
[2018-01-03 17:07] LABS: SOURCE STOOL
--- NOTE | 2018-01-03 17:27 | CP.PCM.PN ---
Subjective - Date & Time of Evaluation Date of Evaluation: 01/03/18 Time of Evaluation: 17:27 - Subjective Subjective: Alert, awake, no abdominal pain or distress, NAD. Objective - Vital Signs/Intake and Output Vital Signs (last 24 hours): Temp Pulse Resp BP Pulse Ox 97.6 F 61 20 130/72 97 01/03/18 07:43 01/03/18 07:43 01/03/18 07:43 01/03/18 07:43 01/03/18 07:43 Intake and Output: 01/03/18 01/03/18 06:59 18:59 Intake Total 1550 Balance 1550 - Medications Medications: Current Medications Heparin Sodium (Porcine) (Heparin) 5,000 units SC Q8 [facility] Last Admin: 01/03/18 13:26 Dose: 5,000 units Metronidazole 250 mg/ (Miscellaneous) 50 mls @ 100 mls/hr IVPB Q8H [facility] PRN Reason: Protocol Last Admin: 01/03/18 10:09 Dose: 100 mls/hr Piperacillin Sod/Tazobactam Sod (Zosyn 3.375 Gm Iv Premix) 3.375 gm in 50 mls @ 100 mls/hr IVPB Q6H [facility] PRN Reason: Protocol Last Admin: 01/03/18 10:10 Dose: 100 mls/hr Dextrose/Sodium Chloride (Dextrose 5%/0.9% Ns 1000 Ml) 1,000 mls @ 50 mls/hr IV .Q20H [facility] Last Admin: 01/03/18 13:25 Dose: Not Given Pantoprazole Sodium (Protonix Inj) 40 mg IVP DAILY [facility] Last Admin: 01/03/18 10:10 Dose: 40 mg - Labs Labs: 01/02/18 06:26 01/02/18 06:26 APTT 41 SECONDS (21-34) H 12/31/17 08:50 Assessment and Plan - Assessment and Plan (Free Text) Assessment: Patient admitted with abdominal pain, small bowel obstruction, seen and examined. Tolerating diet, denies pain or distress. Cleared by GI. Discussed with DR Herman, plan to discharge home today on po flagyl and cipro. Advised to follow up in the office in 1 week.
[2018-01-03 17:28] VITALS: BP 122/68; PULSE 79; TEMP 97.9
[2018-01-03 20:47] LABS: SCL-70 ANTIBODY <1.0 AI (<1.0)
--- NOTE | 2018-01-03 21:55 | CP.PCM.DIS ---
Provider - Provider Date of Admission: 12/30/17 19:02 Attending physician: Nery Herman MD Time Spent in preparation of Discharge (in minutes): 45 Hospital Course - Lab Results Lab Results: Micro Results 01/01/18 10:16 Stool Stool Culture - Final NO SALMONELLA, SHIGELLA OR CAMPYLOBACTER ISOLATED. 12/30/17 18:30 Blood Blood Culture - Preliminary NO GROWTH AFTER 3 DAYS 12/30/17 19:00 Blood Blood Culture - Preliminary NO GROWTH AFTER 3 DAYS 12/30/17 Unknown Urine,Clean Catch Urine Culture - Final Klebsiella Pneumoniae Ssp Pneu Most Recent Lab Values WBC 3.1 K/uL (4.8-10.8) L 01/02/18 06:26 RBC 3.31 Mil/uL (3.80-5.20) L 01/02/18 06:26 Hgb 10.2 g/dL (11.0-16.0) L 01/02/18 06:26 Hct 29.3 % (34.0-47.0) L 01/02/18 06:26 MCV 88.6 fL (81.0-99.0) 01/02/18 06:26 MCH 30.8 pg (27.0-31.0) 01/02/18 06:26 MCHC 34.7 g/dL (33.0-37.0) 01/02/18 06:26 RDW 14.5 % (11.5-14.5) 01/02/18 06:26 Plt Count 180 K/uL (130-400) 01/02/18 06:26 MPV 7.3 fL (7.2-11.7) 01/02/18 06:26 Neut % (Auto) 51.3 % (50.0-75.0) 12/31/17 08:50 Lymph % (Auto) 28.2 % (20.0-40.0) 12/31/17 08:50 [place] % (Auto) 19.3 % (0.0-10.0) H 12/31/17 08:50 Eos % (Auto) 0.9 % (0.0-4.0) 12/31/17 08:50 Baso % (Auto) 0.3 % (0.0-2.0) 12/31/17 08:50 Neut # (Auto) 1.7 K/uL (1.8-7.0) L 12/31/17 08:50 Lymph # (Auto) 0.9 K/uL (1.0-4.3) L 12/31/17 08:50 [place] # (Auto) 0.6 K/uL (0.0-0.8) 12/31/17 08:50 Eos # (Auto) 0.0 K/uL (0.0-0.7) 12/31/17 08:50 Baso # (Auto) 0.0 K/uL (0.0-0.2) 12/31/17 08:50 ESR 60 mm/hr (0-20) H 12/31/17 08:50 APTT 41 SECONDS (21-34) H 12/31/17 08:50 Puncture Site Rba 12/30/17 21:00 pCO2 39 mm/Hg (35-45) 12/30/17 21:00 pO2 102 mm/Hg (80-100) H 12/30/17 21:00 HCO3 27.3 mmol/L (21-28) 12/30/17 21:00 ABG pH 7.45 (7.35-7.45) 12/30/17 21:00 ABG Total CO2 28.3 mmol/L (22-28) H 12/30/17 21:00 ABG O2 Saturation 100.0 % (95-98) H 12/30/17 21:00 ABG Base Excess 3.0 mmol/L (-2.0-3.0) 12/30/17 21:00 Bobby Test Pos 12/30/17 21:00 ABG Potassium 3.2 mmol/L (3.6-5.2) L 12/30/17 21:00 A-a O2 Difference -1.0 mm/Hg 12/30/17 21:00 Respiratory Index 0 12/30/17 21:00 Sodium 141.0 mmol/l (132-148) 12/30/17 21:00 Chloride 111.0 mmol/L (98-107) H 12/30/17 21:00 Glucose 85 mg/dl (65-105) 12/30/17 21:00 Lactate 0.6 mmol/L (0.7-2.1) L 12/30/17 21:00 FiO2 21.0 % 12/30/17 21:00 Sodium 140 mmol/L (132-148) 01/02/18 06:26 Potassium 4.1 mmol/L (3.6-5.2) 01/02/18 06:26 Chloride 106 mmol/L (98-107) 01/02/18 06:26 Carbon Dioxide 28 mmol/L (22-30) 01/02/18 06:26 Anion Gap 10 (10-20) 01/02/18 06:26 BUN 4 mg/dL (7-17) L 01/02/18 06:26 Creatinine 0.7 mg/dL (0.7-1.2) 01/02/18 06:26 Est GFR ( Amer) > 60 01/02/18 06:26 Est GFR (Non-Af Amer) > 60 01/02/18 06:26 POC Glucose (mg/dL) 136 mg/dL (65-110) H 01/03/18 11:12 Random Glucose 120 mg/dL (65-105) H 01/02/18 06:26 Calcium 7.8 mg/dl (8.6-10.4) L 01/02/18 06:26 Phosphorus 2.9 mg/dL (2.5-4.5) 01/02/18 06:26 Magnesium 1.5 mg/dL (1.6-2.3) L 01/02/18 06:26 Total Bilirubin 0.5 mg/dL (0.2-1.3) 01/02/18 06:26 AST 45 U/L (14-36) H 01/02/18 06:26 ALT 34 U/L (9-52) 01/02/18 06:26 Alkaline Phosphatase 51 U/L (38-126) 01/02/18 06:26 Troponin I 0.0220 ng/mL (0.00-0.120) 12/30/17 16:10 C-Reactive Protein 5.70 mg/L (0.0-9.9) 12/31/17 08:50 Total Protein 6.8 g/dL (6.3-8.3) 01/02/18 06:26 Albumin 2.9 g/dL (3.5-5.0) L 01/02/18 06:26 Globulin 3.9 gm/dL (2.2-3.9) 01/02/18 06:26 Albumin/Globulin Ratio 0.7 (1.0-2.1) L 01/02/18 06:26 Lipase 119 U/L (23-300) 12/30/17 16:10 Arterial Blood Potassium 3.2 mmol/L (3.6-5.2) L 12/30/17 21:00 Urine Color Lucrecia (YELLOW) 12/30/17 17:13 Urine Clarity Hazy (Clear) 12/30/17 17:13 Urine pH 5.0 (5.0-8.0) 12/30/17 17:13 Ur Specific Pyrites 1.020 (1.003-1.030) 12/30/17 17:13 Urine Protein Negative mg/dL (NEGATIVE) 12/30/17 17:13 Urine Glucose (UA) Normal mg/dL (Normal) 12/30/17 17:13 Urine Ketones Negative mg/dL (NEGATIVE) 12/30/17 17:13 Urine Blood Negative (NEGATIVE) 12/30/17 17:13 Urine Nitrate Negative (NEGATIVE) 12/30/17 17:13 Urine Bilirubin Negative (NEGATIVE) 12/30/17 17:13 Urine Urobilinogen Normal mg/dL (0.2-1.0) 12/30/17 17:13 Ur Leukocyte Esterase 2+ Michael/uL (Negative) H 12/30/17 17:13 Urine WBC (Auto) 15 /hpf (0-5) H 12/30/17 17:13 Urine RBC (Auto) 3 /hpf (0-3) 12/30/17 17:13 Ur Squamous Epith Cells 3 /hpf (0-5) 12/30/17 17:13 Urine Bacteria Rare (<OCC) 12/30/17 17:13 Stool Occult Blood Negative (NEGATIVE) 01/01/18 10:16 Stool Leukocytes, Qual Positive (NEGATIVE) H 12/30/17 12:37 Stl Cryptosporidium Ag Not detected (Not detected) 12/30/17 12:37 Scl-70 Scleroderma Ab <1.0 AI (<1.0) 12/31/17 08:50 Cryptosp/Giardia Source Stool 12/30/17 12:37 Giardia Antigen Not detected (Not Detected) 12/30/17 12:37 - Hospital Course Hospital Course: Chief complaint: abd pain for 3 weeks HPI: 77-year-old female with a history of rheumatoid arthritis, osteoporosis, osteoarthritis currently on biological agents came to er for abd pain. For many years patient is suffering from epigastric pain, abdominal pain, and also progressively worsening weight loss. Few months ago patient hospitalized with acute cholecystitis, underwent ERCP, followed by cholecystectomy. Since then she is feeling slightly better with the pain. But continues to have a poor appetite, now some improvement noted. Minimal weight gain also present. Few weeks ago patient had a fall while she was getting up from bed in the morning time. Patient denies any chest pain. She denies any nausea vomiting. 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 She started having more pain epigastric area and also periodic vomiting on and off. altered bowl habits, some times diarrhea and then gets constipation. last bm today soft stool she claims appetite good. Past medical history: Pre-diabetes, rheumatoid arthritis, osteoarthritis, osteoporosis Surgical history: Appendectomy, cholecystectomy, ERCP. Family history: Parents of natural cause. Siblings no health issues. 2 daughters Social history: No alcohol or smoking Drinks coffee daily. Currently able to walk. Current medication: Prolia injection, Enbrel, Zantac. Patient is being also seen by Dr. Velez, Dr. Young Review of system: On and off headache, and associated migraine noted. Pending loss, sinus symptoms occasionally noted. Epigastric discomfort pain, taking Zantac on and off. Feels hungry, but appetite is good some weight loss noted. On and off pain When she gets that rheumatoid exacerbation patient gets epigastric pain, nausea , vomiting episodes. On examination: Vital signs stable. 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 Chest bilateral good air entry labs nonspecific CT abdomen result noted. extensive pneumotoces of small Bowel distenstion of small bowel Assessment and recommendation: 77-year-old female came to the office with a history of osteoporosis, rheumatoid arthritis, and biological agents including Prolia, Enbrel. Hypertension. Stable. Prediabetes. Weight loss noted. Patient also mildly emaciated, weakness. Orthostatic hypotension ?acute abdomen intestinal obstruction pneumotosis intestinalis ?infectious process add antibiotic surgical and GI eval hold of all biological agents underlying atypical infectious process cant be ruled out will speak to family ivf K suppliment Patient admitted to the hospital with acute diagnosis of acute intestinal pneumatosis, acute intestinal obstruction, electrolytes imbalance. Patient started on IV fluid. Kept nothing by mouth. Patient was closely monitored. Patient condition improved markedly. Blood pressure and vital signs are stable. Slowly feeding was introduced Clinically she become more stable. Surgical evaluation, GI evaluation obtained. Patient clinical stable. Urine culture showing evidence of Escherichia coli. She will be continuing the ciprofloxacin and Flagyl. She will follow up as an outpatient. Patient was also having evidence of hypoglycemia, I spoke to the patient's the daughter. On base of to monitor the blood sugar, eat healthy. The patient currently also being treated for rheumatoid arthritis and osteoporosis with the neurologically agent including Enbrel, prolia We will continue to monitor. Patient will be follow-up as an outpatient. She will need to have the repeat electrolytes blood test. And will follow-up the patient. Final diagnoses acute intestinal obstruction, intestinal parietal areas, pneumatosis. Immunosuppressive. Rheumatoid arthritis. Osteoporosis. Nia of hypoglycemia. Syncope. Will follow-up the patient. Discharge Exam - Head Exam Head Exam: ATRAUMATIC, NORMAL INSPECTION Discharge Plan - Discharge Medications Prescriptions: Ciprofloxacin HCl [Cipro] 500 mg PO BID #10 tablet Metronidazole [Flagyl] 500 mg PO TID #15 tablet - Follow Up Plan Condition: STABLE Disposition: HOME/ ROUTINE Instructions: Ciprofloxacin (Systemic), Metronidazole (Systemic), Small Bowel Obstruction (DC) Referrals: Nery Herman MD [Staff Provider] -
== END 2018-01-03 18:15 | disposition home or self-care (01) | DRG 389 ==
LOC: C.ER 15:12 → C.9E 19:02 → C.3T 19:50
PROVIDERS: ADMIT Internal Medicine; ATTEND Internal Medicine
DX: K56.600 Partial intestinal obstruction, unspecified as to cause (principal); R64 Cachexia; K56.7 Ileus, unspecified; K52.9 Noninfective gastroenteritis and colitis, unspecified; I10 Essential (primary) hypertension; E11.649 Type 2 diabetes mellitus with hypoglycemia without coma; I95.1 Orthostatic hypotension; G43.909 Migraine, unspecified, not intractable, without status migrainosus; M06.9 Rheumatoid arthritis, unspecified; M81.0 Age-related osteoporosis without current pathological fracture; Z90.49 Acquired absence of other specified parts of digestive tract; Z86.010 Personal history of colon polyps; Z91.81 History of falling

== ENCOUNTER → 2018-07-21 | Outpatient (CLI) | payer MEDICARE, MEDICAID | LOC: C.RADIC 10:21 | DX: M25.551 Pain in right hip (principal) ==

== ENCOUNTER 2018-08-08 10:28 | Outpatient (CLI) | payer MEDICARE, MEDICAID | END 2018-08-08 10:29 | disposition home or self-care (01) | LOC: C.LAB 10:28 | DX: E55.9 Vitamin D deficiency, unspecified (principal); E11.69 Type 2 diabetes mellitus with other specified complication; E03.9 Hypothyroidism, unspecified; E78.2 Mixed hyperlipidemia ==

== ENCOUNTER 2018-09-19 11:14 | Inpatient (IN) | payer MEDICARE, MEDICAID ==
[2018-09-19 11:14] VITALS: BMI 18.3
[2018-09-19] MEDS ORDERED: Sodium Chloride 0.9% 500 ML IV ONE (11:57)
[2018-09-19 11:58] LABS: BASO % 0.4 % (0.0-2.0); EOS % 0.4 % (0.0-4.0); HEMOGLOBIN 11.6 g/dL (11.0-16.0); LYMPH # 1.4 K/uL (1.0-4.3); LYMPH % 20.6 % (20.0-40.0); MEAN CELL VOLUME 91.7 fL (81.0-99.0); MEAN CORPUSCULAR HEMOGLOBIN 31.7 pg (27.0-31.0); MEAN CORPUSCULAR HGB CONC 34.6 g/dL (33.0-37.0); MEAN PLATELET VOLUME 7.8 fL (7.2-11.7); MONO % 15.1 % (0.0-10.0); NEUT # 4.3 K/uL (1.8-7.0); NEUT % 63.5 % (50.0-75.0); RBC 3.66 Mil/uL (3.80-5.20); WHITE BLOOD COUNT 6.7 K/uL (4.8-10.8)
[2018-09-19 12:11] LABS: ALB/GLOB RATIO 0.8 (1.0-2.1); ALBUMIN 3.8 g/dL (3.5-5.0); ALT/SGPT 25 U/L (9-52); AST/SGOT 43 U/L (14-36); BLOOD UREA NITROGEN 22 mg/dL (7-17); CALCIUM 8.7 mg/dl (8.6-10.4); GFR NON-AFRICAN AMERICAN > 60; LIPASE 84 U/L (23-300)
--- NOTE | 2018-09-19 12:58 | C.PDOC ---
History Of Present Illness 78 y/o female presents to the ER complaining of upper abdominal pain which has been present for the past 1 month. Patient states that she has associated nausea and several episodes of diarrhea.Patient reports that she was evaluated by her PMD and she was prescribed "little white pills" without relief. She also notes that she has weight loss since she was diagnosed with diabetes 20 years ago. Denies having fever,chills, CP,SOB,palpitations, vomiting, and dysuria. Time Seen by Provider: 09/19/18 11:19 Chief Complaint (Nursing): Abdominal Pain History Per: Patient History/Exam Limitations: no limitations Onset/Duration Of Symptoms: Days Current Symptoms Are (Timing): Still Present Severity: Moderate Associated Symptoms: Nausea, Diarrhea. denies: Fever, Chills, Vomiting, Urinary Symptoms Past Medical History Reviewed: Historical Data, Nursing Documentation, Vital Signs Vital Signs: Last Vital Signs Temp 97.2 F L 09/19/18 11:18 Pulse 82 09/19/18 11:18 Resp 18 09/19/18 11:18 BP 183/80 H 09/19/18 11:18 Pulse Ox 98 09/19/18 11:18 Primary Care Provider: Nery Herman - Medical History PMH: Anemia, Colonic Polyps, Diabetes, Gall Bladder Disease, Hyperthyroidism, Rheumatoid Arthritis Denies: Fractures, Chronic Kidney Disease, TIA Surgical History: Appendectomy, Cholecystectomy (LAP PAO 08/2017) Denies: Endoscopy - [facility] Procedures DILATION OF COMMON BILE DUCT, ENDO (08/20/17) EXTIRPATION OF MATTER FROM COMMON BILE DUCT, ENDO (08/20/17) FLUOROSCOPY OF BILE DUCTS USING OTHER CONTRAST (08/20/17) RESECTION OF GALLBLADDER, PERCUTANEOUS ENDOSCOPIC APPROACH (08/20/17) ROBOTIC ASSISTED PROCEDURE OF TRUNK, PERC ENDO APPROACH (08/20/17) Family History: States: No Known Family Hx - Social History Hx Tobacco Use: No Hx Alcohol Use: No Hx Substance Use: No - Immunization History Hx Tetanus Toxoid Vaccination: No Hx Influenza Vaccination: Yes Hx Pneumococcal Vaccination: No Review Of Systems Except As Marked, All Systems Reviewed And Found Negative. Constitutional: Negative for: Fever, Chills Gastrointestinal: Positive for: Nausea, Abdominal Pain, Diarrhea. Negative for: Vomiting Genitourinary: Negative for: Dysuria Physical Exam - Physical Exam Appears: Non-toxic, No Acute Distress, Other (comfortable) Skin: Normal Color, Warm, Dry Head: Atraumatic, Normacephalic Eye(s): bilateral: Normal Inspection Nose: Normal Oral Mucosa: Moist Neck: Supple Chest: Symmetrical Cardiovascular: Rhythm Regular Respiratory: Normal Breath Sounds, No Rales, No Rhonchi, No Wheezing Gastrointestinal/Abdominal: Soft, Tenderness (epigastric and LUQ tenderness), No Guarding, No Rebound, Other (midline surgical scar inferior to umbilicus, negative Spring's, negative McBurney's) Neurological/Psych: Oriented x3, Normal Speech ED Course And Treatment - Laboratory Results Result Diagrams: 09/19/18 11:55 09/19/18 11:55 Lab Results: Total Bilirubin 0.6 mg/dL (0.2-1.3) 09/19/18 11:55 AST 43 U/L (14-36) H 09/19/18 11:55 ALT 25 U/L (9-52) 09/19/18 11:55 Alkaline Phosphatase 71 U/L (38-126) 09/19/18 11:55 Total Protein 8.8 g/dL (6.3-8.3) H 09/19/18 11:55 Albumin 3.8 g/dL (3.5-5.0) 09/19/18 11:55 Globulin 5.0 gm/dL (2.2-3.9) H 09/19/18 11:55 Albumin/Globulin Ratio 0.8 (1.0-2.1) L 09/19/18 11:55 Lipase 84 U/L (23-300) 09/19/18 11:55 O2 Sat by Pulse Oximetry: 98 (RA) Pulse Ox Interpretation: Normal Progress Note: Labs,UA, and X-Ray-Obs Series ordered.Patient treated with IV Fluids. Disposition - Disposition - Scribe Statement The provider has reviewed the documentation as recorded by the Gwendolyn Malcolm Provider Attestation: All medical record entries made by the Scribe were at my direction and personally dictated by me. I have reviewed the chart and agree that the record accurately reflects my personal performance of the history, physical exam, medical decision making, and the department course for this patient. I have also personally directed, reviewed, and agree with the discharge instructions and disposition.
--- NOTE | 2018-09-19 13:35 | RAD ---
Date of service: 09/19/2018 PROCEDURE: Radiographs of the chest and abdomen (obstructive series) HISTORY: ABD PAIN, NAUSEA, H/O ABD SURGERY COMPARISON: 12/31/2017 and 08/20/2017 chest x-ray TECHNIQUE: AP radiograph of the chest, with upright and supine radiographs of the abdomen. 3 views obtained. FINDINGS: CHEST: Lungs: No consolidation. Coarse interstitial lung markings-patchy distribution right lung base sub cm left perihilar nodular opacity (versus prominent vessel seen on end) appearance similar to chest x-ray 08/20/2017. Probable patchy emphysematous changes in each perihilar location. Cardiovascular: Minimal cardiomegaly. There is presence of aortic atherosclerotic calcification on x-ray. Thin linear opacity right paratracheal similar in appearance-right medial blebs bulla here are 1 consideration. Lung markings appear to project beyond it. Accentuation of normal anatomy another. Pleura: No significant appearing pleural effusion. Trace summation soft tissues and/or left inferolateral pleural thickening-no significant change appreciated. No definitive pneumothorax seen. Other findings: Bilateral shoulder calcific rotator cuff tendinopathy and/or calcific bursitis. Findings more pronounced in the left shoulder. Bilateral shoulder arthrosis. ABDOMEN AND PELVIS: Bowel: Left mostly mid abdominal level small bowel dilatation. Lesser degrees of right lower quadrant small-bowel dilatation also suspect. There is gas seen or believed present in some right-sided colon loops. Assessment of the colon distinct from the small-bowel dilatation is problematic. No similarly distended large bowel loops appreciated. Free air: None. Bones: Bilateral shoulder arthrosis. Thoraco lumbar spondylosis. Bilateral hip arthrosis. Exam is markedly limited in terms of assessing the sacrum due to the confounding overlying bowel gas. Other findings: None. IMPRESSION: Interval progressive small bowel distension compatible with a high-grade probable partial small-bowel obstruction. Right colonic gas is believed present in the right colon loops do not appear as distended as the small bowel loops.. A partial yet high-grade small-bowel obstruction needs to be considered. Comments: Findings were discussed with the ER physician Dr. Marilyn Mast on 09/19/2018 at approximately 1:30 p.m.. Also discussed follow-up CT abdomen and pelvis for further evaluation
[2018-09-19] MEDS ORDERED: Iohexol 240 (50 ml) PO STA (13:36)
[2018-09-19] MEDS ORDERED: Iohexol 240 (50 ml) ONE (13:57)
[2018-09-19] MEDS ORDERED: Iodixanol 320 MG/ML 100 ML BOTTLE IV ONE (15:24)
--- NOTE | 2018-09-19 16:11 | CT ---
Date of service: 09/19/2018 PROCEDURE: CT Abdomen and Pelvis with contrast HISTORY: abd pain, r/o obstruction COMPARISON: 01/02/2018 TECHNIQUE: Contrast dose: 100 mL Visipaque 320 Radiation dose: Total exam DLP = 415.37 mGy-cm. This CT exam was performed using one or more of the following dose reduction techniques: Automated exposure control, adjustment of the mA and/or kV according to patient size, and/or use of iterative reconstruction technique. FINDINGS: LOWER THORAX: Bilateral lower lobe subpleural fibrosis and minimal cylindrical bronchiectasis unchanged from 01/02/2018. No infiltrate/effusion. Fluid again identified within a mildly distended distal esophagus, thin-walled. No change compared to several prior examinations. LIVER: Normal size, contour and attenuation. Mild intrahepatic biliary dilatation. Dilatation of the common bile duct up to approximately 10 mm diameter. Smooth distal tapering to the level of the ampulla. GALLBLADDER AND BILE DUCTS: Cholecystectomy PANCREAS: There is mild pancreatic ductal dilatation diffusely. There is no pancreatic mass or peripancreatic fluid collection. Given dilatation of the common bile duct and pancreatic duct, consider the possibility of ampullary stricture or neoplasm. Common bile duct is only mildly dilated in comparison to prior CT of 12/30/2017 but pancreatic ductal dilatation is new. SPLEEN: Nonspecific 14 mm rounded low-attenuation lesion in the spleen stable since 12/2017. ADRENALS: Unremarkable. No mass. KIDNEYS AND URETERS: Unremarkable. No hydronephrosis. No solid mass. VASCULATURE: Unremarkable. No aortic aneurysm. There is atherosclerotic calcification of the abdominal aorta. BOWEL: There is mechanical small-bowel obstruction. The point of obstruction is seen in the right lower quadrant of the abdomen. This is best demonstrated on series 601, image 57 or series 3, image 97. No mass identified at the point of obstruction. There are collapsed loops of distal ileum. There is mural thickening enhancement of the ileum just distal to the point of obstruction. This raises suspicion of an enteritis, possibly infectious or inflammatory. APPENDIX: Not positively identified. No secondary findings. PERITONEUM: Unremarkable. No free fluid. No free air. LYMPH NODES: Unremarkable. No enlarged lymph nodes. BLADDER: Unremarkable. REPRODUCTIVE: Unremarkable uterus. BONES: No acute fracture. OTHER FINDINGS: None. IMPRESSION: Mechanical small-bowel obstruction. Point of obstruction identified in the right lower quadrant. Focal mural thickening and hyperenhancement of the small bowel wall is seen just distal to the obstruction raising suspicion of an enteritis. Mild biliary ductal dilatation and pancreatic ductal dilatation. Consider ampullary stricture or neoplasm. No mass identified. Dilated fluid-filled distal esophagus of uncertain etiology, unchanged from 12/30/2017. Additional minor findings as above.
[2018-09-19] MEDS: Sodium Chloride 0.9% 1,000 ML IV SCH (18:39)
--- NOTE | 2018-09-19 18:49 | RAD ---
Date of service: 09/19/2018 PROCEDURE: CHEST RADIOGRAPH, 1 VIEW HISTORY: NG TUBE PLACEMENT COMPARISON: 12/31/2017 FINDINGS: LUNGS: Multifocal chronic interstitial lung disease. PLEURA: No pneumothorax or pleural fluid seen. CARDIOVASCULAR: No aortic atherosclerotic calcification present. Normal. OSSEOUS STRUCTURES: No significant abnormalities. VISUALIZED UPPER ABDOMEN: Nasogastric tube in satisfactory position courses through the esophagus into a decompressed stomach. OTHER FINDINGS: None. IMPRESSION: Satisfactory position recently placed nasogastric tube.
[2018-09-19 18:55] VITALS: RESP 20
--- NOTE | 2018-09-19 19:25 | CP.PCM.CON ---
History of Present Illness - History of Present Illness History of Present Illness: Surgery: Dr. Loo Reason for consult: SBO HPI: Patient is an 78 y/o female w/ pmh of DM, OA/RA and multiple abdominal surgeries presents complaining of constant abdominal pain and distention for the past month. She reports that her pain is dull and constant in nature, diffuse through abdomen. She reports nausea but no vomiting. Her last BM was diarrhea and was yesterday. She denies f/c chest pain or SOB. He reports decrease appetite and daughter reports weight loss over the past few months. She states she has had similar symptoms in the past and was told she had an obstruction and had to have an NGT. She states symptoms resolves with conservation measures at that time. PMH: DM, OA, RA, SBO PSH: cholecystectomy 2018, ex lap for uterine fibroid, open appendectomy Social: denies tobacco, ETOH, or drug abuse Fam: noncontributory Review of Systems - Constitutional Constitutional: absent: Anorexia, Fever - EENT Eyes: absent: Blind Spots, Blurred Vision Ears: absent: Decreased Hearing Nose/Mouth/Throat: absent: Hoarsness, Throat Swelling - Cardiovascular Cardiovascular: absent: Chest Pain, Dyspnea - Respiratory Respiratory: absent: Cough, Wheezing - Gastrointestinal Gastrointestinal: Abdominal Pain, Bloating, Change in Bowel Habits, Loose Stools, Nausea. absent: Constipation, Hematemesis, Hematochezia, Vomiting - Genitourinary Genitourinary: absent: Hematuria, Pyuria - Reproductive: Female Reproductive:Female: Amenorrhea - Musculoskeletal Musculoskeletal: absent: Stiffness, Tingling - Integumentary Integumentary: absent: Alopecia, Wounds - Neurological Neurological: absent: Syncope, Weakness - Psychiatric Psychiatric: Change in Appetite - Endocrine Endocrine: absent: Polyphagia, Polyuria - Hematologic/Lymphatic Hematologic: absent: Easy Bleeding, Easy Bruising Past Patient History - Past Medical History & Family History Past Medical History?: Yes - Past Social History Smoking Status: Never Smoked - CARDIAC Hx Cardiac Disorders: No - PULMONARY Hx Respiratory Disorders: No - NEUROLOGICAL Hx Transient Ischemic Attacks (TIA): No - HEENT Hx HEENT Problems: Yes Hx Cataracts: Yes (CALEB.; NO SURGERY) - RENAL Hx Chronic Kidney Disease: No - ENDOCRINE/METABOLIC Hx Hyperthyroidism: Yes - HEMATOLOGICAL/ONCOLOGICAL Hx Anemia: Yes - INTEGUMENTARY Hx Dermatological Problems: No - MUSCULOSKELETAL/RHEUMATOLOGICAL Hx Fractures: No Hx Rheumatoid Arthritis: Yes - GASTROINTESTINAL Hx Gall Bladder Disease: Yes - GENITOURINARY/GYNECOLOGICAL Hx Genitourinary Disorders: No - PSYCHIATRIC Hx Substance Use: No - SURGICAL HISTORY Hx Appendectomy: Yes Hx Cholecystectomy: Yes (MARCELINO PAO 08/2017) - ANESTHESIA Hx Anesthesia: Yes Hx Anesthesia Reactions: No Hx Malignant Hyperthermia: No Meds Allergies/Adverse Reactions: Allergies Allergy/AdvReac Type Severity Reaction Status Date / Time weed pollen Allergy CONGESTION Verified 12/30/17 15:15 - Medications Medications: Current Medications Sodium Chloride (Sodium Chloride 0.9%) 1,000 mls @ 80 mls/hr IV .[id number] [facility] Last Admin: 09/19/18 18:39 Dose: 80 mls/hr Ondansetron HCl (Zofran Inj) 4 mg IVP Q4 PRN PRN Reason: Nausea/Vomiting Pantoprazole Sodium (Protonix Inj) 40 mg IVP DAILY [facility] Physical Exam - Constitutional Appears: Non-toxic, Chronically Ill - Head Exam Head Exam: ATRAUMATIC, NORMOCEPHALIC - Eye Exam Eye Exam: EOMI, Normal appearance Pupil Exam: PERRL - ENT Exam ENT Exam: Mucous Membranes Moist Additional comments: dentures - Neck Exam Neck exam: Positive for: Normal Inspection - Respiratory Exam Respiratory Exam: NORMAL BREATHING PATTERN. absent: Respiratory Distress - Cardiovascular Exam Cardiovascular Exam: REGULAR RHYTHM. absent: Tachycardia - GI/Abdominal Exam GI & Abdominal Exam: Diminished Bowel Sounds, Distended, Soft. absent: Rebound, Tenderness - Extremities Exam Extremities exam: Positive for: normal capillary refill. Negative for: calf tenderness - Neurological Exam Neurological exam: Alert, Oriented x3 - Psychiatric Exam Psychiatric exam: Normal Mood - Skin Skin Exam: Normal Color Results - Vital Signs Recent Vital Signs: Last Vital Signs Temp 98.3 F 09/19/18 18:54 Pulse 104 H 09/19/18 18:54 Resp 20 09/19/18 18:54 BP 131/72 09/19/18 18:54 Pulse Ox 100 09/19/18 18:54 - Labs Result Diagrams: 09/19/18 11:55 09/19/18 11:55 Labs: Laboratory Results - last 24 hr 09/19/18 09/19/18 09/19/18 11:55 11:55 18:33 WBC 6.7 RBC 3.66 L Hgb 11.6 Hct 33.5 L MCV 91.7 MCH 31.7 H MCHC 34.6 RDW 15.0 H Plt Count 180 MPV 7.8 Neut % (Auto) 63.5 Lymph % (Auto) 20.6 [place] % (Auto) 15.1 H Eos % (Auto) 0.4 Baso % (Auto) 0.4 Neut # (Auto) 4.3 Lymph # (Auto) 1.4 [place] # (Auto) 1.0 H Eos # (Auto) 0.0 Baso # (Auto) 0.0 Sodium 141 Potassium 4.0 Chloride 103 Carbon Dioxide 28 Anion Gap 15 BUN 22 H Creatinine 0.6 L Est GFR ( Amer) > 60 Est GFR (Non-Af Amer) > 60 Random Glucose 109 H Lactic Acid 0.7 Calcium 8.7 Total Bilirubin 0.6 AST 43 H ALT 25 Alkaline Phosphatase 71 Total Protein 8.8 H Albumin 3.8 Globulin 5.0 H Albumin/Globulin Ratio 0.8 L Lipase 84 Assessment & Plan - Assessment and Plan (Free Text) Assessment: 78F with SBO Plan: -NGT placed, LCWS - monitor output, flush Q4hr w/ sterile irrigation -monitor urine output -zofran -stat lactate -CXR for NGT placement -abd exams -am labs -IVFs -monitor -d/w Dr. Loo [facility] PGY4
[2018-09-19] MEDS ORDERED: Benzocaine/Menthol (Cepacol) Lozenge MT PRN (19:31)
[2018-09-19] MEDS ORDERED: Phenol Topical 1.4% Throat Spray (180 ml) MT PRN (19:32)
--- NOTE | 2018-09-19 21:59 | CP.PCM.HP ---
History of Present Illness - History of Present Illness History of Present Illness: Chief complaint: Abdominal pain for 1 week duration HPI: 78-year-old female with a history of rheumatoid arthritis, osteoporosis, oste oarthritis currently on biological agents came to er for abd pain. Patient was complaining of on and off abdominal discomfort. But recently had abdominal pain got worse. She also started having increasingly abdominal distention, few episodes of nausea, but no vomiting. Yesterday patient had a bowel movements. But as the abdomen got more distended he came into the emergency room. She did not have any fever. She did not have any chills. No cough noted. Denies any other major active systemic symptoms. Patient is being treated for ongoing rheumatoid arthritis with the biological agent Patient last year admitted with the abdominal pain, underwent cholecystectomy. Also patient had a episode of ileus last time, treated conservatively But continues to have a poor appetite, now some improvement noted. Seen by sales support advisor, adjunct faculty instructor. Past medical history: Pre-diabetes, rheumatoid arthritis, osteoarthritis, osteoporosis Surgical history: Appendectomy, cholecystectomy, ERCP. Family history: Parents of natural cause. Siblings no health issues. 2 daughters Social history: No alcohol or smoking Drinks coffee daily. Currently able to walk. Current medication: Prolia injection, Enbrel, Zantac. Patient is being also seen by Dr. Velez, Dr. Young Review of system: On and off headache, and associated migraine noted. Patient is complaining of loss of weight, loss of appetite. Also complaining of abdominal distention, intermittent abdominal pain, nausea. No fever no chills. Recurrent symptoms in the past. When she gets that rheumatoid exacerbation patient gets epigastric pain, nausea, vomiting episodes. On examination: Vital signs stable. Partial dental noted Regular heart sounds Nontender abdomen, minimal distention present with tympanic in character Extremities no pedal edema [employer] PING PONG TABLE alert awake oriented 3 Regular heart sound. Chest bilateral good air entry Patient's labs reviewed Nonspecific. Chest x-ray left diaphragm is elevated and a gas shadow noted Obstructive series of the abdomen showing evidence of diffuse paralytic ileus pattern noted CAT scan of the abdomen showing evidence of small bowel obstruction. Right lower quadrant point of obstruction noted. Possible enteritis. Mild bile and pancreatic ductal dilatation. Assessment and recommendation: 78-year-old female came to the office with a history of osteoporosis, rheumatoid arthritis, and biological agents including Prolia, Enbrel. Hypertension. Stable. Prediabetes. Weight loss noted. Patient also mildly emaciated, weakness. Patient now admitted to the hospital with the acute intestinal obstruction small bowel obstruction. There is a concern about enteritis causing the obstruction. There is also evidence of dilated pancreatic, biliary duct. Ampullary stricture, versus neoplasm cannot be ruled out. Patient is currently n.p.o. We will continue with IV fluid. DVT and GI prophylaxis. Will get GI evaluation also. Appreciate the surgical evaluation. And will follow the patient Present on Admission - Present on Admission Any Indicators Present on Admission: No History of DVT/PE: No History of Uncontrolled Diabetes: No Urinary Catheter: No Decubitus Ulcer Present: No Past Patient History - Past Medical History & Family History Past Medical History?: Yes - Past Social History Smoking Status: Never Smoked - CARDIAC Hx Cardiac Disorders: No - PULMONARY Hx Respiratory Disorders: No - NEUROLOGICAL Hx Transient Ischemic Attacks (TIA): No - HEENT Hx HEENT Problems: Yes Hx Cataracts: Yes (CALEB.; NO SURGERY) - RENAL Hx Chronic Kidney Disease: No - ENDOCRINE/METABOLIC Hx Hyperthyroidism: Yes - HEMATOLOGICAL/ONCOLOGICAL Hx Anemia: Yes - INTEGUMENTARY Hx Dermatological Problems: No - MUSCULOSKELETAL/RHEUMATOLOGICAL Hx Fractures: No Hx Rheumatoid Arthritis: Yes - GASTROINTESTINAL Hx Gall Bladder Disease: Yes - GENITOURINARY/GYNECOLOGICAL Hx Genitourinary Disorders: No - PSYCHIATRIC Hx Substance Use: No - SURGICAL HISTORY Hx Appendectomy: Yes Hx Cholecystectomy: Yes (LAP PAO 08/2017) - ANESTHESIA Hx Anesthesia: Yes Hx Anesthesia Reactions: No Hx Malignant Hyperthermia: No Meds Allergies/Adverse Reactions: Allergies Allergy/AdvReac Type Severity Reaction Status Date / Time weed pollen Allergy CONGESTION Verified 12/30/17 15:15 Results - Vital Signs Recent Vital Signs: Last Vital Signs Temp 98.3 F 09/19/18 18:54 Pulse 104 H 09/19/18 18:54 Resp 20 09/19/18 18:54 BP 131/72 09/19/18 18:54 Pulse Ox 100 09/19/18 18:54 - Labs Result Diagrams: 09/19/18 11:55 09/19/18 11:55 Labs: Laboratory Results - last 24 hr 09/19/18 09/19/18 09/19/18 11:55 11:55 18:33 WBC 6.7 RBC 3.66 L Hgb 11.6 Hct 33.5 L MCV 91.7 MCH 31.7 H MCHC 34.6 RDW 15.0 H Plt Count 180 MPV 7.8 Neut % (Auto) 63.5 Lymph % (Auto) 20.6 [place] % (Auto) 15.1 H Eos % (Auto) 0.4 Baso % (Auto) 0.4 Neut # (Auto) 4.3 Lymph # (Auto) 1.4 [place] # (Auto) 1.0 H Eos # (Auto) 0.0 Baso # (Auto) 0.0 Sodium 141 Potassium 4.0 Chloride 103 Carbon Dioxide 28 Anion Gap 15 BUN 22 H Creatinine 0.6 L Est GFR ( Amer) > 60 Est GFR (Non-Af Amer) > 60 Random Glucose 109 H Lactic Acid 0.7 Calcium 8.7 Total Bilirubin 0.6 AST 43 H ALT 25 Alkaline Phosphatase 71 Total Protein 8.8 H Albumin 3.8 Globulin 5.0 H Albumin/Globulin Ratio 0.8 L Lipase 84
[2018-09-20 05:10] LABS: SQUAMOUS EPITHIAL 1 /hpf (0-5); URINE BILIRUBIN NEGATIVE (NEGATIVE); URINE BLOOD NEGATIVE (NEGATIVE); URINE CLARITY Clear (Clear); URINE COLOR Yellow (YELLOW); URINE GLUCOSE (UA) NORMAL (Normal); URINE LEUKOCYTE ESTERASE NEG Leu/uL (Negative); URINE PROTEIN NEGATIVE (NEGATIVE); URINE UROBILINOGEN NORMAL mg/dL (0.2-1.0)
[2018-09-20] MEDS: Sodium Chloride 0.9% 1,000 ML IV SCH (05:57)
[2018-09-20 06:39] LABS: BASO % 0.4 % (0.0-2.0); EOS # 0.1 K/uL (0.0-0.7); HEMOGLOBIN 10.6 g/dL (11.0-16.0); LYMPH # 1.3 K/uL (1.0-4.3); LYMPH % 26.9 % (20.0-40.0); MEAN CELL VOLUME 91.2 fL (81.0-99.0); MEAN CORPUSCULAR HEMOGLOBIN 31.4 pg (27.0-31.0); MEAN CORPUSCULAR HGB CONC 34.5 g/dL (33.0-37.0); MEAN PLATELET VOLUME 7.9 fL (7.2-11.7); MONO # 0.8 K/uL (0.0-0.8); MONO % 16.7 % (0.0-10.0); NEUT # 2.7 K/uL (1.8-7.0); NRBC % 0.1 % (0.0-2.0); RBC 3.39 Mil/uL (3.80-5.20); RED CELL DISTRIBUTION WIDTH 15.1 % (11.5-14.5); WHITE BLOOD COUNT 4.9 K/uL (4.8-10.8)
[2018-09-20 07:50] LABS: ALB/GLOB RATIO 0.7 (1.0-2.1); ALBUMIN 2.9 g/dL (3.5-5.0); ALT/SGPT 32 U/L (9-52); AST/SGOT 41 U/L (14-36); BLOOD UREA NITROGEN 14 mg/dL (7-17); CALCIUM 8.2 mg/dl (8.6-10.4); GFR NON-AFRICAN AMERICAN > 60
--- NOTE | 2018-09-20 08:13 | CP.PCM.CON ---
History of Present Illness - History of Present Illness History of Present Illness: This is an 78 year old woman with abdominal pain. Patient is known to me from the office. She had colonoscopy 01/08/2016 which showed hprerplastic polyps and internal hemorrhoids. EGD was performed 09/22/2016 and showed hiatal hernia and non-erosive gastritis. She was diagnosed with biliary sludge by sonogram 03/22/2017; at that time the common duct measured 7.[address] scan 04/13/2017 showed distended GB but no calcified gallstones; the CT also reported small bowel wall thickening and dilated loops of small bowel. Patient was admitted in August,, with lower chest and upper abdominal pain accompanied by elevations of the liver enzymes and lipase: AST 619, ALT 588, ALKP 338, TBILI 2.6, lipase 74789. Sonogram showed stones in the GB and a dilated distal CBD to 1.1 cm. ERCP was performed by Dr. Mahoney on 08/24/2017; this showed a dilated CBD to 12 mm, three filling defectis in the CBD. The major papilla was normal. Sphincterotomy was performed, and the stones were removed. She underwent cholecystectomy on 08/29/2017. Patient was readmitted 12/30/2018 for abdominal pain; evaluatio \n at that time showed SBO and pnumatosis coli, both of which which resoleved with conservative measures. Patient did well until two weeks ago when she noted intermittent, upper abdominal cramping pain with nausea but no vomiting. She continued to move her bowels with occasional diarrhea, up to five times a day. She denies having rectal bleeding. Her appetite has been fair, and she thinks she lost several pounds during the past two weeks. She denies having heartburn or difficulty swallowing. Examination in the ER showed abdominal tenderness maximal in the epigastrium and LUQ. CT scan showed mechanical SBO with a point of obstruction in the RLQ. The CT scan also noted dilatation of the CBD up to 10 mm and dilatation of the pancreatic duct. Liver enzymes were normal except for minimal elevation of AST (41); lipase was normal. Review of Systems - Review of Systems All systems: reviewed and no additional remarkable complaints except - Constitutional Constitutional: Anorexia, Weight Loss. absent: Fever - Cardiovascular Cardiovascular: absent: Chest Pain, Dyspnea - Respiratory Respiratory: absent: Cough, Wheezing - Gastrointestinal Gastrointestinal: Abdominal Pain, Diarrhea, Nausea. absent: Dysphagia, Heartburn, Hematemesis, Hematochezia, Vomiting - Genitourinary Genitourinary: absent: Hematuria - Reproductive: Female Reproductive:Female: Amenorrhea Past Patient History - Past Medical History & Family History Past Medical History?: Yes - Past Social History Smoking Status: Former Smoker - CARDIAC Hx Cardiac Disorders: No - PULMONARY Hx Respiratory Disorders: No - NEUROLOGICAL Hx Transient Ischemic Attacks (TIA): No - HEENT Hx HEENT Problems: Yes Hx Cataracts: Yes (CALEB.; NO SURGERY) - RENAL Hx Chronic Kidney Disease: No - ENDOCRINE/METABOLIC Hx Hyperthyroidism: Yes - HEMATOLOGICAL/ONCOLOGICAL Hx Anemia: Yes - INTEGUMENTARY Hx Dermatological Problems: No - MUSCULOSKELETAL/RHEUMATOLOGICAL Hx Falls: No - GASTROINTESTINAL Hx Gall Bladder Disease: Yes - GENITOURINARY/GYNECOLOGICAL Hx Genitourinary Disorders: No - PSYCHIATRIC Hx Substance Use: No - SURGICAL HISTORY Hx Appendectomy: Yes Hx Cholecystectomy: Yes (LAP PAO 08/2017) - ANESTHESIA Hx Anesthesia: Yes Hx Anesthesia Reactions: No Hx Malignant Hyperthermia: No Meds Allergies/Adverse Reactions: Allergies Allergy/AdvReac Type Severity Reaction Status Date / Time weed pollen Allergy CONGESTION Verified 12/30/17 15:15 - Medications Medications: Current Medications Benzocaine/Menthol (Cepacol Sore Throat) 1 maren MT Q2 PRN PRN Reason: Sore Throat Heparin Sodium (Porcine) (Heparin) 5,000 units SC Q12 [facility] Last Admin: 09/19/18 22:13 Dose: 5,000 units Sodium Chloride (Sodium Chloride 0.9%) 1,000 mls @ 80 mls/hr IV .[id number] [facility] Last Admin: 09/20/18 05:57 Dose: 80 mls/hr Ondansetron HCl (Zofran Inj) 4 mg IVP Q4 PRN PRN Reason: Nausea/Vomiting Pantoprazole Sodium (Protonix Inj) 40 mg IVP DAILY [facility] Phenol/Menthol (Phenaseptic 1.4% Throat [place]) 1 ml MT Q2 PRN PRN Reason: Sore Throat Pneumococcal Polyvalent Vaccine (Pneumovax 23 Vaccine) 0.5 ml IM .ONCE ONE Stop: 09/22/18 10:01 Physical Exam - Constitutional Appears: No Acute Distress - Head Exam Head Exam: ATRAUMATIC, NORMOCEPHALIC - Eye Exam Eye Exam: EOMI, PERRL - Neck Exam Neck exam: Negative for: Lymphadenopathy - Respiratory Exam Respiratory Exam: NORMAL BREATHING PATTERN. absent: Rales, Rhonchi, Wheezes - Cardiovascular Exam Cardiovascular Exam: REGULAR RHYTHM, +S1, +S2. absent: Gallop, Rubs, Systolic Murmur - GI/Abdominal Exam GI & Abdominal Exam: Normal Bowel Sounds, Soft. absent: Mass, Organomegaly, Tenderness - Rectal Exam Rectal Exam: Deferred - Extremities Exam Extremities exam: Negative for: calf tenderness, pedal edema Results - Vital Signs Recent Vital Signs: Last Vital Signs Temp 98.3 F 09/19/18 18:54 Pulse 93 H 09/19/18 23:42 Resp 20 09/19/18 23:42 BP 103/60 09/19/18 23:42 Pulse Ox 95 09/19/18 23:42 - Labs Result Diagrams: 09/20/18 06:35 09/20/18 06:35 Labs: Laboratory Results - last 24 hr 09/19/18 09/19/18 09/19/18 11:55 11:55 18:33 WBC 6.7 RBC 3.66 L Hgb 11.6 Hct 33.5 L MCV 91.7 MCH 31.7 H MCHC 34.6 RDW 15.0 H Plt Count 180 MPV 7.8 Neut % (Auto) 63.5 Lymph % (Auto) 20.6 [place] % (Auto) 15.1 H Eos % (Auto) 0.4 Baso % (Auto) 0.4 Neut # (Auto) 4.3 Lymph # (Auto) 1.4 [place] # (Auto) 1.0 H Eos # (Auto) 0.0 Baso # (Auto) 0.0 Sodium 141 Potassium 4.0 Chloride 103 Carbon Dioxide 28 Anion Gap 15 BUN 22 H Creatinine 0.6 L Est GFR ( Amer) > 60 Est GFR (Non-Af Amer) > 60 Random Glucose 109 H Lactic Acid 0.7 Calcium 8.7 Phosphorus Magnesium Total Bilirubin 0.6 AST 43 H ALT 25 Alkaline Phosphatase 71 Total Protein 8.8 H Albumin 3.8 Globulin 5.0 H Albumin/Globulin Ratio 0.8 L Lipase 84 Urine Color Urine Clarity Urine pH Ur Specific [place] Urine Protein Urine Glucose (UA) Urine Ketones Urine Blood Urine Nitrate Urine Bilirubin Urine Urobilinogen Ur Leukocyte Esterase Urine WBC (Auto) Ur Squamous Epith Cells 09/20/18 09/20/18 09/20/18 04:53 06:35 06:35 WBC 4.9 RBC 3.39 L Hgb 10.6 L Hct 30.9 L MCV 91.2 MCH 31.4 H MCHC 34.5 RDW 15.1 H Plt Count 165 MPV 7.9 Neut % (Auto) 55.0 Lymph % (Auto) 26.9 [place] % (Auto) 16.7 H Eos % (Auto) 1.0 Baso % (Auto) 0.4 Neut # (Auto) 2.7 Lymph # (Auto) 1.3 [place] # (Auto) 0.8 Eos # (Auto) 0.1 Baso # (Auto) 0.0 Sodium 137 Potassium 3.8 Chloride 104 Carbon Dioxide 25 Anion Gap 12 BUN 14 Creatinine 0.6 L Est GFR ( Amer) > 60 Est GFR (Non-Af Amer) > 60 Random Glucose 58 L D Lactic Acid Calcium 8.2 L Phosphorus 3.0 Magnesium 1.2 L Total Bilirubin 0.5 AST 41 H ALT 32 Alkaline Phosphatase 61 Total Protein 6.9 Albumin 2.9 L D Globulin 4.0 H Albumin/Globulin Ratio 0.7 L Lipase Urine Color Yellow Urine Clarity Clear Urine pH 5.0 Ur Specific [place] 1.018 Urine Protein Negative Urine Glucose (UA) Normal Urine Ketones Trace Urine Blood Negative Urine Nitrate Negative Urine Bilirubin Negative Urine Urobilinogen Normal Ur Leukocyte Esterase Neg Urine WBC (Auto) 1 Ur Squamous Epith Cells 1 Assessment & Plan (1) Small bowel obstruction Assessment and Plan: Patient has recurrent SBO, 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 The CBD is dilated, but to a lesser degree than was noted before the cholecystectomy. The dilatation of the PD is new, and may be due to stenosis of the papilla following sphincterotomy. Will order MRCP., which can be done electively. Status: Acute
[2018-09-20] MEDS ORDERED: Dextrose 50% SYRINGE Inj (50 ml) IV ONE (09:45)
[2018-09-20] MEDS ORDERED: Dextrose 50% SYRINGE Inj (50 ml) ONE (09:45)
[2018-09-20] MEDS: Dextrose 5%/0.9% NS 1,000 ML IV SCH ×2 (10:02→19:47)
[2018-09-20] MEDS: Magnesium Sulfate 1 gm in D5W 1 GM/100 ML BAG IVPB SCH ×2 (10:05→10:53)
[2018-09-20] MEDS: metroNIDAZOLE IV 500 mg/100 ml 500 MG/100 ML BAG IVPB SCH ×2 (13:43→22:03)
[2018-09-20] MEDS: Ciprofloxacin 400mg/200ml D5W 400 MG/200 ML BAG IVPB SCH (14:42)
--- NOTE | 2018-09-20 14:47 | CP.PCM.PN ---
Subjective - Date & Time of Evaluation Date of Evaluation: 09/20/18 Time of Evaluation: 14:44 - Subjective Subjective: Surgery Progress Note for Dr. Loo 78F seen and evaluated at bedside this morning. NGT output 120cc clear,green fluid over 12 hours. Complaints of discomfort around NGT site and throat. Denies abdominal pain. Patient passed flatus and had BM today. Denies f/c, n/v/d, SOB, CP, or urinary symptoms. Objective - Vital Signs/Intake and Output Vital Signs (last 24 hours): Temp Pulse Resp BP Pulse Ox 98.3 F 93 H 20 103/60 95 09/19/18 18:54 09/19/18 23:42 09/19/18 23:42 09/19/18 23:42 09/19/18 23:42 Intake and Output: 09/20/18 09/20/18 06:59 18:59 Intake Total 960 650 Output Total 123 Balance 837 650 - Medications Medications: Current Medications Benzocaine/Menthol (Cepacol Sore Throat) 1 maren MT Q2 PRN PRN Reason: Sore Throat Heparin Sodium (Porcine) (Heparin) 5,000 units SC Q12 [facility] Last Admin: 09/20/18 09:57 Dose: 5,000 units Dextrose/Sodium Chloride (Dextrose 5%/0.9% Ns 1000 Ml) 1,000 mls @ 100 mls/hr IV .Q10H [facility] Last Admin: 09/20/18 10:02 Dose: 100 mls/hr Ciprofloxacin (Cipro 400mg/200ml Dsw) 400 mg in 200 mls @ 133 mls/hr IVPB Q12H [facility]; Protocol Last Admin: 09/20/18 14:42 Dose: 133 mls/hr Metronidazole (Flagyl) 500 mg in 100 mls @ 100 mls/hr IVPB Q8H [facility]; Protocol Last Admin: 09/20/18 13:43 Dose: 100 mls/hr Ondansetron HCl (Zofran Inj) 4 mg IVP Q4 PRN PRN Reason: Nausea/Vomiting Pantoprazole Sodium (Protonix Inj) 40 mg IVP DAILY [facility] Last Admin: 09/20/18 10:09 Dose: 40 mg Phenol/Menthol (Phenaseptic 1.4% Throat [place]) 1 ml MT Q2 PRN PRN Reason: Sore Throat Pneumococcal Polyvalent Vaccine (Pneumovax 23 Vaccine) 0.5 ml IM .ONCE ONE Stop: 09/22/18 10:01 - Labs Labs: 09/20/18 06:35 09/20/18 06:35 - Constitutional Appears: Well, Non-toxic, No Acute Distress - Head Exam Head Exam: ATRAUMATIC, NORMAL INSPECTION, NORMOCEPHALIC - Eye Exam Eye Exam: EOMI Pupil Exam: PERRL - ENT Exam ENT Exam: Mucous Membranes Moist - Respiratory Exam Respiratory Exam: NORMAL BREATHING PATTERN. absent: Wheezes, Respiratory Distress - Cardiovascular Exam Cardiovascular Exam: REGULAR RHYTHM, +S1, +S2. absent: Murmur - GI/Abdominal Exam GI & Abdominal Exam: Soft, Normal Bowel Sounds. absent: Distended, Guarding, Rigid, Tenderness, Rebound - Neurological Exam Neurological Exam: Alert, Awake, Oriented x3 - Psychiatric Exam Psychiatric exam: Normal Affect, Normal Mood - Skin Skin Exam: Dry, Intact, Normal Color, Warm Assessment and Plan - Assessment and Plan (Free Text) Assessment: 78F w/ SBO, resolving Plan: Discontinued NGT today Advanced to CLD Monitor diet tolerance Monitor bowel function FU Abd Xray in AM Started antibiotics today Cepachol for throat soreness Encourage OOBTC, ambulation D/w Dr. Eze Guevara PGY1
--- NOTE | 2018-09-20 21:50 | CP.PCM.PN ---
Subjective - Date & Time of Evaluation Date of Evaluation: 09/20/18 Time of Evaluation: 21:50 - Subjective Subjective: Patient NG tube was removed. She is more awake and alert. No chest pain or shortness of breath. Poorly eating. Has a BM very mild. We will continue to observe. Tomorrow if the patient tolerating the food possible discharge Objective - Vital Signs/Intake and Output Vital Signs (last 24 hours): Temp Pulse Resp BP Pulse Ox 97.8 F 94 H 20 150/73 95 09/20/18 15:59 09/20/18 15:59 09/20/18 15:59 09/20/18 15:59 09/20/18 15:59 Intake and Output: 09/20/18 09/21/18 18:59 06:59 Intake Total 650 Balance 650 - Medications Medications: Current Medications Benzocaine/Menthol (Cepacol Sore Throat) 1 maren MT Q2 PRN PRN Reason: Sore Throat Heparin Sodium (Porcine) (Heparin) 5,000 units SC Q12 [facility] Last Admin: 09/20/18 09:57 Dose: 5,000 units Dextrose/Sodium Chloride (Dextrose 5%/0.9% Ns 1000 Ml) 1,000 mls @ 100 mls/hr IV .Q10H [facility] Last Admin: 09/20/18 19:47 Dose: Not Given Ciprofloxacin (Cipro 400mg/200ml Dsw) 400 mg in 200 mls @ 133 mls/hr IVPB Q12H [facility]; Protocol Last Admin: 09/20/18 14:42 Dose: 133 mls/hr Metronidazole (Flagyl) 500 mg in 100 mls @ 100 mls/hr IVPB Q8H [facility]; Protocol Last Admin: 09/20/18 13:43 Dose: 100 mls/hr Ondansetron HCl (Zofran Inj) 4 mg IVP Q4 PRN PRN Reason: Nausea/Vomiting Pantoprazole Sodium (Protonix Inj) 40 mg IVP DAILY [facility] Last Admin: 09/20/18 10:09 Dose: 40 mg Phenol/Menthol (Phenaseptic 1.4% Throat [place]) 1 ml MT Q2 PRN PRN Reason: Sore Throat Pneumococcal Polyvalent Vaccine (Pneumovax 23 Vaccine) 0.5 ml IM .ONCE ONE Stop: 09/22/18 10:01 - Labs Labs: 09/20/18 06:35 09/20/18 06:35
[2018-09-21] MEDS: Ciprofloxacin 400mg/200ml D5W 400 MG/200 ML BAG IVPB SCH ×2 (02:58→14:25)
[2018-09-21] MEDS: metroNIDAZOLE IV 500 mg/100 ml 500 MG/100 ML BAG IVPB SCH ×3 (04:38→22:15)
[2018-09-21] MEDS: Dextrose 5%/0.9% NS 1,000 ML IV SCH ×2 (06:37→15:34)
--- NOTE | 2018-09-21 07:13 | CP.PCM.PN ---
Subjective - Date & Time of Evaluation Date of Evaluation: 09/21/18 Time of Evaluation: 07:10 - Subjective Subjective: Surgery Progress Note for Dr. Loo 78F seen and evaluated at bedside this morning. No acute events overnight. No complaints this morning. Tolerating CLD. Passing gas and had 3 soft, formed BM yesterday. Denies f/c, n/v/d, SOB, CP, abd pain, or urinary symptoms. Objective - Vital Signs/Intake and Output Vital Signs (last 24 hours): Temp Pulse Resp BP Pulse Ox 97.8 F 67 20 105/60 97 09/20/18 23:28 09/20/18 23:28 09/20/18 23:28 09/20/18 23:28 09/20/18 23:28 Intake and Output: 09/21/18 09/21/18 06:59 18:59 Intake Total 1999 Balance 1999 - Medications Medications: Current Medications Benzocaine/Menthol (Cepacol Sore Throat) 1 maren MT Q2 PRN PRN Reason: Sore Throat Heparin Sodium (Porcine) (Heparin) 5,000 units SC Q12 [facility] Last Admin: 09/20/18 22:03 Dose: 5,000 units Dextrose/Sodium Chloride (Dextrose 5%/0.9% Ns 1000 Ml) 1,000 mls @ 100 mls/hr IV .Q10H [facility] Last Admin: 09/21/18 06:37 Dose: Not Given Ciprofloxacin (Cipro 400mg/200ml Dsw) 400 mg in 200 mls @ 133 mls/hr IVPB Q12H [facility]; Protocol Last Admin: 09/21/18 02:58 Dose: 133 mls/hr Metronidazole (Flagyl) 500 mg in 100 mls @ 100 mls/hr IVPB Q8H [facility]; Protocol Last Admin: 09/21/18 04:38 Dose: 100 mls/hr Ondansetron HCl (Zofran Inj) 4 mg IVP Q4 PRN PRN Reason: Nausea/Vomiting Pantoprazole Sodium (Protonix Inj) 40 mg IVP DAILY [facility] Last Admin: 09/20/18 10:09 Dose: 40 mg Phenol/Menthol (Phenaseptic 1.4% Throat [place]) 1 ml MT Q2 PRN PRN Reason: Sore Throat Pneumococcal Polyvalent Vaccine (Pneumovax 23 Vaccine) 0.5 ml IM .ONCE ONE Stop: 09/22/18 10:01 - Labs Labs: 09/20/18 06:35 09/20/18 06:35 - Constitutional Appears: Well, Non-toxic, No Acute Distress - Head Exam Head Exam: ATRAUMATIC, NORMAL INSPECTION, NORMOCEPHALIC - Eye Exam Eye Exam: EOMI - ENT Exam ENT Exam: Mucous Membranes Moist - Respiratory Exam Respiratory Exam: NORMAL BREATHING PATTERN. absent: Wheezes, Respiratory Distress - Cardiovascular Exam Cardiovascular Exam: REGULAR RHYTHM, +S1, +S2. absent: Murmur - GI/Abdominal Exam GI & Abdominal Exam: Soft, Normal Bowel Sounds. absent: Distended, Guarding, Tenderness, Hernia, Mass, Rebound - Neurological Exam Neurological Exam: Alert, Awake, Oriented x3 - Psychiatric Exam Psychiatric exam: Normal Affect, Normal Mood - Skin Skin Exam: Dry, Intact, Normal Color, Warm Assessment and Plan - Assessment and Plan (Free Text) Assessment: 78F w/ SBO, resolving Plan: FU abd xray today Will advance diet today Monitor diet tolerance Monitor bowel function Antiemetics and analgesics PRN Encourage OOBTC and ambulation Further recommendations pending attending evaluation Adalid Guevara PGY1
[2018-09-21 08:11] LABS: BASO % 0.3 % (0.0-2.0); EOS % 0.9 % (0.0-4.0); HEMOGLOBIN 11.1 g/dL (11.0-16.0); LYMPH # 1.2 K/uL (1.0-4.3); LYMPH % 34.6 % (20.0-40.0); MEAN CELL VOLUME 90.6 fL (81.0-99.0); MEAN CORPUSCULAR HEMOGLOBIN 31.2 pg (27.0-31.0); MEAN CORPUSCULAR HGB CONC 34.5 g/dL (33.0-37.0); MONO # 0.7 K/uL (0.0-0.8); MONO % 21.2 % (0.0-10.0); NEUT # 1.5 K/uL (1.8-7.0); NRBC % 0.1 % (0.0-2.0); PLATELET COUNT 176 K/uL (130-400); RBC 3.54 Mil/uL (3.80-5.20); RED CELL DISTRIBUTION WIDTH 15.4 % (11.5-14.5); WHITE BLOOD COUNT 3.5 K/uL (4.8-10.8)
[2018-09-21 08:25] LABS: BLOOD UREA NITROGEN 9 mg/dL (7-17); CALCIUM 8.4 mg/dl (8.6-10.4); GFR NON-AFRICAN AMERICAN > 60
--- NOTE | 2018-09-21 09:24 | RAD ---
Date of service: 09/21/2018 HISTORY: SBO COMPARISON: None available. TECHNIQUE: Two view obtained. FINDINGS: BOWEL: Normal bowel gas pattern. No evidence of obstruction. This small amount of residual oral contrast seen within the sigmoid colon. BONES: Normal. OTHER FINDINGS: None. IMPRESSION: No active disease.
[2018-09-21 10:30] LABS: BANDS 1 % (0-2); EOSINOPHIL 1 % (0-4); LYMPHOCYTE 32 % (20-40); MONOCYTE 22 % (0-10); NEUTROPHIL 43 % (50-75); PLATELET ESTIMATE NORMAL (NORMAL); REACTIVE LYMPHOCYTES 1 % (0-0); TOTAL CELLS COUNTED 100
[2018-09-21 10:31] LABS: ANISOCYTOSIS SLIGHT; TARGET CELLS SLIGHT
[2018-09-21] MEDS ORDERED: Magnesium Sulfate 1 gm in D5W 1 GM/100 ML BAG IVPB SCH (18:15)
--- NOTE | 2018-09-21 21:57 | CP.PCM.PN ---
Subjective - Date & Time of Evaluation Date of Evaluation: 09/21/18 Time of Evaluation: 21:56 - Subjective Subjective: Patient is sitting up comfortably. Able to eat this morning without any problem. No nausea no vomiting no abdominal pain no abdominal distention. Bowel movements are okay. She had at least a small bowel movements today. Vital signs are stable chest good air entry regular heart sounds abdomen soft nontender Appreciate the surgical evaluation. Clinically patient is stable. If there is no more vomiting, possible discharge plan tomorrow. We will discharge the patient tomorrow if she is stable Objective - Vital Signs/Intake and Output Vital Signs (last 24 hours): Temp Pulse Resp BP Pulse Ox 98.0 F 78 20 132/72 100 09/21/18 15:45 09/21/18 15:45 09/21/18 15:45 09/21/18 15:45 09/21/18 15:45 Intake and Output: 09/21/18 09/22/18 18:59 06:59 Intake Total 350 Balance 350 - Medications Medications: Current Medications Benzocaine/Menthol (Cepacol Sore Throat) 1 maren MT Q2 PRN PRN Reason: Sore Throat Heparin Sodium (Porcine) (Heparin) 5,000 units SC Q12 [facility] Last Admin: 09/21/18 09:54 Dose: 5,000 units Dextrose/Sodium Chloride (Dextrose 5%/0.9% Ns 1000 Ml) 1,000 mls @ 100 mls/hr IV .Q10H [facility] Last Admin: 09/21/18 15:34 Dose: Not Given Ciprofloxacin (Cipro 400mg/200ml Dsw) 400 mg in 200 mls @ 133 mls/hr IVPB Q12H [facility]; Protocol Last Admin: 09/21/18 14:25 Dose: 133 mls/hr Metronidazole (Flagyl) 500 mg in 100 mls @ 100 mls/hr IVPB Q8H [facility]; Protocol Last Admin: 09/21/18 14:29 Dose: 100 mls/hr Ondansetron HCl (Zofran Inj) 4 mg IVP Q4 PRN PRN Reason: Nausea/Vomiting Pantoprazole Sodium (Protonix Inj) 40 mg IVP DAILY [facility] Last Admin: 09/21/18 09:54 Dose: 40 mg Phenol/Menthol (Phenaseptic 1.4% Throat [place]) 1 ml MT Q2 PRN PRN Reason: Sore Throat Pneumococcal Polyvalent Vaccine (Pneumovax 23 Vaccine) 0.5 ml IM .ONCE ONE Stop: 09/22/18 10:01 Potassium Chloride (K-Dur 20 Meq Er Tab) 40 meq PO DAILY [facility] - Labs Labs: 09/21/18 08:04 09/21/18 08:04
[2018-09-22] MEDS: Dextrose 5%/0.9% NS 1,000 ML IV SCH ×2 (01:39→13:05)
[2018-09-22] MEDS: Ciprofloxacin 400mg/200ml D5W 400 MG/200 ML BAG IVPB SCH (01:40)
[2018-09-22] MEDS: metroNIDAZOLE IV 500 mg/100 ml 500 MG/100 ML BAG IVPB SCH ×2 (04:42→13:05)
--- NOTE | 2018-09-22 08:02 | CP.PCM.PN ---
Subjective - Date & Time of Evaluation Date of Evaluation: 09/22/18 Time of Evaluation: 07:59 - Subjective Subjective: Patient denies having nausea, vomiting, abdominal pain. She is tolerating a regular diet. She had a formed bowel movement this morning. Objective - Vital Signs/Intake and Output Vital Signs (last 24 hours): Temp Pulse Resp BP Pulse Ox 97.8 F 75 20 127/71 97 09/21/18 23:29 09/21/18 23:29 09/21/18 23:29 09/21/18 23:29 09/21/18 23:29 Intake and Output: 09/22/18 09/22/18 06:59 18:59 Intake Total 1890 Balance 1890 - Medications Medications: Current Medications Benzocaine/Menthol (Cepacol Sore Throat) 1 maren MT Q2 PRN PRN Reason: Sore Throat Heparin Sodium (Porcine) (Heparin) 5,000 units SC Q12 [facility] Last Admin: 09/21/18 22:14 Dose: 5,000 units Dextrose/Sodium Chloride (Dextrose 5%/0.9% Ns 1000 Ml) 1,000 mls @ 100 mls/hr IV .Q10H [facility] Last Admin: 09/22/18 01:39 Dose: 100 mls/hr Ciprofloxacin (Cipro 400mg/200ml Dsw) 400 mg in 200 mls @ 133 mls/hr IVPB Q12H [facility]; Protocol Last Admin: 09/22/18 01:40 Dose: 133 mls/hr Metronidazole (Flagyl) 500 mg in 100 mls @ 100 mls/hr IVPB Q8H [facility]; Protocol Last Admin: 09/22/18 04:42 Dose: 100 mls/hr Ondansetron HCl (Zofran Inj) 4 mg IVP Q4 PRN PRN Reason: Nausea/Vomiting Pantoprazole Sodium (Protonix Inj) 40 mg IVP DAILY [facility] Last Admin: 09/21/18 09:54 Dose: 40 mg Phenol/Menthol (Phenaseptic 1.4% Throat [place]) 1 ml MT Q2 PRN PRN Reason: Sore Throat Pneumococcal Polyvalent Vaccine (Pneumovax 23 Vaccine) 0.5 ml IM .ONCE ONE Stop: 09/22/18 10:01 Potassium Chloride (K-Dur 20 Meq Er Tab) 40 meq PO DAILY [facility] - Labs Labs: 09/21/18 08:04 05/16/19 08:04 - Constitutional Appears: No Acute Distress - Head Exam Head Exam: ATRAUMATIC, NORMOCEPHALIC - Eye Exam Eye Exam: EOMI, PERRL - Neck Exam Neck Exam: absent: Lymphadenopathy, Thyromegaly - Respiratory Exam Respiratory Exam: NORMAL BREATHING PATTERN. absent: Rales, Rhonchi, Wheezes - Cardiovascular Exam Cardiovascular Exam: REGULAR RHYTHM, +S1, +S2. absent: Gallop, Rubs, Murmur - GI/Abdominal Exam GI & Abdominal Exam: Soft, Normal Bowel Sounds. absent: Tenderness, Mass, Organomegaly - Rectal Exam Rectal Exam: Deferred - Extremities Exam Extremities Exam: absent: Calf Tenderness, Pedal Edema Assessment and Plan (1) Small bowel obstruction Assessment & Plan: SBO has resolved. Patient is tolerating a regular diet and having formed bowel movements. The new finding of a dilated pancreatic duct should be evaluated with MRCP, which can be arranged as an outpatient. Patient will follow up in the office in 1-2 weeks. Status: Acute
[2018-09-22 08:12] VITALS: BP 132/69; PULSE 73; TEMP 97.6; O2SAT 96
[2018-09-22 08:22] LABS: BASO % 0.2 % (0.0-2.0); EOS % 1.2 % (0.0-4.0); HEMOGLOBIN 10.6 g/dL (11.0-16.0); LYMPH % 29.8 % (20.0-40.0); MEAN CELL VOLUME 90.5 fL (81.0-99.0); MEAN CORPUSCULAR HEMOGLOBIN 31.8 pg (27.0-31.0); MEAN CORPUSCULAR HGB CONC 35.1 g/dL (33.0-37.0); MEAN PLATELET VOLUME 8.1 fL (7.2-11.7); MONO # 0.8 K/uL (0.0-0.8); MONO % 23.1 % (0.0-10.0); NEUT # 1.6 K/uL (1.8-7.0); NEUT % 45.7 % (50.0-75.0); NRBC % 0.2 % (0.0-2.0); PLATELET COUNT 176 K/uL (130-400); RBC 3.34 Mil/uL (3.80-5.20); RED CELL DISTRIBUTION WIDTH 14.9 % (11.5-14.5); WHITE BLOOD COUNT 3.4 K/uL (4.8-10.8)
[2018-09-22 08:40] LABS: BLOOD UREA NITROGEN 6 mg/dL (7-17); CALCIUM 8.3 mg/dl (8.6-10.4); GFR NON-AFRICAN AMERICAN > 60
--- NOTE | 2018-09-22 09:29 | CP.PCM.DIS ---
Provider - Provider Date of Admission: 09/19/18 17:12 Attending physician: Nery Herman MD Consults: 09/19/18 17:13 Physician Consult Stat Comment: mechanical SBO Consulting Provider: Tre Loo Consulting Physician: Tre Loo Reason for Consult: surgery Additional Comments: resident spoken with 09/19/18 22:00 Gastroenterology Consult Routine Comment: Consulting Provider: Don Colmenares Consulting Physician: Don Colmenares Reason for Consult: ?ampullary stricture, enteritis Time Spent in preparation of Discharge (in minutes): 45 Hospital Course - Lab Results Lab Results: Most Recent Lab Values WBC 3.4 K/uL (4.8-10.8) L 09/22/18 08:09 RBC 3.34 Mil/uL (3.80-5.20) L 09/22/18 08:09 Hgb 10.6 g/dL (11.0-16.0) L 09/22/18 08:09 Hct 30.2 % (34.0-47.0) L 09/22/18 08:09 MCV 90.5 fL (81.0-99.0) 09/22/18 08:09 MCH 31.8 pg (27.0-31.0) H 09/22/18 08:09 MCHC 35.1 g/dL (33.0-37.0) 09/22/18 08:09 RDW 14.9 % (11.5-14.5) H 09/22/18 08:09 Plt Count 176 K/uL (130-400) 09/22/18 08:09 MPV 8.1 fL (7.2-11.7) 09/22/18 08:09 Neut % (Auto) 45.7 % (50.0-75.0) L 09/22/18 08:09 Lymph % (Auto) 29.8 % (20.0-40.0) 09/22/18 08:09 [place] % (Auto) 23.1 % (0.0-10.0) H 09/22/18 08:09 Eos % (Auto) 1.2 % (0.0-4.0) 09/22/18 08:09 Baso % (Auto) 0.2 % (0.0-2.0) 09/22/18 08:09 Neut # (Auto) 1.6 K/uL (1.8-7.0) L 09/22/18 08:09 Lymph # (Auto) 1.0 K/uL (1.0-4.3) 09/22/18 08:09 [place] # (Auto) 0.8 K/uL (0.0-0.8) 09/22/18 08:09 Eos # (Auto) 0.0 K/uL (0.0-0.7) 09/22/18 08:09 Baso # (Auto) 0.0 K/uL (0.0-0.2) 09/22/18 08:09 Neutrophils % (Manual) 43 % (50-75) L 09/21/18 08:04 Band Neutrophils % 1 % (0-2) 09/21/18 08:04 Lymphocytes % (Manual) 32 % (20-40) 09/21/18 08:04 Reactive Lymphs % 1 % (0-0) H 09/21/18 08:04 Monocytes % (Manual) 22 % (0-10) H 09/21/18 08:04 Eosinophils % (Manual) 1 % (0-4) 09/21/18 08:04 Platelet Estimate Normal (NORMAL) 09/21/18 08:04 Anisocytosis (manual) Slight 09/21/18 08:04 Target Cells Slight 09/21/18 08:04 Sodium 136 mmol/L (132-148) 09/22/18 08:09 Potassium 4.0 mmol/L (3.6-5.2) 09/22/18 08:09 Chloride 103 mmol/L (98-107) 09/22/18 08:09 Carbon Dioxide 28 mmol/L (22-30) 09/22/18 08:09 Anion Gap 9 (10-20) L 09/22/18 08:09 BUN 6 mg/dL (7-17) L 09/22/18 08:09 Creatinine 0.6 mg/dL (0.7-1.2) L 09/22/18 08:09 Est GFR ( Amer) > 60 09/22/18 08:09 Est GFR (Non-Af Amer) > 60 09/22/18 08:09 POC Glucose (mg/dL) 106 mg/dL (65-110) 09/22/18 07:34 Random Glucose 92 mg/dL (65-105) 09/22/18 08:09 Lactic Acid 0.7 mmol/L (0.7-2.1) 09/19/18 18:33 Calcium 8.3 mg/dl (8.6-10.4) L 09/22/18 08:09 Phosphorus 3.0 mg/dL (2.5-4.5) 09/20/18 06:35 Magnesium 1.2 mg/dL (1.6-2.3) L 09/20/18 06:35 Total Bilirubin 0.5 mg/dL (0.2-1.3) 09/20/18 06:35 AST 41 U/L (14-36) H 09/20/18 06:35 ALT 32 U/L (9-52) 09/20/18 06:35 Alkaline Phosphatase 61 U/L (38-126) 09/20/18 06:35 Total Protein 6.9 g/dL (6.3-8.3) 09/20/18 06:35 Albumin 2.9 g/dL (3.5-5.0) L D 09/20/18 06:35 Globulin 4.0 gm/dL (2.2-3.9) H 09/20/18 06:35 Albumin/Globulin Ratio 0.7 (1.0-2.1) L 09/20/18 06:35 Lipase 84 U/L (23-300) 09/19/18 11:55 Urine Color Yellow (YELLOW) 09/20/18 04:53 Urine Clarity Clear (Clear) 09/20/18 04:53 Urine pH 5.0 (5.0-8.0) 09/20/18 04:53 Ur Specific [place] 1.018 (1.003-1.030) 09/20/18 04:53 Urine Protein Negative mg/dL (NEGATIVE) 09/20/18 04:53 Urine Glucose (UA) Normal mg/dL (Normal) 09/20/18 04:53 Urine Ketones Trace mg/dL (NEGATIVE) 09/20/18 04:53 Urine Blood Negative (NEGATIVE) 09/20/18 04:53 Urine Nitrate Negative (NEGATIVE) 09/20/18 04:53 Urine Bilirubin Negative (NEGATIVE) 09/20/18 04:53 Urine Urobilinogen Normal mg/dL (0.2-1.0) 09/20/18 04:53 Ur Leukocyte Esterase Neg Michael/uL (Negative) 09/20/18 04:53 Urine WBC (Auto) 1 /hpf (0-5) 09/20/18 04:53 Ur Squamous Epith Cells 1 /hpf (0-5) 09/20/18 04:53 - Hospital Course Hospital Course: Chief complaint: Abdominal pain for 1 week duration HPI: 78-year-old female with a history of rheumatoid arthritis, osteoporosis, osteoarthritis currently on biological agents came to er for abd pain. Patient was complaining of on and off abdominal discomfort. But recently had abdominal pain got worse. She also started having increasingly abdominal distention, few episodes of nausea, but no vomiting. Yesterday patient had a bowel movements. But as the abdomen got more distended he came into the emergency room. She did not have any fever. She did not have any chills. No cough noted. Denies any other major active systemic symptoms. Patient is being treated for ongoing rheumatoid arthritis with the biological agent Patient last year admitted with the abdominal pain, underwent cholecystectomy. Also patient had a episode of ileus last time, treated conservatively But continues to have a poor appetite, now some improvement noted. Seen by business executive, ironmolder. Past medical history: Pre-diabetes, rheumatoid arthritis, osteoarthritis, osteoporosis Surgical history: Appendectomy, cholecystectomy, ERCP. Family history: Parents of natural cause. Siblings no health issues. 2 daughters Social history: No alcohol or smoking Drinks coffee daily. Currently able to walk. Current medication: Prolia injection, Enbrel, Zantac. Patient is being also seen by Dr. Velez, Dr. Young Review of system: On and off headache, and associated migraine noted. Patient is complaining of loss of weight, loss of appetite. Also complaining of abdominal distention, intermittent abdominal pain, nausea. No fever no chills. Recurrent symptoms in the past. When she gets that rheumatoid exacerbation patient gets epigastric pain, nausea, vomiting episodes. On examination: Vital signs stable. Partial dental noted Regular heart sounds Nontender abdomen, minimal distention present with tympanic in character Extremities no pedal edema PATIENT COORDINATOR FRONT DESK alert awake oriented 3 Regular heart sound. Chest bilateral good air entry Patient's labs reviewed Nonspecific. Chest x-ray left diaphragm is elevated and a gas shadow noted Obstructive series of the abdomen showing evidence of diffuse paralytic ileus pattern noted CAT scan of the abdomen showing evidence of small bowel obstruction. Right lower quadrant point of obstruction noted. Possible enteritis. Mild bile and pancreatic ductal dilatation. Assessment and recommendation: 78-year-old female came to the office with a history of osteoporosis, rheumatoid arthritis, and biological agents including Prolia, Enbrel. Hypertension. Stable. Prediabetes. Weight loss noted. Patient also mildly emaciated, weakness. Patient now admitted to the hospital with the acute intestinal obstruction small bowel obstruction. There is a concern about enteritis causing the obstruction. There is also evidence of dilated pancreatic, biliary duct. Ampullary stricture, versus neoplasm cannot be ruled out. Patient is currently n.p.o. We will continue with IV fluid. DVT and GI prophylaxis. Will get GI evaluation also. Appreciate the surgical evaluation. And will follow the patient Course in the hospital: Patient was admitted to the hospital with the diagnosis of acute intestinal obstruction mostly of small bowel, with a transition in the terminal ileum area. Patient was seen by pearl glue operator. Patient was placed on NG tube suction, after 24-hour patient started showing significant improvement in the abdomen, and also had a bowel movements, no vomiting no nausea. Patient was tolerating the oral feeding. Clinically now stable. Because of the dilated pancreatic duct I called the pearl glue operator. Patient was seen by Dr. Velez. As the pearl glue operator suggested patient can be seen as an outpatient for possible MRCP for the evaluation of the pancreatic duct dilatation. Patient is clinically stable. She can be discharged home she will follow-up as an outpatient in my office in 2 weeks. Final diagnosis: Intestinal obstruction small bowel Rheumatoid arthritis. Biliary ductal dilatation. Hypoglycemic episode. Weight loss. Discharge Exam - Head Exam Head Exam: ATRAUMATIC, NORMOCEPHALIC Discharge Plan - Discharge Medications Prescriptions: Ciprofloxacin [Cipro] 500 mg PO BID #5 tab metroNIDAZOLE [Flagyl] 500 mg PO DAILY #5 tab - Follow Up Plan Condition: GOOD Disposition: HOME/ ROUTINE Additional Instructions: Please take antibiotic medications as prescribed. Referrals: Tre Loo MD [Staff Provider] -
[2018-09-22 09:44] LABS: EOSINOPHIL 1 % (0-4); LYMPHOCYTE 26 % (20-40); MONOCYTE 19 % (0-10); NEUTROPHIL 54 % (50-75); PLATELET ESTIMATE NORMAL (NORMAL); TOTAL CELLS COUNTED 100
[2018-09-22 09:46] LABS: TARGET CELLS SLIGHT
[2018-09-22] MEDS ORDERED: Potassium Chloride 20 mEq ER Tab PO SCH (10:00)
[2018-09-22] MEDS ORDERED: Pneumococcal 23-Valent Vaccine IM ONE (10:00)
== END 2018-09-22 13:25 | disposition home or self-care (01) | DRG 388 ==
LOC: C.ER 11:14 → C.3T 17:12
PROVIDERS: ADMIT Internal Medicine; ATTEND Internal Medicine
DX: K56.609 Unspecified intestinal obstruction, unspecified as to partial versus complete obstruction (principal); K83.1 Obstruction of bile duct; E11.649 Type 2 diabetes mellitus with hypoglycemia without coma; I10 Essential (primary) hypertension; R63.4 Abnormal weight loss; M06.9 Rheumatoid arthritis, unspecified; K52.9 Noninfective gastroenteritis and colitis, unspecified; E05.90 Thyrotoxicosis, unspecified without thyrotoxic crisis or storm; M81.0 Age-related osteoporosis without current pathological fracture; G43.909 Migraine, unspecified, not intractable, without status migrainosus; K86.89 Other specified diseases of pancreas; D64.9 Anemia, unspecified; Z90.49 Acquired absence of other specified parts of digestive tract; Z86.010 Personal history of colon polyps; Z87.891 Personal history of nicotine dependence